=== PATIENT | male | born 1960 | race Caucasian/White ===

== ENCOUNTER 2019-11-12 06:42 | Outpatient (RCR) | payer OTHER, SELFPAY ==
[2019-11-12 07:19] LABS: Basophils Absolute Auto 0.1 K/mm3 (0.0-0.1); Basophils Percent Auto 0.7 % (0.2-1.2); Eosinophils Absolute Auto 0.3 K/mm3 (0-0.3); Eosinophils Percent Auto 2.7 % (0-4.4); Hematocrit 22.4 % (42.0-52.0); Immature Granulocyte Absolute 0.19 K/mm3 (0.00-0.031); Immature Granulocyte Percent A 1.9 % (0-0.5); Lymphocytes Absolute Auto 1.01 K/mm3 (0.9-3.2); Lymphocytes Percent Auto 9.9 % (18.3-44.2); Mean Corpuscular HGB Conc 31.3 g/dl (32-36); Mean Corpuscular Hemoglobin 28.1 pg (26-34); Mean Platelet Volume 10.1 fl (7.4-10.4); Monocytes Absolute Auto 1.2 K/mm3 (0.1-0.6); Monocytes Percent Auto 11.6 % (2.6-8.5); Neutrophils Absolute Auto 7.5 K/mm3 (1.3-6.7); Neutrophils Percent Auto 73.2 % (45.5-73.1); Nucleated Red Blood Cells Perc 0.3 % (0.0-0.2); Platelet Count Result 307 k/mm3 (150-375); Red Blood Count 2.49 M/mm3 (4.6-6.20); White Blood Count 10.2 K/mm3 (4.5-10.0)
[2019-11-12 09:00] VITALS: BP 143/71; PULSE 88; RESP 16; TEMP 37.2; O2SAT 100
[2019-11-12] MEDS: SODIUM CHLORIDE 0.9% IV 250 ML 30 ML IV CONT (09:00)
[2019-11-12 09:15] VITALS: BP 139/65; PULSE 84; RESP 16; TEMP 37; O2SAT 100
[2019-11-12 10:15] VITALS: BP 133/68; PULSE 86; RESP 16; TEMP 37.1; O2SAT 100
[2019-11-12 11:00] VITALS: BP 135/63; PULSE 87; RESP 16; TEMP 36.9; O2SAT 100
== END 2020-02-10 23:59 | disposition home or self-care (01) ==
LOC: ANHCPCTRAN 06:42
PROVIDERS: PCP Internal Medicine; Visit Provider Internal Medicine Nephrology
DX: E11.22 Type 2 diabetes mellitus with diabetic chronic kidney disease (principal); N18.5 Chronic kidney disease, stage 5; D63.1 Anemia in chronic kidney disease; D53.1 Other megaloblastic anemias, not elsewhere classified
CPT/HCPCS: 36415; 36430; 85025; 86850; 86900; 86901; 86923; J7050; P9016

== ENCOUNTER 2020-07-17 16:54 | Emergency (ER) | payer OTHER, SELFPAY ==
[2020-07-17] VITALS (7 sets, daily range): BP systolic 159–164; BP diastolic 70–73; PULSE 87–97; RESP 16–32; TEMP 36.7; O2SAT 98–100
--- NOTE | ~2020-07-17 | CT_ITS ---
EXAMINATION: CT brain wo con INDICATION: Weakness and fatigue, body aches COMPARISON: None TECHNIQUE: Standard unenhanced head CT. The dose-length product (DLP) was 605.33 mGy-cm. The mA was a djusted according to patient size. Iterative reconstruction technique was employed. FINDINGS: There is no intracranial hemorrhage, acute infarction, or abnormal mass lesion. The ventric les are normal. There is no abnormal mass effect or midline shift. The cadet-white matter differentiat ion is normal. The basal cisterns are patent. The orbits are normal. The paranasal sinuses, mastoids and calvarium are normal. IMPRESSION: 1. No acute intracranial abnormality. Reviewed, dictated and finalized at location A. LECTURER
--- NOTE | ~2020-07-17 | XR_ITS ---
EXAMINATION: XR chest 1V portable INDICATION: Weakness and cough TECHNIQUE: Portable AP chest at 1749 hours COMPARISON: None available FINDINGS: There are airspace opacities of the mid and lower lung zones. No pleural effusion or pneumo thorax is identified. The cardiomediastinal silhouette is normal. IMPRESSION: 1. Airspace opacities of the mid and lower lung zones, consistent with atelectasis versus pneumonia. Reviewed, dictated and finalized at location A. OGRAPHER IMPRESSION: 1. Airspace opacities of the mid and lower lung zones, consistent with atelecta sis versus pneumonia.
--- NOTE | 2020-07-17 17:24 | ED.GENADULT ---
HPI - General Adult General Chief complaint: Recheck/Abnormal Lab/Rx Stated complaint: missed dialysis Time Seen by Provider: 07/17/20 17:10 Source: patient History of Present Illness HPI narrative: Patient is a 60 y/o male complaining of moderate to severe generalized weakness for last 2 days. There is no alleviating or exacerbating factor. He is able to walk. He has some no fever, SOB or chest pain. He has some cough, which attributed to chronic sinus problem. He also feels some numbness on his head. He has no focal weakness or numbness. He does home dialysis 5 times weekly for ESRD. He states that he did not do dialysis today because he was not feeling well. Related Data Home Medications Medication Instructions Recorded Confirmed diltiazem HCl 120 mg 120 mg PO DAILY 07/01/19 capsule,extended release 24 hr ergocalciferol (vitamin D2) 50 mcg 50 mcg PO DAILY 07/01/19 (2,000 unit) capsule fluticasone propionate 50 2 spray NASAL DAILY 07/01/19 mcg/actuation nasal spray,suspension metoprolol succinate 200 mg 200 mg PO DAILY 08/11/19 tablet,extended release 24 hr furosemide 20 mg tablet 40 mg PO DAILY tablet 11/11/19 atorvastatin 07/17/20 Allergies Allergy/AdvReac Type Severity Reaction Status Date / Time No Known Allergies Allergy Verified 07/17/20 17:21 Review of Systems Constitutional: Constitutional: Denies chills, Denies fever(s), Denies headache(s) and Reports weakness Eyes: Eyes: Denies blurry vision ENT: Denies headache(s) and Denies neck pain Cardiovascular: Cardiovascular: Denies chest pain and Denies dyspnea Respiratory: Respiratory: Denies cough and Denies dyspnea Gastrointestinal: Gastrointestinal: Denies abdominal pain, Denies diarrhea, Denies nausea and Denies vomiting Genitourinary: Genitourinary: Denies hematuria and Denies dysuria Musculoskeletal: Musculoskeletal: Denies back pain and Denies neck pain Neurologic: Denies headache(s), Reports numbness and Reports weakness PMFSH Family History Family History Father Hypertension Social History Social History Gender identity (if verbalized by the patient): Male Exam Const: General: no acute distress and well developed Orientation/consciousness: oriented to person, oriented to place, oriented to time and patient oriented x3 HENMT: Head: normocephalic Ears: external ears normal General nose exam: Normal external nose present Eyes: General: appearance normal, both eyes and all related structures Conjunctivae: conjunctivae normal Neck: Neck: normal visual inspection and full ROM Chest: Chest palpation & inspection: normal inspection of the chest and no tenderness Resp: Effort & Inspection: normal respiratory effort Auscultation: clear to auscultation bilaterally Cardio: Rate: regular rate Rhythm: regular rhythm GI: GI Palp: No abdominal tenderness and Yes Soft to palpation Skin: General skin exam: normal color and turgor normal Neuro: General: oriented to person, oriented to place, oriented to time and patient oriented x3 Cranial nerves: Yes CN's II-XII intact bilaterally Cognition (Neuro): normal cognition Speech: normal speech Motor exam (neuro): 5/5 motor strength present throughout Sensory Exam: normal sensation Coordination: [id number] test normal and [id number] test normal Extrem: General: normal to inspection, full ROM and no pedal edema Psych: Appearance: grossly normal Mental Status: mental status grossly normal Affect: normal affect Course Reevaluation(s) Reevaluation #1: Discussed with Dr. Brothers (nephrology), who recommend discharge and have patient do dialysis at home as soon as possible. This recommendation was relayed to the patient. Date: 07/17/20 Time: 19:02 Vital Signs Vital signs: Vital Signs Temperature 36.7 C 07/17/20 17:03 Pulse Rate 88 07/17/20 17:03 Resp
--- NOTE | 2020-07-17 17:26 | ECG_ITS ---
Measurements Intervals [place] Rate: 89 P: 73 UT: 133 QRS: 39 QRSD: 92 T: 64 QT: 338 QTc: 412 Interpretive Statements SINUS RHYTHM CANNOT RULE OUT SEPTAL INFARCT, AGE INDETERMINATE PEAKED T WAVES- CONSIDER HYPERKALEMIA OR ISCHEMIA BASELINE ARTIFACT- I, II, AVR, AVL, V2 ABNORMAL ECG Electronically Signed On 07-18-2020 13:47:25 LOOP TENDER by John Art D.O.
[2020-07-17 17:49] LABS: Basophils Absolute Auto 0.1 K/mm3 (0.0-0.1); Basophils Percent Auto 0.5 % (0.2-1.2); Eosinophils Absolute Auto 0.2 K/mm3 (0-0.3); Hematocrit 31.5 % (42.0-52.0); Hemoglobin 10.5 g/dL (14.0-18.0); Immature Granulocyte Absolute 0.06 K/mm3 (0.00-0.031); Immature Granulocyte Percent A 0.6 % (0-0.5); Lymphocytes Absolute Auto 1.17 K/mm3 (0.9-3.2); Lymphocytes Percent Auto 10.9 % (18.3-44.2); Mean Corpuscular HGB Conc 33.3 g/dl (32-36); Mean Corpuscular Hemoglobin 34.5 pg (26-34); Mean Corpuscular Volume 103.6 fl (80-100); Mean Platelet Volume 10.5 fl (7.4-10.4); Monocytes Absolute Auto 0.9 K/mm3 (0.1-0.6); Monocytes Percent Auto 8.7 % (2.6-8.5); Neutrophils Absolute Auto 8.3 K/mm3 (1.3-6.7); Neutrophils Percent Auto 77.3 % (45.5-73.1); Platelet Count Result 173 k/mm3 (150-375); Red Blood Count 3.04 M/mm3 (4.6-6.20); Red Cell Distribution Width 13.8 % (11.5-14.5); White Blood Count 10.8 K/mm3 (4.5-10.0)
[2020-07-17 18:05] LABS: Anion Gap 17 mmol/L (8-16); Blood Urea Nitrogen 111 mg/dL (9-20); Calcium 8.9 mg/dL (8.4-10.2); Carbon Dioxide 20 mmol/L (22-30); Chloride 100 mmol/L (98-107); Estimated CRCL calculation 6 ml/min; Estimated Glomerular Filt Rate 4; Glucose 87 mg/dL (75-110); Potassium 6.2 mmol/L (3.4-5.0); Sodium 137 mmol/L (137-145)
[2020-07-17] MEDS: DEXTROSE 50% 25 GM/50 ML SYRINGE IV PUSH (19:45)
[2020-07-17] MEDS: SODIUM POLYSTYRENE SULFONONATE 15 GM/60 ML BTL 30 GM PO (19:47)
[2020-07-17] MEDS: SODIUM BICARBONATE 8.4% 50 MEQ/50 ML VIAL IV PUSH (19:47)
[2020-07-17] MEDS: CALCIUM GLUCONATE 1,000 MG/10 ML VIAL 1000 MG IV PUSH (19:47)
[2020-07-17] MEDS: INSULIN HUMAN REGULAR (*BKC) 100 UNITS/ML 10 UNITS IV PUSH (19:48)
== END 2020-07-17 22:00 | disposition home or self-care (01) ==
PROVIDERS: Emergency Provider Emergency Medicine; PCP Internal Medicine
DX: R53.1 Weakness (principal); E87.5 Hyperkalemia; N18.6 End stage renal disease; Z99.2 Dependence on renal dialysis
CPT/HCPCS: 36415; 70450; 71045; 80048; 84132; 85025; 93005; 96374; 96375; 99284; A9270; J0610; J1815

== ENCOUNTER 2021-04-02 17:20 | Outpatient (NON) | payer OTHER, SELFPAY ==
[2021-04-02 17:38] LABS: Hematocrit 24.2 % (42.0-52.0); Hemoglobin 7.7 g/dL (14.0-18.0); Mean Corpuscular HGB Conc 31.8 g/dl (32-36); Mean Corpuscular Hemoglobin 32.8 pg (26-34); Mean Platelet Volume 9.9 fl (7.4-10.4); Platelet Count Result 279 k/mm3 (150-375); Red Blood Count 2.35 M/mm3 (4.6-6.20); Red Cell Distribution Width 14.8 % (11.5-14.5); White Blood Count 10.5 K/mm3 (4.5-10.0)
== END 2021-04-02 17:21 | disposition home or self-care (01) ==
LOC: HOME HLTH 17:23
PROVIDERS: PCP Internal Medicine; Visit Provider Internal Medicine Nephrology
DX: Z99.2 Dependence on renal dialysis (principal); Z51.81 Encounter for therapeutic drug level monitoring; Z79.899 Other long term (current) drug therapy
CPT/HCPCS: 85027

== ENCOUNTER 2021-04-03 15:31 | Outpatient (CLI) | payer OTHER, SELFPAY ==
--- NOTE | ~2021-04-03 | XR_ITS ---
XR chest 2V DATE: 04/03/2021 15:56 INDICATION: Cough for 2 months TECHNIQUE: PA and lateral views COMPARISON: 07/17/2020 portable AP chest FINDINGS: Heart size is at upper limits normal. There is aortic arch calcification. There is some widening of the superior mediastinum without tracheal deviation, likely due to adipose tissue tortuous great vessels. This can be confirmed by CT thorax examination. Additionally, there is a convex 1.8 cm opacity overlying the posterior lower chest on the lateral view; possibly a prominen t T11 vertebral body spur; this would be more definitively evaluated by CT thorax is well. No pulmonary infiltrate or consolidation, pleural effusion or pulmonary vascular congestion or pneum othorax is detected. There is aortic arch calcification. IMPRESSION: Probable fatty change and tortuous great vessels of the superior mediastinum and probable right T11 b mariella spur; CT thorax would be helpful as clinically appropriate to confirm such impression and to excl ude any pulmonary mass lesion or hilar mass lesion or adenopathy, unless prior PA and lateral chest r adiographs are available for comparison dating back 2 or more years. Reviewed, dictated and finalized at location A. IMPRESSION: Probable fatty change and tortuous great vessels of the superior mediastinum an d probable right T11 bony spur; CT thorax would be helpful as clinically approp riate to confirm such impression and to exclude any pulmonary mass lesion or hi lar mass lesion or adenopathy, unless prior PA and lateral chest radiographs ar e available for comparison dating back 2 or more years.
== END 2021-04-03 15:32 | disposition home or self-care (01) ==
LOC: ANHIMG 15:37
PROVIDERS: PCP Internal Medicine; Visit Provider Internal Medicine
DX: R05 Cough (principal)
CPT/HCPCS: 71046

== ENCOUNTER 2021-04-13 08:00 | Outpatient (CLI) | payer OTHER, SELFPAY ==
--- NOTE | 2021-04-13 13:56 | WPDPFTINT ---
PFT Procedure Performed PFT Procedure Performed Plethysmography (Lung Vol) Diffusing Cap (DLCO) Flow Vol Loop Spirometry w/o Bronchodil PFT Interpretation This is a pulmonary function test with spirometry, plethysmography and diffusing capacity. The test was performed and results interpreted in accordance with the 2019 and 2005 ATS/ERS Task Force guidelines respectively using the Global Lung Function Initiative-2012 reference equations. Patient demonstrated good effort and cooperation. Reproducibility criteria were met. The quality of the spirometry maneuver was Grade A. Findings: Spirometry: the contour of the inspiratory and expiratory flow tracing are normal. The FVC is 3.303 L, 87% predicted. The FEV1 is 2.28 L, 84% predicted. The FEV1: FVC ratio 75%. Plethysmography: The total lung capacity is 4.78 L, 87% predicted. The functional residual capacity is 2.35 L, 75% predicted. The residual volume is 1.75 L, 81% predicted. Diffusing capacity: The absolute diffusion capacity is 14.5, 64% predicted. The diffusing capacity corrected for alveolar volume is 3.08, 72% predicted. Impression: The spirometry is normal without evidence of an obstructive abnormality. The lung volumes are normal. The diffusing capacity is normal. The absolute diffusing capacity is mildly decreased and normalizes when corrected for alveolar volume. There are no prior studies for comparison
== END 2021-04-13 08:01 | disposition home or self-care (01) ==
PROVIDERS: PCP Internal Medicine; Visit Provider Internal Medicine
DX: R05 Cough (principal)
CPT/HCPCS: 94375; 94726; 94729

== ENCOUNTER 2021-06-09 15:57 | Observation (INO) | payer OTHER, SELFPAY ==
[2021-06-09] VITALS (18 sets, daily range): BP systolic 92–133; BP diastolic 48–87; PULSE 51–74; RESP 13–18; TEMP 36.1–37.1; O2SAT 97–100; BMI 36.6
--- NOTE | ~2021-06-09 | XR_ITS ---
EXAMINATION: XR chest 2V EXAM DATE: 06/09/2021 17:11 INDICATION: Low blood pressure, weakness, dizziness. Hematochezia. Dialysis. TECHNIQUE: Frontal and lateral projections of the chest obtained and reviewed. Comparison is made to prior examination from 04/03/2021. FINDINGS: The lungs are clear. There are no pleural effusions. The cardiomediastinal silhouette is within normal limits. There is no pneumothorax suspected. The bones and soft tissues are unremarkab le. There is aortic arteriosclerosis. IMPRESSION: No acute cardiopulmonary findings. Reviewed, dictated and finalized at location A. N YARN DYER HELPER
--- NOTE | 2021-06-09 16:05 | ECG_ITS ---
Measurements Intervals [place] Rate: 54 P: 22 UT: 164 QRS: 22 QRSD: 101 T: 40 QT: 475 QTc: 451 Interpretive Statements SINUS BRADYCARDIA BORDERLINE ECG Electronically Signed On 06-09-2021 19:56:53 DISCOUNT CLERK by John Art D.O.
[2021-06-09 16:56] LABS: Basophils Absolute Auto 0.1 K/mm3 (0.0-0.1); Basophils Percent Auto 0.8 % (0.2-1.2); Eosinophils Absolute Auto 0.1 K/mm3 (0-0.3); Eosinophils Percent Auto 1.4 % (0-4.4); Immature Granulocyte Absolute 0.04 K/mm3 (0.00-0.031); Immature Granulocyte Percent A 0.5 % (0-0.5); Lymphocytes Absolute Auto 1.17 K/mm3 (0.9-3.2); Lymphocytes Percent Auto 15.2 % (18.3-44.2); Mean Corpuscular HGB Conc 33.2 g/dl (32-36); Mean Corpuscular Hemoglobin 33.3 pg (26-34); Mean Corpuscular Volume 100.5 fl (80-100); Mean Platelet Volume 10.2 fl (7.4-10.4); Monocytes Absolute Auto 0.8 K/mm3 (0.1-0.6); Monocytes Percent Auto 10.2 % (2.6-8.5); Neutrophils Absolute Auto 5.6 K/mm3 (1.3-6.7); Neutrophils Percent Auto 71.9 % (45.5-73.1); Platelet Count Result 227 k/mm3 (150-375); Red Blood Count 1.95 M/mm3 (4.6-6.20); Red Cell Distribution Width 15.5 % (11.5-14.5); White Blood Count 7.7 K/mm3 (4.5-10.0)
[2021-06-09 17:08] LABS: INR 1.7; Prothrombin Time 19.7 Seconds (11.1-14.7)
[2021-06-09 17:19] LABS: Alanine Aminotransferase 17 U/L (4-50); Albumin Level 3.4 g/dL (3.5-5.1); Alkaline Phosphatase 60 U/L (38-126); Anion Gap 22 mmol/L (8-16); Aspartate Amino Transferase 21 U/L (17-59); Bilirubin,Total 0.3 mg/dL (0.2-1.3); Calcium 8.5 mg/dL (8.4-10.2); Carbon Dioxide 17 mmol/L (22-30); Chloride 89 mmol/L (98-107); Glucose 115 mg/dL (65-110); Potassium 5.4 mmol/L (3.4-5.0); Sodium 128 mmol/L (137-145)
[2021-06-09 17:26] LABS: Hematocrit 19.6 % (42.0-52.0); Hemoglobin 6.5 g/dL (14.0-18.0)
[2021-06-09 17:32] LABS: Blood Urea Nitrogen 133 mg/dL (9-20); Estimated CRCL calculation 5 ml/min; Estimated Glomerular Filt Rate 3
[2021-06-09] MEDS: ALBUTEROL SULFATE NEB 2.5 MG/0.5 ML INH 5 MG INHALATION (17:39)
--- NOTE | 2021-06-09 17:40 | ED.WEAKNESS ---
HPI - Weakness General Chief complaint: Weakness Stated complaint: low bp, dialysis Time Seen by Provider: 06/09/21 16:52 Source: patient Mode of arrival: wheelchair Limitations: no limitations History of Present Illness HPI Narrative: 61 year old male ESRD, does hemodialysis at home unable to perform dialysis since Friday due to weakness and light-headedness, also has had to go to the bathroom during dialysis, so has been unable to finish dialysis. Patient has a history of internal and external hemorrhoids and has been having multiple episodes of bright red blood per rectum for the past week. Patient states she has had multiple colonoscopies and this comes and goes. No melena, no hematochezia, no hematemesis. Patient states he called his dialysis nurse who told him to come to the ER. No focal weakness, no fever, no vomiting, no abdominal pain. No syncope, no falls. Related Data Home Medications Medication Instructions Recorded Confirmed diltiazem HCl 120 mg 120 mg PO DAILY 07/01/19 02/26/21 capsule,extended release 24 hr ergocalciferol (vitamin D2) 50 mcg 50 mcg PO DAILY 07/01/19 02/26/21 (2,000 unit) capsule fluticasone propionate 50 2 spray NASAL DAILY 07/01/19 02/26/21 mcg/actuation nasal spray,suspension furosemide 20 mg tablet 40 mg PO DAILY tablet 11/11/19 02/26/21 atorvastatin 07/17/20 02/26/21 Allergies Allergy/AdvReac Type Severity Reaction Status Date / Time No Known Allergies Allergy Verified 02/26/21 14:05 Review of Systems Review of Systems: CONSTITUTIONAL: no fever, no weight loss, no confusion EYES: no vision changes, no eye pain ENT: no rhinorrhea, positive sore mouth, recent history of thrush, no difficulty swallowing CARDIOVASCULAR: no chest pain, no leg edema, positive palpitations RESPIRATORY: no cough, no shortness of breath, no hemoptysis GASTROINTESTINAL: no abdominal pain, no nausea, no vomiting, no diarrhea, multiple episodes of BRBPR GENITOURINARY: no flank pain, no dysuria, no hematuria SKIN: no rash, no jaundice MUSCULOSKELETAL: no back pain, no trauma. NEUROLOGIC: No headache, positive for lightheadedness and generalized weakness, no focal weakness PSYCHIATRIC: No hallucinations, no suicidal ideation [facility] Surgical History Surgical History History of cardiac cath Family History Family History Father Hypertension Social History Social History Gender identity (if verbalized by the patient): Male Exam Narrative: General: alert, afebrile, answering all questions appropriately Head: normocephalic, atraumatic Eyes: EOMI bilaterally, anicteric, pale conjunctiva ENT: dry mucous membranes, oropharynx patent, no rhinorrhea, no thrush Neck: supple, trachea midline, positive JVD Chest: equal chest rise bilaterally, no chest wall trauma noted Lungs: clear to auscultation bilaterally, respirations unlabored CV: bradycardia, regular, 2+ KUSHAL B, calf size equal bilaterally Abd: soft, non-distended, non-tender, no rebound, no gaurding; thrombosed ext hemrorhoid, no active bleeding EXT: no deformity noted, moving all extremities equally Skin: warm, dry, pale Neuro: alert, oriented x 3; CN 2-12 grossly intact, no dysarthria Psych: affect appropriate, though content normal Course Course Emergency Course: 61-year-old male with history of type 2 diabetes, hypertension, end-stage renal disease with home hemodialysis daily unable to perform dialysis over the past day due to dizziness and has not had full dialysis since 3 days ago. Arrives planing of lightheadedness weakness and multiple episodes of bright red blood per rectum with a known history of external and internal hemorrhoids. No fever, no abdominal pain, no vomiting, no hematemesis, no chest pain or shortness of breath. Patient called his renal nurse who to
[2021-06-09] MEDS: SODIUM CHLORIDE 0.9% IV 500 ML 999 ML IV CONT (19:31)
[2021-06-09] MEDS: SODIUM CHLORIDE 0.9% IV 250 ML 30 ML IV CONT (19:32)
[2021-06-09] MEDS: TUBING, BLOOD PLUM PUMP TUBING 1 EACH XX (19:33)
--- NOTE | 2021-06-09 20:54 | PC.NURSE ---
This patient, Orestes Blank, was admitted to IMU Room 211-01. Patient/family oriented to hospital policies and general routines including ID bracelet, bed and alarms, visiting hours, pain management, procedures, bathroom and other care routines, personal items, smoking policy, room service/diet, and visiting hours. Information on how to activate the Rapid Response Team has been discussed. Patient/Family are encouraged to report perceived risks to care and to ask questions if they do not understand what they are told or what they should do.
--- NOTE | 2021-06-09 23:32 | PCRCNOTE ---
Pt has a BiPAP at home. He states that he usually starts out the night wearing it but takes it off without realizing. He would prefer not to use one of our machines while he is here. He states that, if he stays here more than a night or two, he might change his mind. Additionally, pt was listed as a light tobacco smoker. However, he states that he quit smoking in the mid-90s.)
--- NOTE | 2021-06-09 23:49 | PM.IMHP ---
H&P: HPI History of Present Illness Date/Time: 06/09/21 23:49 this is a 61-year-old male patient who resides with his . He has end-stage renal disease and does hemo dialysis from home 5 days a week. The patient had his last dialysis on Friday but was not able to do any further dialysis due to his lightheadedness. The patient stated that every time he would try to cutting supervisor to the machine he would have 4-5 loose bloody stools. The patient does have a history of atrial fibrillation and has been on Eliquis. The patient stated that he is new to Eliquis this year due to AFib. The patient stated that he could not stay hooked up to dialysis and be running to the bathroom. He does have history of having internal in external hemorrhoids. Patient has had multiple EGDs and colonoscopies. He stated that his GI specialist his elsewhere. He stated that his GI specialist took some biopsies in the past and put him on 4 different antibiotics which he was not able to tolerate. Patient's H&H is found to be 6.5 and 19.6. Patient has blood infusing at this time. Dr. Brothers is his principal embedded software engineer. His sodium was 128. Potassium 5.4. Chloride 89. BUN 133 and creatinine 16.5 with a GFR of 3. Patient was given him 0.5 L fluids in the emergency room and albuterol treatment for the elevated potassium. Nephrology has been consulted. The patient is being admitted to inpatient services on the date of service of 06/09/2021. Chief Complaint: Weakness bloody stools Review of Systems Review of Systems: All systems reviewed & are unremarkable except as noted in HPI and below Constitutional: Constitutional: Reports as per HPI and Reports no additional constitutional complaints Eyes: Eyes: Reports as per HPI and Reports no additional eye complaints ENT: Reports system reviewed and no additional complaints, except as documented and Reports Normal hearing present Cardiovascular: Cardiovascular: Reports no additional cardiovascular complaints Respiratory: Respiratory: Reports no additional respiratory complaints and Reports no additional respiratory complaints Gastrointestinal: Gastrointestinal: Reports as per HPI and Reports no additional gastrointestinal complaints Musculoskeletal: Musculoskeletal: Reports no additional musculoskeletal complaints Integumentary/Breasts: Skin/Breast: Reports system reviewed and no additional complaints, except as docu and Reports as per HPI Neurologic: Reports system reviewed and no additional complaints, except as documented, Reports as per HPI and Reports Normal hearing present Psychiatric: Psychiatric: Reports no additional psychiatric complaints and Reports as per HPI Endocrine: Endocrine: Reports no additional endocrine complaints Hematologic/Lymphatic: Hematologic/Lymphatic: Reports no additional hematologic/lymphatic complaints Allergic/Immunologic: Allergic/Immunologic: Reports no additional allergic/immunologic complaints [facility] Past Medical History Medical History (Updated 06/10/21 @ 00:16 by Lucia Fajardo NP) Atrial fibrillation CKD stage 5 due to type 2 diabetes mellitus Hemorrhoids Hypertension Surgical History Surgical History (Updated 06/09/21 @ 23:58 by Lucia Fajardo NP) History of cardiac cath Minimal blockages and no stents. History of colonoscopy History of esophagogastroduodenoscopy (EGD) S/P tonsillectomy and adenoidectomy Family History Family History Father Hypertension Heart disease Diabetes mellitus Cancer Mother Cancer Social History Social History (Updated 06/10/21 @ 00:02 by Lucia Fajardo NP) Social History: In lives with his . He has 3 children. 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 He denies any alcohol marijuana illicit drugs. He said when he was younger he experimented with drugs. His is the durable power county attorney for healthcare. Code status full code Smoking packs per day: 5 Smoking ciga
[2021-06-10] VITALS (27 sets, daily range): BP systolic 108–140; BP diastolic 48–73; PULSE 70–87; RESP 16–20; TEMP 35.9–37.1; O2SAT 93–100
[2021-06-10] MEDS: TUBING, BLOOD PLUM PUMP TUBING 1 EACH XX (00:52)
[2021-06-10 01:29] LABS: Hematocrit 22.7 % (42.0-52.0); Hemoglobin 7.6 g/dL (14.0-18.0)
[2021-06-10 01:31] LABS: Anion Gap 22 mmol/L (8-16); Calcium 8.4 mg/dL (8.4-10.2); Carbon Dioxide 16 mmol/L (22-30); Chloride 92 mmol/L (98-107); Glucose 143 mg/dL (65-110); Potassium 5.2 mmol/L (3.4-5.0); Sodium 130 mmol/L (137-145)
[2021-06-10 01:34] LABS: Hemoglobin A1C 5.2 % (<5.7)
[2021-06-10 01:38] LABS: Estimated CRCL calculation 5 ml/min; Estimated Glomerular Filt Rate 3
[2021-06-10 02:04] LABS: Blood Urea Nitrogen 141 mg/dL (9-20)
[2021-06-10 05:09] LABS: Hematocrit 23.3 % (42.0-52.0); Hemoglobin 7.9 g/dL (14.0-18.0)
[2021-06-10 05:35] LABS: Alanine Aminotransferase 16 U/L (4-50); Albumin Level 3.2 g/dL (3.5-5.1); Alkaline Phosphatase 56 U/L (38-126); Anion Gap 24 mmol/L (8-16); Aspartate Amino Transferase 17 U/L (17-59); Bilirubin,Total 0.4 mg/dL (0.2-1.3); Calcium 8.4 mg/dL (8.4-10.2); Carbon Dioxide 16 mmol/L (22-30); Chloride 94 mmol/L (98-107); Glucose 120 mg/dL (65-110); Potassium 5.3 mmol/L (3.4-5.0); Sodium 134 mmol/L (137-145)
[2021-06-10 05:38] LABS: Estimated CRCL calculation 5 ml/min; Estimated Glomerular Filt Rate 3
[2021-06-10 05:51] LABS: Blood Urea Nitrogen 146 mg/dL (9-20)
[2021-06-10 06:11] LABS: Hepatitis B Surface Antigen Negative (Negative)
--- NOTE | 2021-06-10 07:03 | PC.NURSE ---
Spoke with Dea at [facility] to inform her of dialysis orders for today. She states, we will dialyze him tomorrow since he isn't acute. I informed her that orders are for dialysis today. She stated that Dr. Acosta will need to page her with orders if he wants it done today. I called Dr. Acosta and left him a message on his cell phone of the above.
--- NOTE | 2021-06-10 07:20 | PC.NURSE ---
Dr Acosta returned my call. He states he will contact [facility].
[2021-06-10 07:33] LABS: HAV RESULT Negative (Negative); Hepatitis B Core IgM Result Negative (Negative); Hepatitis B Surface Anti Res Positive; Hepatitis C Virus Antibody Negative (Negative)
[2021-06-10 08:56] LABS: Glucose Point of Care 103 mg/dl (65-105)
[2021-06-10] MEDS: SODIUM CHLORIDE 0.9% IV 1,000 ML 100 ML IV CONT (09:20)
--- NOTE | 2021-06-10 09:31 | WPDGICN ---
Assessment and Plan Assessment and plan (1) GI bleed: Code(s): K92.2 - Gastrointestinal hemorrhage, unspecified Status: Acute Assessment and Plan: Patient with bright red blood per rectum that appears ongoing since started on anticoagulation. Now with profound anemia worse than his baseline anemia suggestive of GI bleeding. Plan is for colonoscopy. If indeed this is from hemorrhoids then surgical referral for hemorrhoidectomy may be required to ensure safety of anticoagulation. Colonoscopy will be performed tomorrow. (2) Anemia in ESRD (end-stage renal disease): Code(s): N18.6 - End stage renal disease; D63.1 - Anemia in chronic kidney disease Status: Acute Assessment and Plan: Patient has baseline anemia related end-stage renal disease and dialysis. With workup for anemia has been performed by his established vessel ordinary seaman with no significant findings. However now with bleeding we will planned to repeat colonoscopy. (3) Atrial fibrillation: Qualifiers: Atrial fibrillation type: paroxysmal Qualified Code(s): I48.0 - Paroxysmal atrial fibrillation Code(s): I48.91 - Unspecified atrial fibrillation Status: Chronic Assessment and Plan: Patient with underlying atrial fibrillation and has started on Eliquis earlier this year which undoubtedly contributes to his rectal bleeding and worsening of his baseline anemia. Eliquis will need to be held until we are certain is safe to resume. GI Consult Note Consult date/time: 06/10/21 09:31 HPI: Orestes Blank is a 61 year old male I am asked to see for rectal bleeding and profound anemia. Patient has a history of renal failure requiring dialysis. He reports that over the last 1 year was placed on Eliquis because of atrial fibrillation. He has intermittent severe bright red blood per rectum with frequent large bloody stools. He attributes this to hemorrhoids. GI evaluation has been in process under the direction of Dr. Fitzgerald. Patient reports colonoscopy an EGD performed 1 year ago were unremarkable. Review of Systems Review of Systems: All systems reviewed & are unremarkable except as noted in HPI and below PMFSH Past Medical History Medical History (Updated 06/10/21 @ 00:16 by Lucia Fajardo NP) Atrial fibrillation CKD stage 5 due to type 2 diabetes mellitus Hemorrhoids Hypertension Surgical History Surgical History (Updated 06/09/21 @ 23:58 by Lucia Fajardo NP) History of cardiac cath Minimal blockages and no stents. History of colonoscopy History of esophagogastroduodenoscopy (EGD) S/P tonsillectomy and adenoidectomy Family History Family History Father Hypertension Heart disease Diabetes mellitus Cancer Mother Cancer Social History Social History (Updated 06/10/21 @ 00:02 by Lucia Fajardo NP) Social History: In lives with his . He has 3 children. 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 He denies any alcohol marijuana illicit drugs. He said when he was younger he experimented with drugs. His is the durable power defense attorney for healthcare. Code status full code Smoking packs per day: 5 Smoking cigarettes per day: 100.0 Years smoked: 30 Smoking pack-years: 150.00 Smoking status: Light tobacco smoker Tobacco type: cigarettes Alcohol intake: never Substance use: never Gender identity (if verbalized by the patient): Male Spiritual care concerns: No Meds Home Medications and Allergies Home Medications Medication Instructions Recorded Confirmed Type diltiazem HCl 120 mg 240 mg PO DAILY 07/01/19 06/09/21 History capsule,extended release 24 hr ezetimibe 10 mg tablet See Rx Instructions .ROUTE 07/10/20 06/09/21 Rx .COMPLEX #90 tablet atorvastatin 20 mg PO DAILY 07/17/20 06/09/21 History insulin glargine 100 unit/mL (3 See Rx Instructions .ROUTE 01/09/21 06/09/21 Rx mL) subcutaneous
[2021-06-10] MEDS: EPOETIN ALFA-EPBX 10,000 UNITS/ML VIAL 10000 UNITS IV PUSH (12:00)
--- NOTE | 2021-06-10 12:57 | PM.PNNEP ---
Progress Note: A&P Assessment and Plan (1) End stage renal disease: Code(s): N18.6 - End stage renal disease Status: Chronic Assessment and Plan: HD today and likely again tomorrow normally does shorter HD treatments 5x/week at home follow electrolytes, volume status, and clearance FULL CONSULT to follow. Subjective Date/time seen: 06/10/21 12:57 Tolerating dialysis treatment at the time of my visit (seen on HD at ~ 12:45PM); no apparent distress voiced at this time; still has generalized weakness but worse (but not better either); no events/issues overnight or earlier this AM. Exam Narrative: General: WD/WN male in NAD Heart: normal S1 and S2; no rub Lungs: clear to auscultation Abdomen: soft, nontender, nondistended, positive bowel sounds Extremities: no cyanosis or clubbing; no edema Skin: warm and dry Objective Data Vital Signs Vital Signs: Vital Signs Temp Pulse Resp BP Pulse Ox 06/10/21 12:45 83 140/65 06/10/21 12:30 76 138/73 06/10/21 12:15 78 127/69 06/10/21 12:00 79 131/70 06/10/21 11:45 81 140/67 06/10/21 11:30 75 129/72 06/10/21 11:15 76 133/62 06/10/21 11:00 73 116/60 06/10/21 10:45 77 127/59 L 06/10/21 10:30 76 114/60 06/10/21 10:15 78 121/68 06/10/21 10:00 75 125/67 06/10/21 09:52 77 134/68 06/10/21 09:42 36.5 C 80 18 120/63 06/10/21 08:00 36.9 C 83 16 125/58 L 93 06/10/21 06:00 80 06/10/21 04:00 77 99 06/10/21 03:40 36.4 C L 84 16 118/66 99 06/10/21 02:00 86 06/10/21 00:10 36.4 C 70 16 128/65 100 06/10/21 00:00 76 100 06/09/21 23:47 36.4 C 71 16 120/68 98 06/09/21 22:47 37.1 C 70 16 115/68 99 06/09/21 22:31 36.6 C 74 16 122/66 98 06/09/21 22:00 71 06/09/21 21:36 73 133/68 06/09/21 21:20 36.6 C 73 14 133/68 100 06/09/21 21:00 100 06/09/21 20:41 36.6 C 71 14 122/60 100 06/09/21 20:40 36.6 C 74 16 122/66 98 06/09/21 20:35 71 06/09/21 20:10 36.3 C L 69 13 125/63 98 06/09/21 19:40 36.3 C L 71 18 122/59 L 100 06/09/21 19:38 69 13 107/60 100 06/09/21 19:25 36.4 C L 70 16 111/58 L 100 06/09/21 18:19 65 18 126/87 97 06/09/21 17:47 63 18 06/09/21 17:39 64 18 06/09/21 16:02 36.1 C L 51 L 16 92/48 L 100 Intake/Output Intake/Output: Intake & Output 06/07/21 06/08/21 06/09/21 06/10/21 23:59 23:59 23:59 23:59 Intake Total 354 850 Balance 354 850 Meds/Results Medications: Active Medications Generic Name Dose Route Start Last Admin Trade Name Freq PRN Reason Stop Dose Admin Ascorbic Acid 1,000 mg 06/10/21 09:00 Ascorbic Acid 500 Mg Tablet PO QAM [facility] Atorvastatin Calcium 20 mg 06/10/21 09:00 Atorvastatin 20 Mg Tablet PO DAILY [facility] Dextrose 12.5 gm 06/10/21 00:08 Dextrose 50% 25 Gm/50 Ml Syringe IV PUSH PRN PRN Hypoglycemia Protocol Diltiazem HCl 240 mg 06/10/21 09:00 Diltiazem Hcl Cd 120 Mg Cap.Sa.24h PO DAILY [facility] Doxycycline Hyclate 50 mg 06/10/21 09:00 Doxycycline Hyclate 50 Mg Capsule BY MOUTH DAILY [facility] Fish Oil 1 gm 06/10/21 09:00 [place] 3 Polyunsat Fatty Acids 1 Gm Cap PO QAM [facility] Fluconazole 100 mg 06/10/21 09:00 Fluconazole 100 Mg Tablet PO DAILY [facility] Furosemide 80 mg 06/10/21 18:00 Furosemide 80 Mg Tablet PO QPM [facility] Furosemide 160 mg 06/10/21 09:00 Furosemide 80 Mg Tablet PO QAM [facility] Glipizide 2.5 mg 06/10/21 09:00 Glipizide Xl 2.5 Mg Tab.Er.24 BY MOUTH DAILY [facility] Glucagon 1 mg 06/10/21 00:08 Glucagon For Inj 1 Mg Vial IM PRN PRN Hypoglycemia Protocol Glucose 15 gm 06/10/21 00:08 Glucose Oral Gel 15 Gm Of Glucse In 37.5 Gm Tube PO PRN PRN Hypoglycemia Protocol Dextrose 1,000 mls @ 100 mls/hr 06/10/21 00:08 Dextrose 5% 1,000 Ml IVPB P
[2021-06-10 14:23] LABS: Hematocrit 21.8 % (42.0-52.0); Hemoglobin 7.5 g/dL (14.0-18.0)
[2021-06-10 14:47] LABS: Glucose Point of Care 125 mg/dl (65-105)
[2021-06-10] MEDS: glipiZIDE XL 2.5 MG TAB.ER.24 BY MOUTH (15:04)
[2021-06-10] MEDS: SEVELAMER CARBONATE 800 MG TABLET 3200 MG PO ×2 (15:04→17:12)
[2021-06-10] MEDS: ASCORBIC ACID 500 MG TABLET 1000 MG PO (15:04)
[2021-06-10] MEDS: FUROSEMIDE 80 MG TABLET 160 MG PO (15:05)
[2021-06-10] MEDS: OMEGA 3 POLYUNSAT FATTY ACIDS 1 GM CAP PO (15:05)
[2021-06-10] MEDS: FLUCONAZOLE 100 MG TABLET PO (15:05)
[2021-06-10] MEDS: METOPROLOL TARTRATE 25 MG TABLET PO ×2 (15:05→20:00)
[2021-06-10] MEDS: PANTOPRAZOLE 40 MG TABLET PO (15:05)
[2021-06-10] MEDS: ATORVASTATIN 20 MG TABLET PO (15:06)
[2021-06-10] MEDS: DOXYCYCLINE HYCLATE 50 MG CAPSULE BY MOUTH (15:06)
--- NOTE | 2021-06-10 15:49 | PM.IMPN ---
Progress Note: A&P Assessment and Plan (1) GI bleed: Code(s): K92.2 - Gastrointestinal hemorrhage, unspecified Status: Acute Assessment and Plan: The patient stated he has known internal and external hemorrhoids. However the patient was just started on Eliquis the last few months. I will hold his Eliquis for now. pt for colonscopy tomorrow. (2) CKD stage 5 due to type 2 diabetes mellitus: Code(s): E11.22 - Type 2 diabetes mellitus with diabetic chronic kidney disease; N18.5 - Chronic kidney disease, stage 5 Status: Chronic Assessment and Plan: The patient does hemodialysis at home. wants to get home tomorrow (3) Atrial fibrillation: Qualifiers: Atrial fibrillation type: paroxysmal Qualified Code(s): I48.0 - Paroxysmal atrial fibrillation Code(s): I48.91 - Unspecified atrial fibrillation Status: Chronic Assessment and Plan: His Eliquis is on hold. He takes diltiazem at home. (4) Anemia in ESRD (end-stage renal disease): Code(s): N18.6 - End stage renal disease; D63.1 - Anemia in chronic kidney disease Status: Acute Assessment and Plan: Patient is requiring a blood transfusion at this time. He has chronic anemia of chronic disease. (5) Hypertriglyceridemia: Code(s): E78.1 - Pure hyperglyceridemia Status: Chronic Assessment and Plan: Continue with atorvastatin (6) Hyperkalemia, diminished renal excretion: Code(s): E87.5 - Hyperkalemia Status: Acute Assessment and Plan: The patient was given nebulizer treatment. Recheck potassium again tonight. (7) Type 2 diabetes with nephropathy: Code(s): E11.21 - Type 2 diabetes mellitus with diabetic nephropathy Status: Acute Assessment and Plan: Accu-Chek AC and HS. Sliding scale insulin. Check A1c. Continue with glipizide and glargine (8) Hypertension: Code(s): I10 - Essential (primary) hypertension Status: Chronic Assessment and Plan: Continue with metoprolol Subjective Date/time seen: 06/10/21 15:49 Interval history: 61-year-old male patient who resides with his . He has end-stage renal disease and does hemo dialysis from home 5 days a week. pt admitted for gi bleed, ckd, dm, af, esrd, htn and hyperkalemia. Pt went for dialysis today. Pt going to have colonoscopy tomorrow Review of Systems Review of Systems: All systems reviewed & are unremarkable except as noted in HPI and below Exam Const: General: cooperative and healthy appearing; No in distress Nutritional Appearance: overweight Orientation/consciousness: oriented to person HENMT: Head: normal to inspection Resp: Effort & Inspection: no respiratory distress Auscultation: no rhonchi and no wheezes Cardio: Rate: regular rate Rhythm: regular rhythm GI: Inspection: normal to inspection GI Palp: No abdominal tenderness, No Guarding due to palpation present (GI) and No Hepatomegaly present Auscultation: normal bowel sounds Neuro: General: oriented to person Objective Data Vital Signs Vital Signs: Vital Signs - 24 hr 06/09/21 16:02 06/09/21 17:39 06/09/21 17:47 Temperature 36.1 C L Pulse Rate 51 L 64 63 Respiratory Rate 16 18 18 Blood Pressure 92/48 L Pulse Oximetry 100 06/09/21 18:19 06/09/21 19:25 06/09/21 19:38 Temperature 36.4 C L Pulse Rate 65 70 69 Respiratory Rate 18 16 13 Blood Pressure 126/87 111/58 L 107/60 Pulse Oximetry 97 100 100 06/09/21 19:40 06/09/21 20:10 06/09/21 20:35 Temperature 36.3 C L 36.3 C L Pulse Rate 71 69 71 Respiratory Rate 18 13 Blood Pressure 122/59 L 125/63 Pulse Oximetry 100 98 06/09/21 20:40 06/09/21 20:41 06/09/21 21:00 Temperature 36.6 C 36.6 C Pulse Rate 74 71 Respiratory Rate 16 14 Blood Pressure 122/66 122/60 Pulse Oximetry 98 100 100 06/09/21 21:20 06/09/21 21:36 06/09/21 22:00 Temperature 36.6 C Pulse Rate 73 73 71 Respiratory Rate 14
[2021-06-10] MEDS: PEG (High)/E-LYTE SOLN 4,000 ML BTL 3000 ML PO (17:11)
[2021-06-10] MEDS: FUROSEMIDE 80 MG TABLET PO (17:12)
[2021-06-10] MEDS: INSULIN ASPART (*BKC) 100 UNITS/ML SUB-Q (17:16)
[2021-06-10 17:35] LABS: Glucose Point of Care 207 mg/dl (65-105)
[2021-06-10 18:04] LABS: Hematocrit 22.7 % (42.0-52.0); Hemoglobin 7.6 g/dL (14.0-18.0)
[2021-06-10 20:18] LABS: Glucose Point of Care 120 mg/dl (65-105)
--- NOTE | 2021-06-10 22:00 | PC.NURSE ---
Pt arrived to room 303 via wheelchair, belongings in hand.
[2021-06-11] VITALS (19 sets, daily range): BP systolic 118–147; BP diastolic 63–79; PULSE 78–97; RESP 16–23; TEMP 35–36.8; O2SAT 93–99
[2021-06-11 06:07] LABS: Hemoglobin 7.8 g/dL (14.0-18.0); Mean Corpuscular HGB Conc 33.9 g/dl (32-36); Mean Corpuscular Hemoglobin 33.9 pg (26-34); Mean Platelet Volume 9.9 fl (7.4-10.4); Platelet Count Result 219 k/mm3 (150-375); Red Cell Distribution Width 16.5 % (11.5-14.5)
[2021-06-11 06:23] LABS: Anion Gap 13 mmol/L (8-16); Blood Urea Nitrogen 61 mg/dL (9-20); Calcium 8.5 mg/dL (8.4-10.2); Carbon Dioxide 25 mmol/L (22-30); Chloride 97 mmol/L (98-107); Estimated CRCL calculation 8 ml/min; Estimated Glomerular Filt Rate 5; Glucose 99 mg/dL (65-110); Magnesium 1.7 mg/dL (1.6-2.3); Potassium 4.3 mmol/L (3.4-5.0); Sodium 135 mmol/L (137-145)
[2021-06-11 10:14] LABS: Thyroid Stimulating Hormone Reflex 0.767 uIU/mL (0.465-4.68)
--- NOTE | 2021-06-11 10:58 | WPDANESEPPF ---
Anes - Initial Pre Proc Eval Procedure: Operation Date: 06/11/21 14:45 Proposed Procedures p Colonoscopy - Duncan Sánchez MD Date/Time: 06/11/21 10:58 Surgeon: Yumiko Castro MD Pre Op Diagnosis: esrd w anemia, hyperkalemia, hypokalemia Patient Data Age: 61 Gender: M Height: 1.7 m Weight: 109 kg Last Vital Signs Temp 36.3 C L 06/11/21 06:00 Pulse 84 06/11/21 06:00 Resp 18 06/11/21 06:00 BP 123/63 06/11/21 06:00 Pulse Ox 97 06/11/21 06:00 Allergies Allergy/AdvReac Type Severity Reaction Status Date / Time onion Allergy Vomiting Verified 06/11/21 13:27 Home Medications Medication Instructions Recorded Confirmed Type diltiazem HCl 120 mg 240 mg PO DAILY 07/01/19 06/09/21 History capsule,extended release 24 hr ezetimibe 10 mg tablet See Rx Instructions .ROUTE 07/10/20 06/09/21 Rx .COMPLEX #90 tablet atorvastatin 20 mg PO DAILY 07/17/20 06/09/21 History insulin glargine 100 unit/mL (3 See Rx Instructions .ROUTE 01/09/21 06/09/21 Rx mL) subcutaneous pen .COMPLEX #75 ml glipizide 2.5 mg tablet, extended See Rx Instructions .ROUTE 02/12/21 06/09/21 Rx release 24 hr .COMPLEX #180 tablet Adult Low Dose Aspirin 81 mg PO DAILY 06/09/21 06/09/21 History Eliquis 5 mg PO BID 06/09/21 06/09/21 History Melissa-3 Fish Oil 900 mg PO DAILY 06/09/21 06/09/21 History Marlene-Gladis Rx 1 tablet PO DAILY 06/09/21 06/09/21 History ascorbic acid (vitamin C) 1,000 mg PO DAILY 06/09/21 06/09/21 History doxycycline hyclate 40 mg PO DAILY 06/09/21 06/09/21 History ergocalciferol (vitamin D2) See Rx Instructions .ROUTE .COMPLEX 06/09/21 06/09/21 History fluconazole 100 mg PO DAILY 06/09/21 06/09/21 History furosemide 80 mg PO DIRECTED 06/09/21 06/09/21 History metoprolol tartrate 25 mg PO BID 06/09/21 06/09/21 History omeprazole 20 mg PO DAILY 06/09/21 06/09/21 History sevelamer carbonate 3,200 mg PO TIDWMEAL 06/09/21 06/09/21 History Laboratory Tests 06/10/21 06/10/21 06/10/21 13:54 14:44 17:16 WBC RBC Hgb 7.5 g/dL L g/dL (14.0-18.0) Hct 21.8 % L % (42.0-52.0) MCV MCH MCHC RDW Plt Count MPV Sodium Potassium Chloride Carbon Dioxide Anion Gap BUN Creatinine Estim Creat Clear Calc Estimated GFR Glucose POC Capillary Glucose 125 mg/dl H mg/dl 207 mg/dl H mg/dl (65-105) (65-105) Lactic Acid Calcium Magnesium Ferritin TSH (Reflex) 06/10/21 06/10/21 06/11/21 17:42 20:01 05:56 WBC RBC Hgb 7.6 g/dL L g/dL (14.0-18.0) Hct 22.7 % L % (42.0-52.0) MCV MCH MCHC RDW Plt Count MPV Sodium Potassium Chloride Carbon Dioxide Anion Gap BUN Creatinine Estim Creat Clear Calc Estimated GFR Glucose POC Capillary Glucose 120 mg/dl H mg/dl (65-105) Lactic Acid 2.0 mmol/L mmol/L (0.7-2.1) Calcium Magnesium Ferritin TSH (Reflex) 06/11/21 06/11/21 06/11/21 05:56 05:56 05:56 WBC 7.0 K/mm3 K/mm3 (4.5-10.0) RBC 2.30 M/mm3 L M/mm3 (4.6-6.20) Hgb 7.8 g/dL L g/dL (14.0-18.0) Hct 23.0 % L % (42.0-52.0) MCV 100.0 fl fl (80-100) MCH 33.9 pg pg (26-34) MCHC 33.9 g/dl g/dl (32-36) RDW 16.5 % H % (11.5-14.5) Plt Count 219 k/mm3 k/mm3 (150-375) MPV 9.9 fl fl (7.4-10.4) Sodium 135 mmol/L L mmol/L (137-145) Potassium 4.3 mmol/L mmol/L (3.4-5.0) Chloride
--- NOTE | 2021-06-11 11:17 | PM.IMPN ---
Progress Note: A&P Assessment and Plan (1) GI bleed: Code(s): K92.2 - Gastrointestinal hemorrhage, unspecified Status: Acute Assessment and Plan: The patient presents with bright red blood per rectum. He is on Eliquis for paroxysmal AFib. The patient has known internal and external hemorrhoids. He also has had colonoscopies in the past. Recent EGD as mentioned above. Continue current antibiotics. Eliquis on hold. Colonoscopy planned for today. Appreciate GI input. Continue to monitor H&H and transfuse as necessary. (2) End stage renal disease: Code(s): N18.6 - End stage renal disease Status: Chronic Assessment and Plan: Patient does hemodialysis for 2.5 hours daily for 5 days a week at home. He has been having difficulty performing dialysis because of the GI bleed. Patient tolerating hemodialysis currently. Appreciate Nephrology input. (3) Atrial fibrillation: Qualifiers: Atrial fibrillation type: paroxysmal Qualified Code(s): I48.0 - Paroxysmal atrial fibrillation Code(s): I48.91 - Unspecified atrial fibrillation Status: Chronic Assessment and Plan: Patient has paroxysmal atrial fibrillation. EKG year showing sinus bradycardia. His Cardizem and Metoprolol has been continued. Blood pressure tolerating this. His Eliquis is on hold. Continue to monitor. (4) Anemia in ESRD (end-stage renal disease): Code(s): N18.6 - End stage renal disease; D63.1 - Anemia in chronic kidney disease Status: Acute Assessment and Plan: Patient has acute blood loss anemia related to the GI bleed with chronic underlying anemia from his renal failure. He has received blood transfusion x2 units. Hemoglobin has climbed the 7 range and has been stable. Continue to monitor H&H for stability. Transfuse as needed. (5) Hypertriglyceridemia: Code(s): E78.1 - Pure hyperglyceridemia Status: Chronic Assessment and Plan: Stable. Continue with atorvastatin (6) Hyperkalemia, diminished renal excretion: Code(s): E87.5 - Hyperkalemia Status: Acute Assessment and Plan: Potassium was 6.2 on admission felt related to incomplete dialysis treatments at home. The patient was given nebulizer treatment. Potassium level has normalized today made possible by dialysis. Continue to monitor. (7) Type 2 diabetes with nephropathy: Code(s): E11.21 - Type 2 diabetes mellitus with diabetic nephropathy Status: Acute Assessment and Plan: A1c 5.2. The patient's blood glucose was reviewed on 06/11 Glucose remains mostly well controlled. Continue AccuCheks covering with sliding scale. Hypoglycemia protocol available as needed. Continue current medications. (8) Hypertension: Code(s): I10 - Essential (primary) hypertension Status: Chronic Assessment and Plan: Patient's blood pressure was reviewed on 06/11 Blood pressure remains well controlled. Will continue current medications. Continue to monitor. (9) DVT prophylaxis: Code(s): Z29.9 - Encounter for prophylactic measures, unspecified Status: Acute Assessment and Plan: SCDs Subjective Date/time seen: 06/11/21 11:17 Interval history: 61yo male with ESRD on home hemodialysis and pAFib on Eliquis here for GI bleed. Assuming care. Chart reviewed. Patient had endoscopy few weeks ago at a different facility and was diagnosed with infection. He has been on off antibiotics and antifungal treatment. He has had difficulty tolerating the antibiotics because of dry mouth and other symptoms. He presents to the emergency room this admission because of weakness and lightheadedness. He was found to have a hemoglobin of 6.5. He has been having bright red blood per rectum for the past week. Patient has received 2 units of packed red blood cells since admission. He currently feels tired but no lightheadedness, chest
[2021-06-11 12:09] LABS: Glucose Point of Care 89 mg/dl (65-105)
--- NOTE | 2021-06-11 12:12 | PM.CNNEP ---
Assessment and Plan Assessment and plan (1) End stage renal disease: Code(s): N18.6 - End stage renal disease Status: Chronic Assessment and Plan: HD yesterday and plan HD today HD 3x/week while hospitalized follow electrolytes, volume status, and clearance (2) Anemia: Code(s): D64.9 - Anemia, unspecified Status: Acute Assessment and Plan: presumably due to #3 Gastroenterology following - EGD/colonoscopy later today Epogen with HD (3) Grade II internal hemorrhoids: Code(s): K64.1 - Second degree hemorrhoids Status: Acute Assessment and Plan: documented already Surgery consultation(?) (4) Hypertension: Code(s): I10 - Essential (primary) hypertension Status: Chronic Assessment and Plan: reasonable control at this time follow trend of hemodynamics (5) Diabetes: Code(s): E11.9 - Type 2 diabetes mellitus without complications Status: Chronic Assessment and Plan: follow accuchecks glycemic control Will continue to follow. History of Present Illness Reason for Consult Consult date: 06/11/21 Reason for consult: end stage renal disease Chief Complaint Chief complaint: esrd w anemia, hyperkalemia, hypokalemia History of Present Illness Narrative: The patient is a 61-year-old male with a past medical history as outlined below who presented to [facility] Emergency room due to lightheadedness and fatigue making it difficult to do his home hemodialysis treatments. The patient's last dialysis treatment was Friday of last week. Following that dialysis treatment every time he tried to perform a treatment he would have 4-5 loose bloody stools making it difficult to do his home dialysis treatments (as he would continuously have to disconnect himself to use the restroom) but also resulting in the aforementioned weakness and fatigue. he does have a known history of internal and external hemorrhoids and has had a previous GI workup with regard to upper endoscopy as well as colonoscopy without any active source of bleeding. On his last procedure, his GI doctor to perform biopsy which apparently showed H pylori infection and was prescribed antibiotic therapy for this but he was unable to tolerate these medications. Due to his ongoing fatigue as well as loose bloody bowel movements, he presented to the emergency room for further evaluation. Workup and evaluation in the emergency room demonstrated the patient to be hemodynamically stable although his blood pressure was somewhat on the lower side of normal but that apparently is his baseline. Routine blood test demonstrated labs consistent with his known history of end-stage renal disease although his sodium was noted to be at 1:28 a.m. with a potassium of 5.4 and a BUN of 103 three with a creatinine of 16.5. His CBC was remarkable for hemoglobin of 6.5 and a hematocrit of 19.6. He received medical management for his potassium and he was subsequently admitted to hospital for further evaluation and therapy. Since his admission, he received dialysis yesterday since he has not had a complete dialysis treatment in almost three days and tolerated this procedure reasonably well. Gastroenterology has seen the patient as well given his anemia and subsequent packed red blood cell transfusion and he is tentatively scheduled for another EGD/colonoscopy tomorrow. Renal consultation was requested due his end-stage renal disease. The patient normally dialyzes at home 5 times a week through [facility] under the care of Dr. Toñito Brothers. For the most part, the patient is compliant with his home hemodialysis treatments and other than the issue with regard to his external/internal hemorrhoids and associated anemia, he has been doing reasonably well. Currently, at the time my visit, he appears to be in no acute distress. Review of Systems Review of Systems:
[2021-06-11] MEDS: METOPROLOL TARTRATE 25 MG TABLET PO (12:51)
[2021-06-11] MEDS: FUROSEMIDE 80 MG TABLET 160 MG PO (12:52)
[2021-06-11 13:34] LABS: Glucose Point of Care 94 mg/dl (65-105)
[2021-06-11] MEDS: SODIUM CHLORIDE 0.9% IV 500 ML 10 ML IV CONT (13:34)
--- NOTE | 2021-06-11 14:39 | PC.NURSE ---
Patient to GI lab per wheelchair around 1300.
--- NOTE | 2021-06-11 15:12 | SUR.OPER ---
Error in intraoperative fluids given (see MAR). Reached out to Yanick in IT to help adjust rates in MAR, but would continuously Autocorrect to wrong infusion rate. Patient received 200mL fluids intraoperatively. 300mL were left in the sodium chloride bag when moved to post op. B
--- NOTE | 2021-06-11 15:14 | PC.NURSE ---
Return from GI lab per max.
--- NOTE | 2021-06-11 15:16 | SUR.PHASEII ---
NO IVF GIVING DURING POST OP
--- NOTE | 2021-06-11 15:16 | SUR.OPER ---
Contacted Yanick in IT to help adjust fluid infusion rates in intraop period. He was too unable to edit assessment without it autocorrecting to an error. Informed intra op nurse and post op nurse to write note on accurate fluid rates in nursing note. Patient was ordered a 500ML bag of NS documented by JOY RN in pre op. 200ml given by anesthesia at 150mL/hr in intraop. 300 left in container volume when patient was moved to post op.
[2021-06-11 15:38] LABS: Hematocrit 22.8 % (42.0-52.0); Hemoglobin 7.6 g/dL (14.0-18.0)
--- NOTE | 2021-06-11 16:48 | PM.CNGS ---
Assessment and Plan Assessment and plan (1) Grade II internal hemorrhoids: Code(s): K64.1 - Second degree hemorrhoids Status: Acute Assessment and Plan: Patient has evidence of bleeding internal hemorrhoids. He is no longer actively bleeding and Eliquis has been held. I discussed that a procedure for the internal hemorrhoids will help prevent recurrent bleeding, but he may need to hold his Eliquis until this procedure is done. He does not want to have surgery here and wants to follow-up at a [facility] facility. Since he is currently hemodynamically stable, I am okay with him being discharged once medically clear. He can follow up with his PCP and see a surgeon as an outpatient at a facility where he would prefer. Instructed patient to return to the emergency department for any recurrent severe bleeding. (2) Current use of senior living anticoagulation: Code(s): Z79.01 - terminologist (current) use of anticoagulants Status: Acute Assessment and Plan: Would recommend holding Eliquis until hemorrhoids were treated. He states that he will follow up with his production control expert tomorrow to ensure that this is okay. (3) End stage renal disease: Code(s): N18.6 - End stage renal disease Status: Chronic (4) Atrial fibrillation: Qualifiers: Atrial fibrillation type: paroxysmal Qualified Code(s): I48.0 - Paroxysmal atrial fibrillation Code(s): I48.91 - Unspecified atrial fibrillation Status: Chronic (5) Acute blood loss anemia: Code(s): D62 - Acute posthemorrhagic anemia Status: Acute Assessment and Plan: Secondary to bleeding internal hemorrhoids. (6) Type 2 diabetes with nephropathy: Code(s): E11.21 - Type 2 diabetes mellitus with diabetic nephropathy Status: Acute (7) Obesity (BMI 30-39.9): Code(s): E66.9 - Obesity, unspecified Status: Acute History of Present Illness Consult details Consult date: 06/11/21 Reason for consult: other (Bleeding internal hemorrhoids) Requesting physician: Duncan Sánchez MD Narrative: This is a 61-year-old man who I am asked to see for bleeding internal hemorrhoids. He came in through the emergency department with rectal bleeding and severe anemia. He has been having significant rectal bleeding for the past week. He is on Eliquis for a history of AFib. He has been on Eliquis for about 6 months and this is the 1st time he has had any bleeding complications. He underwent colonoscopy today and no other source of bleeding was noted except for internal hemorrhoids. His bleeding has stopped and he has been hemodynamically stable. Patient is fairly adamant about not having another procedure done here. He would like to follow-up with his GI doctor and if he is going to have any procedures done he would like to have it done at a [facility] facility. Review of Systems Review of Systems: All systems reviewed & are unremarkable except as noted in HPI and below Constitutional: Constitutional: Denies chills and Denies fever(s) Cardiovascular: Cardiovascular: Denies chest pain and Denies dyspnea Respiratory: Respiratory: Denies dyspnea Gastrointestinal: Gastrointestinal: Reports as per HPI [facility] Past Medical History Medical History Atrial fibrillation CKD stage 5 due to type 2 diabetes mellitus End stage renal disease Hemorrhoids Hyperlipidemia Hypertension Obesity (BMI 30-39.9) Obstructive sleep apnea syndrome in adult Type 2 diabetes with nephropathy Surgical History Surgical History History of cardiac cath Minimal blockages and no stents. History of colonoscopy History of esophagogastroduodenoscopy (EGD) S/P tonsillectomy and adenoidectomy Family History Family History Father Hypertension Heart disease Diabetes mellitus Cancer
--- NOTE | 2021-06-11 16:50 | PM.DS ---
DS: Admitting Diagnosis Discharge Date 06/11/21 Admitting Diagnosis Rectal bleeding DS: Discharge Diagnosis Discharge Diagnosis (1) GI bleed: Code(s): K92.2 - Gastrointestinal hemorrhage, unspecified Status: Acute Assessment and Plan: The patient presented with bright red blood per rectum. He was on Eliquis for paroxysmal AFib. The patient has known internal and external hemorrhoids. He also has had colonoscopies in the past. Eliquis held and GI consulted. Patient underwent Colonoscopy 06/11/21 showing a few large sized uncomplicated internal hemorrhoids in the rectum. There was stigmata of bleeding from the hemorrhoids; diverticulosis noted without evidence of bleeding. Appreciate GI input. General Surgery was consulted but patient was insistent on being discharged home and to follow up with his doctors. Discussed with General Surgeon who felt patient okay for discharge with close followup and to continue to hold the Eliquis. (2) Anemia in ESRD (end-stage renal disease): Code(s): N18.6 - End stage renal disease; D63.1 - Anemia in chronic kidney disease Status: Acute Assessment and Plan: Patient has acute blood loss anemia related to the GI bleed with chronic underlying anemia from his renal failure. He received blood transfusion x2 units. Hemoglobin climbed to the 7 range and remained stable. (3) End stage renal disease: Code(s): N18.6 - End stage renal disease Status: Chronic Assessment and Plan: Patient does hemodialysis for 2.5 hours daily for 5 days a week at home. He has been having difficulty performing dialysis because of the GI bleed. Patient tolerated hemodialysis here and his electrolyte abnormalities improved. Appreciated Nephrology input. (4) Hyperkalemia, diminished renal excretion: Code(s): E87.5 - Hyperkalemia Status: Acute Assessment and Plan: Potassium was 6.2 on admission felt related to incomplete dialysis treatments at home. The patient was given appropriate treatment. Potassium level has normalized related to the dialysis. (5) Atrial fibrillation: Qualifiers: Atrial fibrillation type: paroxysmal Qualified Code(s): I48.0 - Paroxysmal atrial fibrillation Code(s): I48.91 - Unspecified atrial fibrillation Status: Chronic Assessment and Plan: Patient has paroxysmal atrial fibrillation. EKG here showing sinus bradycardia. His Cardizem and Metoprolol were continued. Blood pressure tolerated this. His Eliquis remained on hold. (6) Type 2 diabetes with nephropathy: Code(s): E11.21 - Type 2 diabetes mellitus with diabetic nephropathy Status: Acute Assessment and Plan: A1c 5.2. The patient's blood glucose was monitored closely with AccuCheks covering with sliding scale. Hypoglycemia protocol was available as needed. (7) Hypertension: Code(s): I10 - Essential (primary) hypertension Status: Chronic Assessment and Plan: Patient's blood pressure was monitored closely and remained well controlled. (8) Hypertriglyceridemia: Code(s): E78.1 - Pure hyperglyceridemia Status: Chronic Assessment and Plan: Stable. We continued atorvastatin DS: Summary Hospital Course Reason for hospitalization: 61yo male with ESRD on home hemodialysis and pAFib on Eliquis here for GI bleed. Please see H&P for details. Hospital Course: Please se above for details of hospital course Status at Discharge Cognitive/behavioral status at discharge: Stable Time Spent with Patient Time attestation: Total time spent providing and/or coordinating discharge services: 35 minutes Time spent: Greater than 30 minutes Exam Narrative: AF 98.3 142/74 89 20 97% ra Gen - NARD Chest - CTA bilaterally, nml RR CV - RRR S1/S2 Abd - Soft, NT/ND, Positive BS Ext - 1+ bilateral pedal edema; RUE fistula accessed Psych - Nml mood and af
[2021-06-13 22:20] LABS: Hepatitis B Core Ab Total Nonreactive (Nonreactive)
== END 2021-06-11 17:35 | disposition home or self-care (01) ==
LOC: ANHED 18:58 → ANHIMU 21:35 → ANH3MEDSUR 06-11 07:06 → ANHIMU 06-12 16:09
PROVIDERS: Family Medicine; Internal Medicine Gastroenterology; Internal Medicine Nephrology; Nurse Practitioner; Admitting Provider Internal Medicine; Emergency Provider Emergency Medicine; PCP Internal Medicine; Visit Provider Internal Medicine
PROC: 0DJD8ZZ Inspection of Lower Intestinal Tract, Via Natural or Artificial Opening Endoscopic (ICD-10-PCS; CPT 45378; principal; 2021-06-11 14:45)
DX: K92.2 Gastrointestinal hemorrhage, unspecified (principal); D62 Acute posthemorrhagic anemia; I12.0 Hypertensive chronic kidney disease with stage 5 chronic kidney disease or end stage renal disease; D63.1 Anemia in chronic kidney disease; K64.8 Other hemorrhoids; K57.30 Diverticulosis of large intestine without perforation or abscess without bleeding; E87.5 Hyperkalemia; E87.1 Hypo-osmolality and hyponatremia; E11.22 Type 2 diabetes mellitus with diabetic chronic kidney disease; R53.1 Weakness; I48.91 Unspecified atrial fibrillation; E78.1 Pure hyperglyceridemia; E11.21 Type 2 diabetes mellitus with diabetic nephropathy; N18.6 End stage renal disease; Z99.2 Dependence on renal dialysis; Z79.4 Long term (current) use of insulin; Z79.84 Long term (current) use of oral hypoglycemic drugs; Z79.01 Long term (current) use of anticoagulants; F17.210 Nicotine dependence, cigarettes, uncomplicated; E66.9 Obesity, unspecified; Z68.37 Body mass index [BMI] 37.0-37.9, adult
CPT/HCPCS: 45378; 36415; 36430; 71046; 80048; 80053; 80074; 82728; 82948; 83036; 83605; 83735; 84443; 85014; 85018; 85025; 85027; 85610; 86704; 86706; 86850; 86900; 86901; 86920; 93005; 94640; 96360; 96361; 96374; 99285; A9270; G0257; G0378; J1815; J2704; J7030; J7040; J7050; J7120; P9016; Q5105

== ENCOUNTER → 2021-09-06 11:51 | Outpatient (CLI) | payer OTHER, MEDICARE, SELFPAY ==
--- NOTE | ~2021-09-06 | XR_ITS ---
EXAMINATION: XR elbow LT min 3V DATE: 09/06/2021 12:23 INDICATION: Left elbow and forearm pain. TECHNIQUE: 1. Anteroposterior, two oblique and lateral views of the left elbow were obtained. 2. AP and lateral views of the left forearm were obtained. COMPARISON: None. FINDINGS: Alignment is normal. No fracture or joint effusion. Joint spaces are normal. No cortical erosions or periosteal reaction. Small heterotopic ossicle along the lateral epicondyle which could be either ent hesopathic or sequela of old trauma. Vascular calcifications along the radial and ulnar arteries. Sof t tissues are otherwise unremarkable. IMPRESSION: 1. Small heterotopic ossicle along side the lateral epicondyle near the origin of the common extensor tendon wad which could be either enthesopathic or sequela of old trauma. Reviewed, dictated and finalized at location A. SELOR AID IMPRESSION: 1. Small heterotopic ossicle along side the lateral epicondyle near the origin of the common extensor tendon wad which could be either enthesopathic or sequel a of old trauma.
--- NOTE | ~2021-09-06 | XR_ITS ---
EXAMINATION: XR wrist LT min 3V DATE: 09/06/2021 12:23 INDICATION: Left wrist pain TECHNIQUE: Posteroanterior, ulnar deviation, oblique, and lateral views of the left wrist were obtain ed. COMPARISON: none FINDINGS: Alignment is normal. No fracture. Tiny ossicle without evident donor site at the dorsal aspect of the carpus which could be either degenerative or sequela of old trauma. Joint spaces are normal. Vascula r calcifications along the left radial and ulnar arteries. Soft tissues are otherwise unremarkable. IMPRESSION: 1. No acute osseous abnormality. Reviewed, dictated and finalized at location A. [employer] AND PRIVACY CONSULTANT
--- NOTE | ~2021-09-06 | XR_ITS ---
EXAMINATION: XR forearm LT 2V DATE: 09/06/2021 12:23 INDICATION: Left elbow and forearm pain. TECHNIQUE: 1. Anteroposterior, two oblique and lateral views of the left elbow were obtained. 2. AP and lateral views of the left forearm were obtained. COMPARISON: None. FINDINGS: Alignment is normal. No fracture or joint effusion. Joint spaces are normal. No cortical erosions or periosteal reaction. Small heterotopic ossicle along the lateral epicondyle which could be either ent hesopathic or sequela of old trauma. Vascular calcifications along the radial and ulnar arteries. Sof t tissues are otherwise unremarkable. IMPRESSION: 1. Small heterotopic ossicle along side the lateral epicondyle near the origin of the common extensor tendon wad which could be either enthesopathic or sequela of old trauma. Reviewed, dictated and finalized at location A. ER MAKER IMPRESSION: 1. Small heterotopic ossicle along side the lateral epicondyle near the origin of the common extensor tendon wad which could be either enthesopathic or sequel a of old trauma.
== END ==
PROVIDERS: PCP Internal Medicine; Visit Provider Family Medicine
DX: M25.522 Pain in left elbow (principal); M79.632 Pain in left forearm; M25.532 Pain in left wrist; M89.9 Disorder of bone, unspecified
CPT/HCPCS: 73080; 73090; 73110

== ENCOUNTER 2022-11-03 13:53 | Emergency (ER) | payer MEDICARE, OTHER, SELFPAY ==
--- NOTE | 2022-11-03 14:04 | ED.SKABFB ---
HPI - Skin/Abscess/Foreign Bdy General Chief complaint: Skin/Abscess/Foreign Body Stated complaint: Rash On Body Time Seen by Provider: 11/03/22 15:10 Source: patient and RN notes reviewed Mode of arrival: ambulatory Limitations: no limitations History of Present Illness HPI narrative: 62-year-old male presents concern for painful rash that starts under his right breast and wraps around to his back. Reports that started about 3 or 4 days ago. He reports he is recovering from open her surgery that he had the middle of September. He has been using tramadol that he had left over from that surgery for pain. He reports he has only 3 tramadol tablets left. MD complaint: rash Related Data Home Medications Medication Instructions Recorded Confirmed diltiazem HCl 120 mg 240 mg PO DAILY 07/01/19 10/30/21 capsule,extended release 24 hr Adult Low Dose Aspirin 81 mg PO DAILY 06/09/21 10/30/21 apixaban 5 mg tablet (Eliquis) 5 mg PO BID 06/09/21 10/30/21 ascorbic acid (vitamin C) 1,000 mg PO DAILY 06/09/21 10/30/21 furosemide 80 mg tablet 80 mg PO DIRECTED 06/09/21 10/30/21 omeprazole 20 mg capsule,delayed 20 mg PO DAILY 06/09/21 10/30/21 release sevelamer carbonate 800 mg tablet 3,200 mg PO TIDWMEAL 06/09/21 10/30/21 vitamin B comp no.3-folic acid 1 1 tablet PO DAILY 06/09/21 10/30/21 mg-vit C 60 mg-biotin 300 mcg tablet ([facility]) alprazolam 0.5 mg tablet mg 11/03/22 11/03/22 amiodarone 200 mg tablet mg 11/03/22 11/03/22 citalopram 20 mg tablet mg 11/03/22 11/03/22 famotidine 20 mg tablet mg 11/03/22 11/03/22 tramadol 50 mg tablet mg 11/03/22 11/03/22 Allergies Allergy/AdvReac Type Severity Reaction Status Date / Time onion Allergy Vomiting Verified 11/03/22 14:48 Review of Systems Review of Systems: CONSTITUTIONAL: Denies malaise, chills, sweats, or fever. EYES: Denies redness, or discharge. ENT: Denies rhinorrhea, congestion, swollen lips, swollen tongue CARDIOVASCULAR: Denies chest pain, palpitations, or edema. RESPIRATORY: Denies cough or dyspnea. GASTROINTESTINAL: Denies abdominal pain, nausea, vomiting SKIN: Reports painful rash under the right breast wrapping around to the back MUSCULOSKELETAL: Denies joint pain or myalgia. NEUROLOGIC: Denies headache. All systems reviewed & are unremarkable except as noted in HPI and below PMFSH Past Medical History Medical History Atrial fibrillation CKD stage 5 due to type 2 diabetes mellitus End stage renal disease Hemorrhoids Hyperlipidemia Hypertension Obesity (BMI 30-39.9) Obstructive sleep apnea syndrome in adult Type 2 diabetes with nephropathy Surgical History Surgical History History of cardiac cath Minimal blockages and no stents. History of colonoscopy History of esophagogastroduodenoscopy (EGD) S/P tonsillectomy and adenoidectomy Family History Family History Father Hypertension Heart disease Diabetes mellitus Cancer Mother Cancer Social History Social History (System 03/12/22 @ 15:35 by Roro Szymanski) Social History: In lives with his . He has 3 children. 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 He denies any alcohol marijuana illicit drugs. He said when he was younger he experimented with drugs. His is the durable power contract attorney for healthcare. Code status full code Smoking packs per day: 5 Smoking cigarettes per day: 100.0 Years smoked: 30 Smoking pack-years: 150.00 Smoking status: Light tobacco smoker Tobacco type: cigarettes Alcohol intake: never Substance use: never Gender identity (if verbalized by the patient): Male Spiritual care concerns: No Comments At time of signature, agree with nursing past medical, surgical, social and family history. There is no relevant family history pertinent to the presenting complaint Exam Narrative:
[2022-11-03 14:52] VITALS: BP 105/61; PULSE 83; RESP 18; TEMP 37.2; O2SAT 98
== END 2022-11-03 15:23 | disposition home or self-care (01) ==
PROVIDERS: Emergency Provider Nurse Practitioner; PCP Nurse Practitioner Family
DX: B02.9 Zoster without complications (principal); F17.210 Nicotine dependence, cigarettes, uncomplicated; I48.91 Unspecified atrial fibrillation; E78.5 Hyperlipidemia, unspecified; I13.11 Hypertensive heart and chronic kidney disease without heart failure, with stage 5 chronic kidney disease, or end stage renal disease; E11.22 Type 2 diabetes mellitus with diabetic chronic kidney disease; N18.5 Chronic kidney disease, stage 5; Z99.2 Dependence on renal dialysis; Z79.01 Long term (current) use of anticoagulants
CPT/HCPCS: 99213; G0463

== ENCOUNTER 2022-11-06 10:06 | Inpatient (IN) | payer MEDICARE, OTHER, SELFPAY ==
[2022-11-06] VITALS (21 sets, daily range): BP systolic 92–126; BP diastolic 47–84; PULSE 95–121; RESP 17–20; TEMP 35.7–36.8; O2SAT 90–100
--- NOTE | ~2022-11-06 | XR_ITS ---
EXAMINATION: XR abdomen NG/feed tube insert INDICATION: Nasogastric tube insertion TECHNIQUE: Portable AP KUB-NG at 1626 hours COMPARISON: 11/09/2022 FINDINGS: The nasogastric tube is in the stomach. There are minimal airspace opacities of the visuali zed lung bases. The bowel gas pattern is nonspecific. Changes of prior cardiac surgery are noted. IMPRESSION: 1. Nasogastric tube in the stomach. Reviewed, dictated and finalized at location A.
--- NOTE | ~2022-11-06 | XR_ITS ---
EXAMINATION: XR abdomen obstructive series DATE: 11/21/2022 09:07 INDICATION: Vomiting and flatulence. TECHNIQUE: Frontal supine and upright views of the abdomen were obtained. COMPARISON: 11/20/2022 FINDINGS: Again seen is a nasogastric tube with tip and proximal side port within the stomach which remains pro minently distended with gas. Additional moderate amount of gas scattered throughout the colon. Small amount of stool at the rectum. No dilated gas-filled loops of large or small bowel to suggest obstruc tion. No free intraperitoneal gas. Multiple phleboliths in the pelvis. Visualized mid to lower lungs are clear. Heart size is normal. Median sternotomy wires and mediastinal surgical clips are seen, lik tyson from prior coronary artery bypass grafting. Aortic valve and mitral valve replacements. Left atri al appendage clip. Retained epicardial pacemaker leads. IMPRESSION: 1. Nasogastric tube in expected position within the stomach. 2. Persistent prominent gaseous distention of the stomach with differential including gastroparesis o r gastric outlet obstruction. No dilated bowel to suggest a more distal bowel obstruction. Reviewed, dictated and finalized at location L. IMPRESSION: 1. Nasogastric tube in expected position within the stomach. 2. Persistent prominent gaseous distention of the stomach with differential inc luding gastroparesis or gastric outlet obstruction. No dilated bowel to suggest a more distal bowel obstruction.
--- NOTE | ~2022-11-06 | CT_ITS ---
EXAMINATION: CTA BRAIN/CAROTID DATE: 11/07/2022 17:27 INDICATION: Encephalopathy TECHNIQUE: Computed tomographic angiography (CTA) of the head and neck was performed with 100 mL Omni paque-350 intravenous contrast. Multiplanar reconstructions and maximum intensity projection 3D-recon structions of the carotid arteries and of the intracranial arteries were created by the technologist on a separate workstation. Automated exposure control and iterative reconstruction technique were emp loyed.The dose-length product was 1294.99 mGy-cm. COMPARISON: None. FINDINGS: Carotid arteries: Visualized thoracic aorta is normal in caliber with no dissection and with small amount of nonhemodyn amically significant atherosclerotic plaque. Right vertebral artery is dominant. There is atheroscler otic plaque with 0% stenosis of the right and left carotid bulbs relative to normal distal artery lum en diameter (NASCET criteria). Cervical soft tissues are unremarkable. The posterior layering small b ilateral pleural effusions. Mosaic attenuation in the lungs with perihilar predominant groundglass op acities and some peripheral smooth septal line thickening consistent with likely moderate pulmonary e [place]. Nonspecific mediastinal and bilateral hilar lymphadenopathy. Postoperative change of prior medi an sternotomy and coronary artery bypass grafting. On the sample maker topogram there also appear to be card iac valve replacements, likely mitral and aortic as well as a left atrial appendage clip. Intracranial arteries Atherosclerotic calcifications are seen at the bilateral carotid siphons and along the right vertebra l artery with <50% stenosis. There is no hemodynamically significant stenosis in the vertebral, basil ar and internal carotid arteries. There are no aneurysms identified. Both A1 and P1 segments are pat ent. The left P1 segment is diminutive. There are also patent anterior communicating and bilateral po sterior communicating arteries. Cerebral arterial arborization appears symmetric. No abnormally enhan cing brain lesions identified. IMPRESSION: 1. Atherosclerotic plaque with 0% stenosis of the right and left carotid bulbs relative to normal dis tiera artery lumen diameter (NASCET criteria). 2. Mild atherosclerotic plaque with mild, <50% stenosis at the bilateral carotid siphons and at the d ominant left vertebral artery. No hemodynamically significant stenosis or aneurysm of the intracrania l arteries. 3. Moderate pulmonary edema with small bilateral posterior layering pleural effusions. 4. Nonspecific mediastinal and bilateral hilar lymphadenopathy most likely reactive although differen tial would include lymphoma or metastatic disease. Reviewed, dictated and finalized at location A. IMPRESSION: 1. Atherosclerotic plaque with 0% stenosis of the right and left carotid bulbs relative to normal distal artery lumen diameter (NASCET criteria). 2. Mild atherosclerotic plaque with mild, <50% stenosis at the bilateral caroti d siphons and at the dominant left vertebral artery. No hemodynamically signifi cant stenosis or aneurysm of the intracranial arteries. 3. Moderate pulmonary edema with small bilateral posterior layering pleural eff usions. 4. Nonspecific mediastinal and bilateral hilar lymphadenopathy most likely reac tive although differential would include lymphoma or metastatic disease.
--- NOTE | ~2022-11-06 | CT_ITS ---
CT head without contrast Indication: Altered mental status COMPARISON: 07/17/2020 Technique: Serial scans were obtained through the brain without the administration of contrast. Dose reduction technique was used on this scan by utilizing automated exposure control and iterative recon struction technique. The dose-length product (DLP) was 605.33 mGy-cm. Findings: There is no evidence of intracranial hemorrhage, mass lesion, or acute infarct. The ventri cles and subarachnoid spaces are dilated, consistent with mild atrophy. Low attenuation regions are seen within the periventricular white matter bilaterally, likely representing changes from chronic mi crovascular ischemic disease. There is no evidence of edema, mass effect or midline shift. The visu alized paranasal sinuses and mastoid air cells are clear. Impression: No intracranial hemorrhage, mass, or acute infarct. Atrophy and chronic white matter changes, as above. Reviewed, dictated and finalized at [facility]. Impression: No intracranial hemorrhage, mass, or acute infarct. Atrophy and chronic white matter changes, as above.
--- NOTE | ~2022-11-06 | XR_ITS ---
EXAMINATION: XR abdomen/kub 1V INDICATION: Gastric distention TECHNIQUE: Supine views of the abdomen were obtained on 2 radiographs. COMPARISON: 12/06/2022 FINDINGS: No persistent gastric distention is identified. Previously described free intraperitoneal g as is not definitely seen. The bowel gas pattern is normal. A moderate volume of colonic stool is pre sent. Phleboliths are noted in the pelvis. IMPRESSION: 1. Resolved gastric distention. No definite free intraperitoneal gas. Reviewed, dictated and finalized at location A.
--- NOTE | ~2022-11-06 | XR_ITS ---
EXAMINATION: XR abdomen/kub 1V INDICATION: Abdominal bloating and discomfort TECHNIQUE: Supine views of the abdomen were obtained on 2 radiographs. COMPARISON: 0602 hours FINDINGS: A moderate volume of colonic stool is present. No dilated loops of bowel are identified. No definite free intraperitoneal gas is seen. There are phleboliths of the pelvis. IMPRESSION: 1. Constipation. Reviewed, dictated and finalized at location A. IMPRESSION: 1. Constipation.
--- NOTE | ~2022-11-06 | XR_ITS ---
EXAMINATION: XR abdomen/kub 1V DATE: 12/06/2022 21:52 INDICATION: Constipation. Hiccups. TECHNIQUE: A supine view of the abdomen on 2 radiographs was obtained. COMPARISON: None. FINDINGS: Percutaneous gastrostomy tube in expected position with marked gaseous distention of the stomach. The re is lucency along the cephalad margin of the stomach which appears to outline the falciform ligamen t suspicious for some free intraperitoneal gas. Moderate amount of stool in the proximal colon the ri ght abdomen. There are multiple gas-filled but not likely dilated loops of bowel within the mid to le ft abdomen. Some phleboliths in the pelvis. Visualized lung bases are clear. Borderline heart size ca nnot for AP technique. Cardiac valve repairs likely aortic, mitral and tricuspid. There is also a lef t atrial appendage occlusion device. Retained epicardial pacemaker leads. IMPRESSION: 1. Suggestion of a small amount of free intraperitoneal gas in the right upper quadrant which could p otentially represent leakage of gas from the gas distended stomach along the tract of a relatively re cently placed percutaneous gastrostomy tube versus other source of perforated viscus. Findings were d iscussed with Mechelle Mcmanus, the nurse caring for the patient, at 10:05 PM. Reviewed, dictated and finalized at location A. IMPRESSION: 1. Suggestion of a small amount of free intraperitoneal gas in the right upper quadrant which could potentially represent leakage of gas from the gas distende d stomach along the tract of a relatively recently placed percutaneous gastrost cory tube versus other source of perforated viscus. Findings were discussed with Mechelle Mcmanus, the nurse caring for the patient, at 10:05 PM.
--- NOTE | ~2022-11-06 | XR_ITS ---
XR abdomen/kub 1V 12/03/2022 14:29 Indication: Abdominal pain. Constipation. Procedure: KUB Comparison: Comparison to multiple prior studies sequentially, with oldest reviewed study dated 09/2022. Findings: Bowel gas pattern is nonobstructive. Large amount retained fecal material in the colon. The re are pelvic phleboliths. There is atherosclerosis. There is a G-tube present. There are right renal arterial calcifications. Impression: 1: No acute abdominal abnormality. Reviewed, dictated and finalized at location L. Impression: 1: No acute abdominal abnormality.
--- NOTE | ~2022-11-06 | XR_ITS ---
EXAMINATION: XR chest port-a-cath/central INDICATION: Central line insertion TECHNIQUE: Portable AP chest at 0606 hours COMPARISON: 11/15/2022 FINDINGS: The endotracheal tube ends approximately 5.6 cm above the robert. The nasogastric tube is f ollowed as far as the stomach. Its tip is beyond the inferior margin of the radiograph. A right inter nal jugular central venous catheter ends with its tip in the proximal superior vena cava. Changes of endoluminal aortic valve replacement are noted. Diffuse opacities persist throughout all lung zones w ithout significant change. No pleural effusion or pneumothorax. Cardiomegaly is noted. IMPRESSION: 1. Stable diffuse lung disease, consistent with pneumonia and/or pulmonary edema. 2. Support tubes and lines as above. Reviewed, dictated and finalized at location A. IMPRESSION: 1. Stable diffuse lung disease, consistent with pneumonia and/or pulmonary andrea a. 2. Support tubes and lines as above.
--- NOTE | ~2022-11-06 | XR_ITS ---
EXAM: XR abdomen/kub 1V DATE: 12/10/2022 18:18 HISTORY: abdominal discomfort . COMPARISON: 12/07/2022. FINDINGS: Bibasilar scar/atelectasis. Partially visualized sternotomy wire and atrial occlusion satinder ce. G-tube projects over the stomach. Normal bowel gas pattern. Atherosclerotic vascular calcificatio n. Pelvic phleboliths. Mild degenerative change in the lumbar spine and bilateral hips. IMPRESSION: No radiographic evidence of obstruction or ileus. Reviewed, dictated and finalized at location K.
--- NOTE | ~2022-11-06 | CT_ITS ---
EXAMINATION: CT brain wo con DATE: 11/10/2022 20:41 INDICATION: fall . TECHNIQUE: Computed tomography (CT) of the head was performed without intravenous contrast. The mA wa s adjusted according to patient size. Iterative reconstruction technique was employed. The dose-lengt h product was 681.00 mGy-cm. COMPARISON: 11/06/2022. FINDINGS: No acute intracranial hemorrhage or extra-axial fluid collection. No hydrocephalus, mass, or herniation. No acute ischemic infarct. Unremarkable dural venous sinus attenuation. No acute osseous abnormality. The aerated spaces are clear. Mild atrophy and chronic white matter change. Atherosclerotic intracranial calcification. IMPRESSION: No acute intracranial process. Reviewed, dictated and finalized at location K.
--- NOTE | ~2022-11-06 | XR_ITS ---
EXAMINATION: XR abdomen NG/feed tube insert DATE: 11/21/2022 13:02 INDICATION: Nasogastric tube placement. TECHNIQUE: A semiupright view of the abdomen was obtained. COMPARISON: Chest single view 11/21/2022 FINDINGS: The lower abdomen is excluded. There are no dilated loops of bowel. The nasogastric tube ti p is in the stomach. A second nasogastric tube tip is in the stomach. There are changes of heart valv e replacements. There is a closure device of left atrial appendage. There is a central line tip in qureshi perior vena cava. IMPRESSION: 1. Two nasogastric tubes with tips in the stomach. Reviewed, dictated and finalized at location A.
--- NOTE | ~2022-11-06 | XR_ITS ---
EXAMINATION: XR chest 1V portable DATE: 11/20/2022 15:12 INDICATION: Respiratory failure. TECHNIQUE: A single frontal view of the chest was obtained. COMPARISON: Chest single view 11/19/2022, chest CT 11/16/2022 FINDINGS: There is a diffuse interstitial pattern in the lungs. There are airspace opacities at left lung base. No pleural effusion or pneumothorax. Cardiomegaly is noted. There are changes of aortic va lve replacement. There is a closure device at left atrial appendage. The nasogastric tube tip is beyo nd the inferior margin of the radiograph, but at least to the stomach. Endotracheal tube tip is 5.2 c m above the robert. A right internal jugular central venous catheter is seen with tip in the superior vena cava. IMPRESSION: 1. Stable diffuse lung disease, consistent with mild pulmonary edema and left basilar atelectasis meche melissa pneumonia. 2. Cardiomegaly. Reviewed, dictated and finalized at location A. IMPRESSION: 1. Stable diffuse lung disease, consistent with mild pulmonary edema and left b asilar atelectasis versus pneumonia. 2. Cardiomegaly.
--- NOTE | ~2022-11-06 | XR_ITS ---
Portable chest x-ray Comparison: 11/18/2022 Clinical History: Respiratory failure Findings: Endotracheal tube, NG tube, and right IJ line are in satisfactory positions. Possible mini mal bibasilar pulmonary edema. Cardiomediastinal silhouette is stable, status post aortic valve repl acement. Bones and soft tissues are unremarkable. Impression: Possible minimal bibasilar pulmonary edema. Support tubes, as above. Status post aortic valve replacement. Reviewed, dictated and finalized at location . Impression: Possible minimal bibasilar pulmonary edema. Support tubes, as above. Status post aortic valve replacement.
--- NOTE | ~2022-11-06 | XR_ITS ---
EXAMINATION: XR abdomen NG/feed tube insert INDICATION: Nasogastric tube placement TECHNIQUE: Portable AP KUB-NG at 0608 hours COMPARISON: 11/13/2022 FINDINGS: The nasogastric tube is in the stomach. The bowel gas pattern is nonspecific. There are min imal airspace opacities of the lung bases. Changes of prior cardiac surgery are noted. IMPRESSION: 1. Nasogastric tube in the stomach. Reviewed, dictated and finalized at location A.
--- NOTE | ~2022-11-06 | CT_ITS ---
EXAMINATION: CT chest abdomen pelvis wo con DATE: 11/23/2022 09:11 INDICATION: Abscess. TECHNIQUE: Computed tomography (CT) of the chest, abdomen, and pelvis was performed without intraveno us contrast. Automated exposure control and iterative reconstruction technique were employed. The dos e-length product was 1293.17 mGy-cm. COMPARISON: CT chest, abdomen, and pelvis 11/16/2022 FINDINGS: CHEST CT: There are groundglass opacities and septal thickening in the lungs, consistent with pulmonary edema. There is a small left pleural effusion. There are changes of aortic valve replacement. Cardiomegaly i s noted. There is a small pericardial effusion. There are retained epicardial pacer wires. There are coronary artery calcifications. There is bilateral gynecomastia. A right internal jugular central kelin ous catheter is seen with tip in the superior vena cava. There is mild thoracic spondylosis. ABDOMEN/PELVIS CT: The liver is normal. Calcifications in the spleen are consistent with old granulomatous disease. Ther e is contrast in the gallbladder, which is normal in size. The pancreas and adrenal glands are normal . There is moderate atrophy of the kidneys. There is calcified atherosclerosis of the aorta and many of the other arteries. There is an umbilical hernia containing fat. There is diverticulosis of the co mely without evidence of diverticulitis. There are no dilated loops of bowel. The appendix is normal. The nasogastric tube tip is in the stomach. There is wall thickening of the stomach. There are no pat hologically enlarged lymph nodes. There is no free intraperitoneal fluid. There is mild lumbar spondy losis. IMPRESSION: 1. Moderate pulmonary edema. 2. Small left pleural effusion. 3. Stable small pericardial effusion. 4. Wall thickening of the stomach, consistent with gastritis. Reviewed, dictated and finalized at location A.
--- NOTE | ~2022-11-06 | XR_ITS ---
EXAMINATION: XR lumbar puncture diagnostic DATE: 11/11/2022 09:28 INDICATION: Altered mental status. TECHNIQUE: The skin overlying the L2-L3 level was prepped and draped in usual sterile fashion. Subcu taneous 1% lidocaine was used for local anesthesia. A 20 gauge spinal needle was advanced under fluo roscopic guidance. The needle was removed and the entry site was cleaned and dressed. There were no immediate complications. Fluoroscopy exposure time was 0.1 minutes. The total number of images was 1. FINDINGS: Real-time fluoroscopy demonstrates the needle at the L2-L3 level. The opening pressure was 20 cm water (Normal range is variably defined as 6-20 cm water and up to 25 cm water in obese patient s. Pressure >25 cm water is one of the modified Dandy criteria for idiopathic intracranial hypertensi on). 10 mL of clear, colorless fluid was collected in 4 tubes. IMPRESSION: 1. Successful fluoro-guided lumbar puncture. Reviewed, dictated and finalized at location A.
--- NOTE | ~2022-11-06 | XR_ITS ---
EXAMINATION: XR fl Dobhoff insert/rad w img DATE: 11/10/2022 12:38 INDICATION: Dobbhoff placement TECHNIQUE: A Dobbhoff type feeding tube was advanced into the duodenum utilizing intermittent fluoroscopy. Final image demonstrates the feeding tube in position with the weighted tip at the expected location of th e third portion of the duodenum. A single fluoroscopic image was recorded. Fluoroscopy exposure time was 3.5 minutes. The DAP for this procedure was 25.136 Gycm2. There were no immediate complications. FINDINGS/IMPRESSION: Successful fluoroscopy-guided Dobbhoff feeding tube placement with distal tip in the third portion of the duodenum. Reviewed, dictated and finalized at location A.
--- NOTE | ~2022-11-06 | XR_ITS ---
EXAMINATION: XR chest 1V portable DATE: 11/15/2022 20:00 INDICATION: Hypotension. TECHNIQUE: A single frontal view of the chest was obtained. COMPARISON: Chest single view 11/06/2022 FINDINGS: There are airspace opacities in all lung zones with a perihilar predominance. No pleural ef fusion or pneumothorax. Cardiomegaly is noted. There are changes of aortic valve replacement. There i s a closure device at left atrial appendage. Median sternotomy wires are noted. There are changes of mitral valve replacement. IMPRESSION: 1. Diffuse lung disease with mild worsening on the right, consistent with pulmonary edema versus pneu monia. 2. Cardiomegaly. Reviewed, dictated and finalized at location E. IMPRESSION: 1. Diffuse lung disease with mild worsening on the right, consistent with pulmo nary edema versus pneumonia. 2. Cardiomegaly.
--- NOTE | ~2022-11-06 | XR_ITS ---
Portable chest x-ray Comparison: 11/17/2022 Clinical History: Respiratory failure Findings: Endotracheal tube, NG tube, and right-sided central venous line are in satisfactory positi ons. Lungs are essentially clear. No pleural effusion. Cardiomediastinal silhouette is stable, statu s post aortic valve replacement. Bones and soft tissues are unremarkable. Impression: Support tubes, as above. Clear lungs. Evidence of prior cardiac surgery. Reviewed, dictated and finalized at location M. Impression: Support tubes, as above. Clear lungs. Evidence of prior cardiac surgery.
--- NOTE | ~2022-11-06 | XR_ITS ---
EXAM: XR abdomen NG/feed tube insert DATE: 11/09/2022 14:49 HISTORY: ng placement . COMPARISON: X-ray chest 11/06/2022. FINDINGS: Intact sternotomy wires. Atrial occlusion device. A nasogastric tube coils in the hypophar ynx. Cardiac valve replacements. Pulmonary opacities may represent pulmonary edema. Normal bowel gas pattern. IMPRESSION: NG tube coils in the hypopharynx. Results reported telephonically to Luisa Mejia RN by Dr. Shrestha at 3:03 PM on 11/09/2022. Reviewed, dictated and finalized at location K.
--- NOTE | ~2022-11-06 | XR_ITS ---
Portable chest x-ray Comparison: 06/09/2021 Clinical History: Altered mental status Findings: There is mild haziness bilaterally, most compatible mild pulmonary edema. There is cardiom egaly, status post aortic valve replacement. Bones and soft tissues are unremarkable. Impression: Mild pulmonary edema pattern. Cardiomegaly, status post aortic valve replacement. Reviewed, dictated and finalized at [facility]. Impression: Mild pulmonary edema pattern. Cardiomegaly, status post aortic valve replacement.
--- NOTE | ~2022-11-06 | XR_ITS ---
EXAMINATION: XR fluoroscopy no charge DATE: 11/11/2022 09:26 INDICATION: Occluded nasoenteric tube. TECHNIQUE: I adjusted the nasoenteric tube under fluoroscopic guidance. After adjustment, the tube fl ushed normally. One image was obtained. Fluoroscopy exposure time was 0.1 minutes. COMPARISON: None. FINDINGS: The nasoenteric tube tip is in the fourth portion of the duodenum. IMPRESSION: 1. Nasoenteric tube tip in the fourth portion of the duodenum. Reviewed, dictated and finalized at location A.
--- NOTE | ~2022-11-06 | XR_ITS ---
EXAMINATION: XR abdomen obstructive series DATE: 11/22/2022 08:02 INDICATION: Gastric distention. TECHNIQUE: Upright and supine views of the abdomen were obtained. COMPARISON: CT abdomen and pelvis 11/16/2022 FINDINGS: There are no dilated loops of bowel. No free intraperitoneal gas. The nasogastric tube tip is in the stomach. There are changes of aortic valve and mitral valve replacement. There is a closure device at left atrial appendage. IMPRESSION: 1. Normal bowel gas pattern. 2. Nasogastric tube tip in the stomach. Reviewed, dictated and finalized at location A.
--- NOTE | ~2022-11-06 | US_ITS ---
EXAMINATION:US venous doppler LE BI INDICATION:Bacteremia TECHNIQUE: Multiple grayscale, color flow and Doppler images of the right and left lower extremity de ep venous systems were obtained and reviewed. COMPARISON: No prior studies for comparison. FINDINGS: The common femoral, superficial femoral and popliteal veins demonstrate normal respiratory variation, augmentation and compressibility. Color flow is also seen within the posterior tibial, pe roneal, greater saphenous and profunda veins. IMPRESSION: 1: No lower extremity deep venous thrombosis. Reviewed, dictated and finalized at location L.
--- NOTE | ~2022-11-06 | CT_ITS ---
EXAMINATION: CT brain wo con DATE: 11/23/2022 09:11 INDICATION: Encephalopathy. TECHNIQUE: Computed tomography (CT) of the head was performed without intravenous contrast. The mA wa s adjusted according to patient size. Iterative reconstruction technique was employed. The dose-lengt h product was 605.33 mGy-cm. COMPARISON: Head CT 11/16/2022 FINDINGS: There are scattered areas of low attenuation in the cerebral white matter. There is no intr acranial hemorrhage, acute infarction, or abnormal intracranial mass lesion. The ventricles are gopal l in size. The orbits are normal. The paranasal sinuses are clear. There is a left otomastoid effusio n. IMPRESSION: 1. Stable mild nonspecific cerebral white matter disease, which likely represents chronic small vesse l ischemic disease. Reviewed, dictated and finalized at location A. IMPRESSION: 1. Stable mild nonspecific cerebral white matter disease, which likely represen ts chronic small vessel ischemic disease.
--- NOTE | ~2022-11-06 | CT_ITS ---
EXAMINATION: CT brain wo con DATE: 11/16/2022 10:35 INDICATION: Sepsis. Altered mental status. TECHNIQUE: Computed tomography (CT) of the head was performed without intravenous contrast. Sagittal and coronal reconstructions were performed. The mA was adjusted according to patient size. Iterative reconstruction technique was employed. The dose-length product was 681.00 mGy-cm. COMPARISON: head CT dated 11/10/2022 FINDINGS: No acute intracranial hemorrhage, acute infarction or abnormal extra axial fluid collection. There is mild scattered white matter hypoattenuation consistent with chronic small vessel ischemic disease. S ymmetric prominence of the sulci consistent with mild age-appropriate diffuse cerebral volume loss. V entricles are normal and symmetric. No mass/mass effect. Visualized portions of an orogastric tube an d endotracheal tube in expected position. The orbits, paranasal sinuses and mastoid air cells are nor mal. IMPRESSION: 1. No acute intracranial process. 2. Age-related changes including mild diffuse volume loss and mild scattered white matter hypoattenua tion consistent with chronic small vessel ischemic disease. Reviewed, dictated and finalized at location A. IMPRESSION: 1. No acute intracranial process. 2. Age-related changes including mild diffuse volume loss and mild scattered wh ite matter hypoattenuation consistent with chronic small vessel ischemic diseas e.
--- NOTE | ~2022-11-06 | XR_ITS ---
EXAMINATION: XR fl Dobhoff insert/rad w img DATE: 11/27/2022 14:45 INDICATION: Unable to place nasogastric tube at bedside. TECHNIQUE: A Dobbhoff type feeding tube was advanced into the duodenum utilizing intermittent fluoroscopy. Final image demonstrates the feeding extending into the stomach with distal tip curved as if extending int o the proximal duodenum. The tube was flushed with 10 mL sterile saline and fixed to the nares with a dhesive tape. 2 fluoroscopic images were recorded. The amount of fluoroscopy time used during this pr ocedure was 1.0 minutes. There were no immediate complications. FINDINGS/IMPRESSION: Successful fluoroscopy-guided Dobbhoff feeding tube placement with distal tip likely in the first por tion of the duodenum with sufficient redundancy in the stomach to allow for further advancement. Reviewed, dictated and finalized at location A.
--- NOTE | ~2022-11-06 | US_ITS ---
EXAMINATION: US right upper quadrant DATE: 11/09/2022 09:01 INDICATION: Elevated liver function tests TECHNIQUE: Multiple grayscale and Doppler ultrasound images of the abdomen were obtained. COMPARISON: None available FINDINGS: Bowel gas obscures visualization of the pancreas. The visualized portions of the pancreas a re unremarkable. The liver is normal with normal echogenicity and echotexture. No surface nodularity. Portal vein flow is difficult to assess due to patient breathing. The gallbladder is normal with no abnormal wall thickening, pericholecystic fluid or stones. The normal common bile duct measures 5 mm. There was no sonographic Khanna sign. IMPRESSION: 1. No sonographic correlate for the patient's symptoms. Reviewed, dictated and finalized at location A.
--- NOTE | ~2022-11-06 | US_ITS ---
EXAMINATION: US venous doppler UE DATE: 11/16/2022 15:36 INDICATION: Upper limb swelling TECHNIQUE: Grayscale images without and with compression and Doppler images of the bilateral upper ex tremity veins were obtained. COMPARISON: None. FINDINGS: Internal jugular central venous catheter is seen within the right internal jugular vein. The right in ternal jugular vein, subclavian vein, axillary vein, brachial vein, basilic vein, radial vein, and ul viv vein are patent. Small amount of nonocclusive hypoechoic thrombus within a dilated serpiginous ve in anterior to the right elbow likely representing the cephalic vein. There are some echogenic calcif ic lesion associated with the thrombus suggesting this may be chronic. The left internal jugular vein, subclavian vein, axillary vein, brachial vein, basilic vein, cephalic vein, radial vein, and ulnar vein are patent. IMPRESSION: 1. Small amount of nonocclusive thrombus with echogenic calcification suggesting this may be chronic within a dilated serpiginous vein at the anterior right elbow likely the right cephalic vein. 2. Patent left upper extremity veins. No evidence of venous thrombosis. Reviewed, dictated and finalized at location A. IMPRESSION: 1. Small amount of nonocclusive thrombus with echogenic calcification suggestin g this may be chronic within a dilated serpiginous vein at the anterior right e lbow likely the right cephalic vein. 2. Patent left upper extremity veins. No evidence of venous thrombosis.
--- NOTE | ~2022-11-06 | XR_ITS ---
EXAMINATION: XR chest 1V portable DATE: 11/17/2022 06:13 INDICATION: Respiratory failure TECHNIQUE: frontal view of the chest was obtained. COMPARISON: Chest radiograph and CT dated 11/16/22 FINDINGS: Endotracheal tube tip 4.0 cm above the robert. Nasogastric tube extends below the left hemidiaphragm with distal tip collimated off the study. Right internal jugular central venous catheter with distal tip at the midsuperior vena cava. Again seen are bilateral patchy perihilar opacities with more dense opacities in the left lower lung zone. Small left pleural effusion. Heart size within normal limits for AP technique. Median sternotom y wires and mediastinal surgical clips are seen, likely from prior coronary artery bypass grafting. A ortic valve and mitral valve repairs. Left atrial appendage clip. Couple retained cardiac pacemaker l shabbir. IMPRESSION: 1. Persistent opacities most prominent in the left lower lung zone and bilateral perihilar regions wh ich could represent atelectasis, pneumonia, pulmonary edema or some combination thereof. 2. Small left pleural effusion. Reviewed, dictated and finalized at location A. IMPRESSION: 1. Persistent opacities most prominent in the left lower lung zone and bilatera l perihilar regions which could represent atelectasis, pneumonia, pulmonary chris ma or some combination thereof. 2. Small left pleural effusion.
--- NOTE | ~2022-11-06 | XR_ITS ---
XR chest 1V portable 11/26/2022 08:21 Indication: Hypoxia Procedure: AP portable chest Comparison: Comparison to multiple prior studies sequentially, with oldest reviewed study dated 07/2022. Findings: Status post median sternotomy for CABG. There are changes of aortic valve replacement. Righ t IJ central line tip in the SVC. Cardiomegaly with pulmonary edema. No significant effusion or pneum othorax. There is gastric distention. No acute osseous abnormality. Impression: 1: Cardiomegaly with pulmonary edema. Reviewed, dictated and finalized at location L. Impression: 1: Cardiomegaly with pulmonary edema.
--- NOTE | ~2022-11-06 | XR_ITS ---
Portable chest x-ray Comparison: 11/20/2022 Clinical History: Respiratory failure Findings: Endotracheal tube, NG tube, and right-sided central venous line are in satisfactory positi ons. Possible minimal left lower lobe haziness. Right lung clear. Cardiomediastinal silhouette is st able, status post aortic valve replacement. Bones and soft tissues are unremarkable. Impression: Support tubes, as above. Minimal left basilar haziness. Correlate for pulmonary edema/atelectasis or pneumonia. Reviewed, dictated and finalized at location . Impression: Support tubes, as above. Minimal left basilar haziness. Correlate for pulmonary edema/atelectasis or pne umonia.
--- NOTE | ~2022-11-06 | XR_ITS ---
EXAM: XR abdomen NG/feed tube rechec DATE: 11/20/2022 20:17 HISTORY: Recheck placement. . COMPARISON: 11/16/2022. FINDINGS: Bibasilar scar/atelectasis. Cardiac valve replacements. Atrial occlusion device. Intact in ferior sternotomy wires. Nasogastric tube, tip and side port project over the markedly distended stom ach. Otherwise normal bowel gas pattern. IMPRESSION: NG tube, in good position. Marked gastric distention. Reviewed, dictated and finalized at location K.
--- NOTE | ~2022-11-06 | CT_ITS ---
EXAMINATION: CT chest abdomen pelvis wo con DATE: 11/16/2022 10:35 INDICATION: Sepsis TECHNIQUE: Computed tomography (CT) of the chest, abdomen, and pelvis was performed without intraveno us contrast. Automated exposure control and iterative reconstruction technique were employed. The dos e-length product was 1523.99 mGy-cm. COMPARISON: None FINDINGS: CHEST CT: Right internal jugular central venous catheter with distal tip at the caudal superior vena cava. Endo tracheal tube tip 5 cm above the robert. Nasogastric tube tip in the distal body of the stomach. Mild cardiomegaly. Atherosclerotic coronary artery disease with change of prior median sternotomy and cor onary artery bypass grafting. Mitral valve and aortic valve repairs. Left atrial appendage clip. Rosa Isela ined epicardial pacemaker leads. Small pericardial effusion. Small bilateral posterior layering pleural effusions, left greater than right. Dependent consolidatio n in the bilateral upper and lower lobes most likely atelectasis although superimposed pneumonia not excludable. Mosaic attenuation with scattered groundglass opacities along some mild smooth septal erik e thickening at the right lung base most likely mild pulmonary edema although differential would incl ude pneumonia. Thoracic aorta is normal in caliber. Mediastinal lymphadenopathy with largest right pa ratracheal lymph node measuring up to 1.3 cm in maximal short axis diameter. ABDOMEN/PELVIS CT: Tiny calcified gallstones layering in the dependent aspect of the otherwise normal-appearing gallblad gisela. Liver, spleen, pancreas and bilateral adrenal glands are normal. Moderate bilateral renal atroph y. Small fat-containing umbilical hernia. Scattered colonic diverticula without adjacent inflammatory stranding to suggest diverticulitis. Normal appendix. No bowel obstruction. [place] catheter within th e decompressed bladder. Small amount of ascites in the abdomen and pelvis. Small amount of presacral edema. No abscess or free intraperitoneal gas. No pathologically enlarged abdominal or pelvic lymphad enopathy. Extensive scattered vascular calcifications which could be seen in the setting of diabetes. Mild polyarticular osteoarthritis in the pelvis and throughout the facet joints the thoracic and lum bar spine.. IMPRESSION: 1. Likely congestive heart failure with cardiomegaly, mild pulmonary edema and small bilateral pleura l effusions. 2. Dependent consolidation in the bilateral upper and lower lobes most likely atelectasis although qureshi perimposed pneumonia difficult to exclude. 3. Small pericardial effusion. 4. Nonspecific mediastinal lymphadenopathy which is most likely reactive. 5. Cholelithiasis. 6. Small amount of nonspecific ascites in the abdomen and pelvis. Reviewed, dictated and finalized at location A. IMPRESSION: 1. Likely congestive heart failure with cardiomegaly, mild pulmonary edema and small bilateral pleural effusions. 2. Dependent consolidation in the bilateral upper and lower lobes most likely a telectasis although superimposed pneumonia difficult to exclude. 3. Small pericardial effusion. 4. Nonspecific mediastinal lymphadenopathy which is most likely reactive. 5. Cholelithiasis. 6. Small amount of nonspecific ascites in the abdomen and pelvis.
--- NOTE | ~2022-11-06 | US_ITS ---
EXAMINATION: US venous doppler UE DATE: 11/26/2022 11:17 INDICATION: Bacteremia. TECHNIQUE: Craig scale images with and without compression and Doppler images of the right and left up per extremity veins were obtained. COMPARISON: 11/16/2022. FINDINGS: The internal jugular vein, subclavian vein, axillary vein, brachial veins, basilic vein, cephalic vei n, radial vein, and ulnar vein are patent. There is a dialysis graft present. IMPRESSION: 1. Patent bilateral upper extremity veins. No evidence of deep venous thrombosis. Reviewed, dictated and finalized at location L. IMPRESSION: 1. Patent bilateral upper extremity veins. No evidence of deep venous thrombosi s.
--- NOTE | 2022-11-06 10:11 | ECG_ITS ---
Measurements Intervals [place] Rate: 94 P: ND: 0 QRS: 79 QRSD: 124 T: 108 QT: 403 QTc: 505 Interpretive Statements ATRIAL FIBRILLATION MODERATE INTRAVENTRICULAR CONDUCTION DELAY [110+ ms QRS DURATION] NONSPECIFIC T-WAVE ABNORMALITY ABNORMAL RHYTHM ECG COMPARED TO ECG 06/09/2021 16:32:55 ATRIAL FIBRILLATION NOW PRESENT INTRAVENTRICULAR CONDUCTION DELAY NOW PRESENT T-WAVE ABNORMALITY NOW PRESENT Electronically Signed On 11-06-2022 15:54:12 CDT by Rishi Meneses M.D.
[2022-11-06 10:24] LABS: Glucose Point of Care 143 mg/dl (65-105)
[2022-11-06 10:33] LABS: Basophils Percent Auto 0.4 % (0.2-1.2); Eosinophils Absolute Auto 0.1 K/mm3 (0-0.3); Eosinophils Percent Auto 1.1 % (0-4.4); Hematocrit 27.6 % (42.0-52.0); Hemoglobin 8.6 g/dL (14.0-18.0); Immature Granulocyte Absolute 0.06 K/mm3 (0.00-0.031); Immature Granulocyte Percent A 1.3 % (0-0.5); Lymphocytes Absolute Auto 0.62 K/mm3 (0.9-3.2); Lymphocytes Percent Auto 13.7 % (18.3-44.2); Mean Corpuscular HGB Conc 31.2 g/dl (32-36); Mean Corpuscular Hemoglobin 30.9 pg (26-34); Mean Corpuscular Volume 99.3 fl (80-100); Mean Platelet Volume 11.2 fl (7.4-10.4); Monocytes Absolute Auto 0.5 K/mm3 (0.1-0.6); Monocytes Percent Auto 10.8 % (2.6-8.5); Neutrophils Absolute Auto 3.3 K/mm3 (1.3-6.7); Neutrophils Percent Auto 72.7 % (45.5-73.1); Platelet Count Result 116 k/mm3 (150-375); Red Blood Count 2.78 M/mm3 (4.6-6.20); Red Cell Distribution Width 17.7 % (11.5-14.5); White Blood Count 4.5 K/mm3 (4.5-10.0)
[2022-11-06 10:43] LABS: INR 1.6; Prothrombin Time 18.2 Seconds (11.1-14.7)
[2022-11-06 10:44] LABS: Partial Thromboplastin Time 37.8 SECONDS (22.3-36.8)
[2022-11-06 10:47] LABS: Alveolar/Arterial O2 Gradient 37.1 mmHg; Base Excess ABG 1.4 mEq/l (+/-2.0); Carboxyhemoglobin 1.6 % THb (0-2.0); Device ROOM AIR; Fractional Inspired Oxygen 21 %; HCO3 ABG 25.4 mEq/l (22.0-26.0); Methemoglobin ABG 0.1 %THb (0-1.5); Oxygen Content ABG 12.3 %vol (16.0-22.0); Oxygen Saturation ABG 94.3 % (95.0-100.0); Oxyhemoglobin 90.7 % THb (90.0-100.0); PCO2 ABG 37.6 mmHg (35.0-45.0); PO2 ABG 67.6 mmHg (80.0-100.0); PO2 FiO2 Ratio Arterial Blood 3.22 %; Reduced Hemoglobin 7.6 %THb (0-5.0); Site Drawn LEFT BRACHIAL; Total Hemoglobin 9.6 g/dL (12.0-18.0); pH ABG 7.448 (7.350-7.450)
[2022-11-06 11:00] LABS: Alanine Aminotransferase 29 U/L (6-50); Albumin Level 3.6 g/dL (3.5-5.1); Alkaline Phosphatase 108 U/L (38-126); Anion Gap 15 mmol/L (8-16); Aspartate Amino Transferase 25 U/L (17-59); Blood Urea Nitrogen 54 mg/dL (9-20); Calcium 9.2 mg/dL (8.4-10.2); Carbon Dioxide 27 mmol/L (22-30); Chloride 89 mmol/L (98-107); Estimated CRCL calculation 9 ml/min; Estimated Glomerular Filt Rate 6; Glucose 146 mg/dL (65-110); Potassium 3.4 mmol/L (3.4-5.0); Sodium 131 mmol/L (137-145)
--- NOTE | 2022-11-06 11:10 | PC.NURSE ---
Report received from Chrissy KAUFMAN including history and physical and plan of care
--- NOTE | 2022-11-06 12:00 | ED.AMS ---
HPI - Altered Mental Status General Chief Complaint: Altered Mental Status Stated Complaint: ams Time Seen by Provider: 11/06/22 10:10 History of Present Illness HPI narrative: Patient is a 62-year-old male who presents ER with altered mental status. Worsening over the last 3 days. 3 days ago patient was prescribed valacyclovir for shingles outbreak to his right chest wall. He has had increasing confusion since then. Patient receives home dialysis daily but has recently been going to a facility since he has had a mitral valve replacement. History provided by patient's spouse as he cannot provide a history. Patient has been taking valacyclovir 1 g 3 times a day. He has not had dialysis in 2 days Related Data Home Medications Medication Instructions Recorded Confirmed Adult Low Dose Aspirin 81 mg PO DAILY 06/09/21 11/06/22 apixaban 5 mg tablet (Eliquis) 2.5 mg PO BID 06/09/21 11/06/22 ascorbic acid (vitamin C) 1,000 mg PO HS 06/09/21 11/06/22 sevelamer carbonate 800 mg tablet 4,000 mg PO TIDWMEAL 06/09/21 11/06/22 vitamin B comp no.3-folic acid 1 1 tablet PO HS 06/09/21 11/06/22 mg-vit C 60 mg-biotin 300 mcg tablet ([facility]) alprazolam 0.5 mg tablet 0.5 mg PO HS 11/03/22 11/06/22 amiodarone 200 mg tablet 200 mg PO BID 11/03/22 11/06/22 citalopram 20 mg tablet 20 mg PO HS 11/03/22 11/06/22 famotidine 20 mg tablet 20 mg PO BID 11/03/22 11/06/22 atorvastatin 20 mg tablet 20 mg PO HS 11/06/22 11/06/22 ezetimibe 10 mg tablet 10 mg PO DAILY 11/06/22 11/06/22 insulin glargine 100 unit/mL (3 10 unit subcut HS 11/06/22 11/06/22 mL) subcutaneous pen (Lantus Solostar U-100 Insulin) midodrine 10 mg tablet 10 mg PO Q8H 11/06/22 11/06/22 tramadol 50 mg tablet 50 mg PO TID PRN pain 11/06/22 11/06/22 Allergies Allergy/AdvReac Type Severity Reaction Status Date / Time onion Allergy Vomiting Verified 11/03/22 14:48 Review of Systems Review of Systems: ROS unobtainable: Yes unobtainable due to mental status PMFSH Past Medical History Medical History (Updated 11/06/22 @ 19:01 by Han Madrigal MD) Atrial fibrillation Chronic anticoagulation End-stage renal disease on hemodialysis Home dialysis 5 days a week. Hemorrhoids Hyperlipidemia Hypertension Insulin dependent diabetes mellitus Obesity (BMI 30-39.9) Obstructive sleep apnea syndrome in adult Surgical History Surgical History (Updated 11/06/22 @ 17:31 by Reanna Yanes PA-C) History of cardiac cath Minimal blockages and no stents. History of colonoscopy History of esophagogastroduodenoscopy (EGD) History of mitral valve replacement with bioprosthetic valve (10/03/22) History of tonsillectomy and adenoidectomy History of transcatheter aortic valve replacement (TAVR) Status post creation of arteriovenous fistula Family History Family History Father Hypertension Heart disease Diabetes mellitus Cancer Mother Cancer Social History Social History (Updated 11/06/22 @ 17:34 by Reanna Yanes PA-C) Social History: Surrogate medical decision maker: Nicole Blank, spouse. Code status: Full code. Smoking packs per day: 5 Smoking cigarettes per day: 100.0 Years smoked: 30 Smoking pack-years: 150.00 Smoking status: Current every day smoker Tobacco type: cigarettes Alcohol intake: unknown Substance use: unknown Additional living arrangements comments: Lives with spouse in [place]. They have 3 children. 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 Gender identity (if verbalized by the patient): Male Spiritual care concerns: No Exam Narrative: GENERAL: Chronically ill-appearing, well-nourished, and in no acute distress. HEAD: Normocephalic, atraumatic. EYES: PERRL and EOMI. ENT: Mucous membranes moist. CHEST: Clear to auscultation. No respiratory distress. HEART: Irregular regular rate and rhythm. Normal peripheral pulses
[2022-11-06 13:51] LABS: Hepatitis B Surface Antigen Negative (Negative)
[2022-11-06 13:56] LABS: Hepatitis B Core IgM Result Negative (Negative)
--- NOTE | 2022-11-06 14:00 | PM.IMHP ---
H&P: HPI History of Present Illness Date/Time: 11/06/22 14:00 Chief Complaint: Altered mental status. Narrative: This is a 62-year-old male with end-stage renal disease on home hemodialysis, insulin-dependent diabetes, atrial fibrillation on chronic anticoagulation, valvular heart disease status post transcatheter aortic valve replacement and more recently bioprosthetic mitral valve replacement on 10/03/2022, obstructive sleep apnea, and hypertension who presented to the emergency department via EMS from home for evaluation of altered mental status. While the patient is alert he is not following commands or answering questions and he is unable to provide any history. As such all of the following is obtained from his Nicole who is at bedside. He was seen at a local urgent care on Friday11/03/2022 for evaluation of a painful, vesicular rash under the right breast which had been present for approximately 3 to 4 days. He was diagnosed with shingles and was prescribed valacyclovir 1000 mg t.i.d. for 7 days. Several hours after his 2nd dose of valacyclovir on Friday he told his that he ?felt high? and as the days have gone on he has become increasingly confused and altered. has been feeding him and giving him his medications though it does not sound as though he has really done anything for himself the last several days due to his altered mental status. In fact he has not been able to hold a conversation for a couple of days and he instead has just been making random noises. He is alert however and will occasionally track with his eyes however he does not answer questions or follow commands. Aside from the altered mental status, Nicole has not noticed any concerning findings. He has not urinated for several years. He has not had a bowel movement for a couple of days which is not unusual for him. He has been eating as above without complaints of nausea or vomiting. Nicole does not believe he has had fever, chills, or sweats. He does not seem to be in any pain. Review of Systems Review of Systems: Unable to obtain given current clinical condition as detailed above. [facility] Past Medical History Medical History Atrial fibrillation Chronic anticoagulation End-stage renal disease on hemodialysis Home dialysis 5 days a week. Hemorrhoids Hyperlipidemia Hypertension Insulin dependent diabetes mellitus Obesity (BMI 30-39.9) Obstructive sleep apnea syndrome in adult Surgical History Surgical History History of cardiac cath Minimal blockages and no stents. History of colonoscopy History of esophagogastroduodenoscopy (EGD) History of mitral valve replacement with bioprosthetic valve (10/03/22) History of tonsillectomy and adenoidectomy History of transcatheter aortic valve replacement (TAVR) Status post creation of arteriovenous fistula Family History Family History Father Hypertension Heart disease Diabetes mellitus Cancer Mother Cancer Social History Social History (Updated 11/06/22 @ 23:44 by Reanna Yanes PA-C) Social History: Surrogate medical decision maker: Nicole Blank, spouse. Code status: Full code. Smoking packs per day: 5 Smoking cigarettes per day: 100.0 Years smoked: 30 Smoking pack-years: 150.00 Smoking status: Current every day smoker Tobacco type: cigarettes Alcohol intake: unknown Substance use: unknown Additional living arrangements comments: Lives with spouse in [place]. They have 3 children. 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 Spiritual care concerns: No Meds Home Medications and Allergies Home Medications Medication Instructions Recorded Confirmed Type Adult Low Dose Aspirin 81 mg PO DAILY 06/09/21 11/06/22 History apixaban 5 mg tablet (Eliquis) 2.5 mg PO BID
--- NOTE | 2022-11-06 14:02 | WPDNEURCNPN ---
Assessment and Plan Assessment and plan (1) Delirium, drug-induced: Code(s): R41.0 - Disorientation, unspecified; T50.905A - Adverse effect of unspecified drugs, medicaments and biological substances, initial encounter Status: Acute (2) End stage renal disease: Code(s): N18.6 - End stage renal disease Status: Acute (3) Shingles: Code(s): B02.9 - Zoster without complications Status: Acute (4) Insulin dependent diabetes mellitus: Status: Acute Plan 1 metabolic encephalopathy with possible multiple etiologies possibility of the infectious versus the overdose the CT scan as mentioned before is without any acute finding neurological status will be monitored and subsequently he will also go for the dialysis to clear the medications 2 herpes zoster of thoracic region antiviral medications are being withheld considering the overdoses he had been taking 1000 mg well psych lobe air t.i.d. at present he is being monitored for any change in the behavior. Consult date: 11/07/22 HPI: Orestes Blank is a 62 year old male admitted to the hospital through the emergency room for the complaints of change in the mental status in addition to the ongoing history of atrial fibrillation, chronic kidney disease stage 5, diabetes mellitus type 2, end-stage renal disease, hyperlipidemia, hypertension, and obstructive sleep apnea syndrome. Patient has been on multiple medications particularly diltiazem 240 mg daily ,apixaban 5 mg b.i.d., furosemide 80 mg on need basis, BMP with BUN 54 and creatinine with 8.80, CBC with platelet count of 116 and hemoglobin 8.6. Patient was seen in the ER on 11/03 at 3:10 a.m. in ambulatory condition with complaint of skin abscess and foreign body with all the other medical conditions as such. He does have a history of smoking packs per day 5 with 100 cigarettes per day and ears smoked 30 with smoking pack years of 150 but no alcohol intake, this time patient has been admitted to the hospital for change in the mental status along with the shingles and increasing pain Review of Systems Review of Systems: All systems reviewed & are unremarkable except as noted in HPI and below PMFSH Past Medical History Medical History Atrial fibrillation Chronic anticoagulation End-stage renal disease on hemodialysis Home dialysis 5 days a week. Hemorrhoids Hyperlipidemia Hypertension Insulin dependent diabetes mellitus Obesity (BMI 30-39.9) Obstructive sleep apnea syndrome in adult Surgical History Surgical History History of cardiac cath Minimal blockages and no stents. History of colonoscopy History of esophagogastroduodenoscopy (EGD) History of mitral valve replacement with bioprosthetic valve (10/03/22) History of tonsillectomy and adenoidectomy History of transcatheter aortic valve replacement (TAVR) Status post creation of arteriovenous fistula Family History Family History Father Hypertension Heart disease Diabetes mellitus Cancer Mother Cancer Social History Social History (Updated 11/06/22 @ 23:44 by Reanna Yanes PA-C) Social History: Surrogate medical decision maker: Nicole Blank, spouse. Code status: Full code. Smoking packs per day: 5 Smoking cigarettes per day: 100.0 Years smoked: 30 Smoking pack-years: 150.00 Smoking status: Current every day smoker Tobacco type: cigarettes Alcohol intake: unknown Substance use: unknown Additional living arrangements comments: Lives with spouse in [place]. They have 3 children. 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 Spiritual care concerns: No Meds Home Medications and Allergies Home Medications Medication Instructions Recorded Confirmed Type Adult Low Dose Aspirin 81 mg PO DAILY 1
--- NOTE | 2022-11-06 15:14 | PM.CNNEP ---
Assessment and Plan Assessment and plan (1) End stage renal disease: Code(s): N18.6 - End stage renal disease Status: Chronic Assessment and Plan: HD today in an effort to maximize clearance of Valtrex, plan HD for a few sessions in a row follow electrolytes, volume status, and clearance (2) Encephalopathy: Code(s): G93.40 - Encephalopathy, unspecified Status: Acute Assessment and Plan: concern is that of possible valtrex overdose however, cannot deny other possible etiologies head CT negative plan HD for a few days in a row to maximize clearance follow-up on pending tests haldol PRN for agitation further testing (i.e. lumbar puncture) as deemed necessary) monitor mental status (3) Herpes zoster infection of thoracic region: Code(s): B02.9 - Zoster without complications Status: Acute Assessment and Plan: holding antiviral therapy at this time pain control as needed continue supportive therapy (4) Atrial fibrillation: Qualifiers: Atrial fibrillation type: paroxysmal Qualified Code(s): I48.0 - Paroxysmal atrial fibrillation Code(s): I48.91 - Unspecified atrial fibrillation Status: Chronic Assessment and Plan: continue rate-control strategy anticoagulation on hold (in case further procedures need to be done) (5) Insulin dependent diabetes mellitus: Status: Acute Assessment and Plan: follow accuchecks glycemic control per hospitalists I will continue to follow the patient with you while he remains hospitalized and make further recommendations during his hospital course Thank you for allowing me to participate in the care of this patient. History of Present Illness Reason for Consult Consult date: 11/06/22 Reason for consult: end stage renal disease Chief Complaint Chief complaint: Drug Induced Delirium, Shingles, ESRD History of Present Illness Narrative: The patient is a 61-year-old male with a past medical history as outlined below who presented to [facility] Emergency room due to altered mental status. The patient is a 62-year-old male with a past medical history as outlined below presented to [facility] Emergency Room via EMS for altered mental status. The patient was seen at a local urgent care center last Friday for evaluation of painful vesicular rash under his right breast that was present for about 3 or 4 days. He was diagnosed with shingles and prescribed Valtrex 1 g t.i.d. for 7 days. After initiating the Valtrex therapy on that same day, he reported to his that he ?felt high. Since that time, his mental status has declined significantly. He apparently went to his outpatient dialysis center on Friday and received his treatment but apparently even the nursing staff noted that his mentation was not baseline. As the days went on, his mental status continued to decline to the point where he was not been verbal and his had to assist him with simple activities of daily living. Given the progressive decline in his mentation, he was sent to the emergency room for further assessment. Workup and evaluation emergency room demonstrated the patient be hemodynamically stable but he was quite confused. He was unable to hold a conversation or able to answer any questions much less follow commands. Routine blood test demonstrated labs consistent with his known history of end-stage renal disease and a CT scan of the head did not show any acute intracranial process. His chest x-ray showed some mild pulmonary vascular congestion but no other significant findings. Given that the dosing of Valtrex with patients on dialysis should be 500 mg once a day post dialysis, the concern is that the high-dose Valtrex that was initiated several days ago is partly responsible for his altered mentation. He was subsequently admitted to the hospital for further evaluation therapy.
[2022-11-06] MEDS: HALOPERIDOL LACTATE 5 MG/ML VIAL IM (17:00)
[2022-11-06] MEDS: EPOETIN ALFA-EPBX 10,000 UNITS/ML VIAL 10000 UNITS IV PUSH (17:46)
[2022-11-07] VITALS (14 sets, daily range): BP systolic 114–138; BP diastolic 54–77; PULSE 100–118; RESP 20–24; TEMP 36.4–36.8; O2SAT 91–100; BMI 28.7
[2022-11-07 08:02] LABS: Hematocrit 27.6 % (42.0-52.0); Hemoglobin 8.5 g/dL (14.0-18.0); Mean Corpuscular HGB Conc 30.8 g/dl (32-36); Mean Corpuscular Hemoglobin 31.3 pg (26-34); Mean Corpuscular Volume 101.5 fl (80-100); Mean Platelet Volume 11.2 fl (7.4-10.4); Platelet Count Result 138 k/mm3 (150-375); Red Blood Count 2.72 M/mm3 (4.6-6.20); Red Cell Distribution Width 18.2 % (11.5-14.5); White Blood Count 5.6 K/mm3 (4.5-10.0)
[2022-11-07 08:10] LABS: Ammonia 30 umol/L (9-30)
[2022-11-07 08:12] LABS: Hemoglobin A1C 5.1 % (<5.7); Magnesium 2.1 mg/dL (1.6-2.3); Phosphorus 4.3 mg/dL (2.5-4.5)
[2022-11-07 08:14] LABS: Alanine Aminotransferase 29 U/L (6-50); Albumin Level 3.4 g/dL (3.5-5.1); Alkaline Phosphatase 100 U/L (38-126); Anion Gap 15 mmol/L (8-16); Aspartate Amino Transferase 31 U/L (17-59); Bilirubin,Total 1.5 mg/dL (0.2-1.3); Blood Urea Nitrogen 29 mg/dL (9-20); Calcium 9.3 mg/dL (8.4-10.2); Carbon Dioxide 22 mmol/L (22-30); Chloride 100 mmol/L (98-107); Estimated CRCL calculation 11 ml/min; Estimated Glomerular Filt Rate 10; Glucose 139 mg/dL (65-110); Sodium 137 mmol/L (137-145)
[2022-11-07 08:30] LABS: Glucose Point of Care 143 mg/dl (65-105)
--- NOTE | 2022-11-07 08:40 | PM.IMPN ---
Progress Note: A&P Assessment and Plan (1) Encephalopathy: Code(s): G93.40 - Encephalopathy, unspecified Status: Acute Assessment and Plan: Etiology is not entirely clear but concerns are for iatrogenic overdose on valacyclovir (he has been taking valacyclovir 1000 mg t.i.d. since Friday instead of 500 mg on dialysis days after dialysis). Differential diagnosis does include herpes encephalitis, hepatic encephalopathy with elevated INR for years and ammonia of 30, bili 1.5. Lactulose ordered, repeat ammonia pending. Neuro consult appreciated, they are recommending conservative management with observation CTA head and neck pending, cannot obtain MRI due to recent mitral valve replacement 10/03/22 Dialysis per nephrology If no improvement or should he spike a temperature, a lumbar puncture would be prudent. (2) Herpes zoster infection of thoracic region: Code(s): B02.9 - Zoster without complications Status: Acute Assessment and Plan: Hold antivirals as detailed above. Acetaminophen available as needed. (3) Antiviral drug overdose: Code(s): T37.5X1A - Poisoning by antiviral drugs, accidental (unintentional), initial encounter Status: Acute Assessment and Plan: The patient has been taking 1000 mg of valacyclovir t.i.d. since Friday as detailed above. His altered mental status and delirium are likely result of iatrogenic overdose. He is being monitored closely in IMU, thus far has not exhibited signs of aggressive behavior or seizures. CMP and CBC will be monitored daily. He has no identifiable rash on exam today. Acyclovir level pending. (4) End-stage renal disease on hemodialysis: Code(s): N18.6 - End stage renal disease; Z99.2 - Dependence on renal dialysis Status: Acute Assessment and Plan: Nephrology consulted for dialysis as detailed above. He will likely be dialyzed for the next several days. (5) Insulin dependent diabetes mellitus: Status: Acute Assessment and Plan: Continue basal insulin. Initiate sliding scale insulin, Accu-Cheks, and hypoglycemic protocol. Check A1c. (6) Atrial fibrillation: Qualifiers: Atrial fibrillation type: paroxysmal Qualified Code(s): I48.0 - Paroxysmal atrial fibrillation Code(s): I48.91 - Unspecified atrial fibrillation Status: Chronic Assessment and Plan: He has been in atrial fibrillation with rapid ventricular response with rates in the low 100s. Continue amiodarone and monitor. (7) Chronic anticoagulation: Code(s): Z79.01 - [facility] (current) use of anticoagulants Status: Acute Assessment and Plan: Becca currently on hold in case he requires lumbar puncture. Plan DVT prophylaxis with SCDs GI prophylaxis not indicated Code status full code Subjective Date/time seen: 11/07/22 08:40 Interval history: No overnight events noted. No chest pain or shortness of breath. No nausea, vomiting or diarrhea. No fevers or chills. Review of Systems Review of Systems: ROS unobtainable: Yes unobtainable due to mental status Exam Narrative: General: Lethargic, non verbal, very different from baseline HEENT: Atraumatic, normocephalic, mucous membranes moist CV: Irregularly irregular, S1, S2 Lungs: Coarse breath sounds throughout, adequate air entry, no wheeze Abdomen: Soft, nontender, nondistended, shingles rash noted Extremities: Normal to inspection Skin: No rashes noted, no lesions or wounds seen Psych: Unable to assess Neuro: Difficult to assess, abnormal bilateral Babinski's noted, nonfocal exam, IBETH, hyperreflexia noted in UE + LE Objective Data Vital Signs Vital Signs: Vital Signs - 24 hr 11/06/22 10:12 11/06/22 12:44 11/06/22 13:27 Temperature 97.3 F L 96.2 F L Pulse Rate 96 95 98 Respiratory Rate 18 18 17 Blood Pressure 103/68 116/65 126/81 Pulse Oximetry 96 90 97 Oxygen Delivery
[2022-11-07 09:03] LABS: Vitamin B12 > 1000.0 pg/mL (239-931)
[2022-11-07 11:19] LABS: Total Triiodothyronine (T3) 0.54 NG/ML (0.97-1.69)
[2022-11-07 12:10] LABS: Glucose Point of Care 134 mg/dl (65-105)
--- NOTE | 2022-11-07 12:56 | PM.PNNEP ---
Progress Note: A&P Assessment and Plan (1) End stage renal disease: Code(s): N18.6 - End stage renal disease Status: Chronic Assessment and Plan: plan HD today in an effort to maximize clearance of Valtrex, plan HD for a few sessions in a row follow electrolytes, volume status, and clearance (2) Encephalopathy: Code(s): G93.40 - Encephalopathy, unspecified Status: Acute Assessment and Plan: concern is that of possible valtrex overdose however, cannot deny other possible etiologies head CT negative plan HD for a few days in a row to maximize clearance follow-up on pending tests haldol PRN for agitation further testing (i.e. lumbar puncture) as deemed necessary monitor mental status (3) Herpes zoster infection of thoracic region: Code(s): B02.9 - Zoster without complications Status: Acute Assessment and Plan: holding antiviral therapy at this time pain control as needed continue supportive therapy (4) Atrial fibrillation: Qualifiers: Atrial fibrillation type: paroxysmal Qualified Code(s): I48.0 - Paroxysmal atrial fibrillation Code(s): I48.91 - Unspecified atrial fibrillation Status: Chronic Assessment and Plan: continue rate-control strategy anticoagulation on hold (in case further procedures need to be done) (5) Insulin dependent diabetes mellitus: Status: Acute Assessment and Plan: follow accuchecks glycemic control per hospitalists Will continue to follow. Subjective Date/time seen: 11/07/22 12:56 Tolerated dialysis treatment yesterday without any issues or problems; remains lethargic and non-verbal at the time of my visit; no apparent distress noted; no issues/events overnight. Exam Narrative: General: lethargic Cacuasian male in NAD Heart: normal S1 and S2; no rub Lungs: coarse breath sounds Abdomen: soft, nontender, nondistended, positive bowel sounds Extremities: no cyanosis or clubbing; trace - 1+ edema Skin: warm and dry Objective Data Vital Signs Vital Signs: Vital Signs Temp Pulse Resp BP Pulse Ox O2 Del Method 11/07/22 12:00 110 H 11/07/22 12:00 98.1 F 105 H 24 H 123/71 92 11/07/22 12:00 115 H 24 H Room Air 11/07/22 11:37 102 H 11/07/22 10:00 102 H 11/07/22 08:00 100 11/07/22 08:00 98.2 F 102 H 20 114/68 91 11/07/22 08:00 110 H 20 99 Room Air 11/07/22 06:00 110 H 11/07/22 04:00 97.6 F 109 H 20 130/74 99 11/07/22 04:00 108 H 20 100 Room Air 11/07/22 04:00 108 H 11/07/22 02:00 112 H 11/07/22 00:00 97.5 F L 118 H 20 117/54 L 100 11/06/22 23:56 112 H 20 100 Room Air 11/06/22 23:56 112 H 11/06/22 22:00 114 H 11/06/22 20:00 119 H 20 100 Room Air 11/06/22 20:00 119 H 11/06/22 20:00 97.6 F 110 H 20 122/63 100 11/06/22 18:00 121 H 11/06/22 16:00 Room Air 11/06/22 16:00 115 H 11/06/22 18:15 97.9 F 98 20 100/64 11/06/22 18:07 114 H 92/53 L 11/06/22 18:00 116 H 119/63 11/06/22 17:40 116 H 117/80 11/06/22 17:20 108 H 106/77 11/06/22 17:00 110 H 114/84 11/06/22 16:40 107 H 108/66 11/06/22 16:20 113 H 93/68 L 11/06/22 16:00 104 H 106/71 11/06/22 15:40 100 99/65 L 11/06/22 15:20 106 H 102/47 L 11/06/22 15:00 103 H 98/66 L 11/06/22 14:58 98.2 F 96 18 98/56 L 11/06/22 15:38 97.0 F L 113 H 20 124/73 100 Intake/Output Intake/Output: Intake & Output 11/04/22 11/05/22 11/06/22 11/07/22 23:59 23:59 23:59 23:59 Output Total 1999 0 Balance -1999 0 Meds/Results Medications: Active Medications Generic Name Dose Route Start Last Admin Trade Name Freq PRN Reason Stop Dose Admin Acetaminophen 650 mg 11/06/22 12:51 Acetaminophen 325 Mg Tablet PO Q4H PRN Mild Pain (1-3) or Fever
[2022-11-07 16:38] LABS: CRP 4.8 mg/dL (<1.0)
[2022-11-07 17:07] LABS: Glucose Point of Care 145 mg/dl (65-105)
[2022-11-07] MEDS: LACTULOSE ENEMA 200 GM/1,000 ML ENEMA RECTAL (18:04)
[2022-11-07 20:27] LABS: Glucose Point of Care 144 mg/dl (65-105)
[2022-11-08] VITALS (23 sets, daily range): BP systolic 96–199; BP diastolic 38–117; PULSE 75–119; RESP 20–32; TEMP 35.7–36.5; O2SAT 95–98
[2022-11-08] MEDS: LEVOTHYROXINE SODIUM INJ 100 MCG/5 ML VIAL 50 MCG IV PUSH (05:40)
[2022-11-08 06:07] LABS: Basophils Percent Auto 0.2 % (0.2-1.2); Eosinophils Percent Auto 0.1 % (0-4.4); Hematocrit 28.1 % (42.0-52.0); Hemoglobin 8.6 g/dL (14.0-18.0); Immature Granulocyte Absolute 0.14 K/mm3 (0.00-0.031); Immature Granulocyte Percent A 1.7 % (0-0.5); Lymphocytes Absolute Auto 1.01 K/mm3 (0.9-3.2); Lymphocytes Percent Auto 12.1 % (18.3-44.2); Mean Corpuscular HGB Conc 30.6 g/dl (32-36); Mean Corpuscular Hemoglobin 31.7 pg (26-34); Mean Corpuscular Volume 103.7 fl (80-100); Mean Platelet Volume 11.1 fl (7.4-10.4); Monocytes Absolute Auto 0.4 K/mm3 (0.1-0.6); Monocytes Percent Auto 5.1 % (2.6-8.5); Neutrophils Absolute Auto 6.8 K/mm3 (1.3-6.7); Neutrophils Percent Auto 80.8 % (45.5-73.1); Nucleated Red Blood Cells Absolute Auto 0.4 K/mm3 (0.0-0.012); Nucleated Red Blood Cells Perc 4.2 % (0.0-0.2); Platelet Count Result 151 k/mm3 (150-375); Red Blood Count 2.71 M/mm3 (4.6-6.20); Red Cell Distribution Width 18.7 % (11.5-14.5); White Blood Count 8.4 K/mm3 (4.5-10.0)
[2022-11-08 06:35] LABS: Ammonia 39 umol/L (9-30)
--- NOTE | 2022-11-08 06:35 | PC.NURSE ---
pt. taken to dialysis room for treatment today.
[2022-11-08 06:39] LABS: Albumin Level 3.6 g/dL (3.5-5.1); Alkaline Phosphatase 86 U/L (38-126); Anion Gap 21 mmol/L (8-16); Aspartate Amino Transferase 330 U/L (17-59); Blood Urea Nitrogen 44 mg/dL (9-20); Calcium 9.6 mg/dL (8.4-10.2); Carbon Dioxide 17 mmol/L (22-30); Chloride 100 mmol/L (98-107); Estimated CRCL calculation 9 ml/min; Estimated Glomerular Filt Rate 7; Glucose 116 mg/dL (65-110); Potassium 5.1 mmol/L (3.4-5.0); Sodium 138 mmol/L (137-145)
[2022-11-08 06:50] LABS: Alanine Aminotransferase 318 U/L (6-50)
[2022-11-08] MEDS: EPOETIN ALFA-EPBX 10,000 UNITS/ML VIAL 10000 UNITS IV PUSH (08:17)
[2022-11-08] MEDS: SODIUM CHLORIDE 0.9% IV 1,000 ML 999 ML IV CONT ×2 (08:18→08:19)
[2022-11-08 08:53] LABS: Glucose Point of Care 91 mg/dl (65-105)
--- NOTE | 2022-11-08 10:15 | P.PNNP_ITS ---
Progress Note: A&P Assessment and Plan (1) End stage renal disease: Code(s): N18.6 - End stage renal disease Status: Chronic Assessment and Plan: * HD today * in an effort to maximize clearance of Valtrex, plan HD for a few sessions in a row * follow electrolytes, volume status, and clearance (2) Encephalopathy: Code(s): G93.40 - Encephalopathy, unspecified Status: Acute Assessment and Plan: * concern is that of possible valtrex overdose * however, cannot deny other possible etiologies * head CT negative * plan HD for a few days in a row to maximize clearance * follow-up on pending tests * haldol PRN for agitation * further testing (i.e. lumbar puncture) as deemed necessary * monitor mental status (3) Herpes zoster infection of thoracic region: Code(s): B02.9 - Zoster without complications Status: Acute Assessment and Plan: * holding antiviral therapy at this time * pain control as needed * continue supportive therapy (4) Atrial fibrillation: Qualifiers: Atrial fibrillation type: paroxysmal Qualified Code(s): I48.0 - Paroxysmal atrial fibrillation Code(s): I48.91 - Unspecified atrial fibrillation Status: Chronic Assessment and Plan: * continue rate-control strategy * anticoagulation on hold (in case further procedures need to be done) (5) Insulin dependent diabetes mellitus: Status: Acute Assessment and Plan: * follow accuchecks * glycemic control per hospitalists Will continue to follow. Subjective Date/time seen: 11/08/22 10:15 Tolerating dialysis treatment at the time of my visit (seen on treatment at ~ 10:00AM); unable to get HD yesterday due to other patients needing dialysis treatment and patient needing HD treatment in isolation due to shingles; still lethargic but does mumble a bit but not answering questions or following comm ands; no apparent issues/events overnight or earlier this morning. Exam Narrative: General: lethargic Cacuasian male in NAD Heart: normal S1 and S2; no rub Lungs: coarse breath sounds Abdomen: soft, nontender, nondistended, positive bowel sounds Extremities: no cyanosis or clubbing; trace - 1+ edema Skin: warm and intact Objective Data Vital Signs Vital Signs: Vital Signs Temp Pulse Resp BP Pulse Ox O2 Del Method 11/08/22 10:00 99 04/21/23 10:14 109 H 135/76 04/21/23 10:00 100 192/106 H 11/08/22 08:00 97.3 F L 119 H 22 H 147/110 H 11/08/22 08:00 Room Air 11/08/22 08:00 101 H 11/08/22 09:40 101 H 160/38 H 11/08/22 09:20 96 171/108 H 11/08/22 09:00 107 H 116/65 11/08/22 08:40 119 H 147/100 H 11/08/22 08:20 102 H 120/54 L 11/08/22 08:00 103 H 162/102 H 11/08/22 07:40 95 155/95 H 11/08/22 07:20 75 159/117 H 11/08/22 07:00 89 144/93 H 11/08/22 06:30 97.3 F L 101 H 22 H 120/50 L 11/08/22 06:43 101 H 199/85 H 11/08/22 06:00 104 H 11/08/22 04:00 97.5 F L 101 H 20 140/65 97 11/08/22 04:00 99 20 96 Room Air 11/08/22 04:00 99 11/08/22 00:00 105 H 20 96 Room Air 11/08/22 00:00 105 H 11/08/22 00:00 97.6 F 100 20 142/61 H 96
--- NOTE | 2022-11-08 10:15 | PM.PNNEP ---
Progress Note: A&P Assessment and Plan (1) End stage renal disease: Code(s): N18.6 - End stage renal disease Status: Chronic Assessment and Plan: HD today in an effort to maximize clearance of Valtrex, plan HD for a few sessions in a row follow electrolytes, volume status, and clearance (2) Encephalopathy: Code(s): G93.40 - Encephalopathy, unspecified Status: Acute Assessment and Plan: concern is that of possible valtrex overdose however, cannot deny other possible etiologies head CT negative plan HD for a few days in a row to maximize clearance follow-up on pending tests haldol PRN for agitation further testing (i.e. lumbar puncture) as deemed necessary monitor mental status (3) Herpes zoster infection of thoracic region: Code(s): B02.9 - Zoster without complications Status: Acute Assessment and Plan: holding antiviral therapy at this time pain control as needed continue supportive therapy (4) Atrial fibrillation: Qualifiers: Atrial fibrillation type: paroxysmal Qualified Code(s): I48.0 - Paroxysmal atrial fibrillation Code(s): I48.91 - Unspecified atrial fibrillation Status: Chronic Assessment and Plan: continue rate-control strategy anticoagulation on hold (in case further procedures need to be done) (5) Insulin dependent diabetes mellitus: Status: Acute Assessment and Plan: follow accuchecks glycemic control per hospitalists Will continue to follow. Subjective Date/time seen: 11/08/22 10:15 Tolerating dialysis treatment at the time of my visit (seen on treatment at ~ 10:00AM); unable to get HD yesterday due to other patients needing dialysis treatment and patient needing HD treatment in isolation due to shingles; still lethargic but does mumble a bit but not answering questions or following commands; no apparent issues/events overnight or earlier this morning. Exam Narrative: General: lethargic Cacuasian male in NAD Heart: normal S1 and S2; no rub Lungs: coarse breath sounds Abdomen: soft, nontender, nondistended, positive bowel sounds Extremities: no cyanosis or clubbing; trace - 1+ edema Skin: warm and intact Objective Data Vital Signs Vital Signs: Vital Signs Temp Pulse Resp BP Pulse Ox O2 Del Method 11/08/22 10:00 99 11/08/22 10:14 109 H 135/76 11/08/22 10:00 100 192/106 H 11/08/22 08:00 97.3 F L 119 H 22 H 147/110 H 11/08/22 08:00 Room Air 11/08/22 08:00 101 H 11/08/22 09:40 101 H 160/38 H 11/08/22 09:20 96 171/108 H 11/08/22 09:00 107 H 116/65 11/08/22 08:40 119 H 147/100 H 11/08/22 08:20 102 H 120/54 L 11/08/22 08:00 103 H 162/102 H 11/08/22 07:40 95 155/95 H 11/08/22 07:20 75 159/117 H 11/08/22 07:00 89 144/93 H 11/08/22 06:30 97.3 F L 101 H 22 H 120/50 L 11/08/22 06:43 101 H 199/85 H 11/08/22 06:00 104 H 11/08/22 04:00 97.5 F L 101 H 20 140/65 97 11/08/22 04:00 99 20 96 Room Air 11/08/22 04:00 99 11/08/22 00:00 105 H 20 96 Room Air 11/08/22 00:00 105 H 11/08/22 00:00 97.6 F 100 20 142/61 H 96 11/07/22 22:00 106 H 11/07/22 20:00 104 H 20 98 Room Air 11/07/22 20:00 104 H 11/07/22 20:00 97.5 F L 110 H 20 138/70 98 11/07/22 18:00 109 H 11/07/22 16:00 106 H 11/07/22 16:00 97.8 F 107 H 20 129/77 96 11/07/22 17:01 105 H 11/07/22 14:00 106 H 11/07/22 12:00 110 H 11/07/22 12:00 98.1 F 105 H 24 H 123/71 92 11/07/22 12:00 115 H 24 H Room Air 11/07/22 11:37 102 H Intake/Output Intake/Output: Intake & Output 11/05/22 11/06/22 11/07/22 11/08/22 23:59 23:59 23:59 23:59 Intake Total 0 Output Total 2000 1 1000 Balance -1999 -999 Meds/Results Medications: Active Medications Gene
[2022-11-08 12:11] LABS: Glucose Point of Care 87 mg/dl (65-105)
--- NOTE | 2022-11-08 15:31 | PM.IMPN ---
Progress Note: A&P Assessment and Plan (1) Encephalopathy: Code(s): G93.40 - Encephalopathy, unspecified Status: Acute Assessment and Plan: Etiology is not entirely clear but concerns are for iatrogenic overdose on valacyclovir (he has been taking valacyclovir 1000 mg t.i.d. since Friday instead of 500 mg on dialysis days after dialysis). Differential diagnosis does include herpes encephalitis, hepatic encephalopathy or others. Side effects of valacyclovir included encephalopathy. Neuro consulted and appreciate their input. They are recommending conservative management with observation. CTA head and neck showing no significant stenosis, moderate pulmonary edema and lymphadenopthy. Getting HD almost daily in hopes of dialysizing Valtrex out. Cannot obtain MRI due to recent mitral valve replacement 10/03/22. Spoke with nephrology who felt that the dialysis may not remove the toxin very fast. Will discuss LP with neurology. Discussed with neurology who recommended proceeding with LP at this time and discussed appropriate labs. (2) Herpes zoster infection of thoracic region: Code(s): B02.9 - Zoster without complications Status: Acute Assessment and Plan: Hold antivirals as detailed above. Acetaminophen available as needed. Supportive care (3) Antiviral drug overdose: Code(s): T37.5X1A - Poisoning by antiviral drugs, accidental (unintentional), initial encounter Status: Acute Assessment and Plan: The patient has been taking 1000 mg of valacyclovir t.i.d. since Friday as detailed above. His altered mental status and delirium are likely result of iatrogenic overdose. He is being monitored closely in IMU. Continue HD (4) End-stage renal disease on hemodialysis: Code(s): N18.6 - End stage renal disease; Z99.2 - Dependence on renal dialysis Status: Acute Assessment and Plan: Nephrology consulted for dialysis as detailed above. He will likely be dialyzed for the next several days.Appreciate nephrology input. (5) Insulin dependent diabetes mellitus: Status: Acute Assessment and Plan: A1c 5.1. The patient's blood glucose was reviewed on 11/08 Glucose remains well controlled. Continue AccuCheks covering with sliding scale. Hypoglycemia protocol available as needed. Continue current medications. (6) Atrial fibrillation: Qualifiers: Atrial fibrillation type: paroxysmal Qualified Code(s): I48.0 - Paroxysmal atrial fibrillation Code(s): I48.91 - Unspecified atrial fibrillation Status: Chronic Assessment and Plan: He has been in atrial fibrillation with rapid ventricular response with rates in the low 100s. Continue amiodarone and monitor. (7) Chronic anticoagulation: Code(s): Z79.01 - salvage determiner (current) use of anticoagulants Status: Acute Assessment and Plan: Becca currently on hold in case he requires lumbar puncture. (8) Elevated LFTs: Code(s): R79.89 - Other specified abnormal findings of blood chemistry Status: Acute Assessment and Plan: AST 380 with ALT 318 now. Levels normal yesterday. TBili at 2.0. Suspect related to shingles but consider related to anti-viral medications. Hold Lipitor (has not been given here). Amiodarone can also cause this issue but has not been on this due to his NPO status. Check hepatitis panel. Check RUQ US. (9) Hypothyroidism: Code(s): E03.9 - Hypothyroidism, unspecified Status: Acute Assessment and Plan: TSH elevated at 22. FT4 normal. Related to Amio? Synthroid started. Will need outpatient follow up labs. Plan DVT prophylaxis with SCDs GI prophylaxis not indicated Code status full code Subjective Date/time seen: 11/08/22 15:31 Interval history: 62yo male with ESRD, DM, AFib, BELL, HTN and valvular heart disease s/p TAVR and more recently bioprosthetic mitral valve replacement on 10/03/22 who
[2022-11-08 16:16] LABS: Glucose Point of Care 90 mg/dl (65-105)
[2022-11-08 16:39] LABS: INR 1.9; Prothrombin Time 21.2 Seconds (11.1-14.7)
[2022-11-08 20:16] LABS: Glucose Point of Care 73 mg/dl (65-105)
[2022-11-08] MEDS: DEXTROSE 50% 25 GM/50 ML SYRINGE IV PUSH (21:26)
[2022-11-09] VITALS (26 sets, daily range): BP systolic 90–146; BP diastolic 44–83; PULSE 99–127; RESP 20–32; TEMP 36–37.5; O2SAT 32–100
[2022-11-09 01:36] LABS: Glucose Point of Care 139 mg/dl (65-105)
[2022-11-09 05:24] LABS: Basophils Percent Auto 0.2 % (0.2-1.2); Eosinophils Percent Auto 0.5 % (0-4.4); Hematocrit 28.6 % (42.0-52.0); Hemoglobin 8.7 g/dL (14.0-18.0); Immature Granulocyte Absolute 0.22 K/mm3 (0.00-0.031); Immature Granulocyte Percent A 2.7 % (0-0.5); Lymphocytes Absolute Auto 1.17 K/mm3 (0.9-3.2); Lymphocytes Percent Auto 14.6 % (18.3-44.2); Mean Corpuscular HGB Conc 30.4 g/dl (32-36); Mean Corpuscular Volume 101.8 fl (80-100); Mean Platelet Volume 10.7 fl (7.4-10.4); Monocytes Absolute Auto 0.5 K/mm3 (0.1-0.6); Monocytes Percent Auto 6.6 % (2.6-8.5); Neutrophils Absolute Auto 6.1 K/mm3 (1.3-6.7); Neutrophils Percent Auto 75.4 % (45.5-73.1); Nucleated Red Blood Cells Absolute Auto 0.8 K/mm3 (0.0-0.012); Nucleated Red Blood Cells Perc 9.8 % (0.0-0.2); Platelet Count Result 164 k/mm3 (150-375); Red Blood Count 2.81 M/mm3 (4.6-6.20); Red Cell Distribution Width 19.1 % (11.5-14.5)
[2022-11-09 05:42] LABS: Albumin Level 3.6 g/dL (3.5-5.1); Alkaline Phosphatase 98 U/L (38-126); Anion Gap 15 mmol/L (8-16); Aspartate Amino Transferase 720 U/L (17-59); Bilirubin,Total 2.4 mg/dL (0.2-1.3); Blood Urea Nitrogen 36 mg/dL (9-20); Calcium 9.3 mg/dL (8.4-10.2); Carbon Dioxide 27 mmol/L (22-30); Chloride 98 mmol/L (98-107); Estimated CRCL calculation 14 ml/min; Estimated Glomerular Filt Rate 13; Glucose 117 mg/dL (65-110); Magnesium 2.2 mg/dL (1.6-2.3); Phosphorus 5.1 mg/dL (2.5-4.5); Potassium 4.2 mmol/L (3.4-5.0); Sodium 140 mmol/L (137-145)
[2022-11-09 06:06] LABS: Alanine Aminotransferase 1017 U/L (6-50)
[2022-11-09] MEDS: LEVOTHYROXINE SODIUM INJ 100 MCG/5 ML VIAL 50 MCG IV PUSH (06:25)
[2022-11-09 07:50] LABS: Hepatitis C Virus Antibody Reactive (Negative)
[2022-11-09 08:38] LABS: Glucose Point of Care 118 mg/dl (65-105)
--- NOTE | 2022-11-09 10:53 | PM.PNNEP ---
Progress Note: A&P Assessment and Plan (1) End stage renal disease: Code(s): N18.6 - End stage renal disease Status: Chronic Assessment and Plan: HD today in an effort to maximize clearance of Valtrex, plan HD for a few sessions in a row volume status: He looks a little dry electrolytes are okay. (2) Encephalopathy: Code(s): G93.40 - Encephalopathy, unspecified Status: Acute Assessment and Plan: concern is that of possible valtrex overdose however, cannot deny other possible etiologies head CT negative b12 okay. TSH is high.getting iv synthroid. check folate plan HD for a few days in a row to maximize clearance follow-up on pending tests haldol PRN for agitation With the thought of a lumbar puncture in case this might be viral encephalopathy? His neck is not stiff monitor mental status does he need a Dobbhoff tube and tube feedings until he wakes up? (3) Herpes zoster infection of thoracic region: Code(s): B02.9 - Zoster without complications Status: Acute Assessment and Plan: holding antiviral therapy at this time pain control as needed continue supportive therapy (4) Atrial fibrillation: Qualifiers: Atrial fibrillation type: paroxysmal Qualified Code(s): I48.0 - Paroxysmal atrial fibrillation Code(s): I48.91 - Unspecified atrial fibrillation Status: Chronic Assessment and Plan: continue rate-control strategy anticoagulation on hold (in case further procedures need to be done) (5) Insulin dependent diabetes mellitus: Status: Acute Assessment and Plan: follow accuchecks glycemic control per hospitalists Subjective Date/time seen: 11/09/22 10:53 Interval history: Orestes is still unresponsive. Some Kussmaul type breathing but not Francisco Javier-Crowder. Airway seems okay right now. He is on dialysis. Blood pressure dropped a little bit and then was sort of up and down. The cuff was on the forearm so I helped the nurse to put the cuff on the upper arm and the blood pressure seems better. He has not been eating or drinking much at all for the last few days. I imagine he might be dehydrated so I told the nurse not to take any fluid off. She is in fact going to give him 500cc now and will give him another 500cc if his blood pressure drops again. Exam Narrative: General: lethargic Cacuasian male in NAD Neck: supple. passive chin to chest is normal. Heart: normal S1 and S2; no rub or gallop Lungs: fairly clear Abdomen: soft, nontender, nondistended, positive bowel sounds Extremities:trace edema Skin: No rash Objective Data Vital Signs Vital Signs: Vital Signs - 24 hr 11/08/22 12:00 11/08/22 12:00 11/08/22 12:00 Temperature 97.6 F Pulse Rate 100 89 Respiratory Rate 32 H Blood Pressure 144/53 H Pulse Oximetry 95 Oxygen Delivery Room Air 11/08/22 14:00 11/08/22 16:00 11/08/22 16:00 Temperature Pulse Rate 100 101 H Respiratory Rate Blood Pressure Pulse Oximetry 95 Oxygen Delivery Room Air 11/08/22 18:00 11/08/22 20:00 11/08/22 20:00 Temperature 97.6 F Pulse Rate 95 104 H 104 H Respiratory Rate 22 H 22 H Blood Pressure 100/60 Pulse Oximetry 98 98 Oxygen Delivery Room Air 11/08/22 20:00 11/08/22 22:00 11/09/22 00:00 Temperature 97.8 F Pulse Rate 90 102 H 121 H Respiratory Rate 22 H Blood Pressure 109/67 Pulse Oximetry 98 Oxygen Delivery 11/09/22 00:00 11/09/22 00:00 11/09/22 01:57 Temperature Pulse Rate 121 H 107 H 99 Respiratory Rate 22 H Blood Pressure Pulse Oximetry 98 Oxygen Delivery Room Air 11/09/22 04:00 11/09/22 04:00 11/09/22 04:00 Temperature 97.7 F Pulse Rate 106 H 106 H 109 H Respiratory Rate 20 20 Blood Pressure 104/70 Pulse Oximetry 100 100 Oxygen Delivery Room Air 11/09/22 05:41 11/09/22 08:00 11/09/22 09:16 Temperature 99.1
[2022-11-09] MEDS: EPOETIN ALFA-EPBX 10,000 UNITS/ML VIAL 10000 UNITS IV PUSH (11:02)
--- NOTE | 2022-11-09 11:02 | PM.IMPN ---
Progress Note: A&P Assessment and Plan (1) Encephalopathy: Code(s): G93.40 - Encephalopathy, unspecified Status: Acute Assessment and Plan: Etiology is not entirely clear but concerns are for iatrogenic overdose on valacyclovir (he has been taking valacyclovir 1000 mg t.i.d. since Friday instead of 500 mg on dialysis days after dialysis). Differential diagnosis does include herpes encephalitis, hepatic encephalopathy or others. Side effects of valacyclovir included encephalopathy. Neuro consulted and appreciate their input. They initially recommended conservative management with observation. CTA head and neck showing no significant stenosis, moderate pulmonary edema and lymphadenopthy. Getting HD almost daily in hopes of dialysizing Valtrex out. Cannot obtain MRI due to recent mitral valve replacement 10/03/22. Spoke with nephrology who felt that the dialysis may not remove the toxin very fast. Discussed with neurology who recommended proceeding with LP at this time and this was ordered. COntinue supportive care. Patient is not on antiviral or antibacterial treatment. HepC Ab positive but was negative 2 yrs ago so could be false positive. (2) Herpes zoster infection of thoracic region: Code(s): B02.9 - Zoster without complications Status: Acute Assessment and Plan: Hold antivirals as detailed above. Acetaminophen available as needed. Supportive care (3) Antiviral drug overdose: Code(s): T37.5X1A - Poisoning by antiviral drugs, accidental (unintentional), initial encounter Status: Acute Assessment and Plan: The patient has been taking 1000 mg of valacyclovir t.i.d. since Friday as detailed above. His altered mental status and delirium are likely result of iatrogenic overdose. He is being monitored closely in IMU. Continue HD (4) End-stage renal disease on hemodialysis: Code(s): N18.6 - End stage renal disease; Z99.2 - Dependence on renal dialysis Status: Acute Assessment and Plan: Nephrology consulted for dialysis as detailed above. He will likely be dialyzed for the next several days. Appreciate nephrology input. (5) Insulin dependent diabetes mellitus: Status: Acute Assessment and Plan: A1c 5.1. The patient's blood glucose was reviewed on 11/09 Glucose remains well controlled. Continue AccuCheks covering with sliding scale. Hypoglycemia protocol available as needed. Continue to monitor (6) Atrial fibrillation: Qualifiers: Atrial fibrillation type: paroxysmal Qualified Code(s): I48.0 - Paroxysmal atrial fibrillation Code(s): I48.91 - Unspecified atrial fibrillation Status: Chronic Assessment and Plan: He has been in atrial fibrillation with rapid ventricular response with rates in the 100-120. EKG showing QTc 505. Continue to monitor. Resume Amiodarone via NGT once placed. Hold Celexa. Repeat EKG (7) Chronic anticoagulation: Code(s): Z79.01 - intermodal customer service (current) use of anticoagulants Status: Acute Assessment and Plan: Joannqubhakti currently on hold. (8) Elevated LFTs: Code(s): R79.89 - Other specified abnormal findings of blood chemistry Status: Acute Assessment and Plan: AST 720 with ALT 1017 now. Levels normal 2 days ago. TBili at 2.4. Suspect related to shingles but consider related to anti-viral medications. Hold Lipitor (has not been given here). Amiodarone can also cause this issue but has not been on this due to his NPO status. Hepatitis panel positive for HepC Ab. RUQ US pending. GI consult (9) Hypothyroidism: Code(s): E03.9 - Hypothyroidism, unspecified Status: Acute Assessment and Plan: TSH elevated at 22. FT4 normal. Related to Amio? Levothyroxine IV started. Will need outpatient follow up labs. Plan DVT prophylaxis with SCDs GI prophylaxis Pepcid Code status full code Nutrition - No improvement so will place NGT and st
--- NOTE | 2022-11-09 11:15 | ECG_ITS ---
Measurements Intervals [place] Rate: 126 P: 88 [place]: 215 QRS: 107 QRSD: 120 T: -60 QT: 201 QTc: 292 Interpretive Statements NARROW QRS TACHYCARDIA MOST CONSISTENT WITH ATYPICAL ATRIAL FLUTTER RIGHTWARD AXIS NONSPECIFIC ST & T-WAVE ABNORMALITY ABNORMAL ECG COMPARED TO ECG 11/06/2022 10:11:20 MORE RAPID VENTRICULAR RESPONSE TO ATRIAL FLUTTER Electronically Signed On 11-10-2022 7:42:55 CDT by Germain Mayorga M.D.
[2022-11-09 11:23] LABS: HAV RESULT Negative (Negative)
[2022-11-09 12:21] LABS: Folic Acid > 20.0 ng/mL (2.76->20)
[2022-11-09] MEDS: SODIUM CHLORIDE 0.9% IV 1,000 ML 50 ML IV CONT (15:30)
--- NOTE | 2022-11-09 16:52 | PC.NURSE ---
11/09/22: Two attempts made to place NG without success. Dr Wood notified. Order placed for NG with fluoroscopy. Spoke with central office technician regarding NG placement. Radiologist will plan to place NG under fluoroscopy tomorrow.
[2022-11-09 17:06] LABS: Glucose Point of Care 105 mg/dl (65-105)
[2022-11-09 17:06] LABS: Glucose Point of Care 111 mg/dl (65-105)
[2022-11-09 20:43] LABS: Glucose Point of Care 115 mg/dl (65-105)
[2022-11-10] VITALS (15 sets, daily range): BP systolic 96–155; BP diastolic 38–71; PULSE 99–127; RESP 20–28; TEMP 36.1–36.6; O2SAT 95–99
[2022-11-10 05:31] LABS: Hematocrit 31.9 % (42.0-52.0); Hemoglobin 9.5 g/dL (14.0-18.0); Mean Corpuscular HGB Conc 29.8 g/dl (32-36); Mean Corpuscular Hemoglobin 31.8 pg (26-34); Mean Corpuscular Volume 106.7 fl (80-100); Mean Platelet Volume 10.8 fl (7.4-10.4); Platelet Count Result 127 k/mm3 (150-375); Red Blood Count 2.99 M/mm3 (4.6-6.20); Red Cell Distribution Width 20.7 % (11.5-14.5); White Blood Count 7.1 K/mm3 (4.5-10.0)
[2022-11-10 05:40] LABS: INR 1.9; Prothrombin Time 20.9 Seconds (11.1-14.7)
[2022-11-10 05:41] LABS: Partial Thromboplastin Time 38.3 SECONDS (22.3-36.8)
[2022-11-10 05:44] LABS: Albumin Level 3.4 g/dL (3.5-5.1); Alkaline Phosphatase 103 U/L (38-126); Anion Gap 15 mmol/L (8-16); Aspartate Amino Transferase 547 U/L (17-59); Bilirubin,Total 2.9 mg/dL (0.2-1.3); Blood Urea Nitrogen 30 mg/dL (9-20); Carbon Dioxide 23 mmol/L (22-30); Chloride 101 mmol/L (98-107); Estimated CRCL calculation 20 ml/min; Estimated Glomerular Filt Rate 19; Glucose 114 mg/dL (65-110); Phosphorus 3.4 mg/dL (2.5-4.5); Sodium 139 mmol/L (137-145)
[2022-11-10 05:58] LABS: Alanine Aminotransferase 1059 U/L (6-50)
[2022-11-10] MEDS: LEVOTHYROXINE SODIUM INJ 100 MCG/5 ML VIAL 50 MCG IV PUSH (06:32)
[2022-11-10 07:26] LABS: Anisocytosis 1+ (NORMAL); Band Neutrophils Percent 9 % (0-6); Burr Cells 1+ (NORMAL); Lymphocytes Absolute Manual 1.06 K/mm3 (1.1-4.5); Macrocytosis 1+ (NORMAL); Metamyelocytes Percent 1 %; Monocytes Absolute Manual 0.35 K/mm3 (0.1-0.90); Monocytes Percent Manual 5 % (3-9); Myelocytes Percent 2 %; Neutrophils Absolute Manual 5.39 K/mm3 (1.3-6.7); Neutrophils Percent Manual 67 % (46-73); Nucleated Red Blood Cells 5 %; Plasma Cells 1; Total Cells Counted 100
[2022-11-10 07:27] LABS: Polychromasia 1+ (NORMAL); Schistocytes Rare (NORMAL)
--- NOTE | 2022-11-10 08:08 | P.PNNP_ITS ---
Progress Note: A&P Assessment and Plan (1) End stage renal disease: Code(s): N18.6 - End stage renal disease Status: Chronic Assessment and Plan: * HD done yesterday. * volume status: He looks a little dry * electrolytes are okay. (2) Encephalopathy: Code(s): G93.40 - Encephalopathy, unspecified Status: Acute Assessment and Plan: * Most likely Valtrex overdose. * He does have elevated liver enzymes, elevated bilirubin, and elevated ammonia. The ammonia could be playing a role I suppose. I suspect that the liver issues are due to the Valtrex as well. Hepatitis studies are pending * head CT negative * b12 and Folate okay. TSH is high.getting iv synthroid. * Will do another dialysis tomorrow. * LP ordered and pending * haldol PRN for agitation * Mental status mildly improved * NG tube ordered. (3) Herpes zoster infection of thoracic region: Code(s): B02.9 - Zoster without complications Status: Acute Assessment and Plan: * holding antiviral therapy at this time * pain control as needed * continue supportive therapy (4) Atrial fibrillation: Qualifiers: Atrial fibrillation type: paroxysmal Qualified Code(s): I48.0 - Paroxysmal atrial fibrillation Code(s): I48.91 - Unspecified atrial fibrillation Status: Chronic Assessment and Plan: * Pulses a little high. Possibly from his dehydration. * anticoagulation on hold (in case further procedures need to be done) (5) Insulin dependent diabetes mellitus: Status: Acute Assessment and Plan: * On accuchecks * glycemic control per hospitalists Subjective Date/time seen: 11/10/22 08:08 Interval history: Orestes is marginally more responsive. When I shake his shoulders he opens his eyes but does not regard examiner and mutters. yesterday he had no response. Still breathing comfortably but a little bit fast. Exam Narrative: General: lethargic Cacuasian male in NAD Neck: supple. passive chin to chest is normal. Heart: normal S1 and S2; no rub or gallop Lungs: fairly clear Abdomen: soft, nontender, nondistended, positive bowel sounds Extremities:trace edema Skin: No rash Neuro: Nonfocal, marginal response to shaking his shoulder Objective Data Vital Signs Vital Signs: Vital Signs - 24 hr 11/09/22 09:16 11/09/22 09:30 11/09/22 09:40 Temperature 98.4 F Pulse Rate 106 H 108 H 105 H Respiratory Rate 24 H Blood Pressure 124/63 141/64 H 108/61 Pulse Oximetry Oxygen Delivery 11/09/22 10:00 11/09/22 10:20 11/09/22 10:40 Temperature Pulse Rate 106 H 110 H 126 H Respiratory Rate Blood Pressure 101/70 108/83 95/68 L Pulse Oximetry Oxygen Delivery 11/09/22 11:00 11/09/22 11:20 11/09/22 11:40 Temperature Pulse Rate 115 H 120 H 124 H Respiratory Rate Blood Pressure 102/71 100/69 90/74 L Pulse Oximetry Oxygen Delivery 11/09/22 12:00 11/09/22 12:20 11/09/22 12:40 Temperature Pulse Rate 126 H 126 H 113 H Respiratory Rate Blood Pressure 94/65 L 97/61 L 96/45 L Pulse Oximetry Oxygen Delivery 04
--- NOTE | 2022-11-10 08:08 | PM.PNNEP ---
Progress Note: A&P Assessment and Plan (1) End stage renal disease: Code(s): N18.6 - End stage renal disease Status: Chronic Assessment and Plan: HD done yesterday. volume status: He looks a little dry electrolytes are okay. (2) Encephalopathy: Code(s): G93.40 - Encephalopathy, unspecified Status: Acute Assessment and Plan: Most likely Valtrex overdose. He does have elevated liver enzymes, elevated bilirubin, and elevated ammonia. The ammonia could be playing a role I suppose. I suspect that the liver issues are due to the Valtrex as well. Hepatitis studies are pending head CT negative b12 and Folate okay. TSH is high.getting iv synthroid. Will do another dialysis tomorrow. LP ordered and pending haldol PRN for agitation Mental status mildly improved NG tube ordered. (3) Herpes zoster infection of thoracic region: Code(s): B02.9 - Zoster without complications Status: Acute Assessment and Plan: holding antiviral therapy at this time pain control as needed continue supportive therapy (4) Atrial fibrillation: Qualifiers: Atrial fibrillation type: paroxysmal Qualified Code(s): I48.0 - Paroxysmal atrial fibrillation Code(s): I48.91 - Unspecified atrial fibrillation Status: Chronic Assessment and Plan: Pulses a little high. Possibly from his dehydration. anticoagulation on hold (in case further procedures need to be done) (5) Insulin dependent diabetes mellitus: Status: Acute Assessment and Plan: On accuchecks glycemic control per hospitalists Subjective Date/time seen: 11/10/22 08:08 Interval history: Orestes is marginally more responsive. When I shake his shoulders he opens his eyes but does not regard examiner and mutters. yesterday he had no response. Still breathing comfortably but a little bit fast. Exam Narrative: General: lethargic Cacuasian male in NAD Neck: supple. passive chin to chest is normal. Heart: normal S1 and S2; no rub or gallop Lungs: fairly clear Abdomen: soft, nontender, nondistended, positive bowel sounds Extremities:trace edema Skin: No rash Neuro: Nonfocal, marginal response to shaking his shoulder Objective Data Vital Signs Vital Signs: Vital Signs - 24 hr 11/09/22 09:16 11/09/22 09:30 11/09/22 09:40 Temperature 98.4 F Pulse Rate 106 H 108 H 105 H Respiratory Rate 24 H Blood Pressure 124/63 141/64 H 108/61 Pulse Oximetry Oxygen Delivery 11/09/22 10:00 11/09/22 10:20 11/09/22 10:40 Temperature Pulse Rate 106 H 110 H 126 H Respiratory Rate Blood Pressure 101/70 108/83 95/68 L Pulse Oximetry Oxygen Delivery 11/09/22 11:00 11/09/22 11:20 11/09/22 11:40 Temperature Pulse Rate 115 H 120 H 124 H Respiratory Rate Blood Pressure 102/71 100/69 90/74 L Pulse Oximetry Oxygen Delivery 11/09/22 12:00 11/09/22 12:20 11/09/22 12:40 Temperature Pulse Rate 126 H 126 H 113 H Respiratory Rate Blood Pressure 94/65 L 97/61 L 96/45 L Pulse Oximetry Oxygen Delivery 11/09/22 13:00 11/09/22 13:10 11/09/22 12:00 Temperature 98.9 F 99.0 F Pulse Rate 118 H 120 H 127 H Respiratory Rate 22 H 32 H Blood Pressure 93/44 L 122/55 L 146/55 H Pulse Oximetry 32 L Oxygen Delivery 11/09/22 10:00 11/09/22 12:00 11/09/22 14:00 Temperature Pulse Rate 126 H 119 H 125 H Respiratory Rate Blood Pressure Pulse Oximetry Oxygen Delivery 11/09/22 16:00 11/09/22 18:00 11/09/22 12:00 Temperature Pulse Rate 117 H 127 H Respiratory Rate Blood Pressure Pulse Oximetry Oxygen Delivery Room Air 11/09/22 16:00 11/09/22 16:00 11/09/22 20:00 Temperature 99.5 F 97.1 F L Pulse Rate 126 H 99 Respiratory Rate 28 H 22 H Blood Pressure 145/78 H 98/71 L Pulse Oximetry 100 98 Oxygen Delivery Room Air 11/09/22 23:59 11/09/22 20:00 11/09/22
[2022-11-10 08:40] LABS: Glucose Point of Care 127 mg/dl (65-105)
--- NOTE | 2022-11-10 09:34 | PM.IMPN ---
Progress Note: A&P Assessment and Plan (1) Encephalopathy: Code(s): G93.40 - Encephalopathy, unspecified Status: Acute Assessment and Plan: Etiology is not entirely clear but concerns are for iatrogenic overdose on valacyclovir (he has been taking valacyclovir 1000 mg t.i.d. since Friday instead of 500 mg on dialysis days after dialysis). Differential diagnosis does include herpes encephalitis, hepatic encephalopathy or others. Side effects of valacyclovir included encephalopathy. Neuro consulted and appreciate their input. They initially recommended conservative management with observation. CTA head and neck showing no significant stenosis, moderate pulmonary edema and lymphadenopthy. Received HD almost daily in hopes of dialysizing Valtrex out but this may not remove the toxin very fast. Cannot obtain MRI due to recent mitral valve replacement 10/03/22. Discussed with neurology who recommended proceeding with LP at this time and this was ordered but held due to elevated INR. Patient is not on antiviral or antibacterial treatment. HepC Ab positive but was negative 2 yrs ago so could be false positive. Continue supportive care. Vitamin K once. Unable to have NGT placed yesterday so will have it done under fluoro. Start TF once NGT in place. IV fluids low dose started in the meantime. (2) Herpes zoster infection of thoracic region: Code(s): B02.9 - Zoster without complications Status: Acute Assessment and Plan: Hold antivirals as detailed above. Acetaminophen available as needed. Supportive care (3) Antiviral drug overdose: Code(s): T37.5X1A - Poisoning by antiviral drugs, accidental (unintentional), initial encounter Status: Acute Assessment and Plan: The patient has been taking 1000 mg of valacyclovir t.i.d. since Friday as detailed above. His altered mental status and delirium are likely result of iatrogenic overdose. He is being monitored closely in IMU. Continue HD per nephrology (4) End-stage renal disease on hemodialysis: Code(s): N18.6 - End stage renal disease; Z99.2 - Dependence on renal dialysis Status: Acute Assessment and Plan: Nephrology consulted for dialysis as detailed above. He has been dialyzed or the past several days. Appreciate nephrology input. (5) Insulin dependent diabetes mellitus: Status: Acute Assessment and Plan: A1c 5.1. The patient's blood glucose was reviewed on 11/10 Glucose remains well controlled. lantus on hold Continue AccuCheks covering with sliding scale. Hypoglycemia protocol available as needed. Continue to monitor (6) Atrial fibrillation: Qualifiers: Atrial fibrillation type: paroxysmal Qualified Code(s): I48.0 - Paroxysmal atrial fibrillation Code(s): I48.91 - Unspecified atrial fibrillation Status: Chronic Assessment and Plan: He has been in atrial fibrillation with rapid ventricular response with rates in the 100-120. EKG showing QTc 505. Repeat EKG showing improved QTc with probable AFlutter now. Continue to monitor on tele. Resume Amiodarone via NGT once placed. Continue to hold Celexa. (7) Chronic anticoagulation: Code(s): Z79.01 - nursing home (current) use of anticoagulants Status: Acute Assessment and Plan: Eliquis currently on hold. Vit K once. (8) Elevated LFTs: Code(s): R79.89 - Other specified abnormal findings of blood chemistry Status: Acute Assessment and Plan: AST 720 but trending down now. ALT still trending up to 1059 but suspect peaking. Levels normal 3 days ago. TBili at 2.9 (about 1/2 indirect). Suspect related to shingles and/or anti-viral medications. Lipitor on hold. Amiodarone can also cause this issue but has not been on this due to his NPO status. Hepatitis panel positive for HepC Ab with confirmatory testing pending. RUQ US normal. GI consulted (9) Hypothyroidism: Code(s): E03.9 - Hypo
--- NOTE | 2022-11-10 10:19 | WPDGICN ---
Assessment and Plan Assessment and plan (1) Elevated LFTs: Code(s): R79.89 - Other specified abnormal findings of blood chemistry Status: Acute Assessment and Plan: LFTs which were normal 2 days ago are Abdo normal today with ALT 1059, AST 547 but alkaline phosphatase is normal. Bilirubin is 2.9 Most likely etiology would be ischemic hepatopathy if perhaps he was dehydrated. Viral disease also needs to be considered. INR has not increased significantly since admission which is a good prognostic sign. Likewise but ammonia level is only slightly increased. Will closely monitor his liver functions. However at this point I do not think he is in imminent danger of hepatic failure. (2) Antiviral drug overdose: Code(s): T37.5X1A - Poisoning by antiviral drugs, accidental (unintentional), initial encounter Status: Acute Assessment and Plan: although he a had a antiviral does for patient without renal disease, he apparently only had taken 2 doses at the time this off lap of the began. 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 (5) Encephalopathy: Code(s): G93.40 - Encephalopathy, unspecified Status: Acute Assessment and Plan: This was acute in onset, 7 days ago and shortly after he began taking an antiviral drug for shingles. This of course raises the possibility of viral encephalopathy. Neurology has been consulted. (6) Tachycardia: Code(s): R00.0 - Tachycardia, unspecified Status: Acute Assessment and Plan: Heart rate is 124 today. BUN and creatinine are decreasing and I do not think his tachycardia is secondary to dehydration. GI Consult Note Consult date/time: 11/10/22 10:19 HPI: Orestes Restrepo Abhay Drew. is a 62 year old male with multiple medical problems including end-stage renal disease for which she is on dialysis, chronic atrial fibrillation for which she is anticoagulated, insulin-dependent diabetes, history of transcatheter aortic valve replacement and recent mitral valve replacement just last month. He was seen in urgent care facility a week or so ago because of a painful rash on his chest and was prescribed valacyclovir for suspected shingles. The dose was not modify due to his renal disease but only after 2 doses he became confused with altered mental status. He has not been able to eat or take care of himself for the past several days and cannot even speak which is a significant change for him. The possibility of viral encephalopathy has also been considered and the relatively has been consulted. He is also noted to have an elevation of his liver enzymes. On admission he had a normal ALT which has risen to 1059 today. Ammonia level is increased slightly at 39. Review of Systems Review of Systems: ROS unobtainable: Yes unobtainable due to mental status PMFSH Past Medical History Medical History Atrial fibrillation Chronic anticoagulation End-stage renal disease on hemodialysis Home dialysis 5 days a week. Hemorrhoids Hyperlipidemia Hypertension Insulin dependent diabetes mellitus Obesity (BMI 30-39.9) Obstructive sleep apnea syndrome in adult Surgical History Surgical History History of cardiac cath Minimal blockages and no stents. History of colonoscopy History of esophagogastroduodenoscopy (EGD) History of mitral valve replacement with bioprosthetic valve (10/03/22) History of tonsillec
[2022-11-10] MEDS: PHYTONADIONE INJ 10 MG/ML AMP 5 MG SUB-Q ×2 (11:44→16:53)
[2022-11-10] MEDS: SODIUM CHLORIDE 0.9% IV 1,000 ML 999 ML IV CONT (11:51)
[2022-11-10] MEDS: SODIUM CHLORIDE 0.9% IV 1,000 ML 50 ML IV CONT (11:52)
[2022-11-10] MEDS: EZETIMIBE 10 MG TABLET FEED TUBE (13:05)
[2022-11-10] MEDS: AMIODARONE HCL 200 MG TABLET FEED TUBE ×2 (13:05→16:53)
[2022-11-10] MEDS: ASPIRIN 81 MG CHEWABLE TABLET FEED TUBE (13:05)
[2022-11-10] MEDS: FAMOTIDINE 20 MG TABLET FEED TUBE ×2 (13:05→16:54)
[2022-11-10] MEDS: SEVELAMER CARBONATE 800 MG TABLET 4000 MG FEED TUBE ×2 (13:05→16:53)
[2022-11-10 13:18] LABS: INR 1.8; Prothrombin Time 20.5 Seconds (11.1-14.7)
[2022-11-10 14:14] LABS: Glucose Point of Care 150 mg/dl (65-105)
[2022-11-10 16:51] LABS: Glucose Point of Care 126 mg/dl (65-105)
[2022-11-10] MEDS: MIDODRINE HCL 10 MG TABLET FEED TUBE (16:53)
[2022-11-10] MEDS: LIPASE/AMYLASE/PROTEASE 12,000 UNITS CAP 1 CAP PO (19:40)
[2022-11-10] MEDS: SODIUM BICARBONATE TAB 650 MG TABLET PO (19:40)
[2022-11-10 19:55] LABS: Glucose Point of Care 141 mg/dl (65-105)
[2022-11-11] VITALS (28 sets, daily range): BP systolic 79–183; BP diastolic 43–86; PULSE 74–105; RESP 18–24; TEMP 35.7–36.6; O2SAT 94–99
[2022-11-11] MEDS: KETOROLAC 30 MG/ML VIAL (*BKC) IV PUSH (02:33)
[2022-11-11 05:10] LABS: Hematocrit 31.2 % (42.0-52.0); Hemoglobin 9.4 g/dL (14.0-18.0); Immature Platelet Fraction Pct 4.6 % (0.9-11.2); Mean Corpuscular HGB Conc 30.1 g/dl (32-36); Mean Corpuscular Hemoglobin 32.5 pg (26-34); Mean Platelet Volume 10.4 fl (7.4-10.4); Platelet Count Result 94 k/mm3 (150-375); Red Blood Count 2.89 M/mm3 (4.6-6.20); Red Cell Distribution Width 21.2 % (11.5-14.5); White Blood Count 7.2 K/mm3 (4.5-10.0)
[2022-11-11 05:20] LABS: Ammonia < 9 umol/L (9-30); INR 1.5; Partial Thromboplastin Time 36.3 SECONDS (22.3-36.8); Prothrombin Time 17.8 Seconds (11.1-14.7)
[2022-11-11 05:22] LABS: Albumin Level 3.1 g/dL (3.5-5.1); Alkaline Phosphatase 91 U/L (38-126); Anion Gap 11 mmol/L (8-16); Aspartate Amino Transferase 270 U/L (17-59); Bilirubin,Total 2.5 mg/dL (0.2-1.3); Blood Urea Nitrogen 51 mg/dL (9-20); Calcium 9.1 mg/dL (8.4-10.2); Carbon Dioxide 27 mmol/L (22-30); Chloride 104 mmol/L (98-107); Estimated CRCL calculation 13 ml/min; Estimated Glomerular Filt Rate 12; Glucose 130 mg/dL (65-110); Magnesium 2.4 mg/dL (1.6-2.3); Phosphorus 4.9 mg/dL (2.5-4.5); Potassium 3.6 mmol/L (3.4-5.0); Sodium 142 mmol/L (137-145)
[2022-11-11 05:40] LABS: Anisocytosis 3+ (NORMAL); Band Neutrophils Percent 8 % (0-6); Basophils Absolute Manual 0.07 K/mm3 (0.0-0.1); Basophils Percent Manual 1 % (0-1); Eosinophils Absolute Manual 0.07 K/mm3 (0.02-0.5); Eosinophils Percent Manual 1 % (0-4); Lymphocytes Absolute Manual 1.65 K/mm3 (1.1-4.5); Monocytes Absolute Manual 0.14 K/mm3 (0.1-0.90); Monocytes Percent Manual 2 % (3-9); Neutrophils Absolute Manual 5.25 K/mm3 (1.3-6.7); Neutrophils Percent Manual 65 % (46-73); Poikilocytosis 3+ (NORMAL); Schistocytes 1+ (NORMAL); Total Cells Counted 100
[2022-11-11 05:41] LABS: Hypochromasia 2+ (NORMAL)
[2022-11-11 05:42] LABS: Crenated RBC 1+ (NORMAL); Target Cells 1+ (NORMAL)
[2022-11-11 06:02] LABS: Alanine Aminotransferase 894 U/L (6-50)
[2022-11-11 09:35] LABS: Glucose CSF 96 mg/dL (40-70); Total Protein CSF 71 mg/dL (12-60)
[2022-11-11 09:45] LABS: Glucose Point of Care 124 mg/dl (65-105)
[2022-11-11] MEDS: PANTOPRAZOLE SODIUM IV 40 MG VIAL IV PUSH (09:48)
[2022-11-11] MEDS: SEVELAMER CARBONATE 800 MG TABLET 4000 MG FEED TUBE ×3 (09:48→19:00)
[2022-11-11] MEDS: AMIODARONE HCL 200 MG TABLET FEED TUBE ×2 (09:48→19:00)
[2022-11-11] MEDS: LEVOTHYROXINE SODIUM INJ 100 MCG/5 ML VIAL 50 MCG IV PUSH (09:48)
[2022-11-11] MEDS: EZETIMIBE 10 MG TABLET FEED TUBE (09:48)
[2022-11-11] MEDS: ASPIRIN 81 MG CHEWABLE TABLET FEED TUBE (09:52)
[2022-11-11 10:04] LABS: Appearance CSF Clear (Clear); CSF source CSF; Color CSF Colorless (Colorless); Lymphocytes CSF 75 % (40-80); Macrophages CSF 14; Monocytes CSF 8 % (15-45); Neutrophils CSF 3 % (0-6); Nucleated Cell CSF 15 /uL (0-5); Red Blood Cell CSF < 2000 (0-2)
--- NOTE | 2022-11-11 10:18 | PM.IMPN ---
Progress Note: A&P Assessment and Plan (1) Encephalopathy: Code(s): G93.40 - Encephalopathy, unspecified Status: Acute Assessment and Plan: Etiology is not entirely clear but concerns are for iatrogenic overdose on valacyclovir (he was taking valacyclovir 1000 mg t.i.d. instead of 500 mg on dialysis days after dialysis). Differential diagnosis does include herpes encephalitis, hepatic encephalopathy or others. Side effects of valacyclovir included encephalopathy. Neuro consulted and appreciate their input. They initially recommended conservative management with observation. CTA head and neck showing no significant stenosis, moderate pulmonary edema and lymphadenopathy. Received HD almost daily in hopes of dialysizing Valtrex out but this may not remove the toxin very fast. Cannot obtain MRI due to recent mitral valve replacement 10/03/22. Discussed with neurology who recommended proceeding with LP at this time and this was ordered but held due to elevated INR. Patient is not on antiviral or antibacterial treatment. HepC Ab positive but was negative 2 yrs ago so could be false positive. LP performed today showing RBC<2000 and WBC 15 mostly lymphocytes. Glucose 96 and Protein 71, both mildly elevated. Gram stain showing no microorganisms. Follow up on serologies Continue supportive care. NGT placed and started on TF. IV fluids low dose until TF at goal. (2) Herpes zoster infection of thoracic region: Code(s): B02.9 - Zoster without complications Status: Acute Assessment and Plan: Hold antivirals as detailed above. Acetaminophen available as needed. Supportive care (3) Antiviral drug overdose: Code(s): T37.5X1A - Poisoning by antiviral drugs, accidental (unintentional), initial encounter Status: Acute Assessment and Plan: The patient has been taking 1000 mg of valacyclovir t.i.d. as detailed above. His altered mental status and delirium are likely result of iatrogenic overdose. He is being monitored closely in IMU. Continue HD per nephrology (4) End-stage renal disease on hemodialysis: Code(s): N18.6 - End stage renal disease; Z99.2 - Dependence on renal dialysis Status: Acute Assessment and Plan: Nephrology consulted for dialysis as detailed above. He has been dialyzed for the past several days. Appreciate nephrology input. (5) Insulin dependent diabetes mellitus: Status: Acute Assessment and Plan: A1c 5.1. The patient's blood glucose was reviewed on 11/11 Glucose remains well controlled. lantus on hold Continue AccuCheks covering with sliding scale. Hypoglycemia protocol available as needed. Continue to monitor (6) Atrial fibrillation: Qualifiers: Atrial fibrillation type: paroxysmal Qualified Code(s): I48.0 - Paroxysmal atrial fibrillation Code(s): I48.91 - Unspecified atrial fibrillation Status: Chronic Assessment and Plan: He has been in atrial fibrillation with rapid ventricular response with rates in the 100-120. EKG showing QTc 505. Repeat EKG showing improved QTc with probable AFlutter now. Continue to monitor on tele. Amiodarone resumed. Continue to hold Celexa. 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 Resume tomorrow (8) Elevated LFTs: Code(s): R79.89 - Other specified abnormal findings of blood chemistry Status: Acute Assessment and Plan: AST 720 and ALT 1059 but trending down now. Levels normal on admission. TBili at 2.5 today. Suspect related to viral hepatitis and/or anti-viral medications. Lipitor on hold. Amiodarone can also cause this issue but had not been on this due to his NPO status. Hepatitis panel positive for HepC Ab with confirmatory testing pending. RUQ US normal. GI consulted and appreciate their input. (9) Hypothyroidism:
[2022-11-11] MEDS: ACETAMINOPHEN 325 MG TABLET 650 MG FEED TUBE (11:51)
[2022-11-11 12:02] LABS: Glucose Point of Care 148 mg/dl (65-105)
--- NOTE | 2022-11-11 12:08 | PCNFU ---
Nutrition Follow-Up Complete: Inadequate energy intake related to lack of alertness as evidenced by nursing report Goal:Alert and oriented Greater than 50% intake of meals. Pt not meeting goals. Pt current nutrition is NPO, tube feedings ordered, just started this AM. Nutrition recommendation: Last recorded weight is 80 kg. Bowel Motility: +BM 11/08 Labs Reviewed: Hgb:8.5, HCT:27.1, Alb:3.4 Meds Noted:Novolog, lantus, zofran, nephrocaps Skin: WNL Additional Notes: Pt remains NPO, tube feedings started but were held due to a clogged tube. Tube is now clear and feedings has been initiated. Running Nepro at 30ml/hr with a goal rate of 60ml/hr. This will provide 2336kcals, 106g protein, 959ml fluid over 22hrs. Estimated needs: 2193kcals, 83-100g protein, 2200ml. Current goal rate is sufficient to meet 94% of energy needs, 100% of protein needs. Agree with diet orders. Will monitor Monitor status, tube feedings, tolerance, wt, labs. Follow up every Friday and Friday.
--- NOTE | 2022-11-11 14:32 | PM.PNNEP ---
Progress Note: A&P Assessment and Plan (1) End stage renal disease: Code(s): N18.6 - End stage renal disease Status: Chronic Assessment and Plan: HD today follow electrolytes, volume status, and clearance volume status (2) Encephalopathy: Code(s): G93.40 - Encephalopathy, unspecified Status: Acute Assessment and Plan: most likely due to Valtrex overdose. He does have elevated liver enzymes, elevated bilirubin, and elevated ammonia suspect that the liver issues are due to the Valtrex as well head CT negative b12 and Folate okay TSH is high -- getting IV Synthroid s/p LP earlier today - follow pending studies haldol PRN for agitation mental status mildly improved NG tube in place for nutrition (3) Herpes zoster infection of thoracic region: Code(s): B02.9 - Zoster without complications Status: Acute Assessment and Plan: holding antiviral therapy at this time pain control as needed continue supportive therapy (4) Atrial fibrillation: Qualifiers: Atrial fibrillation type: paroxysmal Qualified Code(s): I48.0 - Paroxysmal atrial fibrillation Code(s): I48.91 - Unspecified atrial fibrillation Status: Chronic Assessment and Plan: rate control strategy anticoagulation on hold (in case further procedures need to be done) (5) Insulin dependent diabetes mellitus: Status: Acute Assessment and Plan: On accuchecks glycemic control per hospitalists Will continue to follow. Subjective Date/time seen: 11/11/22 14:32 Chart reviewed since last seen -- doboff now in place for enteral feeding; mentation a bit better (he opens his eyes and looks at me when I called his name); s/p lumbar puncture earlier this morning and tolerated this procedure reasonably well; tolerating hemodialysis treatment at the time of my visit (seen on HD at 2:15PM); no apparent distress noted. Exam Narrative: General: lethargic male in NAD Heart: normal S1 and S2; no rub or gallop Lungs: clear anteriorly Abdomen: soft, nontender, nondistended, positive bowel sounds Extremities: trace edema Skin: no nodules Objective Data Vital Signs Vital Signs: Vital Signs Temp Pulse Resp BP Pulse Ox O2 Del Method 11/11/22 14:00 92 11/11/22 12:00 97.9 F 92 18 79/53 L 98 11/11/22 12:00 92 11/11/22 12:00 81 20 98 Room Air 11/11/22 08:00 81 20 98 Room Air 11/11/22 10:00 81 11/11/22 08:00 98 11/11/22 08:00 97.5 F L 97 20 88/57 L 98 11/11/22 09:03 102 H 20 92/59 L 98 11/11/22 08:11 97 24 H 93/57 L 96 11/11/22 05:52 93 11/11/22 04:00 91 11/11/22 04:00 94 20 95 Room Air 11/11/22 04:00 97.8 F 94 20 103/61 95 11/11/22 02:00 103 H 11/11/22 00:00 99 11/11/22 00:00 105 H 20 95 Room Air 11/10/22 22:00 99 11/10/22 20:00 104 H 11/10/22 20:00 118 H 20 96 Room Air 11/10/22 23:07 97.8 F 105 H 20 108/71 95 11/10/22 19:56 97.8 F 118 H 20 102/70 96 11/10/22 18:00 124 H 11/10/22 18:44 121 H 22 H 11/10/22 16:00 97.8 F 111 H 24 H 155/60 H 97 11/10/22 16:00 122 H 11/10/22 16:00 Room Air Intake/Output Intake/Output: Intake & Output 11/08/22 11/09/22 11/10/22 11/11/22 23:59 23:59 23:59 23:59 Intake Total 0 300 1000 0 Output Total 1000 300 0 Balance -1000 0 1000 0 Meds/Results Medications: Active Medications Generic Name Dose Route Start Last Admin Trade Name Freq PRN Reason Stop Dose Admin Acetaminophen 650 mg 11/09/22 11:15 11/11/22 11:51 Acetaminophen 325 Mg Tablet FEED TUBE 650 mg Q4H PRN Administration Mild Pain (1-3) or Fever Amiodarone HCl 200 mg 11/09/22 17:00 11/11/22 09:48 Amiodarone Hcl 200 Mg Tablet FEED TUBE 200 mg BIDWM BARBARA Administration Aspirin 81 mg 11/10/22 08:00 11/11/22 09:52
--- NOTE | 2022-11-11 15:21 | WPDGIPROGNO ---
Progress Note: A&P Assessment and Plan (1) Elevated LFTs: Code(s): R79.89 - Other specified abnormal findings of blood chemistry Status: Acute Assessment and Plan: LFTs which were normal 2 days ago are Abdo normal today with ALT 1059, AST 547 but alkaline phosphatase is normal. Bilirubin is 2.9 Most likely etiology would be ischemic hepatopathy if perhaps he was dehydrated. Viral disease also needs to be considered. INR has not increased significantly since admission which is a good prognostic sign. Likewise but ammonia level is only slightly increased. Will closely monitor his liver functions. However at this point I do not think he is in imminent danger of hepatic failure. 11/11/2022 INR is down to 1.5 which is a good prognostic sign. ALT down to 894 (2) Antiviral drug overdose: Code(s): T37.5X1A - Poisoning by antiviral drugs, accidental (unintentional), initial encounter Status: Acute Assessment and Plan: although he a had a antiviral does for patient without renal disease, he apparently only had taken 2 doses at the time this off lap of the began. is hoped that with dialysis his access drug can be removed (3) End stage renal disease: Code(s): N18.6 - End stage renal disease Status: Acute Assessment and Plan: on chronic hemodialysis (4) Chronic anticoagulation: Code(s): Z79.01 - [facility] (current) use of anticoagulants Status: Acute Assessment and Plan: for chronic atrial fibrillation and what looks like flutter fib on current EKG, he is anticoagulated on Eliquis, 2.5 mg b.i.d.. (5) Encephalopathy: Code(s): G93.40 - Encephalopathy, unspecified Status: Acute Assessment and Plan: This was acute in onset, 7 days ago and shortly after he began taking an antiviral drug for shingles. This of course raises the possibility of viral encephalopathy. Neurology has been consulted. (6) Tachycardia: Code(s): R00.0 - Tachycardia, unspecified Status: Acute Assessment and Plan: Heart rate is 124 today. BUN and creatinine are decreasing and I do not think his tachycardia is secondary to dehydration. Plan NG tube has been placed for nutritional support. Lumbar puncture performed and viral studies pending. Hepatic function appears stable and slowly improving. Hepatitis C viral count pending Subjective Date/time seen: 11/11/22 15:21 patient remains confused. Encephalopathy is being investigated. Possibility of a viral infection is considered. LP revealed normal cytology. Viral studies pending. He did have a positive hepatitis-C antibody. Quantitative RNA is pending. Exam Const: General: patient obtunded Nutritional Appearance: well nourished Orientation/consciousness: lethargic Neck: Neck: supple Resp: Effort & Inspection: no audible wheezes and decreased respiratory effort ( Initially he appeared have Francisco Javier-Crowder respirations ) Cardio: Palpation: normal PMI Rate: tachycardic ( 124) Rhythm: regular rhythm GI: Inspection: normal to inspection GI Palp: No Tenderness to palpation present (GI), No Guarding due to palpation present (GI), Yes No hepatosplenomegaly present, No Hernia present and No Ascites present Neuro: Speech: Other speech findings present (Neuro) ( does not respond to my questions) Objective Data Vital Signs Vital Signs: Vital Signs - 24 hr 11/10/22 16:00 11/10/22 16:00 11/10/22 16:00 Temperature 36.6 C Pulse Rate 122 H 111 H Respiratory Rate 24 H Blood Pressure 155/60 H Pulse Oximetry 97 Oxygen Delivery Room Air 11/10/22 18:44 11/10/22 18:00 11/10/22 19:56 Temperature 36.6 C Pulse Rate 121 H 124 H 118 H Respiratory Rate 22 H 20 Blood Pressure 102/70 Pulse Oximetry 96 Oxygen Delivery 11/10/22 23:07 11/10/22 20:00 11/10/22 20:00 Temperature 36.6 C Pulse Rate 105 H 118 H 104 H Respiratory Rate 20 20 Blood Pressure 108/71
[2022-11-11 17:12] LABS: Glucose Point of Care 118 mg/dl (65-105)
[2022-11-11 20:32] LABS: Glucose Point of Care 140 mg/dl (65-105)
[2022-11-12] VITALS (26 sets, daily range): BP systolic 85–143; BP diastolic 43–79; PULSE 73–96; RESP 18–22; TEMP 36–36.6; O2SAT 94–100
[2022-11-12] MEDS: SODIUM CHLORIDE 0.9% IV 1,000 ML 50 ML IV CONT (00:48)
[2022-11-12 05:18] LABS: Basophils Absolute Auto 0.1 K/mm3 (0.0-0.1); Basophils Percent Auto 0.7 % (0.2-1.2); Eosinophils Absolute Auto 0.3 K/mm3 (0-0.3); Eosinophils Percent Auto 3.7 % (0-4.4); Hemoglobin 9.8 g/dL (14.0-18.0); Immature Granulocyte Absolute 0.38 K/mm3 (0.00-0.031); Immature Granulocyte Percent A 5.4 % (0-0.5); Immature Platelet Fraction Pct 7.7 % (0.9-11.2); Mean Corpuscular HGB Conc 30.6 g/dl (32-36); Mean Corpuscular Hemoglobin 33.1 pg (26-34); Mean Corpuscular Volume 108.1 fl (80-100); Monocytes Absolute Auto 0.3 K/mm3 (0.1-0.6); Monocytes Percent Auto 4.9 % (2.6-8.5); Neutrophils Absolute Auto 5.3 K/mm3 (1.3-6.7); Neutrophils Percent Auto 75.3 % (45.5-73.1); Nucleated Red Blood Cells Absolute Auto 0.8 K/mm3 (0.0-0.012); Nucleated Red Blood Cells Perc 10.7 % (0.0-0.2); Platelet Count Result 74 k/mm3 (150-375); Red Blood Count 2.96 M/mm3 (4.6-6.20)
[2022-11-12 05:33] LABS: Alanine Aminotransferase 698 U/L (6-50); Albumin Level 2.9 g/dL (3.5-5.1); Alkaline Phosphatase 170 U/L (38-126); Anion Gap 6 mmol/L (8-16); Aspartate Amino Transferase 189 U/L (17-59); Bilirubin,Total 2.3 mg/dL (0.2-1.3); Blood Urea Nitrogen 31 mg/dL (9-20); Calcium 8.5 mg/dL (8.4-10.2); Carbon Dioxide 32 mmol/L (22-30); Chloride 101 mmol/L (98-107); Estimated CRCL calculation 23 ml/min; Estimated Glomerular Filt Rate 22; Glucose 180 mg/dL (65-110); Potassium 3.1 mmol/L (3.4-5.0); Sodium 139 mmol/L (137-145)
[2022-11-12 05:54] LABS: Anisocytosis 3+ (NORMAL); Macrocytosis 1+ (NORMAL); Platelet Estimate Decreased (Adequate); Schistocytes None Seen (NORMAL)
[2022-11-12] MEDS: LEVOTHYROXINE SODIUM INJ 100 MCG/5 ML VIAL 50 MCG IV PUSH (06:17)
--- NOTE | 2022-11-12 07:13 | WPDGIPROGNO ---
Progress Note: A&P Assessment and Plan (1) Elevated LFTs: Code(s): R79.89 - Other specified abnormal findings of blood chemistry Status: Acute Assessment and Plan: LFTs which were normal 2 days ago are Abdo normal today with ALT 1059, AST 547 but alkaline phosphatase is normal. Bilirubin is 2.9 Most likely etiology would be ischemic hepatopathy if perhaps he was dehydrated. Viral disease also needs to be considered. INR has not increased significantly since admission which is a good prognostic sign. Likewise but ammonia level is only slightly increased. Will closely monitor his liver functions. However at this point I do not think he is in imminent danger of hepatic failure. 11/11/2022 INR is down to 1.5 which is a good prognostic sign. ALT down to 894 11/12/2022 ALT continues to drop, 698 today. (2) Antiviral drug overdose: Code(s): T37.5X1A - Poisoning by antiviral drugs, accidental (unintentional), initial encounter Status: Acute Assessment and Plan: although he a had a antiviral does for patient without renal disease, he apparently only had taken 2 doses at the time this off lap of the began. is hoped that with dialysis his access drug can be removed (3) End stage renal disease: Code(s): N18.6 - End stage renal disease Status: Acute Assessment and Plan: on chronic hemodialysis (4) Chronic anticoagulation: Code(s): Z79.01 - [facility]P (current) use of anticoagulants Status: Acute Assessment and Plan: for chronic atrial fibrillation and what looks like flutter fib on current EKG, he is anticoagulated on Eliquis, 2.5 mg b.i.d.. (5) Encephalopathy: Code(s): G93.40 - Encephalopathy, unspecified Status: Acute Assessment and Plan: This was acute in onset, 7 days ago and shortly after he began taking an antiviral drug for shingles. This of course raises the possibility of viral encephalopathy. Neurology has been consulted. 11/12/2022 the patient remains a very quiet but actually was responsive to me this morning. He answered questions uh huh (yes) and uh uh (no) (6) Tachycardia: Code(s): R00.0 - Tachycardia, unspecified Status: Acute Assessment and Plan: Heart rate is 124 today. BUN and creatinine are decreasing and I do not think his tachycardia is secondary to dehydration. 11/12/2022 heart rate is down although blood pressure is soft today, 90/45 Plan NG tube has been placed for nutritional support. Lumbar puncture performed and viral studies pending. Hepatic function appears stable and slowly improving. Hepatitis C viral count pending Subjective Date/time seen: 11/12/22 07:13 he actually seems a little more alert today. He was able to answer questions but rather than yes or no day me answers such as [place] for instance when I asked if he was having pain or palpating his abdomen was there was uncomfortable. He remains on tube feedings. May eventually need G-tube depending on how quickly his encephalopathy clears. Exam Const: General: comfortable Nutritional Appearance: well nourished Orientation/consciousness: lethargic Neck: Neck: supple Resp: Effort & Inspection: no audible wheezes and decreased respiratory effort ( Initially he appeared have Francisco Javier-Crowder respirations ) Cardio: Palpation: normal PMI Rate: tachycardic ( 124) Rhythm: regular rhythm GI: Inspection: normal to inspection GI Palp: No Tenderness to palpation present (GI), No Guarding due to palpation present (GI), Yes No hepatosplenomegaly present, No Hernia present and No Ascites present Objective Data Vital Signs Vital Signs: Vital Signs - 24 hr 11/11/22 08:11 11/11/22 09:03 11/11/22 08:00 Temperature 36.4 C L Pulse Rate 97 102 H 97 Respiratory Rate 24 H 20 20 Blood Pressure 93/57 L 92/59 L 88/57 L Pulse Oximetry 96 98 98 Oxygen Delivery 11/11/22 08:00 11/11/22 10:00 11/11/22 08:00
[2022-11-12 08:34] LABS: Glucose Point of Care 191 mg/dl (65-105)
--- NOTE | 2022-11-12 08:48 | PC.NURSE ---
Pt to dialysis via bed
--- NOTE | 2022-11-12 09:32 | P.PNNP_ITS ---
Progress Note: A&P Assessment and Plan (1) End stage renal disease: Code(s): N18.6 - End stage renal disease Status: Chronic Assessment and Plan: * HD today again and likely tomorrow as well * follow electrolytes, volume status, and clearance volume status (2) Encephalopathy: Code(s): G93.40 - Encephalopathy, unspecified Status: Acute Assessment and Plan: * most likely due to Valtrex overdose * elevated liver enzymes, elevated bilirubin, and elevated ammonia noted as well (but are trending down) * suspect that the liver issues are due to the Valtrex as well * head CT negative * b12 and Folate okay * TSH is high -- getting IV Synthroid * s/p LP done (on 11/11/22) - follow-up on pending studies * haldol PRN for agitation * mental status mildly improved * NG tube in place for nutrition (3) Herpes zoster infection of thoracic region: Code(s): B02.9 - Zoster without complications Status: Acute Assessment and Plan: * holding antiviral therapy at this time * pain control as needed * continue supportive therapy (4) Atrial fibrillation: Qualifiers: Atrial fibrillation type: paroxysmal Qualified Code(s): I48.0 - Paroxysmal atrial fibrillation Code(s): I48.91 - Unspecified atrial fibrillation Status: Chronic Assessment and Plan: * rate control strategy * anticoagulation on hold (in case further procedures need to be done) (5) Insulin dependent diabetes mellitus: Status: Acute Assessment and Plan: * On accuchecks * glycemic control per hospitalists Will continue to follow. Subjective Date/time seen: 11/12/22 09:32 Tolerating dialysis at the time of my visit (seen on HD at 9:15AM); LFTs continue to slowly improve; mentation appears to be slowly improving as well; he responded to his name and was able to verbalize answers to simple questions. Exam Narrative: General: sleepy male in NAD Heart: normal S1 and S2; no rub Lungs: clear anteriorly Abdomen: soft, nontender, nondistended, positive bowel sounds Extremities: trace edema Skin: warm and dry Objective Data Vital Signs Vital Signs: Vital Signs Temp Pulse Resp BP Pulse Ox O2 Del Method 11/12/22 08:00 97.5 F L 85 18 100/79 100 11/12/22 04:00 99 Room Air 11/12/22 00:00 99 Room Air 11/12/22 06:00 90 11/12/22 04:00 96 11/12/22 02:00 95 11/12/22 00:00 95 11/11/22 22:00 95 11/11/22 20:00 96 11/12/22 04:00 97.8 F 90 20 90/45 L 94 11/11/22 20:00 99 Room Air 11/11/22 23:15 97.8 F 95 20 92/43 L 95 11/11/22 20:44 97.7 F 74 20 98/43 L 94 11/11/22 20:00 97.6 F 96 20 90/45 L 95 11/11/22 18:37 97.3 F L 97 21 H 143/60 H 11/11/22 18:15 97 132/76 11/11/22 18:00 99 129/63 11/11/22 17:40 100 141/85 H 11/11/22 17:20 97 162/64 H 11/11/22 17:00 98 140/69 11/11/22 16:40 96 131/57 L 11/11/22 16:20 100 148/65 H 11/11/22 16:00 81 20 98 Room Air 11/11/22 16:00 97 11/11/22 16:00 97 147/56 H 11/11/22 15:40 96 129/62 11/11/22 15:20 95 142/80 H 11/11/22 15:00 9
--- NOTE | 2022-11-12 09:32 | PM.PNNEP ---
Progress Note: A&P Assessment and Plan (1) End stage renal disease: Code(s): N18.6 - End stage renal disease Status: Chronic Assessment and Plan: HD today again and likely tomorrow as well follow electrolytes, volume status, and clearance volume status (2) Encephalopathy: Code(s): G93.40 - Encephalopathy, unspecified Status: Acute Assessment and Plan: most likely due to Valtrex overdose elevated liver enzymes, elevated bilirubin, and elevated ammonia noted as well (but are trending down) suspect that the liver issues are due to the Valtrex as well head CT negative b12 and Folate okay TSH is high -- getting IV Synthroid s/p LP done (on 11/11/22) - follow-up on pending studies haldol PRN for agitation mental status mildly improved NG tube in place for nutrition (3) Herpes zoster infection of thoracic region: Code(s): B02.9 - Zoster without complications Status: Acute Assessment and Plan: holding antiviral therapy at this time pain control as needed continue supportive therapy (4) Atrial fibrillation: Qualifiers: Atrial fibrillation type: paroxysmal Qualified Code(s): I48.0 - Paroxysmal atrial fibrillation Code(s): I48.91 - Unspecified atrial fibrillation Status: Chronic Assessment and Plan: rate control strategy anticoagulation on hold (in case further procedures need to be done) (5) Insulin dependent diabetes mellitus: Status: Acute Assessment and Plan: On accuchecks glycemic control per hospitalists Will continue to follow. Subjective Date/time seen: 11/12/22 09:32 Tolerating dialysis at the time of my visit (seen on HD at 9:15AM); LFTs continue to slowly improve; mentation appears to be slowly improving as well; he responded to his name and was able to verbalize answers to simple questions. Exam Narrative: General: sleepy male in NAD Heart: normal S1 and S2; no rub Lungs: clear anteriorly Abdomen: soft, nontender, nondistended, positive bowel sounds Extremities: trace edema Skin: warm and dry Objective Data Vital Signs Vital Signs: Vital Signs Temp Pulse Resp BP Pulse Ox O2 Del Method 11/12/22 08:00 97.5 F L 85 18 100/79 100 11/12/22 04:00 99 Room Air 11/12/22 00:00 99 Room Air 11/12/22 06:00 90 11/12/22 04:00 96 04/25/23 02:00 95 11/12/22 00:00 95 11/11/22 22:00 95 11/11/22 20:00 96 11/12/22 04:00 97.8 F 90 20 90/45 L 94 11/11/22 20:00 99 Room Air 11/11/22 23:15 97.8 F 95 20 92/43 L 95 11/11/22 20:44 97.7 F 74 20 98/43 L 94 11/11/22 20:00 97.6 F 96 20 90/45 L 95 11/11/22 18:37 97.3 F L 97 21 H 143/60 H 11/11/22 18:15 97 132/76 11/11/22 18:00 99 129/63 11/11/22 17:40 100 141/85 H 11/11/22 17:20 97 162/64 H 11/11/22 17:00 98 140/69 11/11/22 16:40 96 131/57 L 11/11/22 16:20 100 148/65 H 11/11/22 16:00 81 20 98 Room Air 11/11/22 16:00 97 11/11/22 16:00 97 147/56 H 11/11/22 15:40 96 129/62 11/11/22 15:20 95 142/80 H 11/11/22 15:00 96 172/86 H 11/11/22 14:41 93 183/71 H 11/11/22 14:30 97.3 F L 94 20 164/81 H 11/11/22 14:00 92 11/11/22 12:00 97.9 F 92 18 79/53 L 98 11/11/22 12:00 92 11/11/22 12:00 81 20 98 Room Air 11/11/22 10:00 81 Intake/Output Intake/Output: Intake & Output 11/09/22 11/10/22 11/11/22 11/12/22 23:59 23:59 23:59 23:59 Intake Total 300 1000 0 1000 Output Total 300 0 2000 Balance 0 1000 -2000 1000 Meds/Results Medications: Active Medications Generic Name Dose Route Start Last Admin Trade Name Will PRN Reason Stop Dose Admin Acetaminophen 650 mg 11/09/22 11:15 11/11/22 11:51 Acetaminophen 325 Mg Tablet FEED TUBE 650 mg Q4H PRN Administration Mild Pain (1
--- NOTE | 2022-11-12 12:34 | PCNFU ---
Nutrition Follow-Up Complete: Inadequate energy intake related to lack of alertness as evidenced by nursing report Goal:meet estimated needs Pt current nutrition is Nepro tube feeding. Nutrition recommendation: Advance to goal rate as tolerated Last recorded weight is 80 kg. Bowel Motility: +BM 11/12 Labs Reviewed: Hgb:9.8, HCT:32, Alb:2.9, K:3.1, BUN:31, Cr:2.9, Glu: 191 Meds Noted: nephrocaps, insulin Skin:WNL Additional Notes: Pt remains NPO, tube feedings started but were previously held due to a clogged tube. Tube is now clear and feedings has been initiated as of yesterday. Running Nepro at 30ml/hr with a goal rate of 60ml/hr. This will provide 2336kcals, 106g protein, 959ml fluid over 22hrs. Estimated needs: 2193kcals, 83-100g protein, 2200ml. Current goal rate is sufficient to meet 94% of energy needs, 100% of protein needs. Agree with diet orders. Advance tube feeding to goal rate as tolerated. Will monitor Monitor status, intake, wt, labs. Follow up every Friday and Friday
--- NOTE | 2022-11-12 13:00 | PC.NURSE ---
Pt returned from dialysis via bed. No issues noted
[2022-11-12] MEDS: AMIODARONE HCL 200 MG TABLET FEED TUBE ×2 (13:40→17:58)
[2022-11-12] MEDS: PANTOPRAZOLE SODIUM IV 40 MG VIAL IV PUSH (13:40)
[2022-11-12] MEDS: ASPIRIN 81 MG CHEWABLE TABLET FEED TUBE (13:40)
[2022-11-12 13:53] LABS: Glucose Point of Care 93 mg/dl (65-105)
[2022-11-12] MEDS: ACETAMINOPHEN 325 MG TABLET 650 MG FEED TUBE (16:10)
[2022-11-12 16:47] LABS: Glucose Point of Care 149 mg/dl (65-105)
--- NOTE | 2022-11-12 18:06 | PM.IMPN ---
Progress Note: A&P Assessment and Plan (1) Encephalopathy: Code(s): G93.40 - Encephalopathy, unspecified Status: Acute Assessment and Plan: Etiology is not entirely clear but concerns are for iatrogenic overdose on valacyclovir (he was taking valacyclovir 1000 mg t.i.d. instead of 500 mg on dialysis days after dialysis). Differential diagnosis does include herpes encephalitis, hepatic encephalopathy or others. Side effects of valacyclovir included encephalopathy. Neuro consulted and appreciate their input. They initially recommended conservative management with observation. CTA head and neck showing no significant stenosis, moderate pulmonary edema and lymphadenopathy. Received HD almost daily in hopes of dialysizing Valtrex out but this may not remove the toxin very fast. Cannot obtain MRI due to recent mitral valve replacement 10/03/22. Discussed with neurology who recommended proceeding with LP at this time and this was ordered but held due to elevated INR. Patient is not on antiviral or antibacterial treatment. HepC Ab positive but was negative 2 yrs ago so could be false positive. LP performed today showing RBC<2000 and WBC 15 mostly lymphocytes. Glucose 96 and Protein 71, both mildly elevated. Gram stain showing no microorganisms. Follow up on serologies Continue supportive care. NGT placed and started on TF. IV fluids low dose until TF at goal. 11/12/2022 interval history: Patient is 62-year-old male with history of end-stage renal disease on hemodialysis had developed shingles and was given acyclovir however patient became encephalopathic and presented emergency department with significantly elevated LFTs and INR patient is seen by Nephrology patient is being diuresed and today patient id more of awake and respons by noding and making sounds, patient LFT and INR are improving patient seen by GI recommended to continue to dialyze the patient to possibly remove toxic level of acyclovir, (2) Herpes zoster infection of thoracic region: Code(s): B02.9 - Zoster without complications Status: Acute Assessment and Plan: Hold antivirals as detailed above. Acetaminophen available as needed. Supportive care (3) Antiviral drug overdose: Code(s): T37.5X1A - Poisoning by antiviral drugs, accidental (unintentional), initial encounter Status: Acute Assessment and Plan: The patient has been taking 1000 mg of valacyclovir t.i.d. as detailed above. His altered mental status and delirium are likely result of iatrogenic overdose. He is being monitored closely in IMU. Continue HD per nephrology (4) End-stage renal disease on hemodialysis: Code(s): N18.6 - End stage renal disease; Z99.2 - Dependence on renal dialysis Status: Acute Assessment and Plan: Nephrology consulted for dialysis as detailed above. He has been dialyzed for the past several days. Appreciate nephrology input. (5) Insulin dependent diabetes mellitus: Status: Acute Assessment and Plan: A1c 5.1. The patient's blood glucose was reviewed on 11/11 Glucose remains well controlled. lantus on hold Continue AccuCheks covering with sliding scale. Hypoglycemia protocol available as needed. Continue to monitor (6) Atrial fibrillation: Qualifiers: Atrial fibrillation type: paroxysmal Qualified Code(s): I48.0 - Paroxysmal atrial fibrillation Code(s): I48.91 - Unspecified atrial fibrillation Status: Chronic Assessment and Plan: He has been in atrial fibrillation with rapid ventricular response with rates in the 100-120. EKG showing QTc 505. Repeat EKG showing improved QTc with probable AFlutter now. Continue to monitor on tele. Amiodarone resumed. Continue to hold Celexa. (7) Chronic anticoagulation: Code(s): Z79.01 - senior care (current) use of anticoagulants Status: Acute Assessment and Plan: Eliquis currently on hold. Resume tomorrow (8) Elevated
[2022-11-12 18:24] LABS: Hepatitis C RNA, Quant PCR <15 IU/mL
[2022-11-13] VITALS (25 sets, daily range): BP systolic 80–108; BP diastolic 37–61; PULSE 76–93; RESP 18–20; TEMP 35.8–36.6; O2SAT 94–100
[2022-11-13 00:05] LABS: Glucose Point of Care 163 mg/dl (65-105)
[2022-11-13 05:25] LABS: Alanine Aminotransferase 536 U/L (6-50); Albumin Level 2.8 g/dL (3.5-5.1); Alkaline Phosphatase 166 U/L (38-126); Anion Gap 5 mmol/L (8-16); Aspartate Amino Transferase 104 U/L (17-59); Bilirubin,Total 1.6 mg/dL (0.2-1.3); Blood Urea Nitrogen 24 mg/dL (9-20); Calcium 8.8 mg/dL (8.4-10.2); Carbon Dioxide 31 mmol/L (22-30); Chloride 103 mmol/L (98-107); Estimated CRCL calculation 24 ml/min; Estimated Glomerular Filt Rate 24; Glucose 138 mg/dL (65-110); Potassium 3.6 mmol/L (3.4-5.0); Sodium 139 mmol/L (137-145)
[2022-11-13 05:35] LABS: Hematocrit 31.6 % (42.0-52.0); Hemoglobin 9.4 g/dL (14.0-18.0); Immature Platelet Fraction Pct 8.7 % (0.9-11.2); Mean Corpuscular HGB Conc 29.7 g/dl (32-36); Mean Corpuscular Hemoglobin 33.1 pg (26-34); Mean Corpuscular Volume 111.3 fl (80-100); Platelet Count Result 63 k/mm3 (150-375); Red Blood Count 2.84 M/mm3 (4.6-6.20); Red Cell Distribution Width 23.9 % (11.5-14.5); White Blood Count 7.1 K/mm3 (4.5-10.0)
[2022-11-13] MEDS: LEVOTHYROXINE SODIUM INJ 100 MCG/5 ML VIAL 50 MCG IV PUSH (05:43)
[2022-11-13 07:04] LABS: Band Neutrophils Percent 12 % (0-6); Eosinophils Absolute Manual 0.14 K/mm3 (0.02-0.5); Eosinophils Percent Manual 2 % (0-4); Lymphocytes Absolute Manual 0.85 K/mm3 (1.1-4.5); Metamyelocytes Percent 2 %; Monocytes Absolute Manual 0.35 K/mm3 (0.1-0.90); Monocytes Percent Manual 5 % (3-9); Myelocytes Percent 1 %; Neutrophils Absolute Manual 5.53 K/mm3 (1.3-6.7); Neutrophils Percent Manual 66 % (46-73); Nucleated Red Blood Cells 1 %; Platelet Estimate Decreased (Adequate); Total Cells Counted 100
[2022-11-13 07:06] LABS: Anisocytosis 1+ (NORMAL); Macrocytosis 1+ (NORMAL)
[2022-11-13 07:07] LABS: Burr Cells 1+ (NORMAL); Hypochromasia 1+ (NORMAL); Schistocytes 1+ (NORMAL)
--- NOTE | 2022-11-13 08:21 | PC.NURSE ---
Tech in room obtaining morning vitals. RN called to room d/t low BP. Automatic BP's are 60-70's SBP. Manual BP was 80/42. Dr. Schmidt notified. New order for 250ml NS IVPB NS bolus x1
[2022-11-13] MEDS: SODIUM CHLORIDE 0.9% IV 250 ML 100 ML IV CONT (08:28)
[2022-11-13] MEDS: PANTOPRAZOLE SODIUM IV 40 MG VIAL IV PUSH (08:28)
[2022-11-13] MEDS: ASPIRIN 81 MG CHEWABLE TABLET FEED TUBE (08:29)
--- NOTE | 2022-11-13 09:30 | PC.NURSE ---
Addendum entered by Sariah Low RN 11/13/22 09:30: SBP 80-90's Addendum entered by Sariah Low RN 11/13/22 09:30: care manager notified of patient's BP running on the lower side this AM Original Note: Pt to dialysis via bed.
--- NOTE | 2022-11-13 12:50 | PM.PNNEP ---
Progress Note: A&P Assessment and Plan (1) End stage renal disease: Code(s): N18.6 - End stage renal disease Status: Chronic Assessment and Plan: HD today (daily HD for now) follow electrolytes, volume status, and clearance volume status (2) Encephalopathy: Code(s): G93.40 - Encephalopathy, unspecified Status: Acute Assessment and Plan: slow and steady improvement most likely due to Valtrex overdose elevated liver enzymes, elevated bilirubin, and elevated ammonia noted as well (but are trending down) suspect that the liver issues are due to the Valtrex as well head CT negative b12 and Folate okay TSH is high -- getting IV Synthroid s/p LP done (on 11/11/22) - follow-up on pending studies haldol PRN for agitation NG tube in place for nutrition (3) Herpes zoster infection of thoracic region: Code(s): B02.9 - Zoster without complications Status: Acute Assessment and Plan: holding antiviral therapy at this time pain control as needed continue supportive therapy (4) Atrial fibrillation: Qualifiers: Atrial fibrillation type: paroxysmal Qualified Code(s): I48.0 - Paroxysmal atrial fibrillation Code(s): I48.91 - Unspecified atrial fibrillation Status: Chronic Assessment and Plan: rate control strategy anticoagulation on hold (in case further procedures need to be done) (5) Insulin dependent diabetes mellitus: Status: Acute Assessment and Plan: On accuchecks glycemic control per hospitalists Will continue to follow. Subjective Date/time seen: 11/13/22 13:33 Tolerating dialysis at the time of my visit (seen on HD at 12:40PM); mentation continue to slowly improve as he is responsive to question and recognized who I was; asking me when his doboff tube can be removed; no apparent distress voiced otherwise. Exam Narrative: General: WD/WN male in NAD Heart: normal S1 and S2; no rub Lungs: clear anteriorly Abdomen: soft, nontender, nondistended, positive bowel sounds Extremities: trace edema Skin: warm and intact Objective Data Vital Signs Vital Signs: Vital Signs Temp Pulse Resp BP Pulse Ox O2 Del Method 11/13/22 12:00 85 11/13/22 12:40 85 89/47 L 11/13/22 12:20 84 96/50 L 11/13/22 12:00 84 87/48 L 11/13/22 08:00 81 11/13/22 11:40 84 89/48 L 11/13/22 11:20 84 95/49 L 11/13/22 11:00 84 94/49 L 11/13/22 10:40 84 90/49 L 11/13/22 10:20 79 90/53 L 11/13/22 10:10 76 97/53 L 11/13/22 09:55 96.5 F L 78 18 90/46 L 99 11/13/22 08:00 Room Air 11/13/22 09:24 90/56 L 11/13/22 08:00 97.4 F L 82 18 80/42 L 100 11/13/22 08:21 100 Room Air 11/13/22 02:38 83 18 95 Room Air 11/13/22 02:38 87 11/13/22 02:28 97.6 F 83 18 108/49 L 95 11/13/22 02:00 82 11/13/22 00:00 81 20 94 Room Air 11/13/22 00:00 81 11/12/22 23:44 97.8 F 73 20 116/61 94 11/12/22 22:00 86 11/12/22 20:00 84 20 94 Room Air 11/12/22 20:00 84 11/12/22 20:00 97.8 F 85 20 121/76 94 11/12/22 18:00 95 11/12/22 17:58 95 11/12/22 16:00 97.7 F 88 22 H 117/77 99 11/12/22 16:00 90 11/12/22 16:00 99 Room Air 11/12/22 14:00 86 11/12/22 13:40 85 Intake/Output Intake/Output: Intake & Output 11/10/22 11/11/22 11/12/22 11/13/22 23:59 23:59 23:59 23:59 Intake Total 1000 0 1308 817 Output Total 0 2000 0 0 Balance 1000 -1999 1308 817 Meds/Results Medications: Active Medications Generic Name Dose Route Start Last Admin Trade Name Freq PRN Reason Stop Dose Admin Acetaminophen 650 mg 11/09/22 11:15 11/12/22 16:10 Acetaminophen 325 Mg Tablet FEED TUBE 650 mg Q4H PRN Administration Mild Pain (1-3) or Fever Amiodarone HCl 200 mg 11/09/22 17:00 11/12/22 17:
[2022-11-13] MEDS: EPOETIN ALFA-EPBX 10,000 UNITS/ML VIAL 10000 UNITS IV PUSH (13:00)
--- NOTE | 2022-11-13 14:00 | PC.NURSE ---
Pt returned from dialysis via bed. No issues noted
[2022-11-13] MEDS: ACETAMINOPHEN 325 MG TABLET 650 MG FEED TUBE ×2 (15:01→20:37)
--- NOTE | 2022-11-13 15:55 | PC.NURSE ---
Spoke with Dr. Schmidt regarding Dobhoff being clogged. New order to try and insert NG tube. If unsuccessful, may order bedside swallow study for in the AM and hold all PO medications until then.
[2022-11-13 17:02] LABS: Glucose Point of Care 134 mg/dl (65-105)
--- NOTE | 2022-11-13 17:08 | PM.IMPN ---
Progress Note: A&P Assessment and Plan (1) Encephalopathy: Code(s): G93.40 - Encephalopathy, unspecified Status: Acute Assessment and Plan: Etiology is not entirely clear but concerns are for iatrogenic overdose on valacyclovir (he was taking valacyclovir 1000 mg t.i.d. instead of 500 mg on dialysis days after dialysis). Differential diagnosis does include herpes encephalitis, hepatic encephalopathy or others. Side effects of valacyclovir included encephalopathy. Neuro consulted and appreciate their input. They initially recommended conservative management with observation. CTA head and neck showing no significant stenosis, moderate pulmonary edema and lymphadenopathy. Received HD almost daily in hopes of dialysizing Valtrex out but this may not remove the toxin very fast. Cannot obtain MRI due to recent mitral valve replacement 10/03/22. Discussed with neurology who recommended proceeding with LP at this time and this was ordered but held due to elevated INR. Patient is not on antiviral or antibacterial treatment. HepC Ab positive but was negative 2 yrs ago so could be false positive. LP performed today showing RBC<2000 and WBC 15 mostly lymphocytes. Glucose 96 and Protein 71, both mildly elevated. Gram stain showing no microorganisms. Follow up on serologies Continue supportive care. NGT placed and started on TF. IV fluids low dose until TF at goal. 11/13/2022 interval history: Patient is 62-year-old male with history of end-stage renal disease on hemodialysis had developed shingles and was given acyclovir however patient became encephalopathic and presented emergency department with significantly elevated LFTs and INR patient is seen by Nephrology patient is being diuresed and today patient is more of awake and respons by noding and making sounds, his is present in the room, patient LFT and INR are improving patient seen by GI recommended to continue to dialyze the patient to possibly remove toxic level of acyclovir, (2) Herpes zoster infection of thoracic region: Code(s): B02.9 - Zoster without complications Status: Acute Assessment and Plan: Hold antivirals as detailed above. Acetaminophen available as needed. Supportive care (3) Antiviral drug overdose: Code(s): T37.5X1A - Poisoning by antiviral drugs, accidental (unintentional), initial encounter Status: Acute Assessment and Plan: The patient has been taking 1000 mg of valacyclovir t.i.d. as detailed above. His altered mental status and delirium are likely result of iatrogenic overdose. He is being monitored closely in IMU. Continue HD per nephrology (4) End-stage renal disease on hemodialysis: Code(s): N18.6 - End stage renal disease; Z99.2 - Dependence on renal dialysis Status: Acute Assessment and Plan: Nephrology consulted for dialysis as detailed above. He has been dialyzed for the past several days. Appreciate nephrology input. (5) Insulin dependent diabetes mellitus: Status: Acute Assessment and Plan: A1c 5.1. The patient's blood glucose was reviewed on 11/11 Glucose remains well controlled. lantus on hold Continue AccuCheks covering with sliding scale. Hypoglycemia protocol available as needed. Continue to monitor (6) Atrial fibrillation: Qualifiers: Atrial fibrillation type: paroxysmal Qualified Code(s): I48.0 - Paroxysmal atrial fibrillation Code(s): I48.91 - Unspecified atrial fibrillation Status: Chronic Assessment and Plan: He has been in atrial fibrillation with rapid ventricular response with rates in the 100-120. EKG showing QTc 505. Repeat EKG showing improved QTc with probable AFlutter now. Continue to monitor on tele. Amiodarone resumed. Continue to hold Celexa. (7) Chronic anticoagulation: Code(s): Z79.01 - [facility] (current) use of anticoagulants Status: Acute Assessment and Plan: Becca currently on hold.
[2022-11-13] MEDS: ALBUMIN HUMAN 25% 12.5 GM/50ML 50 ML IVPB ×2 (17:27→23:08)
[2022-11-13] MEDS: AMIODARONE HCL 200 MG TABLET FEED TUBE (17:27)
[2022-11-13 21:57] LABS: Heparin Induced Platelet Antib Negative (Negative)
[2022-11-13 23:18] LABS: Glucose Point of Care 149 mg/dl (65-105)
[2022-11-14] VITALS (25 sets, daily range): BP systolic 83–108; BP diastolic 38–58; PULSE 78–93; RESP 18–22; TEMP 36–37; O2SAT 94–100
[2022-11-14 04:46] LABS: Hematocrit 29.3 % (42.0-52.0); Hemoglobin 8.6 g/dL (14.0-18.0); Immature Platelet Fraction Pct 8.5 % (0.9-11.2); Mean Corpuscular HGB Conc 29.4 g/dl (32-36); Mean Corpuscular Hemoglobin 33.1 pg (26-34); Mean Corpuscular Volume 112.7 fl (80-100); Platelet Count Result 57 k/mm3 (150-375); Red Cell Distribution Width 24.9 % (11.5-14.5)
[2022-11-14 04:55] LABS: INR 1.2; Prothrombin Time 14.9 Seconds (11.1-14.7)
[2022-11-14 05:01] LABS: Alanine Aminotransferase 347 U/L (6-50); Albumin Level 2.9 g/dL (3.5-5.1); Alkaline Phosphatase 126 U/L (38-126); Anion Gap 7 mmol/L (8-16); Aspartate Amino Transferase 46 U/L (17-59); Bilirubin,Total 1.3 mg/dL (0.2-1.3); Blood Urea Nitrogen 22 mg/dL (9-20); Carbon Dioxide 27 mmol/L (22-30); Chloride 106 mmol/L (98-107); Estimated CRCL calculation 25 ml/min; Estimated Glomerular Filt Rate 25; Glucose 159 mg/dL (65-110); Potassium 4.1 mmol/L (3.4-5.0); Sodium 140 mmol/L (137-145)
[2022-11-14] MEDS: ALBUMIN HUMAN 25% 12.5 GM/50ML 50 ML IVPB ×2 (05:34→11:52)
[2022-11-14] MEDS: LEVOTHYROXINE SODIUM INJ 100 MCG/5 ML VIAL 50 MCG IV PUSH (05:34)
[2022-11-14 05:52] LABS: Anisocytosis 2+ (NORMAL); Band Neutrophils Percent 36 % (0-6); Eosinophils Absolute Manual 0.18 K/mm3 (0.02-0.5); Eosinophils Percent Manual 3 % (0-4); Hypochromasia 2+ (NORMAL); Metamyelocytes Percent 1 %; Monocytes Percent Manual 5 % (3-9); Neutrophils Absolute Manual 4.86 K/mm3 (1.3-6.7); Neutrophils Percent Manual 45 % (46-73); Ovalocytes 1+ (NORMAL); Platelet Estimate Decreased (Adequate); Poikilocytosis 2+ (NORMAL); Total Cells Counted 100
[2022-11-14 05:53] LABS: Acanthocytes 1+ (NORMAL); Burr Cells 2+ (NORMAL); Schistocytes None Seen (NORMAL); Smudge Cells PRESENT
--- NOTE | 2022-11-14 06:24 | WPDGIPROGNO ---
Progress Note: A&P Assessment and Plan (1) Herpes zoster infection of thoracic region: Code(s): B02.9 - Zoster without complications Status: Acute Assessment and Plan: Hold antivirals as detailed above. Acetaminophen available as needed. Supportive care (2) Antiviral drug overdose: Code(s): T37.5X1A - Poisoning by antiviral drugs, accidental (unintentional), initial encounter Status: Acute Assessment and Plan: The patient has been taking 1000 mg of valacyclovir t.i.d. as detailed above. His altered mental status and delirium are likely result of iatrogenic overdose. He is being monitored closely in IMU. Continue HD per nephrology (3) End-stage renal disease on hemodialysis: Code(s): N18.6 - End stage renal disease; Z99.2 - Dependence on renal dialysis Status: Acute Assessment and Plan: Nephrology consulted for dialysis as detailed above. He has been dialyzed for the past several days. Appreciate nephrology input. (4) Insulin dependent diabetes mellitus: Status: Acute Assessment and Plan: A1c 5.1. The patient's blood glucose was reviewed on 11/11 Glucose remains well controlled. lantus on hold Continue AccuCheks covering with sliding scale. Hypoglycemia protocol available as needed. Continue to monitor (5) Atrial fibrillation: Qualifiers: Atrial fibrillation type: paroxysmal Qualified Code(s): I48.0 - Paroxysmal atrial fibrillation Code(s): I48.91 - Unspecified atrial fibrillation Status: Chronic Assessment and Plan: He has been in atrial fibrillation with rapid ventricular response with rates in the 100-120. EKG showing QTc 505. Repeat EKG showing improved QTc with probable AFlutter now. Continue to monitor on tele. Amiodarone resumed. Continue to hold Celexa. 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 Resume tomorrow (7) Hypothyroidism: Code(s): E03.9 - Hypothyroidism, unspecified Status: Acute Assessment and Plan: TSH elevated at 22. FT4 normal. Related to Amio? Levothyroxine IV started. Will need outpatient follow up labs. (8) Elevated LFTs: Code(s): R79.89 - Other specified abnormal findings of blood chemistry Status: Acute Assessment and Plan: LFTs which were normal 2 days ago are Abdo normal today with ALT 1059, AST 547 but alkaline phosphatase is normal. Bilirubin is 2.9 Most likely etiology would be ischemic hepatopathy if perhaps he was dehydrated. Viral disease also needs to be considered. INR has not increased significantly since admission which is a good prognostic sign. Likewise but ammonia level is only slightly increased. Will closely monitor his liver functions. However at this point I do not think he is in imminent danger of hepatic failure. 11/11/2022 INR is down to 1.5 which is a good prognostic sign. ALT down to 894 11/12/2022 ALT continues to drop, 698 today. now down to 347. I think we can continue to monitor this as an outpatient. (9) Encephalopathy: Code(s): G93.40 - Encephalopathy, unspecified Status: Acute Assessment and Plan: This was acute in onset, 7 days ago and shortly after he began taking an antiviral drug for shingles. This of course raises the possibility of viral encephalopathy. Neurology has been consulted. 11/12/2022 the patient remains a very quiet but actually was responsive to me this morning. He answered questions [facility] (yes) and [facility] (no) 11/14/2022 he is more lucid today. He was somewhat verbal. Etiology of his encephalopathy is not entirely clear, as viral studies are still pending. Plan DVT prophylaxis with SCDs GI prophylaxis Protonix Code status full code Nutrition - NGT in place and on TF I wonder if we could try feeding him. Subjective D
[2022-11-14] MEDS: AMIODARONE HCL 200 MG TABLET FEED TUBE ×2 (09:18→18:08)
[2022-11-14] MEDS: PANTOPRAZOLE SODIUM IV 40 MG VIAL IV PUSH (09:20)
[2022-11-14] MEDS: ASPIRIN 81 MG CHEWABLE TABLET FEED TUBE (09:24)
--- NOTE | 2022-11-14 12:02 | PM.PNNEP ---
Progress Note: A&P Assessment and Plan (1) End stage renal disease: Code(s): N18.6 - End stage renal disease Status: Chronic Assessment and Plan: HD later today (daily HD for now) follow electrolytes, volume status, and clearance volume status (2) Encephalopathy: Code(s): G93.40 - Encephalopathy, unspecified Status: Acute Assessment and Plan: slow and steady improvement most likely due to Valtrex overdose elevated liver enzymes, elevated bilirubin, and elevated ammonia noted as well (but are trending down) suspect that the liver issues are due to the Valtrex as well head CT negative b12 and Folate okay TSH is high -- getting IV Synthroid s/p LP done (on 11/11/22) - follow-up on pending viral studies haldol PRN for agitation NG tube in place for nutrition (3) Herpes zoster infection of thoracic region: Code(s): B02.9 - Zoster without complications Status: Acute Assessment and Plan: holding antiviral therapy at this time pain control as needed continue supportive therapy (4) Atrial fibrillation: Qualifiers: Atrial fibrillation type: paroxysmal Qualified Code(s): I48.0 - Paroxysmal atrial fibrillation Code(s): I48.91 - Unspecified atrial fibrillation Status: Chronic Assessment and Plan: rate control strategy anticoagulation on hold (in case further procedures need to be done) (5) Insulin dependent diabetes mellitus: Status: Acute Assessment and Plan: follow accuchecks glycemic control per hospitalists Will continue to follow. Subjective Date/time seen: 11/14/22 12:02 Mentation continues to slowly improve -- able to answer questions reasonably well; still asking about when doboff tube can be removed; issues with relative hypotension as noted by trend of hemodynamics but does not appear symptomatic from it; no apparent distress noted at this time. Exam Narrative: General: WD/WN male in NAD Heart: normal S1 and S2; no rub Lungs: clear anteriorly Abdomen: soft, nontender, nondistended, positive bowel sounds Extremities: trace edema Skin: no rash Objective Data Vital Signs Vital Signs: Vital Signs Temp Pulse Resp BP Pulse Ox O2 Del Method 11/14/22 12:00 81 11/14/22 09:15 98.1 F 11/14/22 08:00 81 11/14/22 09:10 97.5 F L 83 18 90/58 L 97 11/14/22 09:18 81 04/27/23 04:00 84 11/14/22 04:00 97.5 F L 82 20 95/45 L 94 11/14/22 00:00 80 11/13/22 23:29 97.8 F 83 20 95/61 L 97 11/13/22 20:00 78 20 97 Room Air 11/13/22 20:00 78 11/13/22 20:00 97.8 F 93 20 99/54 L 97 11/13/22 16:00 82 11/13/22 17:27 90 11/13/22 16:00 97.1 F L 80 20 87/37 L 98 11/13/22 13:25 86 92/44 L 11/13/22 13:20 85 89/49 L 11/13/22 13:30 96.7 F L 85 18 91/49 L 99 11/13/22 13:00 86 86/48 L 11/13/22 12:40 85 89/47 L Intake/Output Intake/Output: Intake & Output 11/11/22 11/12/22 11/13/22 11/14/22 23:59 23:59 23:59 23:59 Intake Total 0 1308 1508 100 Output Total 2000 0 1000 Balance -2000 1308 508 100 Meds/Results Medications: Active Medications Generic Name Dose Route Start Last Admin Trade Name Jennifer PRN Reason Stop Dose Admin Acetaminophen 650 mg 11/09/22 11:15 11/14/22 12:03 Acetaminophen 325 Mg Tablet FEED TUBE 650 mg Q4H PRN Administration Mild Pain (1-3) or Fever Amiodarone HCl 200 mg 11/09/22 17:00 11/14/22 09:18 Amiodarone Hcl 200 Mg Tablet FEED TUBE 200 mg BIDWM BARBARA Administration Aspirin 81 mg 11/10/22 08:00 11/14/22 09:24 Aspirin 81 Mg Chewable Tablet FEED TUBE 81 mg DAILY@0800 BARBARA Administration Citalopram Hydrobromide 20 mg 11/09/22 21:00 Citalopram Hydrobromide 20 Mg Tablet FEED TUBE BARBARA Dextrose 12.5 gm 11/06/22 23:54 11/08/22 21:26 Dextrose 50% 25 Gm/50 Ml S
--- NOTE | 2022-11-14 12:02 | P.PNNP_ITS ---
Progress Note: A&P Assessment and Plan (1) End stage renal disease: Code(s): N18.6 - End stage renal disease Status: Chronic Assessment and Plan: * HD later today (daily HD for now) * follow electrolytes, volume status, and clearance volume status (2) Encephalopathy: Code(s): G93.40 - Encephalopathy, unspecified Status: Acute Assessment and Plan: * slow and steady improvement * most likely due to Valtrex overdose * elevated liver enzymes, elevated bilirubin, and elevated ammonia noted as well (but are trending down) * suspect that the liver issues are due to the Valtrex as well * head CT negative * b12 and Folate okay * TSH is high -- getting IV Synthroid * s/p LP done (on 11/11/22) - follow-up on pending viral studies * haldol PRN for agitation * NG tube in place for nutrition (3) Herpes zoster infection of thoracic region: Code(s): B02.9 - Zoster without complications Status: Acute Assessment and Plan: * holding antiviral therapy at this time * pain control as needed * continue supportive therapy (4) Atrial fibrillation: Qualifiers: Atrial fibrillation type: paroxysmal Qualified Code(s): I48.0 - Paroxysmal atrial fibrillation Code(s): I48.91 - Unspecified atrial fibrillation Status: Chronic Assessment and Plan: * rate control strategy * anticoagulation on hold (in case further procedures need to be done) (5) Insulin dependent diabetes mellitus: Status: Acute Assessment and Plan: * follow accuchecks * glycemic control per hospitalists Will continue to follow. Subjective Date/time seen: 11/14/22 12:02 Mentation continues to slowly improve -- able to answer questions reasonably well; still asking about when doboff tube can be removed; issues with relative hypotension as noted by trend of hemodynamics but does not appear symptomatic from it; no apparent distress noted at this time. Exam Narrative: General: WD/WN male in NAD Heart: normal S1 and S2; no rub Lungs: clear anteriorly Abdomen: soft, nontender, nondistended, positive bowel sounds Extremities: trace edema Skin: no rash Objective Data Vital Signs Vital Signs: Vital Signs Temp Pulse Resp BP Pulse Ox O2 Del Method 11/14/22 12:00 81 11/14/22 09:15 98.1 F 11/14/22 08:00 81 11/14/22 09:10 97.5 F L 83 18 90/58 L 97 11/14/22 09:18 81 11/14/22 04:00 84 11/14/22 04:00 97.5 F L 82 20 95/45 L 94 11/14/22 00:00 80 11/13/22 23:29 97.8 F 83 20 95/61 L 97 11/13/22 20:00 78 20 97 Room Air 11/13/22 20:00 78 11/13/22 20:00 97.8 F 93 20 99/54 L 97 11/13/22 16:00 82 11/13/22 17:27 90 11/13/22 16:00 97.1 F L 80 20 87/37 L 98 11/13/22 13:25 86 92/44 L 11/13/22 13:20 85 89/49 L 11/13/22 13:30 96.7 F L 85 18 91/49 L 99 11/13/22 13:00 86 86/48 L 11/13/22 12:40 85 89/47 L Intake/Output Intake/Output: Intake & Output 11/11/22 11/12/22 11/13/22 11/14/22 23:59 23:59 23:59 23:59 Intake Total 0 1308 1508 100 Output Total 2000 0 1000 B
[2022-11-14] MEDS: ACETAMINOPHEN 325 MG TABLET 650 MG FEED TUBE ×2 (12:03→18:07)
[2022-11-14 12:23] LABS: Glucose Point of Care 130 mg/dl (65-105)
--- NOTE | 2022-11-14 14:25 | PCSTNOTE ---
Bedside swallow evaluation attempted but pt not available due to being in dialysis.
[2022-11-14 14:59] LABS: UFH SRA Result Interpretation Indeterminate (Negative)
--- NOTE | 2022-11-14 16:52 | PM.IMPN ---
Progress Note: A&P Assessment and Plan (1) Encephalopathy: Code(s): G93.40 - Encephalopathy, unspecified Status: Acute Assessment and Plan: Etiology is not entirely clear but concerns are for iatrogenic overdose on valacyclovir (he was taking valacyclovir 1000 mg t.i.d. instead of 500 mg on dialysis days after dialysis). Differential diagnosis does include herpes encephalitis, hepatic encephalopathy or others. Side effects of valacyclovir included encephalopathy. Neuro consulted and appreciate their input. They initially recommended conservative management with observation. CTA head and neck showing no significant stenosis, moderate pulmonary edema and lymphadenopathy. Received HD almost daily in hopes of dialysizing Valtrex out but this may not remove the toxin very fast. Cannot obtain MRI due to recent mitral valve replacement 10/03/22. Discussed with neurology who recommended proceeding with LP at this time and this was ordered but held due to elevated INR. Patient is not on antiviral or antibacterial treatment. HepC Ab positive but was negative 2 yrs ago so could be false positive. LP performed today showing RBC<2000 and WBC 15 mostly lymphocytes. Glucose 96 and Protein 71, both mildly elevated. Gram stain showing no microorganisms. Follow up on serologies Continue supportive care. NGT placed and started on TF. IV fluids low dose until TF at goal. 11/14/2022 interval history: Patient is 62-year-old male with history of end-stage renal disease on hemodialysis had developed shingles and was given acyclovir however patient became encephalopathic and presented emergency department with significantly elevated LFTs and INR patient is seen by Nephrology patient is being diuresed and today patient is more of awake and stats feeling better and would like to particiate in PT/OT, patient LFT and INR today is 1.2 compare to 1.9 upon arrival are improving patient seen by GI recommended to continue to dialyze the patient to possibly remove toxic level of acyclovir, (2) Herpes zoster infection of thoracic region: Code(s): B02.9 - Zoster without complications Status: Acute Assessment and Plan: Hold antivirals as detailed above. Acetaminophen available as needed. Supportive care (3) Antiviral drug overdose: Code(s): T37.5X1A - Poisoning by antiviral drugs, accidental (unintentional), initial encounter Status: Acute Assessment and Plan: The patient has been taking 1000 mg of valacyclovir t.i.d. as detailed above. His altered mental status and delirium are likely result of iatrogenic overdose. He is being monitored closely in IMU. Continue HD per nephrology (4) End-stage renal disease on hemodialysis: Code(s): N18.6 - End stage renal disease; Z99.2 - Dependence on renal dialysis Status: Acute Assessment and Plan: Nephrology consulted for dialysis as detailed above. He has been dialyzed for the past several days. Appreciate nephrology input. (5) Insulin dependent diabetes mellitus: Status: Acute Assessment and Plan: A1c 5.1. The patient's blood glucose was reviewed on 11/11 Glucose remains well controlled. lantus on hold Continue AccuCheks covering with sliding scale. Hypoglycemia protocol available as needed. Continue to monitor (6) Atrial fibrillation: Qualifiers: Atrial fibrillation type: paroxysmal Qualified Code(s): I48.0 - Paroxysmal atrial fibrillation Code(s): I48.91 - Unspecified atrial fibrillation Status: Chronic Assessment and Plan: He has been in atrial fibrillation with rapid ventricular response with rates in the 100-120. EKG showing QTc 505. Repeat EKG showing improved QTc with probable AFlutter now. Continue to monitor on tele. Amiodarone resumed. Continue to hold Celexa. (7) Chronic anticoagulation: Code(s): Z79.01 - senior care (current) use of anticoagulants Status: Acute Assessment and Pl
[2022-11-14 17:46] LABS: Glucose Point of Care 117 mg/dl (65-105)
[2022-11-14] MEDS: MIDODRINE HCL 10 MG TABLET PO (18:07)
[2022-11-14] MEDS: LIDOCAINE HCL 4% SOLN 50 ML BTL 1 APPLIC TOPICAL (18:24)
--- NOTE | 2022-11-14 19:03 | PC.NURSE ---
pt transferred in to room 301 via bed,oriented to new room and environment, at bedside, pt doing well, denies discomfort
--- NOTE | 2022-11-14 19:05 | PC.NURSE ---
Pt transfered to room 301 today at 1845 report given to Raghav KAUFMAN on [facility]rd [facility]/surg made aware of transfer
[2022-11-15] VITALS (24 sets, daily range): BP systolic 76–136; BP diastolic 46–71; PULSE 73–120; RESP 16–26; TEMP 35.9–37.3; O2SAT 91–100
[2022-11-15 00:54] LABS: Glucose Point of Care 143 mg/dl (65-105)
[2022-11-15] MEDS: LEVOTHYROXINE SODIUM INJ 100 MCG/5 ML VIAL 50 MCG IV PUSH (06:08)
[2022-11-15 06:13] LABS: Prothrombin Time 13.6 Seconds (11.1-14.7)
[2022-11-15 06:36] LABS: Glucose Point of Care 144 mg/dl (65-105)
[2022-11-15 07:18] LABS: Basophils Absolute Auto 0.1 K/mm3 (0.0-0.1); Basophils Percent Auto 0.8 % (0.2-1.2); Eosinophils Absolute Auto 0.1 K/mm3 (0-0.3); Eosinophils Percent Auto 1.9 % (0-4.4); Hematocrit 29.4 % (42.0-52.0); Hemoglobin 8.5 g/dL (14.0-18.0); Immature Granulocyte Absolute 0.31 K/mm3 (0.00-0.031); Immature Platelet Fraction Pct 9.3 % (0.9-11.2); Lymphocytes Absolute Auto 0.68 K/mm3 (0.9-3.2); Mean Corpuscular HGB Conc 28.9 g/dl (32-36); Mean Corpuscular Hemoglobin 33.2 pg (26-34); Mean Corpuscular Volume 114.8 fl (80-100); Mean Platelet Volume 12.3 fl (7.4-10.4); Monocytes Absolute Auto 0.5 K/mm3 (0.1-0.6); Monocytes Percent Auto 8.1 % (2.6-8.5); Neutrophils Absolute Auto 4.5 K/mm3 (1.3-6.7); Neutrophils Percent Auto 73.2 % (45.5-73.1); Platelet Count Result 67 k/mm3 (150-375); Red Blood Count 2.56 M/mm3 (4.6-6.20); Red Cell Distribution Width 24.6 % (11.5-14.5); White Blood Count 6.2 K/mm3 (4.5-10.0)
[2022-11-15 07:33] LABS: Alanine Aminotransferase 247 U/L (6-50); Albumin Level 3.2 g/dL (3.5-5.1); Alkaline Phosphatase 114 U/L (38-126); Anion Gap 3 mmol/L (8-16); Aspartate Amino Transferase 34 U/L (17-59); Bilirubin,Total 1.3 mg/dL (0.2-1.3); Blood Urea Nitrogen 20 mg/dL (9-20); Calcium 9.4 mg/dL (8.4-10.2); Carbon Dioxide 33 mmol/L (22-30); Chloride 107 mmol/L (98-107); Estimated CRCL calculation 25 ml/min; Estimated Glomerular Filt Rate 25; Glucose 138 mg/dL (65-110); Potassium 4.3 mmol/L (3.4-5.0); Sodium 143 mmol/L (137-145)
[2022-11-15 07:44] LABS: Anisocytosis 3+ (NORMAL); Macrocytosis 2+ (NORMAL); Platelet Estimate Decreased (Adequate)
[2022-11-15 07:45] LABS: Schistocytes None Seen (NORMAL)
[2022-11-15] MEDS: PANTOPRAZOLE SODIUM IV 40 MG VIAL IV PUSH (08:05)
--- NOTE | 2022-11-15 09:28 | PCSTNOTE ---
Please refer to the Bedside Swallow Evaluation in the EMR. Please note, silent aspiration cannot be ruled out at bedside.
[2022-11-15] MEDS: MIDODRINE HCL 10 MG TABLET PO ×3 (10:04→18:33)
[2022-11-15] MEDS: ASPIRIN 81 MG CHEWABLE TABLET FEED TUBE (10:04)
[2022-11-15] MEDS: AMIODARONE HCL 200 MG TABLET FEED TUBE (10:04)
--- NOTE | 2022-11-15 10:32 | PM.IMPN ---
Progress Note: A&P Assessment and Plan (1) Encephalopathy: Code(s): G93.40 - Encephalopathy, unspecified Status: Acute Assessment and Plan: Etiology is not entirely clear but concerns are for iatrogenic overdose on valacyclovir (he was taking valacyclovir 1000 mg t.i.d. instead of 500 mg on dialysis days after dialysis). Differential diagnosis does include herpes encephalitis, hepatic encephalopathy or others. Side effects of valacyclovir included encephalopathy. Neuro consulted and appreciate their input. They initially recommended conservative management with observation. CTA head and neck showing no significant stenosis, moderate pulmonary edema and lymphadenopathy. Received HD almost daily in hopes of dialysizing Valtrex out but this may not remove the toxin very fast. Cannot obtain MRI due to recent mitral valve replacement 10/03/22. Discussed with neurology who recommended proceeding with LP at this time and this was ordered but held due to elevated INR. Patient is not on antiviral or antibacterial treatment. HepC Ab positive but was negative 2 yrs ago so could be false positive. LP performed today showing RBC<2000 and WBC 15 mostly lymphocytes. Glucose 96 and Protein 71, both mildly elevated. Gram stain showing no microorganisms. Follow up on serologies Continue supportive care. NGT placed and started on TF. IV fluids low dose until TF at goal. 11/15/2022 interval history: Patient is 62-year-old male with history of end-stage renal disease on hemodialysis had developed shingles and was given acyclovir however patient became encephalopathic and presented emergency department with significantly elevated LFTs and INR patient is seen by Nephrology patient is being diuresed and on 11/14 patient wanted to participate in PT, patient is more of awake and stats feeling better and patient LFT and INR are improving, today is 1.0 compare to 1.9 upon arrival are improving patient seen by GI recommended to continue to dialyze the patient to possibly remove toxic level of acyclovir, patient BP is running soft may hold dialysis today, 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 (2) Herpes zoster infection of thoracic region: Code(s): B02.9 - Zoster without complications Status: Acute Assessment and Plan: Hold antivirals as detailed above. Acetaminophen available as needed. Supportive care (3) Antiviral drug overdose: Code(s): T37.5X1A - Poisoning by antiviral drugs, accidental (unintentional), initial encounter Status: Acute Assessment and Plan: The patient has been taking 1000 mg of valacyclovir t.i.d. as detailed above. His altered mental status and delirium are likely result of iatrogenic overdose. He is being monitored closely in IMU. Continue HD per nephrology (4) End-stage renal disease on hemodialysis: Code(s): N18.6 - End stage renal disease; Z99.2 - Dependence on renal dialysis Status: Acute Assessment and Plan: Nephrology consulted for dialysis as detailed above. He has been dialyzed for the past several days. Appreciate nephrology input. (5) Insulin dependent diabetes mellitus: Status: Acute Assessment and Plan: A1c 5.1. The patient's blood glucose was reviewed on 11/11 Glucose remains well controlled. lantus on hold Continue AccuCheks covering with sliding scale. Hypoglycemia protocol available as needed. Continue to monitor (6) Atrial fibrillation: Qualifiers: Atrial fibrillation type: paroxysmal Qualified Code(s): I48.0 - Paroxysmal atrial fibrillation Code(s): I48.91 - Unspecified atrial fibrillation Status: Chronic Assessment and Plan: He has been in atrial fibrillation with rapid ventricular response with rates in the 100-120. EKG showing QTc 505. Repeat EKG showing improved QTc with probable AFlutter now. Continue to monitor on tele. Amiodarone resumed. Continue to hold Celexa. (7) Chronic anticoagulation: C
[2022-11-15 11:31] LABS: Glucose Point of Care 118 mg/dl (65-105)
--- NOTE | 2022-11-15 11:45 | PM.PNNEP ---
Progress Note: A&P Assessment and Plan (1) End stage renal disease: Code(s): N18.6 - End stage renal disease Status: Chronic Assessment and Plan: HD later today (daily HD for now) follow electrolytes, volume status, and clearance volume status will likely HD on the weekend and resume 3x/week dialysis next week (2) Encephalopathy: Code(s): G93.40 - Encephalopathy, unspecified Status: Acute Assessment and Plan: slow and steady improvement most likely due to Valtrex overdose elevated liver enzymes, elevated bilirubin, and elevated ammonia noted as well (but are trending down) suspect that the liver issues are due to the Valtrex as well head CT negative b12 and Folate okay TSH is high -- getting IV Synthroid s/p LP done (on 11/11/22) - follow-up on pending viral studies haldol PRN for agitation (3) Herpes zoster infection of thoracic region: Code(s): B02.9 - Zoster without complications Status: Acute Assessment and Plan: holding antiviral therapy at this time pain control as needed continue supportive therapy (4) Atrial fibrillation: Qualifiers: Atrial fibrillation type: paroxysmal Qualified Code(s): I48.0 - Paroxysmal atrial fibrillation Code(s): I48.91 - Unspecified atrial fibrillation Status: Chronic Assessment and Plan: rate control strategy anticoagulation on hold (in case further procedures need to be done) (5) Hypotension: Code(s): I95.9 - Hypotension, unspecified Status: Acute Assessment and Plan: chronic during this hospital stay back on midodrine follow trend of hemodynamics (6) Insulin dependent diabetes mellitus: Status: Acute Assessment and Plan: follow accuchecks glycemic control per hospitalists Will continue to follow. Subjective Date/time seen: 11/15/22 11:45 Mentation continues to slowly improve; doboff has since been removed; still with issues related to relative hypotension (although his midodrine was just recently resumed); due for dialysis later this afternoon (more so for clearance than fluid removal); no apparent distress noted. Exam Narrative: General: WD/WN male in NAD Heart: normal S1 and S2; no rub Lungs: clear anteriorly Abdomen: soft, nontender, nondistended, positive bowel sounds Extremities: trace edema Skin: no nodules Objective Data Vital Signs Vital Signs: Vital Signs Temp Pulse Resp BP Pulse Ox O2 Del Method 11/15/22 08:00 80 11/15/22 10:00 96.6 F L 120 H 20 98/48 L 91 11/15/22 10:04 73 11/15/22 06:49 90/50 L 11/15/22 06:00 97.0 F L 73 20 76/50 L 100 11/15/22 04:00 75 11/15/22 00:00 83 11/14/22 20:00 78 11/15/22 02:00 97.7 F 82 16 82/50 L 97 11/14/22 20:00 82 20 100 Room Air 11/14/22 21:00 97.3 F L 82 20 83/47 L 100 11/14/22 18:08 81 11/14/22 17:20 83 20 91/38 L 11/14/22 17:18 98.6 F 83 20 91/38 L 11/14/22 16:40 84 84/48 L 11/14/22 16:20 84 85/48 L 11/14/22 16:00 84 90/38 L 11/14/22 16:00 84 11/14/22 15:40 83 91/50 L 11/14/22 15:20 83 90/55 L 11/14/22 15:00 85 100/51 L 11/14/22 14:40 84 91/42 L 11/14/22 14:20 85 96/51 L 11/14/22 14:00 84 101/49 L 11/14/22 13:53 78 108/44 L 11/14/22 13:51 98.4 F 81 22 H 95/44 L Intake/Output Intake/Output: Intake & Output 11/12/22 11/13/22 11/14/22 11/15/22 23:59 23:59 23:59 23:59 Intake Total 1308 1508 100 840 Output Total 0 1000 1 0 Balance 1308 508 99 840 Meds/Results Medications: Active Medications Generic Name Dose Route Start Last Admin Trade Name Freq PRN Reason Stop Dose Admin Acetaminophen 650 mg 11/09/22 11:15 11/14/22 18:07 Acetaminophen 325 Mg Tablet FEED TUBE 650 mg Q4H PRN Administration Mild Pain (1-3) or Fever Am
--- NOTE | 2022-11-15 11:45 | P.PNNP_ITS ---
Progress Note: A&P Assessment and Plan (1) End stage renal disease: Code(s): N18.6 - End stage renal disease Status: Chronic Assessment and Plan: * HD later today (daily HD for now) * follow electrolytes, volume status, and clearance volume status * will likely HD on the weekend and resume 3x/week dialysis next week (2) Encephalopathy: Code(s): G93.40 - Encephalopathy, unspecified Status: Acute Assessment and Plan: * slow and steady improvement * most likely due to Valtrex overdose * elevated liver enzymes, elevated bilirubin, and elevated ammonia noted as well (but are trending down) * suspect that the liver issues are due to the Valtrex as well * head CT negative * b12 and Folate okay * TSH is high -- getting IV Synthroid * s/p LP done (on 11/11/22) - follow-up on pending viral studies * haldol PRN for agitation (3) Herpes zoster infection of thoracic region: Code(s): B02.9 - Zoster without complications Status: Acute Assessment and Plan: * holding antiviral therapy at this time * pain control as needed * continue supportive therapy (4) Atrial fibrillation: Qualifiers: Atrial fibrillation type: paroxysmal Qualified Code(s): I48.0 - Paroxysmal atrial fibrillation Code(s): I48.91 - Unspecified atrial fibrillation Status: Chronic Assessment and Plan: * rate control strategy * anticoagulation on hold (in case further procedures need to be done) (5) Hypotension: Code(s): I95.9 - Hypotension, unspecified Status: Acute Assessment and Plan: * chronic during this hospital stay * back on midodrine * follow trend of hemodynamics (6) Insulin dependent diabetes mellitus: Status: Acute Assessment and Plan: * follow accuchecks * glycemic control per hospitalists Will continue to follow. Subjective Date/time seen: 11/15/22 11:45 Mentation continues to slowly improve; doboff has since been removed; still with issues related to relative hypotension (although his midodrine was just recently resumed); due for dialysis later this afternoon (more so for clearance than fluid removal); no apparent distress noted. Exam Narrative: General: WD/WN male in NAD Heart: normal S1 and S2; no rub Lungs: clear anteriorly Abdomen: soft, nontender, nondistended, positive bowel sounds Extremities: trace edema Skin: no nodules Objective Data Vital Signs Vital Signs: Vital Signs Temp Pulse Resp BP Pulse Ox O2 Del Method 11/15/22 08:00 80 11/15/22 10:00 96.6 F L 120 H 20 98/48 L 91 11/15/22 10:04 73 11/15/22 06:49 90/50 L 11/15/22 06:00 97.0 F L 73 20 76/50 L 100 11/15/22 04:00 75 11/15/22 00:00 83 11/14/22 20:00 78 11/15/22 02:00 97.7 F 82 16 82/50 L 97 11/14/22 20:00 82 20 100 Room Air 11/14/22 21:00 97.3 F L 82 20 83/47 L 100 11/14/22 18:08 81 11/14/22 17:20 83 20 91/38 L 11/14/22 17:18 98.6 F 83 20 91/38 L 11/14/22 16:40 84 84/48 L 11/14/22 16:20 84 85/48 L 11/14/22 16:00 84 90/38 L 11/14/22 16:00 84 11/14/22 15:40 83 91/50 L 11/14/22 15:20 83 90/55 L
--- NOTE | 2022-11-15 12:18 | WPDGIPROGNO ---
Progress Note: A&P Assessment and Plan (1) Elevated LFTs: Code(s): R79.89 - Other specified abnormal findings of blood chemistry Status: Acute Assessment and Plan: LFTs continue to improve. AST revealing remains elevated but has improved dramatically. I suspect this is on the basis of ischemic injury to the liver. shock liver . Continue to monitor, but would expect this to resolve. (2) Thrombocytopenia: Code(s): D69.6 - Thrombocytopenia, unspecified Status: Acute Assessment and Plan: Thrombocytopenia noted. Patient also has macrocytosis. Etiology of this unclear at present. (3) Delirium, drug-induced: Code(s): R41.0 - Disorientation, unspecified; T50.905A - Adverse effect of unspecified drugs, medicaments and biological substances, initial encounter Status: Acute Assessment and Plan: Patient has been somewhat confused with encephalopathy. Apparently gradually improving. [place] to be on the basis of drug induced. Likely related to hide her than expected dose of antiviral agent. (4) End stage renal disease: Code(s): N18.6 - End stage renal disease Status: Acute Assessment and Plan: Patient remains on dialysis for end-stage renal disease. 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 Okay to resume this. (6) End-stage renal disease on hemodialysis: Code(s): N18.6 - End stage renal disease; Z99.2 - Dependence on renal dialysis Status: Acute (7) Antiviral drug overdose: Code(s): T37.5X1A - Poisoning by antiviral drugs, accidental (unintentional), initial encounter Status: Acute (8) Herpes zoster infection of thoracic region: Code(s): B02.9 - Zoster without complications Status: Acute Subjective Date/time seen: 11/15/22 12:18 Interval history: Patient seen today in the absence of Dr. Stinson. Patient is somewhat more lucid. Patient denies any localized abdominal pain. No fever reported. Tolerating diet. Review of Systems Review of Systems: Review of systems noncontributory. Exam Narrative: Physical exam reveals patient to be alert. Vital signs stable. HEENT exam is unremarkable. Patient anicteric. No significant jaundice appreciated present. Lungs are clear. Heart without murmur. Abdomen bowel sounds present soft no localized masses. No localized tenderness. Objective Data Vital Signs Vital Signs: Vital Signs - 24 hr 11/14/22 12:27 11/14/22 13:51 11/14/22 13:53 Temperature 98.1 F 98.4 F Pulse Rate 93 81 78 Respiratory Rate 18 22 H Blood Pressure 91/48 L 95/44 L 108/44 L Pulse Oximetry 97 Oxygen Delivery 11/14/22 14:00 11/14/22 14:20 11/14/22 14:40 Temperature Pulse Rate 84 85 84 Respiratory Rate Blood Pressure 101/49 L 96/51 L 91/42 L Pulse Oximetry Oxygen Delivery 11/14/22 15:00 11/14/22 15:20 11/14/22 15:40 Temperature Pulse Rate 85 83 83 Respiratory Rate Blood Pressure 100/51 L 90/55 L 91/50 L Pulse Oximetry Oxygen Delivery 11/14/22 16:00 11/14/22 16:00 11/14/22 16:20 Temperature Pulse Rate 84 84 84 Respiratory Rate Blood Pressure 90/38 L 85/48 L Pulse Oximetry Oxygen Delivery 11/14/22 16:40 11/14/22 17:18 11/14/22 17:20 Temperature 98.6 F Pulse Rate 84 83 83 Respiratory Rate 20 20 Blood Pressure 84/48 L 91/38 L 91/38 L Pulse Oximetry Oxygen Delivery 11/14/22 18:08 11/14/22 21:00 11/14/22 20:00 Temperature 97.3 F L Pulse Rate 81 82 82 Respiratory Rate 20 20 Blood Pressure 83/47 L Pulse Oximetry 100 100 Oxygen Delivery Room Air 11/15/22 02:00 11/14/22 20:00 11/15/22 00:00 Temperature 97.7 F Pulse Rate 82 78 83 Respiratory Rate 16 Blood Pressure 82/50 L Pulse Oximetry 97 Oxygen Delivery 11/15/22
--- NOTE | 2022-11-15 12:21 | PCNFU ---
Nutrition Follow-Up Complete: Inadequate energy intake related to lack of alertness as evidenced by nursing report Goal: Alert and oriented - Improved. Answering questions appropriately this morning Greater than 50% intake of meals - Progressing. Just advanced to an oral diet this morning. No meal intakes yet Pt current nutrition is Soft & bite sized level 6. Renal diet. No intakes yet. Nutrition recommendation: Add Nepro shakes TID for additional 420 kcals and 19 g protein each. Feeding assistance as needed Last recorded weight is 85.1 kg. Bowel Motility: +1 BM today 11/15/22 Labs Reviewed: Hgb 8.5, Hct 29.4, Alb 3.2, GFR 25, Cre 2.6 Meds Noted: Novolog, lantus, zofran Skin: WNL Additional Notes: He was placed on a tube feeding 11/11/22 because of weakness/lethargy. TF was discontinued this morning and he was advanced to soft & bite sized renal diet. Pt will try to sit up and eat lunch. He might need assistance because of weakness. Agreeable to try Nepro shakes TID. Monitor status, intake, wt, labs. Follow up in 3 days.
--- NOTE | 2022-11-15 15:02 | PCPTNOTE ---
Attempt PT evaluation, pt in dialysis. Will follow.
[2022-11-15 16:41] LABS: Glucose Point of Care 110 mg/dl (65-105)
[2022-11-15 21:43] LABS: Cryptococcus Antigen Not Detected (Not Detected); Cryptococcus Specimen Source Serum
[2022-11-15] MEDS: LIDOCAINE HCL 4% SOLN 50 ML BTL 1 APPLIC TOPICAL (21:43)
[2022-11-16] VITALS (83 sets, daily range): BP systolic 71–124; BP diastolic 47–85; PULSE 65–133; RESP 16–40; TEMP 36.1–39.5; O2SAT 86–100
--- NOTE | 2022-11-16 | ECHO_ITS ---
Patient Info Name: Orestes Blank Age: 62 years : 1960 Gender: Male Ht: 67 in Wt: 187 lbs BSA: 2.03 m2 HR: 88 bpm BP: 105 / 68 mmHg Technical Quality: Fair Exam Date: 11/16/2022 10:57 AM Exam Location: [facility] Pulmonary Exam Room: ICU10 Patient Status: Inpatient Admit Date: 11/07/2022 Staff Ordering Physician: Mannie Ray MD Ground [employer]apons Assembly Officer: Kaitlin Schwartz RDCS Attending Provider: Nancy Lewis DO Exam Type: CA echo doppler color flow Study Info Indications - CHF ESRD ON HD MVR - S/P TAVR Complete two-dimensional, color flow and Doppler transthoracic echocardiogram is performed. Summary 1. Complete two-dimensional, color flow and Doppler transthoracic echocardiogram is performed. 2. Left ventricular chamber dimension is normal. 3. Left ventricular systolic function is normal, estimated at 65-70%. 4. Left ventricular septal wall motion is abnormal with septal motion related to bundle branch block. 5. Right ventricular chamber dimension is moderately enlarged. 6. Right ventricular systolic function is reduced. 7. Left atrial chamber dimension is moderately enlarged. 8. Right atrial chamber dimension is moderately enlarged. 9. S/p prior TAVR. Bioprosthetic aortic valve is well seated. Mean gradient across valve is 13mmHg. 10. The mitral valve annulus is severely calcified. 11. Known mitral valve replacement with #25 Epic porcine valve. Mean gradient across valve is 13mmHg. 12. 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 13. There is mild tricuspid valve regurgitation. 14. Dilated inferior vena cava with <50% collapse upon inspiration consistent with elevated right atrial pressure. 15. Left pleural effusion present. Left Ventricle Left ventricular chamber dimension is normal. Left ventricular systolic function is normal, estimated at 65-70%. There is no increased left ventricular wall thickness. Left ventricular septal wall motion is abnormal with septal motion related to bundle branch block. Right Ventricle Right ventricular chamber dimension is moderately enlarged. Right ventricular systolic function is reduced. Left Atria Left atrial chamber dimension is moderately enlarged. Right Atria Right atrial chamber dimension is moderately enlarged. Atrial Septum Intact interatrial septum visualized by color flow imaging. Aortic Valve S/p prior TAVR. Bioprosthetic aortic valve is well seated. Mean gradient across valve is 13mmHg. There is no aortic valve regurgitation. Pulmonic Valve The pulmonic valve is not well visualized. Mitral Valve Known mitral valve replacement with #25 Epic porcine valve. Mean gradient across valve is 13mmHg. There is trace mitral valve regurgitation. The mitral valve annulus is severely calcified. 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 There is mild tricuspid valve regurgitation. Pericardium/Pleural Left pleural effusion present. There is no pericardial effusion. Inferior Vena Cava Dilated inferior vena cava with <50% collapse upon inspiration consistent with elevated right atrial pressure. Aorta The aortic root size at the sinus of Valsalva is normal. Left Ventricular Outflow Tract Name Value Normal LVOT 2D LVOT Diameter 2.
[2022-11-16 00:07] LABS: Glucose Point of Care 101 mg/dl (65-105)
[2022-11-16] MEDS: ACETAMINOPHEN 650 MG SUPPOSITORY RECTAL (04:50)
[2022-11-16 05:06] LABS: Glucose Point of Care 93 mg/dl (65-105)
[2022-11-16 05:08] LABS: Basophils Absolute Auto 0.1 K/mm3 (0.0-0.1); Basophils Percent Auto 0.9 % (0.2-1.2); Eosinophils Absolute Auto 0.1 K/mm3 (0-0.3); Eosinophils Percent Auto 0.7 % (0-4.4); Hematocrit 33.6 % (42.0-52.0); Hemoglobin 9.6 g/dL (14.0-18.0); Immature Granulocyte Percent A 4.7 % (0-0.5); Lymphocytes Absolute Auto 0.89 K/mm3 (0.9-3.2); Lymphocytes Percent Auto 8.5 % (18.3-44.2); Mean Corpuscular HGB Conc 28.6 g/dl (32-36); Mean Corpuscular Hemoglobin 32.8 pg (26-34); Mean Corpuscular Volume 114.7 fl (80-100); Mean Platelet Volume 12.1 fl (7.4-10.4); Neutrophils Percent Auto 76.2 % (45.5-73.1); Nucleated Red Blood Cells Perc 0.3 % (0.0-0.2); Platelet Count Result 111 k/mm3 (150-375); Red Blood Count 2.93 M/mm3 (4.6-6.20); Red Cell Distribution Width 24.3 % (11.5-14.5); White Blood Count 10.5 K/mm3 (4.5-10.0)
[2022-11-16] MEDS: FUROSEMIDE INJ 100 MG/10 ML VIAL 80 MG IV PUSH (05:13)
[2022-11-16] MEDS: MIDAZOLAM HCL (*CRX) 2 MG/2 ML VIAL IV PUSH (05:17)
[2022-11-16] MEDS: ROCURONIUM BROMIDE 50 MG/5 ML VIAL 40 MG IV PUSH (05:18)
[2022-11-16 05:19] LABS: Alanine Aminotransferase 191 U/L (6-50); Albumin Level 3.9 g/dL (3.5-5.1); Alkaline Phosphatase 134 U/L (38-126); Anion Gap 12 mmol/L (8-16); Aspartate Amino Transferase 47 U/L (17-59); Bilirubin,Total 1.8 mg/dL (0.2-1.3); Blood Urea Nitrogen 18 mg/dL (9-20); Calcium 9.7 mg/dL (8.4-10.2); Carbon Dioxide 22 mmol/L (22-30); Chloride 106 mmol/L (98-107); Estimated CRCL calculation 27 ml/min; Estimated Glomerular Filt Rate 28; Glucose 134 mg/dL (65-110); Potassium 5.1 mmol/L (3.4-5.0); Sodium 140 mmol/L (137-145)
[2022-11-16 05:24] LABS: INR 1.1; Prothrombin Time 14.8 Seconds (11.1-14.7)
[2022-11-16 05:24] LABS: Lactic Acid Reflex 5.7 mmol/L (0.7-2.0)
[2022-11-16] MEDS: MIDAZOLAM 100MG/NS 100ML(*CRX) 100 MG/100 ML BAG IV CONT (05:40)
[2022-11-16] MEDS: FENTANYL 2,500MCG/NS250ML(*CRX 2,500 MCG/250 ML BAG IV CONT (05:40)
--- NOTE | 2022-11-16 05:49 | PC.NURSE ---
This patient, Orestes Restrepo Abhay Drew., was received from [facility] [place] 11/16/22 at 0549. Report received from SHAE Avilez. Patient/family oriented to unit policies and routines
--- NOTE | 2022-11-16 05:57 | PC.NURSE ---
Called and spoke with , Nicole Blank, at this time. Updated on patient status and events. Says she will call to see where he is at later before she comes up.
[2022-11-16 06:04] LABS: Platelet Estimate Decreased (Adequate)
[2022-11-16 06:05] LABS: Anisocytosis 2+ (NORMAL); Crenated RBC 1+ (NORMAL); Macrocytosis 1+ (NORMAL); Ovalocytes 1+ (NORMAL); Schistocytes None Seen (NORMAL)
--- NOTE | 2022-11-16 06:05 | PC.NURSE ---
At 0415 LATHE WINDER notified this nurse that patient had an elevated temp of 103.1 axillary with respirations at 26 and HR at 124. This nurse went to room to assess patient. Patient's face flushed and tachypnea noted. Spo2 92% on RA. Patient responding to voice at this time. [address] Collazo of patient's status. New orders received for Stat Blood cultures, lactic acid, cbc, and BMP with a tylenol suppository. 0445 Lab in room drawing labs. Tylenol suppository given after. Patient had BM at this time and cleaned up. Patient noted to have copious secretions and starts having difficulty breathing after returning to supine position. Spo2 84% on RA. 2L o2 applied per NC. Ineffective and increased to 4L. Patient suctioned at this time. Spo2 remains at 87% on 4L. Rapid response called at this time.
[2022-11-16] MEDS: NOREPINEPHRINE 8 MG/D5W 250 ML 8 MG/250 ML BAG 9.38 MG IV CONT (06:17)
[2022-11-16 06:33] LABS: Glucose Point of Care 134 mg/dl (65-105)
--- NOTE | 2022-11-16 07:08 | PM.CCN ---
Critical Care Event Note Summary Code activated: No Narrative: Nursing staff called me around 430 morning after patient spiked a temperature of a 103.1?. They needed Tylenol orders and the patient is confused and they did not feel comfortable giving the patient p.o. Tylenol. Rectal Tylenol was ordered. The patient was also tachycardic and new onset of tachypnea. Heart rates were in the 120s to 130s. Respiratory rates were in the mid 20s. The the patient had some crackles on exam per the report. The patient of would open his eyes to verbal stimuli but was not really following commands. I also ordered stat lactic acid, CMP and CBC. I was getting rate go evaluate the patient but before I could get to the patient's room the patient's condition further decompensated. The patient acutely developed hypoxia and was on 6 L nasal cannula and had oxygen saturations of 87%. Subsequently a non-rebreather was applied. Patient's oxygen saturations improved. At rapid response was called. I arrived to the bedside as the non-rebreather was being applied. The patient was not protecting his airway. He was to the point of only opening his eyes to noxious stimuli. He was not following commands. Subsequently patient was intubated for airway protection. Rocuronium and Versed were provided. Patient was intubated with a 7.5 ET tube and measure 23 at the lip. During the rapid response the patient's systolic blood pressures dropped to the 70s. Patient was subsequently transferred to the ICU. The patient was placed on ventilator tidal volume 450 rate of 15 peep of 5 with 50% FiO2. Post intubation ABG was ordered. During the resuscitation the patient's stat labs returned in the patient's lactic acid was noted to be 5.7. The patient does have a history of chronic/persistent hypotension since admission with a systolic blood pressures being in the 80s to low 90s. He is on midodrine and has been getting albumin. The patient's last dialysis session was on the . The patient had evidently been getting daily dialysis. This is the 1st fever the patient has spiked since admission. Post intubation chest x-ray was obtained and demonstrated bilateral infiltrates and ET tube was 2.5 cm from the robert. Central line was in good position. No pneumothorax. Patient was started on minimal sedation with 25 of fentanyl and 1 of Versed. Patient's systolic blood pressures were in the 70s. Levophed was ordered and rapidly escalated up to 20 mcg. Labs were reviewed the patient's bicarb was down to 20 from prior value of 33 in given his lactic acidosis and mild hyperkalemia I ordered a dose of bicarb. Initially in order was given for UA with reflex but the patient is an uric at baseline. COVID and flu PCRs have been ordered. Patient has been placed on broad-spectrum antibiotic coverage with Zosyn and vancomycin. Zosyn was chosen since the patient may have aspirated. 140 minute spent critical care activities. Due to a high probability of clinically significant, life threatening deterioration, the patient required my highest level of preparedness to intervene emergently and I personally spent this critical care time directly and personally managing the patient. This critical care time included obtaining a history; examining the patient; pulse oximetry; ordering and review of studies; arranging urgent treatment with development of a management plan; evaluation of patient's response to treatment; frequent reassessment; and discussions with other providers. It was exclusive of separately billable procedures and treating other patients and teaching time. Please see Assessment and Plan section and the rest of the note for further information on patient assessment and treatment. Critical care time: 135 - 164 mins
--- NOTE | 2022-11-16 07:24 | P.PCNBED_ITS ---
Procedures Intubation Intubation Date: 11/16/22 Intubation Time: 05:15 Consent: Performed emergently Sedative: versed Mg given: 2 Paralytic: rocuronium Mg given: 40 Laryngoscope: fiber optic video scope ET tube size: 7.5 Tube secured depth (cm): 23 Tube secured location: lips Tube placement confirmation: visualized tube passing through cords, equal breath sounds bilaterally, no breath sounds over epigastrium and confirmation by capno metry Patient tolerated procedure: no complications Additional comments: Chest x-ray personally reviewed ET tube 2.5 cm from robert. Increased bilateral opacities lung field compared to prior x-ray.
[2022-11-16] MEDS: SODIUM BICARBONATE 8.4% 50 MEQ/50 ML SYRINGE IV PUSH (07:25)
[2022-11-16 07:26] LABS: Glucose Point of Care 111 mg/dl (65-105)
--- NOTE | 2022-11-16 07:27 | P.PCNBED_ITS ---
Procedures Central Line Placement Right IJ: Central Line Date: 11/16/22 Central Line Time: 05:45 Performed Emergently - Given emergent patient condition, temporal constraints may have precluded informed consent.: Yes Time Out Performed: Yes Patient Position: trendelenburg Provider Prep: mask, sterile gown, sterile gloves, Max. sterile barrier precautions, cap and hand hygiene with conventional soap/water or alcohol based hand rub Central line prep: 2% Chlorhexidine scrub Sterile US Technique with sterile gel/sterile probe covers: Yes Central line lumen inserted: triple Faroese: 7 Length (cm): 16 Depth of Insertion (cm): 15 Post Procedure: sutured in place, good blood return, all ports aspirated, flushed, capped, transparent dressing, securement product and aseptic technique maintained throughout procedure Post procedure x-ray: tip of catheter in good position and no pneumothorax seen Patient tolerated procedure: no complications
[2022-11-16] MEDS: PIPERACILLN/TAZ 3.375GM/NS50ML 3.375 GM/50 ML BAG IVPB ×3 (07:56→17:48)
[2022-11-16] MEDS: LEVOTHYROXINE SODIUM INJ 100 MCG/5 ML VIAL 50 MCG IV PUSH (07:56)
[2022-11-16] MEDS: ALBUMIN HUMAN 5% 25 GM/500 ML BTL IV CONT (07:57)
[2022-11-16] MEDS: PANTOPRAZOLE SODIUM IV 40 MG VIAL IV PUSH (07:57)
[2022-11-16] MEDS: SODIUM CHLORIDE 0.9% IV 500 ML 999 ML IV CONT (07:57)
[2022-11-16] MEDS: MIDODRINE HCL 10 MG TABLET PO ×3 (07:58→16:04)
[2022-11-16] MEDS: MINERAL OIL/WHITE PETROLATUM OINTMENT 1 APPLIC EACH EYE ×2 (07:58→20:45)
[2022-11-16] MEDS: AMIODARONE HCL 200 MG TABLET FEED TUBE ×2 (07:58→16:04)
[2022-11-16] MEDS: ASPIRIN 81 MG CHEWABLE TABLET FEED TUBE (07:58)
[2022-11-16 08:01] LABS: Reflex Lactic Acid Yes or No Add Lactic
[2022-11-16 08:15] LABS: Alveolar/Arterial O2 Gradient 223.8 mmHg; Base Excess ABG 2.7 mEq/l (+/-2.0); Carboxyhemoglobin 0.4 % THb (0-2.0); Fractional Inspired Oxygen 60 %; HCO3 ABG 26.7 mEq/l (22.0-26.0); Methemoglobin ABG 0.3 %THb (0-1.5); Oxygen Content ABG 15.1 %vol (16.0-22.0); Oxygen Saturation ABG 99.1 % (95.0-100.0); Oxyhemoglobin 97.9 % THb (90.0-100.0); PO2 ABG 161.1 mmHg (80.0-100.0); PO2 FiO2 Ratio Arterial Blood 2.69 %; Reduced Hemoglobin 1.4 %THb (0-5.0); Total Hemoglobin 10.7 g/dL (12.0-18.0); pH ABG 7.454 (7.350-7.450)
[2022-11-16 08:16] LABS: Arterial Blood Gas PEEP 5 cmH2O; Arterial Blood Gas Tidal Volume 450 ml; Arterial Blood Gas Vent Mode CMV; Arterial Blood Gas Ventilator rate 18 /MIN; Device VENTILATOR; Site Drawn LEFT BRACHIAL
[2022-11-16 08:25] LABS: Procalcitonin 2.1 ng/mL
[2022-11-16 08:30] LABS: Lipase 452 U/L (23-300)
[2022-11-16 08:32] LABS: Ammonia 10 umol/L (9-30)
[2022-11-16] MEDS: VASOPRESSIN INJ 100 UNITS in DEXTROSE 5% 95 ML IV CONT (08:36)
[2022-11-16 08:45] LABS: Lactic Acid 2.1 mmol/L (0.7-2.0)
[2022-11-16 09:24] LABS: Influenza A QL RT-PCR Negative (Negative); Influenza B QL RT-PCR Negative (Negative); SARS-CoV-2 RNA PCR Negative (Negative)
--- NOTE | 2022-11-16 09:24 | WPDGIPROGNO ---
Progress Note: A&P Assessment and Plan (1) Respiratory failure: Code(s): J96.90 - Respiratory failure, unspecified, unspecified whether with hypoxia or hypercapnia Status: Acute Assessment and Plan: Patient with respiratory failure. Placed on the ventilator. Workup by production cost estimator service in progress at present. (2) Elevated LFTs: Code(s): R79.89 - Other specified abnormal findings of blood chemistry Status: Acute Assessment and Plan: Patient with elevated LFTs that have been gradually improving. Suspect this was related to higher doses of antiviral agent which he was taking prior to admission. These have been improving. Minimal change today. Bilirubin slightly elevated. Continue to monitor at this point. 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 Sedated unable to add any history. Apparently had respiratory event overnight. Review of Systems Review of Systems: ROS unobtainable: Yes unobtainable due to endotracheal tube Exam Narrative: On exam patient is on the ventilator. Vital signs currently stable. HEENT exam with no icterus. Lungs with bilateral rhonchi. Heart without murmur. Abdomen soft flat with no obvious organomegaly. Objective Data Vital Signs Vital Signs: Vital Signs - 24 hr 11/15/22 10:04 11/15/22 10:00 11/15/22 12:00 Temperature 96.6 F L Pulse Rate 73 120 H 81 Respiratory Rate 20 Blood Pressure 98/48 L Pulse Oximetry 91 Oxygen Delivery Oxygen Flow Rate Fraction of Inspired Oxygen 11/15/22 13:34 11/15/22 13:44 11/15/22 14:00 Temperature 98.4 F Pulse Rate 96 81 73 Respiratory Rate 22 H Blood Pressure 136/49 L 89/47 L 85/46 L Pulse Oximetry Oxygen Delivery Oxygen Flow Rate Fraction of Inspired Oxygen 11/15/22 14:20 11/15/22 14:40 11/15/22 15:00 Temperature Pulse Rate 76 78 81 Respiratory Rate Blood Pressure 87/50 L 87/52 L 89/52 L Pulse Oximetry Oxygen Delivery Oxygen Flow Rate Fraction of Inspired Oxygen 11/15/22 15:20 11/15/22 15:40 11/15/22 16:00 Temperature Pulse Rate 73 82 81 Respiratory Rate Blood Pressure 93/57 L 88/56 L 89/56 L Pulse Oximetry Oxygen Delivery Oxygen Flow Rate Fraction of Inspired Oxygen 11/15/22 16:20 11/15/22 16:00 11/15/22 16:42 Temperature Pulse Rate 82 82 78 Respiratory Rate Blood Pressure 91/54 L 88/53 L Pulse Oximetry Oxygen Delivery Oxygen Flow Rate Fraction of Inspired Oxygen 11/15/22 17:10 11/15/22 20:00 11/15/22 20:00 Temperature 98.0 F 97 F L Pulse Rate 82 83 83 Respiratory Rate 20 20 20 Blood Pressure 90/52 L 86/57 L Pulse Oximetry 97 97 Oxygen Delivery Room Air Oxygen Flow Rate Fraction of Inspired Oxygen 11/15/22 23:44 11/16/22 04:50 11/15/22 20:00 Temperature 99.1 F 103.1 F H Pulse Rate 91 84 Respiratory Rate 26 H Blood Pressure 116/71 Pulse Oximetry 96 Oxygen Delivery Oxygen Flow Rate Fraction of Inspired Oxygen 11/16/22 00:00 11/16/22 04:00 11/16/22 06:17 Temperature Pulse Rate 101 H 124 H 122 H Respiratory Rate Blood Pressure 72/49 L Pulse Oximetry Oxygen Delivery Oxygen Flow Rate Fraction of Inspired Oxygen 11/16/22 05:40 11/16/22 05:40 11/16/22 04:30 [facility]
--- NOTE | 2022-11-16 09:52 | PCOTNOTE ---
Spoke with RN, patient is currently on ventilator and not appropriate at this time. MD agreed to cancel orders.
[2022-11-16 10:20] LABS: Herpes Simplex Type 1 DNA PCR Not Detected (Not Detected); Herpes Simplex Type 2 DNA PCR Not Detected (Not Detected)
--- NOTE | 2022-11-16 10:36 | P.PNNP_ITS ---
Progress Note: A&P Assessment and Plan (1) End stage renal disease: Code(s): N18.6 - End stage renal disease Status: Chronic Assessment and Plan: * holding further dialysis due to acute change in condition * follow electrolytes, volume status, and clearance * reassess need for dialysis tomorrow (2) Acute respiratory failure: Code(s): J96.00 - Acute respiratory failure, unspecified whether with hypoxia or hypercapnia Status: Acute Assessment and Plan: * suspect secondary to pulmonary edema +/- pneumonia (possibly aspiration) * on ventilator support * follow CXR results * weaning when more stable (3) Septic shock: Code(s): A41.9 - Sepsis, unspecified organism; R65.21 - Severe sepsis with septic shock Status: Acute Assessment and Plan: * as noted by worsening WBC, hypoxia, lactic acidosis, and shock * follow culture data * empiric antibiotics * vasopressor support * repeat imaging ordered (4) Encephalopathy: Code(s): G93.40 - Encephalopathy, unspecified Status: Acute Assessment and Plan: * had been improving until recent events * thought to be due to Valtrex overdose * elevated liver enzymes, elevated bilirubin, and elevated ammonia noted as well (but are trending down) * suspect that the liver issues are due to the Valtrex as well * head CT negative * b12 and Folate okay * TSH is high -- getting IV Synthroid * s/p LP done (on 11/11/22) - follow-up on pending viral studies (5) Herpes zoster infection of thoracic region: Code(s): B02.9 - Zoster without complications Status: Acute Assessment and Plan: * holding antiviral therapy at this time * continue supportive therapy (6) Atrial fibrillation: Qualifiers: Atrial fibrillation type: paroxysmal Qualified Code(s): I48.0 - Paroxysmal atrial fibrillation Code(s): I48.91 - Unspecified atrial fibrillation Status: Chronic Assessment and Plan: * rate control strategy * anticoagulation on hold (in case further procedures need to be done) (7) Insulin dependent diabetes mellitus: Status: Acute Assessment and Plan: * follow accuchecks * glycemic control per hospitalists/knitting teacher Will continue to follow. Subjective Date/time seen: 11/16/22 10:36 Interval history: Follow-up for end stage renal disease on hemodialysis. Had dialysis yesterday but did not tolerate it very well due to ongoing hypotension despite midodrine and IV albumin support; events overnight and earlier this morning noted -- rapid response called due to high fever associated hypotension as well as worsening hypoxia and respiratory distress; further complicating matter was worsening mental status (which had been improving since admission) and inability to protect his airway; he required intubation and mechanical ventilation with placement of a central line for levophed given his continued hypotension/shock; he was subsequently transferred to the ICU for further management. At the time of my visit, he is intubated/sedated along with ventilator support as well as vasopressor therapy. Exam Narrative: General: ill appearing male intubated/sedated and on mechanical ventilation Heart: tachycardic normal S1 and S2; no rub Lungs: coarse breath sounds with scattered crackles Abdomen: soft, nontender, nondistended, positive bowel sounds Extremities: no cyanosis or clubbing; 1+ edema Skin: warm and dry Objective Jan
--- NOTE | 2022-11-16 10:36 | PM.PNNEP ---
Progress Note: A&P Assessment and Plan (1) End stage renal disease: Code(s): N18.6 - End stage renal disease Status: Chronic Assessment and Plan: holding further dialysis due to acute change in condition follow electrolytes, volume status, and clearance reassess need for dialysis tomorrow (2) Acute respiratory failure: Code(s): J96.00 - Acute respiratory failure, unspecified whether with hypoxia or hypercapnia Status: Acute Assessment and Plan: suspect secondary to pulmonary edema +/- pneumonia (possibly aspiration) on ventilator support follow CXR results weaning when more stable (3) Septic shock: Code(s): A41.9 - Sepsis, unspecified organism; R65.21 - Severe sepsis with septic shock Status: Acute Assessment and Plan: as noted by worsening WBC, hypoxia, lactic acidosis, and shock follow culture data empiric antibiotics vasopressor support repeat imaging ordered (4) Encephalopathy: Code(s): G93.40 - Encephalopathy, unspecified Status: Acute Assessment and Plan: had been improving until recent events thought to be due to Valtrex overdose elevated liver enzymes, elevated bilirubin, and elevated ammonia noted as well (but are trending down) suspect that the liver issues are due to the Valtrex as well head CT negative b12 and Folate okay TSH is high -- getting IV Synthroid s/p LP done (on 11/11/22) - follow-up on pending viral studies (5) Herpes zoster infection of thoracic region: Code(s): B02.9 - Zoster without complications Status: Acute Assessment and Plan: holding antiviral therapy at this time continue supportive therapy (6) Atrial fibrillation: Qualifiers: Atrial fibrillation type: paroxysmal Qualified Code(s): I48.0 - Paroxysmal atrial fibrillation Code(s): I48.91 - Unspecified atrial fibrillation Status: Chronic Assessment and Plan: rate control strategy anticoagulation on hold (in case further procedures need to be done) (7) Insulin dependent diabetes mellitus: Status: Acute Assessment and Plan: follow accuchecks glycemic control per hospitalists/practice assistant Will continue to follow. Subjective Date/time seen: 11/16/22 10:36 Interval history: Follow-up for end stage renal disease on hemodialysis. Had dialysis yesterday but did not tolerate it very well due to ongoing hypotension despite midodrine and IV albumin support; events overnight and earlier this morning noted -- rapid response called due to high fever associated hypotension as well as worsening hypoxia and respiratory distress; further complicating matter was worsening mental status (which had been improving since admission) and inability to protect his airway; he required intubation and mechanical ventilation with placement of a central line for levophed given his continued hypotension/shock; he was subsequently transferred to the ICU for further management. At the time of my visit, he is intubated/sedated along with ventilator support as well as vasopressor therapy. Exam Narrative: General: ill appearing male intubated/sedated and on mechanical ventilation Heart: tachycardic normal S1 and S2; no rub Lungs: coarse breath sounds with scattered crackles Abdomen: soft, nontender, nondistended, positive bowel sounds Extremities: no cyanosis or clubbing; 1+ edema Skin: warm and dry Objective Data Vital Signs Vital Signs: Vital Signs Temp Pulse Resp BP Pulse Ox O2 Del Method O2 Flow Rate 11/16/22 10:30 116 H 100 Mechanical Ventilation 11/16/22 08:45 127 H 83/59 L 11/16/22 09:00 126 H 16 11/16/22 10:15 121 H 123/66 11/16/22 10:00 122 H 119/83 11/16/22 09:45 123 H 117/85 11/16/22 09:30 111/77 11/16/22 09:15 125 H 104/71 11/16/22 09:00 126 H 105/75 11/16/22 08:30 127
--- NOTE | 2022-11-16 10:59 | WPDCNINT ---
Assessment and Plan Assessment and plan (1) Acute respiratory failure: Code(s): J96.00 - Acute respiratory failure, unspecified whether with hypoxia or hypercapnia Status: Acute Assessment and Plan: Acute respiratory failure likely secondary to pulmonary edema with possibility of pneumonia which could be aspiration Patient now intubated and on mechanical ventilation ABG ordered and reviewed Chest x-ray reviewed and ETT was advanced ventilator settings reviewed and rate change to 18 and tidal volume to 420 (2) Sepsis: Code(s): A41.9 - Sepsis, unspecified organism Status: Acute Assessment and Plan: Patient febrile with increasing WBC count, shock and increased hypoxia 0 point towards sepsis likely secondary to pneumonia Blood cultures and sputum cultures ordered Check procalcitonin level MRSA screen ordered Empiric vancomycin and Zosyn Check CT chest abdomen pelvis (3) Pneumonia: Code(s): J18.9 - Pneumonia, unspecified organism Status: Acute Assessment and Plan: See above (4) Shock: Code(s): R57.9 - Shock, unspecified Status: Acute Assessment and Plan: Likely combination of sepsis and cardiogenic Patient overall volume overloaded hence only will give small IV fluid bolus Continue Levophed infusion Add vasopressin Add stress dose steroids (5) Encephalopathy: Code(s): G93.40 - Encephalopathy, unspecified Status: Acute Assessment and Plan: Patient was being evaluated for encephalopathy since admission. It was suspected to be secondary to iatrogenic overdose on valacyclovir (he was taking valacyclovir 1000 mg t.i.d. instead of 500 mg on dialysis days after dialysis). Neurology was following. Head CT scan was negative. Patient had a lumbar puncture done. CTA head and neck showing no significant stenosis, moderate pulmonary edema and lymphadenopathy. Received HD almost daily in hopes of dialysizing Valtrex out but this may not remove the toxin very fast. Unable obtain MRI due to recent mitral valve replacement 10/03/22. HepC Ab positive but RNA PCR was negative LP performed 11/11 showing RBC<2000 and WBC 15 mostly lymphocytes. Glucose 96 and Protein 71, both mildly elevated. Gram stain and cultures have been negative. Some of the serologies are pending but CSF herpes PCR was negative Patient now is intubated and sedated. Exam is unreliable (6) Herpes zoster infection of thoracic region: Code(s): B02.9 - Zoster without complications Status: Acute Assessment and Plan: Which was treated earlier and currently off of antiviral s (7) Antiviral drug overdose: Code(s): T37.5X1A - Poisoning by antiviral drugs, accidental (unintentional), initial encounter Status: Acute Assessment and Plan: The patient has been taking 1000 mg of valacyclovir t.i.d. as detailed above. His altered mental status and delirium are likely result of iatrogenic overdose. He is being monitored closely in IMU. Continue HD per nephrology (8) End-stage renal disease on hemodialysis: Code(s): N18.6 - End stage renal disease; Z99.2 - Dependence on renal dialysis Status: Acute Assessment and Plan: Nephrology following for dialysis. Patient in shock and currently unstable for hemodialysis at this time (9) Insulin dependent diabetes mellitus: Status: Acute Assessment and Plan: Sliding scale insulin (10) Atrial fibrillation: Qualifiers: Atrial fibrillation type: paroxysmal Qualified Code(s): I48.0 - Paroxysmal atrial fibrillation Code(s): I48.91 - Unspecified atrial fibrillation Status: Chronic Assessment and Plan: P.o. amiodarone Anticoagulation on hold at this time (11) Elevated LFTs: Code(s): R79.89 - Other specified abnormal findings of blood chemistry Status: Acute Assessment and Plan: AST 720 and ALT 1059 have been impr
[2022-11-16] MEDS: HYDROCORTISONE SODIUM SUCCINATE 100 MG/2 ML VIAL IV PUSH ×2 (12:26→20:47)
[2022-11-16 12:35] LABS: Glucose Point of Care 231 mg/dl (65-105)
[2022-11-16] MEDS: INSULIN ASPART (*BKC) 100 UNITS/ML SUB-Q (12:35)
--- NOTE | 2022-11-16 15:39 | PM.IMPN ---
Progress Note: A&P Assessment and Plan (1) Encephalopathy: Code(s): G93.40 - Encephalopathy, unspecified Status: Acute Assessment and Plan: Etiology is not entirely clear but concerns are for iatrogenic overdose on valacyclovir (he was taking valacyclovir 1000 mg t.i.d. instead of 500 mg on dialysis days after dialysis). Differential diagnosis does include herpes encephalitis, hepatic encephalopathy or others. Side effects of valacyclovir included encephalopathy. Neuro consulted and appreciate their input. They initially recommended conservative management with observation. CTA head and neck showing no significant stenosis, moderate pulmonary edema and lymphadenopathy. Received HD almost daily in hopes of dialysizing Valtrex out but this may not remove the toxin very fast. Cannot obtain MRI due to recent mitral valve replacement 10/03/22. Discussed with neurology who recommended proceeding with LP at this time and this was ordered but held due to elevated INR. Patient is not on antiviral or antibacterial treatment. HepC Ab positive but was negative 2 yrs ago so could be false positive. LP performed today showing RBC<2000 and WBC 15 mostly lymphocytes. Glucose 96 and Protein 71, both mildly elevated. Gram stain showing no microorganisms. Follow up on serologies Continue supportive care. NGT placed and started on TF. IV fluids low dose until TF at goal. 11/16/2022 interval history: Patient is 62-year-old male with history of end-stage renal disease on hemodialysis had developed shingles and was given acyclovir however patient became encephalopathic and presented emergency department with significantly elevated LFTs and INR patient is seen by Nephrology patient is being diuresed and on 11/14 patient wanted to participate in PT, on 11/15 patient was more of awake and stats feeling better and patient LFT and INR are improving, abd his 1.0 was compareed to 1.9 upon arrival are improving patient seen by GI recommended to continue to dialyze the patient to possibly remove toxic level of acyclovir, however early this morning patient developed fever and was hypoxic was seen by tar pot man and patient was intubated currently on ventilator. Rotary Adjuster suspect most likely secondary aspiration pneumonia patient being treated Zosyn and vancomycin will follow-up on blood and sputum culture and further recommendation to follow. (2) Herpes zoster infection of thoracic region: Code(s): B02.9 - Zoster without complications Status: Acute Assessment and Plan: Hold antivirals as detailed above. Acetaminophen available as needed. Supportive care (3) Antiviral drug overdose: Code(s): T37.5X1A - Poisoning by antiviral drugs, accidental (unintentional), initial encounter Status: Acute Assessment and Plan: The patient has been taking 1000 mg of valacyclovir t.i.d. as detailed above. His altered mental status and delirium are likely result of iatrogenic overdose. He is being monitored closely in IMU. Continue HD per nephrology (4) End-stage renal disease on hemodialysis: Code(s): N18.6 - End stage renal disease; Z99.2 - Dependence on renal dialysis Status: Acute Assessment and Plan: Nephrology consulted for dialysis as detailed above. He has been dialyzed for the past several days. Appreciate nephrology input. (5) Insulin dependent diabetes mellitus: Status: Acute Assessment and Plan: A1c 5.1. The patient's blood glucose was reviewed on 11/11 Glucose remains well controlled. lantus on hold Continue AccuCheks covering with sliding scale. Hypoglycemia protocol available as needed. Continue to monitor (6) Atrial fibrillation: Qualifiers: Atrial fibrillation type: paroxysmal Qualified Code(s): I48.0 - Paroxysmal atrial fibrillation Code(s): I48.91 - Unspecified atrial fibrillation Status: Chronic Assessment and Plan: He has been in atrial fibrillation
[2022-11-16 17:48] LABS: Glucose Point of Care 174 mg/dl (65-105)
[2022-11-16] MEDS: NOREPINEPHRINE 8 MG/D5W 250 ML 8 MG/250 ML BAG 7.5 MG IV CONT (17:58)
[2022-11-16 20:52] LABS: Glucose Point of Care 162 mg/dl (65-105)
[2022-11-16 20:52] LABS: Glucose Point of Care < 20 mg/dl (65-105)
[2022-11-17] VITALS (75 sets, daily range): BP systolic 73–217; BP diastolic 54–157; PULSE 52–129; RESP 15–25; TEMP 35.9–36.4; O2SAT 94–100
[2022-11-17 00:33] LABS: Glucose Point of Care 161 mg/dl (65-105)
[2022-11-17] MEDS: PIPERACILLN/TAZ 3.375GM/NS50ML 3.375 GM/50 ML BAG IVPB ×4 (01:00→17:46)
[2022-11-17 04:41] LABS: Hematocrit 28.5 % (42.0-52.0); Hemoglobin 8.5 g/dL (14.0-18.0); Immature Platelet Fraction Pct 11.8 % (0.9-11.2); Mean Corpuscular HGB Conc 29.8 g/dl (32-36); Mean Corpuscular Hemoglobin 32.7 pg (26-34); Mean Corpuscular Volume 109.6 fl (80-100); Mean Platelet Volume 13.2 fl (7.4-10.4); Platelet Count Result 78 k/mm3 (150-375); Red Cell Distribution Width 23.3 % (11.5-14.5)
[2022-11-17 04:47] LABS: Alveolar/Arterial O2 Gradient 87.1 mmHg; Base Excess ABG 0.8 mEq/l (+/-2.0); Fractional Inspired Oxygen 30 %; HCO3 ABG 25.5 mEq/l (22.0-26.0); Oxygen Saturation ABG 95.6 % (95.0-100.0); Oxyhemoglobin 94.5 % THb (90.0-100.0); PCO2 ABG 41.6 mmHg (35.0-45.0); PO2 ABG 77.9 mmHg (80.0-100.0); Total Hemoglobin 9.7 g/dL (12.0-18.0); pH ABG 7.406 (7.350-7.450)
[2022-11-17 04:48] LABS: Arterial Blood Gas PEEP 5 cmH2O; Arterial Blood Gas Tidal Volume 420 ml; Arterial Blood Gas Vent Mode CMV; Arterial Blood Gas Ventilator rate 18 /MIN; Device VENTILATOR; Site Drawn LEFT BRACHIAL
[2022-11-17 04:53] LABS: INR 1.2
[2022-11-17 04:56] LABS: Alanine Aminotransferase 136 U/L (6-50); Albumin Level 3.3 g/dL (3.5-5.1); Alkaline Phosphatase 86 U/L (38-126); Anion Gap 8 mmol/L (8-16); Aspartate Amino Transferase 33 U/L (17-59); Bilirubin,Total 1.5 mg/dL (0.2-1.3); Blood Urea Nitrogen 36 mg/dL (9-20); Calcium 8.8 mg/dL (8.4-10.2); Carbon Dioxide 27 mmol/L (22-30); Chloride 102 mmol/L (98-107); Estimated CRCL calculation 18 ml/min; Estimated Glomerular Filt Rate 17; Glucose 165 mg/dL (65-110); Magnesium 2.1 mg/dL (1.6-2.3); Potassium 5.5 mmol/L (3.4-5.0); Sodium 137 mmol/L (137-145)
[2022-11-17] MEDS: HYDROCORTISONE SODIUM SUCCINATE 100 MG/2 ML VIAL IV PUSH ×2 (05:27→15:11)
[2022-11-17] MEDS: LEVOTHYROXINE SODIUM INJ 100 MCG/5 ML VIAL 50 MCG IV PUSH (05:30)
[2022-11-17 05:33] LABS: Anisocytosis 2+ (NORMAL); Band Neutrophils Percent 18 % (0-6); Lymphocytes Absolute Manual 0.84 K/mm3 (1.1-4.5); Monocytes Absolute Manual 0.42 K/mm3 (0.1-0.90); Monocytes Percent Manual 6 % (3-9); Neutrophils Absolute Manual 5.74 K/mm3 (1.3-6.7); Neutrophils Percent Manual 64 % (46-73); Platelet Estimate Adequate (Adequate); Total Cells Counted 100
[2022-11-17 05:34] LABS: Large Platelets Present; Macrocytosis 2+ (NORMAL); Poikilocytosis 2+ (NORMAL)
[2022-11-17 05:35] LABS: Acanthocytes 1+ (NORMAL); Hypochromasia 1+ (NORMAL); Schistocytes 1+ (NORMAL)
[2022-11-17 06:18] LABS: Glucose Point of Care 167 mg/dl (65-105)
[2022-11-17] MEDS: PANTOPRAZOLE SODIUM IV 40 MG VIAL IV PUSH (08:35)
[2022-11-17] MEDS: ASPIRIN 81 MG CHEWABLE TABLET FEED TUBE (08:35)
[2022-11-17] MEDS: MIDODRINE HCL 10 MG TABLET PO ×3 (08:35→16:54)
[2022-11-17] MEDS: AMIODARONE HCL 200 MG TABLET FEED TUBE ×2 (08:35→15:52)
[2022-11-17] MEDS: MINERAL OIL/WHITE PETROLATUM OINTMENT 1 APPLIC EACH EYE (08:36)
[2022-11-17 08:56] LABS: Glucose Point of Care 173 mg/dl (65-105)
[2022-11-17 09:00] LABS: VZV DNA, QL PCR Not Detected (Not Detected); Varicella Zoster Source CSF
--- NOTE | 2022-11-17 10:29 | WPDINTPN ---
Progress Note: A&P Assessment and Plan (1) Acute respiratory failure: Code(s): J96.00 - Acute respiratory failure, unspecified whether with hypoxia or hypercapnia Status: Acute Assessment and Plan: Acute respiratory failure likely secondary to pulmonary edema with possibility of pneumonia which could be aspiration Patient now intubated and on mechanical ventilation ABG ordered and reviewed on 30% FiO2 and 5 of PEEP Chest x-ray reviewed ventilator settings reviewed Will try to remove fluid with dialysis before attempting weaning trial CT results below (2) Sepsis: Code(s): A41.9 - Sepsis, unspecified organism Status: Acute Assessment and Plan: On presentation patient was febrile with increasing WBC count, shock and increased hypoxia pointing towards towards sepsis likely secondary to pneumonia Blood cultures and sputum cultures ordered and pending procalcitonin level 2.0 MRSA screen ordered Continue empiric vancomycin and Zosyn CT chest abdomen pelvis IMPRESSION: 1. Likely congestive heart failure with cardiomegaly, mild pulmonary edema and small bilateral pleural effusions. 2. Dependent consolidation in the bilateral upper and lower lobes most likely atelectasis although superimposed pneumonia difficult to exclude. 3. Small pericardial effusion. 4. Nonspecific mediastinal lymphadenopathy which is most likely reactive. 5. Cholelithiasis. 6. Small amount of nonspecific ascites in the abdomen and pelvis. (3) Pneumonia: Code(s): J18.9 - Pneumonia, unspecified organism Status: Acute Assessment and Plan: See above (4) Shock: Code(s): R57.9 - Shock, unspecified Status: Acute Assessment and Plan: Likely combination of sepsis and cardiogenic Patient overall volume overloaded hence only will give small IV fluid bolus Continue Levophed infusion vasopressin weaned off Continue stress dose steroids Echo Summary ? 1. Complete two-dimensional, color flow and Doppler transthoracic echocardiogram is performed. ? 2. Left ventricular chamber dimension is normal. ? 3. Left ventricular systolic function is normal, estimated at 65-70%. ? 4. Left ventricular septal wall motion is abnormal with septal motion related to bundle branch block. ? 5. Right ventricular chamber dimension is moderately enlarged. ? 6. Right ventricular systolic function is reduced. ? 7. Left atrial chamber dimension is moderately enlarged. ? 8. Right atrial chamber dimension is moderately enlarged. ? 9. S/p prior TAVR. Bioprosthetic aortic valve is well seated. Mean gradient across valve is 13mmHg. ? 10. The mitral valve annulus is severely calcified. ? 11. Known mitral valve replacement with #25 Epic porcine valve. Mean gradient across valve is 13mmHg. ? 12. 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 ? 13. There is mild tricuspid valve regurgitation. ? 14. Dilated inferior vena cava with <50% collapse upon inspiration consistent with elevated right atrial pressure. ? 15. Left pleural effusion present. (5) Encephalopathy: Code(s): G93.40 - Encephalopathy, unspecified Status: Acute Assessment and Plan: Patient was being evaluated for encephalopathy since admission. It was suspected to be secondary to iatrogenic overdose on valacyclovir (he was taking valacyclovir 1000 mg t.i.d. instead of 500 mg on dialysis days after dialysis). Neurology was following. Head CT scan was negative. Patient had a lumbar puncture done. CTA head and neck showing no significant stenosis, moderate pulmonary edema and lymphadenopathy. Received HD almost daily in hopes of dialysizing Valtrex out but this may not remove the toxin very fast. Unable obtain MRI due to recent mitral valve replacement 10/03/22. HepC Ab positive but RNA PCR was negative LP performed 11/11 showing RBC<2000 and WBC 15 mostly lymphocytes. Glucose 96 and Protein 71, both mildly elevated. Gram stai
--- NOTE | 2022-11-17 10:41 | WPDGIPROGNO ---
Progress Note: A&P Assessment and Plan (1) Elevated LFTs: Code(s): R79.89 - Other specified abnormal findings of blood chemistry Status: Acute Assessment and Plan: LFT these continue to improve, this consistent with the suspicion that this is either related to drug effect from overdose of medication versus ischemic effect from hypotensive episode. Continue monitor conservatively at this point. Dr. Ger Stinson returns tomorrow and will resume care. (2) Delirium, drug-induced: Code(s): R41.0 - Disorientation, unspecified; T50.905A - Adverse effect of unspecified drugs, medicaments and biological substances, initial encounter Status: Acute (3) End stage renal disease: Code(s): N18.6 - End stage renal disease Status: Acute (4) Shingles: Code(s): B02.9 - Zoster without complications Status: Acute (5) Acute respiratory failure: Code(s): J96.00 - Acute respiratory failure, unspecified whether with hypoxia or hypercapnia Status: Acute Assessment and Plan: Patient currently in the ICU on the ventilator with respiratory failure. Subjective Date/time seen: 11/17/22 10:41 Interval history: Patient seen today in the absence Dr. Ger Stinson. Patient remains intubated. Unable to give any useful history. Review of Systems Review of Systems: ROS unobtainable: Yes unobtainable due to endotracheal tube Exam Narrative: patient is on the ventilator. Vital signs are stable. No icterus is evident. Lungs are clear. Abdomen soft nontender no organomegaly evident. Objective Data Vital Signs Vital Signs: Vital Signs - 24 hr 11/16/22 10:45 11/16/22 11:15 11/16/22 11:30 Temperature Pulse Rate 109 H 109 H 97 Respiratory Rate Blood Pressure 94/69 L 99/73 L 97/66 L Pulse Oximetry Oxygen Delivery Fraction of Inspired Oxygen 11/16/22 12:15 11/16/22 13:00 11/16/22 13:00 Temperature Pulse Rate 87 82 82 Respiratory Rate 16 Blood Pressure 99/70 L 86/57 L Pulse Oximetry Oxygen Delivery Fraction of Inspired Oxygen 11/16/22 11:40 11/16/22 14:15 11/16/22 14:00 Temperature Pulse Rate 77 77 Respiratory Rate Blood Pressure Pulse Oximetry 100 Oxygen Delivery Mechanical Ventilation Mechanical Ventilation Fraction of Inspired Oxygen 50 30 11/16/22 14:00 11/16/22 12:00 11/16/22 14:00 Temperature 98.2 F Pulse Rate 77 88 77 Respiratory Rate 19 20 Blood Pressure 105/66 105/66 Pulse Oximetry 100 100 Oxygen Delivery Mechanical Ventilation Fraction of Inspired Oxygen 60 11/16/22 12:00 11/16/22 12:00 11/16/22 16:04 Temperature 98.7 F Pulse Rate 88 88 76 Respiratory Rate 20 Blood Pressure 91/66 L Pulse Oximetry 100 Oxygen Delivery Fraction of Inspired Oxygen 11/16/22 16:40 11/16/22 16:15 11/16/22 17:42 Temperature Pulse Rate 78 76 76 Respiratory Rate Blood Pressure 95/73 L 111/73 Pulse Oximetry 100 Oxygen Delivery Mechanical Ventilation Fraction of Inspired Oxygen 30 11/16/22 17:58 11/16/22 17:58 11/16/22 18:03 Temperature Pulse Rate 75 75 76 Respiratory Rate 29 H Blood Pressure 104/72 104/72 Pulse Oximetry Oxygen Delivery Fraction of Inspired Oxygen 11/16/22 18:04 11/16/22 18:26 11/16/22 16:00 Temperature Pulse Rate 75 77 Respiratory Rate 28 H 31 H Blood Pressure Pulse Oximetry Oxygen Delivery Fraction of Inspired Oxygen 30 11/16/22 16:00 11/16/22 16:00 11/16/22 18:00 Temperature 98 F Pulse Rate 78 78 75 Respiratory Rate 18 Blood Pressure 88/68 L Pulse Oximetry 100 Oxygen Delivery Fraction of Inspired Oxygen 11/16/22 18:00 11/16/22 16:00 11/16/22 12:00 Temperature 97.9 F Pulse Rate 75 78 Respiratory Rate 18 18 Blood Pressure 100/71 Pulse Oximetry 100 100 Oxygen Delivery Mechanical Ventilation Fraction of Inspired Oxygen 30 60 11/16/22 19:17 0
--- NOTE | 2022-11-17 11:18 | P.PNNP_ITS ---
Progress Note: A&P Assessment and Plan (1) End stage renal disease: Code(s): N18.6 - End stage renal disease Status: Chronic Assessment and Plan: * HD today * follow electrolytes, volume status, and clearance * likely plan HD/DUF tomorrow as well for further fluid removal (2) Acute respiratory failure: Code(s): J96.00 - Acute respiratory failure, unspecified whether with hypoxia or hypercapnia Status: Acute Assessment and Plan: * suspect secondary to pulmonary edema +/- pneumonia (possibly aspiration) * on ventilator support * follow CXR results * weaning when more stable (3) Septic shock: Code(s): A41.9 - Sepsis, unspecified organism; R65.21 - Severe sepsis with septic shock Status: Acute Assessment and Plan: * as noted by worsening WBC, hypoxia, lactic acidosis, and shock * follow culture data * empiric antibiotics * vasopressor support * repeat imaging ordered (4) Encephalopathy: Code(s): G93.40 - Encephalopathy, unspecified Status: Acute Assessment and Plan: * had been improving until recent events * thought to be due to Valtrex overdose * elevated liver enzymes, elevated bilirubin, and elevated ammonia noted as well (but are trending down) * suspect that the liver issues are due to the Valtrex as well * head CT negative * b12 and Folate okay * TSH is high -- getting IV Synthroid * s/p LP done (on 11/11/22) - follow-up on pending viral studies (5) Herpes zoster infection of thoracic region: Code(s): B02.9 - Zoster without complications Status: Acute Assessment and Plan: * holding antiviral therapy at this time * continue supportive therapy (6) Atrial fibrillation: Qualifiers: Atrial fibrillation type: paroxysmal Qualified Code(s): I48.0 - Paroxysmal atrial fibrillation Code(s): I48.91 - Unspecified atrial fibrillation Status: Chronic Assessment and Plan: * rate control strategy * anticoagulation on hold (in case further procedures need to be done) (7) Insulin dependent diabetes mellitus: Status: Acute Assessment and Plan: * follow accuchecks * glycemic control per hospitalists/manager supply chain planning Extensive discussion with at bedside (> 20 minutes) with regard to his multiple medical issues/problems at this time and current interventions being done to optimize his situation. Will continue to follow. Subjective Date/time seen: 11/17/22 11:18 Interval history: Follow-up for end stage renal disease on hemodialysis. Tolerating dialysis treatment at the time of my visit; hemodynamics better with just low dose levophed (vasopressin has been weaned off) although levophed being adjusted to allow for better fluid removal with current dialysis treatment; remains intubated/sedated and on mechanical ventilation; no issues/events overnight; at bedside and we discussed the situation. Exam Narrative: General: ill appearing male intubated/sedated and on mechanical ventilation Heart: tachycardic normal S1 and S2; no rub Lungs: coarse breath sounds with scattered crackles Abdomen: soft, nontender, nondistended, positive bowel sounds Extremities: no cyanosis or clubbing; 1+ edema Skin: warm and dry Objective Data Vital Signs Vital Signs: Vital Signs Temp Pulse Resp BP Pulse Ox O2 Del Method FiO2
--- NOTE | 2022-11-17 11:18 | PM.PNNEP ---
Progress Note: A&P Assessment and Plan (1) End stage renal disease: Code(s): N18.6 - End stage renal disease Status: Chronic Assessment and Plan: HD today follow electrolytes, volume status, and clearance likely plan HD/DUF tomorrow as well for further fluid removal (2) Acute respiratory failure: Code(s): J96.00 - Acute respiratory failure, unspecified whether with hypoxia or hypercapnia Status: Acute Assessment and Plan: suspect secondary to pulmonary edema +/- pneumonia (possibly aspiration) on ventilator support follow CXR results weaning when more stable (3) Septic shock: Code(s): A41.9 - Sepsis, unspecified organism; R65.21 - Severe sepsis with septic shock Status: Acute Assessment and Plan: as noted by worsening WBC, hypoxia, lactic acidosis, and shock follow culture data empiric antibiotics vasopressor support repeat imaging ordered (4) Encephalopathy: Code(s): G93.40 - Encephalopathy, unspecified Status: Acute Assessment and Plan: had been improving until recent events thought to be due to Valtrex overdose elevated liver enzymes, elevated bilirubin, and elevated ammonia noted as well (but are trending down) suspect that the liver issues are due to the Valtrex as well head CT negative b12 and Folate okay TSH is high -- getting IV Synthroid s/p LP done (on 11/11/22) - follow-up on pending viral studies (5) Herpes zoster infection of thoracic region: Code(s): B02.9 - Zoster without complications Status: Acute Assessment and Plan: holding antiviral therapy at this time continue supportive therapy (6) Atrial fibrillation: Qualifiers: Atrial fibrillation type: paroxysmal Qualified Code(s): I48.0 - Paroxysmal atrial fibrillation Code(s): I48.91 - Unspecified atrial fibrillation Status: Chronic Assessment and Plan: rate control strategy anticoagulation on hold (in case further procedures need to be done) (7) Insulin dependent diabetes mellitus: Status: Acute Assessment and Plan: follow accuchecks glycemic control per hospitalists/small package 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 Will continue to follow. Subjective Date/time seen: 11/17/22 11:18 Interval history: Follow-up for end stage renal disease on hemodialysis. Tolerating dialysis treatment at the time of my visit; hemodynamics better with just low dose levophed (vasopressin has been weaned off) although levophed being adjusted to allow for better fluid removal with current dialysis treatment; remains intubated/sedated and on mechanical ventilation; no issues/events overnight; at bedside and we discussed the situation. Exam Narrative: General: ill appearing male intubated/sedated and on mechanical ventilation Heart: tachycardic normal S1 and S2; no rub Lungs: coarse breath sounds with scattered crackles Abdomen: soft, nontender, nondistended, positive bowel sounds Extremities: no cyanosis or clubbing; 1+ edema Skin: warm and dry Objective Data Vital Signs Vital Signs: Vital Signs Temp Pulse Resp BP Pulse Ox O2 Del Method FiO2 11/17/22 11:04 96.7 F L 90 20 100 11/17/22 10:34 96.7 F L 76 20 100 11/17/22 10:02 96.8 F L 77 25 H 100 11/17/22 09:30 96.9 F L 71 18 100 11/17/22 09:29 96.9 F L 71 18 100 11/17/22 09:01 96.9 F L 68 15 100/71 100 11/17/22 08:35 96.9 F L 69 18 11/17/22 06:32 97 11/17/22 04:37 96.8 F L 69 20 100 11/17/22 04:22 96.7 F L 61 17 99 11/17/22 03:12 96.8 F L 60 18 100 11/17/22 02:32 96.8 F L 63 18 100 11/17/22 02:15 96.9 F L 63 18 86/61 L 100 11/17/22 02:09 96.9 F L 67
[2022-11-17] MEDS: EPOETIN ALFA-EPBX 10,000 UNITS/ML VIAL 10000 UNITS IV PUSH (11:32)
[2022-11-17] MEDS: SODIUM CHLORIDE 0.9% IV 1,000 ML 999 ML IV CONT (11:33)
[2022-11-17 15:19] LABS: Glucose Point of Care 155 mg/dl (65-105)
--- NOTE | 2022-11-17 15:37 | PM.IMPN ---
Progress Note: A&P Assessment and Plan (1) Encephalopathy: Code(s): G93.40 - Encephalopathy, unspecified Status: Acute Assessment and Plan: Etiology is not entirely clear but concerns are for iatrogenic overdose on valacyclovir (he was taking valacyclovir 1000 mg t.i.d. instead of 500 mg on dialysis days after dialysis). Differential diagnosis does include herpes encephalitis, hepatic encephalopathy or others. Side effects of valacyclovir included encephalopathy. Neuro consulted and appreciate their input. They initially recommended conservative management with observation. CTA head and neck showing no significant stenosis, moderate pulmonary edema and lymphadenopathy. Received HD almost daily in hopes of dialysizing Valtrex out but this may not remove the toxin very fast. Cannot obtain MRI due to recent mitral valve replacement 10/03/22. Discussed with neurology who recommended proceeding with LP at this time and this was ordered but held due to elevated INR. Patient is not on antiviral or antibacterial treatment. HepC Ab positive but was negative 2 yrs ago so could be false positive. LP performed today showing RBC<2000 and WBC 15 mostly lymphocytes. Glucose 96 and Protein 71, both mildly elevated. Gram stain showing no microorganisms. Follow up on serologies Continue supportive care. NGT placed and started on TF. IV fluids low dose until TF at goal. 11/17/2022 interval history: Patient is 62-year-old male with history of end-stage renal disease on hemodialysis had developed shingles and was given acyclovir however patient became encephalopathic and presented emergency department with significantly elevated LFTs and INR patient is seen by Nephrology patient is being diuresed and on 11/14 patient wanted to participate in PT, on 11/15 patient was more of awake and stats feeling better and patient LFT and INR are improving, abd his 1.0 was compareed to 1.9 upon arrival are improving patient seen by GI recommended to continue to dialyze the patient to possibly remove toxic level of acyclovir, however on 11/16 early this morning patient developed fever and was hypoxic was seen by director industrial museum and patient was intubated currently on ventilator. Parking Ramp Attendant suspect most likely secondary aspiration pneumonia patient being treated Zosyn and vancomycin, today patient will receive dialysis and will have a attending to wean the patient off the ventilator, will follow-up on blood and sputum culture no growth so far, and further recommendation to follow. (2) Herpes zoster infection of thoracic region: Code(s): B02.9 - Zoster without complications Status: Acute Assessment and Plan: Hold antivirals as detailed above. Acetaminophen available as needed. Supportive care (3) Antiviral drug overdose: Code(s): T37.5X1A - Poisoning by antiviral drugs, accidental (unintentional), initial encounter Status: Acute Assessment and Plan: The patient has been taking 1000 mg of valacyclovir t.i.d. as detailed above. His altered mental status and delirium are likely result of iatrogenic overdose. He is being monitored closely in IMU. Continue HD per nephrology (4) End-stage renal disease on hemodialysis: Code(s): N18.6 - End stage renal disease; Z99.2 - Dependence on renal dialysis Status: Acute Assessment and Plan: Nephrology consulted for dialysis as detailed above. He has been dialyzed for the past several days. Appreciate nephrology input. (5) Insulin dependent diabetes mellitus: Status: Acute Assessment and Plan: A1c 5.1. The patient's blood glucose was reviewed on 11/11 Glucose remains well controlled. lantus on hold Continue AccuCheks covering with sliding scale. Hypoglycemia protocol available as needed. Continue to monitor (6) Atrial fibrillation: Qualifiers: Atrial fibrillation type: paroxysmal Qualified Code(s): I48.0 - Paroxysmal atrial fibrillation Code(
[2022-11-17 18:14] LABS: Glucose Point of Care 117 mg/dl (65-105)
[2022-11-17 19:24] LABS: Epstein Barr Virus DNA PCR Detected (Not Detected); Source Epstein Barr Virus CSF
[2022-11-18] VITALS (39 sets, daily range): BP systolic 78–203; BP diastolic 43–102; PULSE 80–126; RESP 16–36; TEMP 36.1–37.1; O2SAT 96–100; BMI 29.8
[2022-11-18 00:27] LABS: Glucose Point of Care 188 mg/dl (65-105)
[2022-11-18] MEDS: MINERAL OIL/WHITE PETROLATUM OINTMENT 1 APPLIC EACH EYE ×3 (00:41→20:12)
[2022-11-18] MEDS: HYDROCORTISONE SODIUM SUCCINATE 100 MG/2 ML VIAL IV PUSH ×4 (00:41→20:35)
[2022-11-18] MEDS: PIPERACILLN/TAZ 3.375GM/NS50ML 3.375 GM/50 ML BAG IVPB ×5 (00:44→23:16)
[2022-11-18 05:26] LABS: Alveolar/Arterial O2 Gradient 128.7 mmHg; Base Excess ABG 2.4 mEq/l (+/-2.0); Carboxyhemoglobin 0.2 % THb (0-2.0); Fractional Inspired Oxygen 30 %; HCO3 ABG 26.8 mEq/l (22.0-26.0); Methemoglobin ABG 0.3 %THb (0-1.5); Oxygen Content ABG 11.9 %vol (16.0-22.0); PCO2 ABG 40.4 mmHg (35.0-45.0); PO2 FiO2 Ratio Arterial Blood 1.26 %; Reduced Hemoglobin 22.2 %THb (0-5.0); pH ABG 7.439 (7.350-7.450)
[2022-11-18 05:42] LABS: Alveolar/Arterial O2 Gradient 61.2 mmHg; Carboxyhemoglobin 0.6 % THb (0-2.0); Fractional Inspired Oxygen 30 %; HCO3 ABG 28.9 mEq/l (22.0-26.0); Methemoglobin ABG 0.3 %THb (0-1.5); Oxygen Content ABG 15.4 %vol (16.0-22.0); Oxygen Saturation ABG 98.2 % (95.0-100.0); Oxyhemoglobin 96.9 % THb (90.0-100.0); PCO2 ABG 39.9 mmHg (35.0-45.0); PO2 ABG 105.8 mmHg (80.0-100.0); PO2 FiO2 Ratio Arterial Blood 3.53 %; Reduced Hemoglobin 2.2 %THb (0-5.0); Total Hemoglobin 11.2 g/dL (12.0-18.0); pH ABG 7.478 (7.350-7.450)
[2022-11-18 05:43] LABS: PO2 ABG 37.7 mmHg (80.0-100.0)
[2022-11-18 05:44] LABS: Device VENTILATOR; Modified Allen's Test Pass; Oxygen Saturation ABG 73.8 % (95.0-100.0); Oxyhemoglobin 77.3 % THb (90.0-100.0); Site Drawn LEFT RADIAL
[2022-11-18 05:45] LABS: Arterial Blood Gas PEEP 5 cmH2O; Arterial Blood Gas Tidal Volume 420 ml; Arterial Blood Gas Vent Mode CMV; Arterial Blood Gas Ventilator rate 18 /MIN
[2022-11-18 05:46] LABS: Arterial Blood Gas PEEP 5 cmH2O; Arterial Blood Gas Tidal Volume 420 ml; Arterial Blood Gas Vent Mode CMV; Arterial Blood Gas Ventilator rate 18 /MIN; Device VENTILATOR; Modified Allen's Test Pass; Site Drawn LEFT RADIAL
[2022-11-18 05:58] LABS: Basophils Absolute Auto 0.1 K/mm3 (0.0-0.1); Basophils Percent Auto 0.4 % (0.2-1.2); Eosinophils Percent Auto 0.2 % (0-4.4); Hematocrit 33.1 % (42.0-52.0); Hemoglobin 9.8 g/dL (14.0-18.0); Immature Granulocyte Absolute 0.29 K/mm3 (0.00-0.031); Immature Granulocyte Percent A 2.1 % (0-0.5); Lymphocytes Absolute Auto 0.76 K/mm3 (0.9-3.2); Lymphocytes Percent Auto 5.5 % (18.3-44.2); Mean Corpuscular HGB Conc 29.6 g/dl (32-36); Mean Corpuscular Hemoglobin 31.8 pg (26-34); Mean Corpuscular Volume 107.5 fl (80-100); Mean Platelet Volume 12.2 fl (7.4-10.4); Monocytes Absolute Auto 0.8 K/mm3 (0.1-0.6); Neutrophils Absolute Auto 11.8 K/mm3 (1.3-6.7); Neutrophils Percent Auto 85.8 % (45.5-73.1); Nucleated Red Blood Cells Absolute Auto 0.1 K/mm3 (0.0-0.012); Nucleated Red Blood Cells Perc 0.5 % (0.0-0.2); Platelet Count Result 214 k/mm3 (150-375); Red Blood Count 3.08 M/mm3 (4.6-6.20); Red Cell Distribution Width 23.4 % (11.5-14.5); White Blood Count 13.7 K/mm3 (4.5-10.0)
[2022-11-18 06:07] LABS: INR 1.2; Prothrombin Time 15.5 Seconds (11.1-14.7)
[2022-11-18 06:08] LABS: Alanine Aminotransferase 118 U/L (6-50); Albumin Level 3.7 g/dL (3.5-5.1); Alkaline Phosphatase 114 U/L (38-126); Anion Gap 9 mmol/L (8-16); Aspartate Amino Transferase 28 U/L (17-59); Bilirubin,Total 1.4 mg/dL (0.2-1.3); Blood Urea Nitrogen 36 mg/dL (9-20); Calcium 8.8 mg/dL (8.4-10.2); Carbon Dioxide 31 mmol/L (22-30); Chloride 96 mmol/L (98-107); Estimated CRCL calculation 25 ml/min; Estimated Glomerular Filt Rate 22; Glucose 240 mg/dL (65-110); Magnesium 2.1 mg/dL (1.6-2.3); Potassium 4.4 mmol/L (3.4-5.0); Sodium 136 mmol/L (137-145)
[2022-11-18 06:23] LABS: Anisocytosis 1+ (NORMAL); Platelet Clumps Present; Platelet Estimate Adequate (Adequate)
[2022-11-18 06:25] LABS: Burr Cells 1+ (NORMAL); Macrocytosis 1+ (NORMAL); Poikilocytosis 1+ (NORMAL); Schistocytes Rare (NORMAL)
[2022-11-18] MEDS: INSULIN ASPART (*BKC) 100 UNITS/ML SUB-Q ×4 (06:30→23:22)
[2022-11-18] MEDS: LEVOTHYROXINE SODIUM INJ 100 MCG/5 ML VIAL 50 MCG IV PUSH (06:30)
[2022-11-18] MEDS: ACETAMINOPHEN 325 MG TABLET 650 MG FEED TUBE ×2 (07:41→15:37)
[2022-11-18] MEDS: MIDODRINE HCL 10 MG TABLET PO ×3 (07:42→18:25)
[2022-11-18] MEDS: ASPIRIN 81 MG CHEWABLE TABLET FEED TUBE (07:42)
[2022-11-18] MEDS: AMIODARONE HCL 200 MG TABLET FEED TUBE ×2 (07:43→18:24)
[2022-11-18] MEDS: PANTOPRAZOLE SODIUM IV 40 MG VIAL IV PUSH (07:44)
--- NOTE | 2022-11-18 07:50 | PCOTNOTE ---
Stopping OT orders due to patients medical status. Please re - order if appropriate.
--- NOTE | 2022-11-18 07:51 | PCPTNOTE ---
Patient is currently on ventilator and not appropriate at this time. Please re-order when pt becomes appropriate.
[2022-11-18] MEDS: LINEZOLID 600 MG/300 ML 600 MG/300 ML SOLN 300 MG IVPB ×2 (08:54→20:10)
[2022-11-18] MEDS: SODIUM CHLORIDE 0.9% IV 1,000 ML 999 ML IV CONT (09:03)
[2022-11-18] MEDS: MORPHINE SULFATE (*CRX) 2 MG/ML INJ IV PUSH ×2 (09:14→23:07)
--- NOTE | 2022-11-18 09:46 | WPDINTPN ---
Progress Note: A&P Assessment and Plan (1) Acute respiratory failure: Code(s): J96.00 - Acute respiratory failure, unspecified whether with hypoxia or hypercapnia Status: Acute Assessment and Plan: Acute respiratory failure likely secondary to pulmonary edema with possibility of pneumonia which could be aspiration Patient now intubated and on mechanical ventilation ABG ordered and reviewed on 30% FiO2 and 5 of PEEP Chest x-ray reviewed and shows improvement as patient received dialysis yesterday and 4 L fluid was removed Patient received hemodialysis again today I will try weaning trial post hemodialysis CT results below (2) Sepsis: Code(s): A41.9 - Sepsis, unspecified organism Status: Acute Assessment and Plan: On presentation patient was febrile with increasing WBC count, shock and increased hypoxia pointing towards towards sepsis likely secondary to pneumonia Blood cultures is growing Enterococcus faecalis sputum cultures negative procalcitonin level 2.0 MRSA screen ordered Continue empiric Zosyn but vancomycin changed to linezolid cover for VRE CT chest abdomen pelvis IMPRESSION: 1. Likely congestive heart failure with cardiomegaly, mild pulmonary edema and small bilateral pleural effusions. 2. Dependent consolidation in the bilateral upper and lower lobes most likely atelectasis although superimposed pneumonia difficult to exclude. 3. Small pericardial effusion. 4. Nonspecific mediastinal lymphadenopathy which is most likely reactive. 5. Cholelithiasis. 6. Small amount of nonspecific ascites in the abdomen and pelvis. (3) Pneumonia: Code(s): J18.9 - Pneumonia, unspecified organism Status: Acute Assessment and Plan: See above (4) Shock: Code(s): R57.9 - Shock, unspecified Status: Acute Assessment and Plan: Likely combination of sepsis and cardiogenic Patient overall volume overloaded hence only will give small IV fluid bolus Continue Levophed infusion vasopressin weaned off Continue stress dose steroids Echo Summary ? 1. Complete two-dimensional, color flow and Doppler transthoracic echocardiogram is performed. ? 2. Left ventricular chamber dimension is normal. ? 3. Left ventricular systolic function is normal, estimated at 65-70%. ? 4. Left ventricular septal wall motion is abnormal with septal motion related to bundle branch block. ? 5. Right ventricular chamber dimension is moderately enlarged. ? 6. Right ventricular systolic function is reduced. ? 7. Left atrial chamber dimension is moderately enlarged. ? 8. Right atrial chamber dimension is moderately enlarged. ? 9. S/p prior TAVR. Bioprosthetic aortic valve is well seated. Mean gradient across valve is 13mmHg. ? 10. The mitral valve annulus is severely calcified. ? 11. Known mitral valve replacement with #25 Epic porcine valve. Mean gradient across valve is 13mmHg. ? 12. 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 ? 13. There is mild tricuspid valve regurgitation. ? 14. Dilated inferior vena cava with <50% collapse upon inspiration consistent with elevated right atrial pressure. ? 15. Left pleural effusion present. (5) Encephalopathy: Code(s): G93.40 - Encephalopathy, unspecified Status: Acute Assessment and Plan: Patient was being evaluated for encephalopathy since admission. It was suspected to be secondary to iatrogenic overdose on valacyclovir (he was taking valacyclovir 1000 mg t.i.d. instead of 500 mg on dialysis days after dialysis). His symptoms as per his started after he taking the medication. Neurology was following. Head CT scan was negative. CTA head and neck showing no significant stenosis, moderate pulmonary edema and lymphadenopathy. Received HD almost daily in hopes of dialysizing Valtrex out but this may not remove the toxin very fast. Unable obtain MRI due to recent mitral valve replacement 10/03/22. HepC Ab
--- NOTE | 2022-11-18 10:03 | PM.PNNEP ---
Progress Note: A&P Assessment and Plan (1) End stage renal disease: Code(s): N18.6 - End stage renal disease Status: Chronic Assessment and Plan: HD yesterday and DUF treatment today follow electrolytes, volume status, and clearance (2) Acute respiratory failure: Code(s): J96.00 - Acute respiratory failure, unspecified whether with hypoxia or hypercapnia Status: Acute Assessment and Plan: suspect secondary to pulmonary edema +/- pneumonia (possibly aspiration) on ventilator support follow CXR results weaning when more stable (3) Septic shock: Code(s): A41.9 - Sepsis, unspecified organism; R65.21 - Severe sepsis with septic shock Status: Acute Assessment and Plan: as noted by worsening WBC, hypoxia, lactic acidosis, and shock follow culture data blood culture with Enterococcus on IV antibiotics vasopressor support as needed - wean as tolerated follow repeat cultures (4) Encephalopathy: Code(s): G93.40 - Encephalopathy, unspecified Status: Acute Assessment and Plan: had been improving until recent events thought to be due to Valtrex overdose elevated liver enzymes, elevated bilirubin, and elevated ammonia noted as well (but are trending down) suspect that the liver issues are due to the Valtrex as well head CT negative b12 and Folate okay TSH is high -- getting IV Synthroid s/p LP done (on 11/11/22) - follow-up on viral studies Chris Pickard Viruus DNA PCR positive (5) Herpes zoster infection of thoracic region: Code(s): B02.9 - Zoster without complications Status: Acute Assessment and Plan: holding antiviral therapy at this time continue supportive therapy (6) Atrial fibrillation: Qualifiers: Atrial fibrillation type: paroxysmal Qualified Code(s): I48.0 - Paroxysmal atrial fibrillation Code(s): I48.91 - Unspecified atrial fibrillation Status: Chronic Assessment and Plan: rate control strategy anticoagulation on hold (in case further procedures need to be done) (7) Insulin dependent diabetes mellitus: Status: Acute Assessment and Plan: follow accuchecks glycemic control per hospitalists/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 Will continue to follow. Subjective Date/time seen: 11/18/22 10:03 Interval history: Follow-up for end stage renal disease on hemodialysis. Tolerating dry ultrafiltration treatment at the time of my visit (seen on DUF at 9:50AM); tolerated hemodialysis treatment yesterday with 4L fluid removal; hemodynamics better but still on low dose levophed; remains intubated and on mechanical ventilation; no other issues/events overnight or earlier this AM. Exam Narrative: General: ill appearing male intubated and on mechanical ventilation Heart: tachycardic normal S1 and S2; no rub Lungs: coarse breath sounds with scattered crackles Abdomen: soft, nontender, nondistended, positive bowel sounds Extremities: no cyanosis or clubbing; 1+ edema Skin: warm and dry Objective Data Vital Signs Vital Signs: Vital Signs Temp Pulse Resp BP Pulse Ox O2 Del Method FiO2 11/18/22 10:00 121 H 11/18/22 10:00 122 H 25 H 109/84 100 11/18/22 10:00 122 H 176/102 H 11/18/22 09:45 122 H 203/88 H 11/18/22 09:30 122 H 176/75 H 11/18/22 09:15 123 H 172/74 H 11/18/22 09:00 125 H 166/75 H 11/18/22 08:45 111 H 171/65 H 11/18/22 08:00 110 H 11/18/22 08:30 109 H 162/65 H 11/18/22 08:00 30 11/18/22 08:00 98.7 F 112 H 29 H 158/46 H 100 11/18/22 08:13 111 H 167/59 H 11/18/22 08:00 98.5 F 114 H 36 H 95/72 L 100 11/18/22 07:56 Mechanical Ventil
--- NOTE | 2022-11-18 10:03 | P.PNNP_ITS ---
Progress Note: A&P Assessment and Plan (1) End stage renal disease: Code(s): N18.6 - End stage renal disease Status: Chronic Assessment and Plan: * HD yesterday and DUF treatment today * follow electrolytes, volume status, and clearance (2) Acute respiratory failure: Code(s): J96.00 - Acute respiratory failure, unspecified whether with hypoxia or hyper capnia Status: Acute Assessment and Plan: * suspect secondary to pulmonary edema +/- pneumonia (possibly aspiration) * on ventilator support * follow CXR results * weaning when more stable (3) Septic shock: Code(s): A41.9 - Sepsis, unspecified organism; R65.21 - Severe sepsis with septic shock Status: Acute Assessment and Plan: * as noted by worsening WBC, hypoxia, lactic acidosis, and shock * follow culture data * blood culture with Enterococcus * on IV antibiotics * vasopressor support as needed - wean as tolerated * follow repeat cultures (4) Encephalopathy: Code(s): G93.40 - Encephalopathy, unspecified Status: Acute Assessment and Plan: * had been improving until recent events * thought to be due to Valtrex overdose * elevated liver enzymes, elevated bilirubin, and elevated ammonia noted as well (but are trending down) * suspect that the liver issues are due to the Valtrex as well * head CT negative * b12 and Folate okay * TSH is high -- getting IV Synthroid * s/p LP done (on 11/11/22) - follow-up on viral studies * Chris Pickard Viruus DNA PCR positive (5) Herpes zoster infection of thoracic region: Code(s): B02.9 - Zoster without complications Status: Acute Assessment and Plan: * holding antiviral therapy at this time * continue supportive therapy (6) Atrial fibrillation: Qualifiers: Atrial fibrillation type: paroxysmal Qualified Code(s): I48.0 - Paroxysmal atrial fibrillation Code(s): I48.91 - Unspecified atrial fibrillation Status: Chronic Assessment and Plan: * rate control strategy * anticoagulation on hold (in case further procedures need to be done) (7) Insulin dependent diabetes mellitus: Status: Acute Assessment and Plan: * follow accuchecks * glycemic control per hospitalists/skid man Extensive discussion with at bedside (> 20 minutes) with regard to his multiple medical issues/problems at this time and current interventions being done to optimize his situation. Will continue to follow. Subjective Date/time seen: 11/18/22 10:03 Interval history: Follow-up for end stage renal disease on hemodialysis. Tolerating dry ultrafiltration treatment at the time of my visit (seen on DUF at 9:50AM); tolerated hemodialysis treatment yesterday with 4L fluid removal; hemodynamics better but still on low dose levophed; remains intubated and on mechanical ventilation; no other issues/events overnight or earlier this AM. Exam Narrative: General: ill appearing male intubated and on mechanical ventilation Heart: tachycardic normal S1 and S2; no rub Lungs: coarse breath sounds with scattered crackles Abdomen: soft, nontender, nondistended, positive bowel sounds Extremities: no cyanosis or clubbing; 1+ edema Skin: warm and dry Objective Data Vital Signs Vital Signs: Vital Signs Temp Pulse Resp BP Pulse Ox O2 Del Method FiO2
--- NOTE | 2022-11-18 10:07 | PCFNICU ---
ICU Rounding Note: Pt current nutrition is nepro @ 40 ml/h. flushes 30 ml q 4 h. Tolerating well. Nutrition recommendation: Contnue with current TF orders. Tolerating well. Last recorded weight is 86.5 kg. Bowel Motility: Last BM +1 11/17/22` Labs Reviewed: Hgb 9.8, Hct 33.1, Na 136, GFR 22, BUN 36, Cre 2.9, Glu 188 Meds Noted: Versed, levophed, zofran, novolog, lantus Skin: WNL Additional Notes: Had to be intubated over the weekend. Energy needs on current mechanical vent: 1900 kcals (22kcal/kg), 104-121 g protein (1.2-1,4 g/kg), 1900 ml free water. Recommended prosource x 1 to meet protein energy needs. Discussion with MD, pt may be extubated today so holding off on intervention. No interventions today. Agree with orders. Following daily in ICU rounds. Monitor status, intake, wt, labs. Follow up in 3 days. .
[2022-11-18 11:53] LABS: Glucose Point of Care 316 mg/dl (65-105)
[2022-11-18] MEDS: CENTRAL LINE FLUSH 10 ML IV PUSH ×3 (14:29→20:11)
--- NOTE | 2022-11-18 17:12 | PM.IMPN ---
Progress Note: A&P Assessment and Plan (1) Encephalopathy: Code(s): G93.40 - Encephalopathy, unspecified Status: Acute Assessment and Plan: Etiology is not entirely clear but concerns are for iatrogenic overdose on valacyclovir (he was taking valacyclovir 1000 mg t.i.d. instead of 500 mg on dialysis days after dialysis). Differential diagnosis does include herpes encephalitis, hepatic encephalopathy or others. Side effects of valacyclovir included encephalopathy. Neuro consulted and appreciate their input. They initially recommended conservative management with observation. CTA head and neck showing no significant stenosis, moderate pulmonary edema and lymphadenopathy. Received HD almost daily in hopes of dialysizing Valtrex out but this may not remove the toxin very fast. Cannot obtain MRI due to recent mitral valve replacement 10/03/22. Discussed with neurology who recommended proceeding with LP at this time and this was ordered but held due to elevated INR. Patient is not on antiviral or antibacterial treatment. HepC Ab positive but was negative 2 yrs ago so could be false positive. LP performed today showing RBC<2000 and WBC 15 mostly lymphocytes. Glucose 96 and Protein 71, both mildly elevated. Gram stain showing no microorganisms. Follow up on serologies Continue supportive care. NGT placed and started on TF. IV fluids low dose until TF at goal. 11/18/2022 interval history: Patient is 62-year-old male with history of end-stage renal disease on hemodialysis had developed shingles and was given acyclovir however patient became encephalopathic and presented emergency department with significantly elevated LFTs and INR patient is seen by Nephrology patient is being diuresed and on 11/14 patient wanted to participate in PT, on 11/15 patient was more of awake and stats feeling better and patient LFT and INR are improving, abd his 1.0 was compareed to 1.9 upon arrival are improving patient seen by GI recommended to continue to dialyze the patient to possibly remove toxic level of acyclovir, however on 11/16 early this morning patient developed fever and was hypoxic was seen by system architect and patient was intubated currently on ventilator. Sheriff suspect most likely secondary aspiration pneumonia patient being treated Zosyn and vancomycin, patient had dialysis on 11/17 and again today, and in attempt to wean the patient off the ventilator, will follow-up on blood and sputum culture no growth so far, patient is present in the room gave update and further recommendation to follow. (2) Herpes zoster infection of thoracic region: Code(s): B02.9 - Zoster without complications Status: Acute Assessment and Plan: Hold antivirals as detailed above. Acetaminophen available as needed. Supportive care (3) Antiviral drug overdose: Code(s): T37.5X1A - Poisoning by antiviral drugs, accidental (unintentional), initial encounter Status: Acute Assessment and Plan: The patient has been taking 1000 mg of valacyclovir t.i.d. as detailed above. His altered mental status and delirium are likely result of iatrogenic overdose. He is being monitored closely in IMU. Continue HD per nephrology (4) End-stage renal disease on hemodialysis: Code(s): N18.6 - End stage renal disease; Z99.2 - Dependence on renal dialysis Status: Acute Assessment and Plan: Nephrology consulted for dialysis as detailed above. He has been dialyzed for the past several days. Appreciate nephrology input. (5) Insulin dependent diabetes mellitus: Status: Acute Assessment and Plan: A1c 5.1. The patient's blood glucose was reviewed on 11/11 Glucose remains well controlled. lantus on hold Continue AccuCheks covering with sliding scale. Hypoglycemia protocol available as needed. Continue to monitor (6) Atrial fibrillation: Qualifiers: Atrial fibrillation type: paroxysmal Qualified Code(s): I48.
[2022-11-18 18:23] LABS: Glucose Point of Care 209 mg/dl (65-105)
[2022-11-18 23:22] LABS: Glucose Point of Care 224 mg/dl (65-105)
[2022-11-19] VITALS (28 sets, daily range): BP systolic 86–128; BP diastolic 57–83; PULSE 67–117; RESP 18–28; TEMP 36.6–37.1; O2SAT 99–100
[2022-11-19] MEDS: MORPHINE SULFATE (*CRX) 2 MG/ML INJ IV PUSH ×2 (01:31→09:25)
[2022-11-19] MEDS: ACETAMINOPHEN 325 MG TABLET 650 MG FEED TUBE ×2 (01:31→08:34)
[2022-11-19 05:39] LABS: Basophils Percent Auto 0.3 % (0.2-1.2); Hematocrit 31.5 % (42.0-52.0); Hemoglobin 9.3 g/dL (14.0-18.0); Immature Granulocyte Absolute 0.25 K/mm3 (0.00-0.031); Lymphocytes Absolute Auto 0.69 K/mm3 (0.9-3.2); Lymphocytes Percent Auto 5.5 % (18.3-44.2); Mean Corpuscular HGB Conc 29.5 g/dl (32-36); Mean Corpuscular Hemoglobin 31.2 pg (26-34); Mean Corpuscular Volume 105.7 fl (80-100); Monocytes Absolute Auto 0.7 K/mm3 (0.1-0.6); Monocytes Percent Auto 5.3 % (2.6-8.5); Neutrophils Absolute Auto 10.8 K/mm3 (1.3-6.7); Neutrophils Percent Auto 86.9 % (45.5-73.1); Nucleated Red Blood Cells Perc 0.3 % (0.0-0.2); Platelet Count Result 197 k/mm3 (150-375); Red Blood Count 2.98 M/mm3 (4.6-6.20); White Blood Count 12.5 K/mm3 (4.5-10.0)
[2022-11-19 05:46] LABS: INR 1.1; Prothrombin Time 14.3 Seconds (11.1-14.7)
[2022-11-19 05:57] LABS: Alveolar/Arterial O2 Gradient 31.9 mmHg; Base Excess ABG 3.6 mEq/l (+/-2.0); Carboxyhemoglobin 0.1 % THb (0-2.0); Fractional Inspired Oxygen 30 %; HCO3 ABG 29.3 mEq/l (22.0-26.0); Methemoglobin ABG 0.3 %THb (0-1.5); Oxygen Content ABG 14.6 %vol (16.0-22.0); Oxygen Saturation ABG 98.4 % (95.0-100.0); Oxyhemoglobin 97.4 % THb (90.0-100.0); PCO2 ABG 49.7 mmHg (35.0-45.0); PO2 ABG 123.6 mmHg (80.0-100.0); PO2 FiO2 Ratio Arterial Blood 4.12 %; Reduced Hemoglobin 2.2 %THb (0-5.0); Total Hemoglobin 10.5 g/dL (12.0-18.0); pH ABG 7.388 (7.350-7.450)
[2022-11-19 05:58] LABS: Arterial Blood Gas Ventilator rate 18 /MIN; Device VENTILATOR; Modified Allen's Test Pass; Site Drawn LEFT RADIAL
[2022-11-19 05:59] LABS: Arterial Blood Gas PEEP 5 cmH2O; Arterial Blood Gas Tidal Volume 420 ml; Arterial Blood Gas Vent Mode CMV
[2022-11-19 06:00] LABS: Alanine Aminotransferase 92 U/L (6-50); Albumin Level 3.7 g/dL (3.5-5.1); Alkaline Phosphatase 107 U/L (38-126); Anion Gap 9 mmol/L (8-16); Aspartate Amino Transferase 23 U/L (17-59); Bilirubin,Total 1.3 mg/dL (0.2-1.3); Blood Urea Nitrogen 58 mg/dL (9-20); Calcium 9.5 mg/dL (8.4-10.2); Carbon Dioxide 32 mmol/L (22-30); Chloride 94 mmol/L (98-107); Estimated CRCL calculation 18 ml/min; Estimated Glomerular Filt Rate 15; Glucose 185 mg/dL (65-110); Magnesium 2.2 mg/dL (1.6-2.3); Potassium 4.5 mmol/L (3.4-5.0); Sodium 135 mmol/L (137-145)
[2022-11-19] MEDS: PIPERACILLN/TAZ 3.375GM/NS50ML 3.375 GM/50 ML BAG IVPB (06:00)
[2022-11-19 06:08] LABS: Platelet Estimate Adequate (Adequate)
[2022-11-19 06:09] LABS: Anisocytosis 3+ (NORMAL); Burr Cells 1+ (NORMAL); Macrocytosis 1+ (NORMAL); Schistocytes Rare (NORMAL)
[2022-11-19] MEDS: CENTRAL LINE FLUSH 10 ML IV PUSH ×4 (06:39→21:08)
[2022-11-19] MEDS: HYDROCORTISONE SODIUM SUCCINATE 100 MG/2 ML VIAL IV PUSH ×3 (06:39→21:08)
[2022-11-19] MEDS: LEVOTHYROXINE SODIUM INJ 100 MCG/5 ML VIAL 50 MCG IV PUSH (06:39)
[2022-11-19] MEDS: NOREPINEPHRINE 8 MG/D5W 250 ML 8 MG/250 ML BAG 7.5 MG IV CONT (06:44)
[2022-11-19] MEDS: AMIODARONE HCL 200 MG TABLET FEED TUBE ×2 (08:08→16:28)
[2022-11-19] MEDS: ASPIRIN 81 MG CHEWABLE TABLET FEED TUBE (08:08)
[2022-11-19] MEDS: MIDODRINE HCL 10 MG TABLET PO ×3 (08:08→16:28)
[2022-11-19] MEDS: PANTOPRAZOLE SODIUM IV 40 MG VIAL IV PUSH (08:08)
[2022-11-19] MEDS: MINERAL OIL/WHITE PETROLATUM OINTMENT 1 APPLIC EACH EYE ×2 (08:09→21:08)
[2022-11-19] MEDS: LINEZOLID 600 MG/300 ML 600 MG/300 ML SOLN 300 MG IVPB (08:10)
--- NOTE | 2022-11-19 09:40 | PM.PNNEP ---
Progress Note: A&P Assessment and Plan (1) End stage renal disease: Code(s): N18.6 - End stage renal disease Status: Chronic Assessment and Plan: DUF yesterday and HD the day before yesterday plan HD tomorrow follow electrolytes, volume status, and clearance (2) Acute respiratory failure: Code(s): J96.00 - Acute respiratory failure, unspecified whether with hypoxia or hypercapnia Status: Acute Assessment and Plan: suspect secondary to pulmonary edema +/- pneumonia (possibly aspiration) on ventilator support follow CXR results push fluid removal as tolerated with HD weaning when more stable (3) Septic shock: Code(s): A41.9 - Sepsis, unspecified organism; R65.21 - Severe sepsis with septic shock Status: Acute Assessment and Plan: as noted by worsening WBC, hypoxia, lactic acidosis, and shock follow culture data blood culture with Enterococcus + Staph aureus on IV antibiotics vasopressor support as needed - wean as tolerated follow repeat cultures (4) Encephalopathy: Code(s): G93.40 - Encephalopathy, unspecified Status: Acute Assessment and Plan: had been improving until recent events thought to be due to Valtrex overdose elevated liver enzymes, elevated bilirubin, and elevated ammonia noted as well (but are trending down) suspect that the liver issues are due to the Valtrex as well head CT negative b12 and Folate okay TSH is high -- getting IV Synthroid s/p LP done (on 11/11/22) - follow-up on viral studies (Chris Pickard Viruus DNA PCR positive) (5) Herpes zoster infection of thoracic region: Code(s): B02.9 - Zoster without complications Status: Acute Assessment and Plan: holding antiviral therapy at this time continue supportive therapy (6) Atrial fibrillation: Qualifiers: Atrial fibrillation type: paroxysmal Qualified Code(s): I48.0 - Paroxysmal atrial fibrillation Code(s): I48.91 - Unspecified atrial fibrillation Status: Chronic Assessment and Plan: rate control strategy anticoagulation on hold (in case further procedures need to be done) (7) Insulin dependent diabetes mellitus: Status: Acute Assessment and Plan: follow accuchecks glycemic control per hospitalists/pole cutter Will continue to follow. Subjective Date/time seen: 11/19/22 09:40 Interval history: Follow-up for end stage renal disease on hemodialysis. Tolerated dry ultrafiltration yesterday with another 4L of fluid removal achieved; remains intubated and on mechanical ventilation at the time of my visit; remains on levophed for blood pressure support; awakes and follows simple commands when sedation is off; no other acute issues/events overnight or earlier this morning. Exam Narrative: General: ill appearing male intubated and on mechanical ventilation Heart: tachycardic normal S1 and S2; no rub Lungs: coarse breath sounds with a few crackles Abdomen: soft, nontender, nondistended, positive bowel sounds Extremities: no cyanosis or clubbing; 1+ edema Skin: warm and intact Objective Data Vital Signs Vital Signs: Vital Signs Temp Pulse Resp BP Pulse Ox O2 Del Method FiO2 11/19/22 09:00 92 113/79 11/19/22 08:00 30 11/19/22 08:00 100 Mechanical Ventilation 30 11/19/22 08:00 89 11/19/22 08:21 117 H 100 Mechanical Ventilation 30 11/19/22 08:08 82 11/19/22 08:00 98.2 F 90 18 127/82 100 11/19/22 08:02 92 127/82 11/19/22 06:44 94 107/67 11/19/22 05:48 100 100 Mechanical Ventilation 30 11/19/22 04:00 30 11/19/22 04:00 102 H 22 H 100 Mechanical Ventilation 30 11/19/22 04:00 98.0 F 102 H 22 H 89/66 L 100 11/19/22 04:00 87 11/19/22 02:00 98.2 F 87 18 99/74 L 99 11/19/22 02:00 98 11/19/22 03:42 98 100 Mecha
--- NOTE | 2022-11-19 09:40 | P.PNNP_ITS ---
Progress Note: A&P Assessment and Plan (1) End stage renal disease: Code(s): N18.6 - End stage renal disease Status: Chronic Assessment and Plan: * DUF yesterday and HD the day before yesterday * plan HD tomorrow * follow electrolytes, volume status, and clearance (2) Acute respiratory failure: Code(s): J96.00 - Acute respiratory failure, unspecified whether with hypoxia or hypercapnia Status: Acute Assessment and Plan: * suspect secondary to pulmonary edema +/- pneumonia (possibly aspiration) * on ventilator support * follow CXR results * push fluid removal as tolerated with HD * weaning when more stable (3) Septic shock: Code(s): A41.9 - Sepsis, unspecified organism; R65.21 - Severe sepsis with septic shock Status: Acute Assessment and Plan: * as noted by worsening WBC, hypoxia, lactic acidosis, and shock * follow culture data * blood culture with Enterococcus + Staph aureus * on IV antibiotics * vasopressor support as needed - wean as tolerated * follow repeat cultures (4) Encephalopathy: Code(s): G93.40 - Encephalopathy, unspecified Status: Acute Assessment and Plan: * had been improving until recent events * thought to be due to Valtrex overdose * elevated liver enzymes, elevated bilirubin, and elevated ammonia noted as well (but are trending down) * suspect that the liver issues are due to the Valtrex as well * head CT negative * b12 and Folate okay * TSH is high -- getting IV Synthroid * s/p LP done (on 11/11/22) - follow-up on viral studies (Chris Pickard Viruus DNA PCR positive) (5) Herpes zoster infection of thoracic region: Code(s): B02.9 - Zoster without complications Status: Acute Assessment and Plan: * holding antiviral therapy at this time * continue supportive therapy (6) Atrial fibrillation: Qualifiers: Atrial fibrillation type: paroxysmal Qualified Code(s): I48.0 - Paroxysmal atrial fibrillation Code(s): I48.91 - Unspecified atrial fibrillation Status: Chronic Assessment and Plan: * rate control strategy * anticoagulation on hold (in case further procedures need to be done) (7) Insulin dependent diabetes mellitus: Status: Acute Assessment and Plan: * follow accuchecks * glycemic control per hospitalists/ssn/ssbn assistant navigator Will continue to follow. Subjective Date/time seen: 11/19/22 09:40 Interval history: Follow-up for end stage renal disease on hemodialysis. Tolerated dry ultrafiltration yesterday with another 4L of fluid removal [facility]; remains intubated and on mechanical ventilation at the time of my visit; remains on levophed for blood pressure support; awakes and follows simple commands when sedation is off; no other acute issues/events overnight or earlier this morning. Exam Narrative: General: ill appearing male intubated and on mechanical ventilation Heart: tachycardic normal S1 and S2; no rub Lungs: coarse breath sounds with a few crackles Abdomen: soft, nontender, nondistended, positive bowel sounds Extremities: no cyanosis or clubbing; 1+ edema Skin: warm and intact Objective Data Vital Signs Vital Signs: Vital Signs Temp Pulse Resp BP Pulse Ox O2 Del Method FiO2 11/19/22 09:00 92 113/79 11/19/22 08:00 30 11/19/22 08:
[2022-11-19 09:52] LABS: VDRL Quantitative CSF Nonreactive (Nonreactive)
--- NOTE | 2022-11-19 12:02 | PCNFU ---
Nutrition Follow-Up Complete: Inadequate po intake related to NPO status as evidenced by diet order and need for alternative nutrition support Goal: meet estimated needs Pt current nutrition is Nepro at 40ml/hr = 1584kcals, 71g protein. Nutrition recommendation: Increase tube feeding rate to 45ml/hr to provide 1753kcals, 80g protein, Add prosource daily for an additional 80kcals, 20g protein. Totals: 1833kcals, 100g protein. Last recorded weight is 84.6 kg. Bowel Motility: +BM 11/17 Labs Reviewed: hgb:9.3, HCT:31.5, NA:135, BUN:58, Cr: 4.1, Glu:185 Meds Noted:Novolog, lantus, zofran, protonix Skin: Additional Notes: Pt remains on mechanical ventilation, failed breathing trial. Tube feeds remain running at goal rate of 40ml/hr and pt is tolerating. Energy needs on current mechanical vent: 1900 kcals, 100 g protein. Recommend to increase tube feeding rate per recommendation above and add prosource daily to better meet estimated needs. Monitor status, intake, wt, labs. Follow up in 3 days.
[2022-11-19] MEDS: AMPICILLIN SULB 3 GM/NS 100 ML 3 GM/100 ML VIAL IVPB (12:54)
[2022-11-19] MEDS: INSULIN ASPART (*BKC) 100 UNITS/ML SUB-Q ×2 (12:58→17:07)
[2022-11-19 13:00] LABS: Glucose Point of Care 272 mg/dl (65-105)
--- NOTE | 2022-11-19 14:45 | WPDINTPN ---
Progress Note: A&P Assessment and Plan (1) Acute respiratory failure: Code(s): J96.00 - Acute respiratory failure, unspecified whether with hypoxia or hypercapnia Status: Acute Assessment and Plan: Acute respiratory failure likely secondary to pulmonary edema with possibility of pneumonia which could be aspiration -Patient now intubated and on mechanical ventilatio on 30% FiO2 and 5 of PEEP -chest x-ray this morning shows mild pulmonary edema -patient received hemodialysis on 11/17/2022 and 11/18/2022 -will discuss with Nephrology, patient will require more fluid removal with dialysis 11/16: CT chest : showed congestive heart failure with cardiomegaly, mild pulmonary edema and small bilateral pleural effusions, dependent consolidation bilateral upper and lower lobes most likely atelectasis although superimposed pneumonia difficult to exclude. Small pericardial effusion (2) Sepsis: Code(s): A41.9 - Sepsis, unspecified organism Status: Acute Assessment and Plan: On presentation patient was febrile with increasing WBC count, shock and increased hypoxia pointing towards towards sepsis likely secondary to pneumonia 11/16: Blood cultures is growing Enterococcus faecalis 11/16: sputum cultures negative procalcitonin level 2.0 11/16: MRSA screen negative -patient was on linezolid will switch to Unasyn on11/19 as Enterococcus faecalis is pansensitive 11/16: CT chest abdomen pelvis IMPRESSION: 1. Likely congestive heart failure with cardiomegaly, mild pulmonary edema and small bilateral pleural effusions. 2. Dependent consolidation in the bilateral upper and lower lobes most likely atelectasis although superimposed pneumonia difficult to exclude. 3. Small pericardial effusion. 4. Nonspecific mediastinal lymphadenopathy which is most likely reactive. 5. Cholelithiasis. 6. Small amount of nonspecific ascites in the abdomen and pelvis. (3) Pneumonia: Code(s): J18.9 - Pneumonia, unspecified organism Status: Acute Assessment and Plan: See above (4) Shock: Code(s): R57.9 - Shock, unspecified Status: Acute Assessment and Plan: Likely combination of sepsis and cardiogenic Patient overall volume overloaded hence only will give small IV fluid bolus Continue Levophed infusion, ventilated MAP > 65 mmHg for adequate end organ perfusion vasopressin weaned off Continue stress dose steroids 11/16: Echocardiogram Summary ? 1. Complete two-dimensional, color flow and Doppler transthoracic echocardiogram is performed. ? 2. Left ventricular chamber dimension is normal. ? 3. Left ventricular systolic function is normal, estimated at 65-70%. ? 4. Left ventricular septal wall motion is abnormal with septal motion related to bundle branch block. ? 5. Right ventricular chamber dimension is moderately enlarged. ? 6. Right ventricular systolic function is reduced. ? 7. Left atrial chamber dimension is moderately enlarged. ? 8. Right atrial chamber dimension is moderately enlarged. ? 9. S/p prior TAVR. Bioprosthetic aortic valve is well seated. Mean gradient across valve is 13mmHg. ? 10. The mitral valve annulus is severely calcified. ? 11. Known mitral valve replacement with #25 Epic porcine valve. Mean gradient across valve is 13mmHg. ? 12. 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 ? 13. There is mild tricuspid valve regurgitation. ? 14. Dilated inferior vena cava with <50% collapse upon inspiration consistent with elevated right atrial pressure. ? 15. Left pleural effusion present. (5) Encephalopathy: Code(s): G93.40 - Encephalopathy, unspecified Status: Acute Assessment and Plan: Patient was being evaluated for encephalopathy since admission. -It was suspected to be secondary to iatrogenic overdose on valacyclovir (he was taking valacyclovir 1000 mg t.i.d. instead of 500 mg on dialysis days after dialysis). His symptoms as per hi
[2022-11-19] MEDS: dexmedeTOMIDine 400 MCG/100 ML 400 MCG/100 ML BAG IV CONT (15:15)
[2022-11-19] MEDS: CENTRAL LINE FLUSH 20 ML IV PUSH (16:27)
[2022-11-19 16:33] LABS: Glucose Point of Care 211 mg/dl (65-105)
--- NOTE | 2022-11-19 17:39 | PM.IMPN ---
Progress Note: A&P Assessment and Plan (1) Encephalopathy: Code(s): G93.40 - Encephalopathy, unspecified Status: Acute Assessment and Plan: Etiology is not entirely clear but concerns are for iatrogenic overdose on valacyclovir (he was taking valacyclovir 1000 mg t.i.d. instead of 500 mg on dialysis days after dialysis). Differential diagnosis does include herpes encephalitis, hepatic encephalopathy or others. Side effects of valacyclovir included encephalopathy. Neuro consulted and appreciate their input. They initially recommended conservative management with observation. CTA head and neck showing no significant stenosis, moderate pulmonary edema and lymphadenopathy. Received HD almost daily in hopes of dialysizing Valtrex out but this may not remove the toxin very fast. Cannot obtain MRI due to recent mitral valve replacement 10/03/22. Discussed with neurology who recommended proceeding with LP at this time and this was ordered but held due to elevated INR. Patient is not on antiviral or antibacterial treatment. HepC Ab positive but was negative 2 yrs ago so could be false positive. LP performed today showing RBC<2000 and WBC 15 mostly lymphocytes. Glucose 96 and Protein 71, both mildly elevated. Gram stain showing no microorganisms. Follow up on serologies Continue supportive care. NGT placed and started on TF. IV fluids low dose until TF at goal. 11/19/2022 interval history: Patient is 62-year-old male with history of end-stage renal disease on hemodialysis had developed shingles and was given acyclovir however patient became encephalopathic and presented emergency department with significantly elevated LFTs and INR patient is seen by Nephrology patient is being diuresed and on 11/14 patient wanted to participate in PT, on 11/15 patient was more of awake and stats feeling better and patient LFT and INR are improving, abd his 1.0 was compareed to 1.9 upon arrival are improving patient seen by GI recommended to continue to dialyze the patient to possibly remove toxic level of acyclovir, however on 11/16 early this morning patient developed fever and was hypoxic was seen by risk management analyst and patient was intubated currently on ventilator. Spare Hand Carding suspect most likely secondary aspiration pneumonia patient being treated Zosyn and vancomycin, patient had dialysis on 11/17 and again today, and in attempt to wean the patient off the ventilator, today patient blood culture is growing Enterococcus and Staph aureus patient is being treated with Unasyn, patient seen by Nephrology product development director and appreciate. (2) Herpes zoster infection of thoracic region: Code(s): B02.9 - Zoster without complications Status: Acute Assessment and Plan: Hold antivirals as detailed above. Acetaminophen available as needed. Supportive care (3) Antiviral drug overdose: Code(s): T37.5X1A - Poisoning by antiviral drugs, accidental (unintentional), initial encounter Status: Acute Assessment and Plan: The patient has been taking 1000 mg of valacyclovir t.i.d. as detailed above. His altered mental status and delirium are likely result of iatrogenic overdose. He is being monitored closely in IMU. Continue HD per nephrology (4) End-stage renal disease on hemodialysis: Code(s): N18.6 - End stage renal disease; Z99.2 - Dependence on renal dialysis Status: Acute Assessment and Plan: Nephrology consulted for dialysis as detailed above. He has been dialyzed for the past several days. Appreciate nephrology input. (5) Insulin dependent diabetes mellitus: Status: Acute Assessment and Plan: A1c 5.1. The patient's blood glucose was reviewed on 11/11 Glucose remains well controlled. lantus on hold Continue AccuCheks covering with sliding scale. Hypoglycemia protocol available as needed. Continue to monitor (6) Atrial fibrillation: Qualifiers: Atrial fibrillation type: paroxysmal Qualified
[2022-11-20] VITALS (51 sets, daily range): BP systolic 80–136; BP diastolic 58–88; PULSE 56–115; RESP 12–30; TEMP 36–37.3; O2SAT 95–100
[2022-11-20] MEDS: AMPICILLIN SULB 3 GM/NS 100 ML 3 GM/100 ML VIAL IVPB ×2 (00:03→21:14)
[2022-11-20 00:06] LABS: Glucose Point of Care 236 mg/dl (65-105)
[2022-11-20] MEDS: INSULIN ASPART (*BKC) 100 UNITS/ML SUB-Q ×3 (00:07→12:00)
[2022-11-20 05:15] LABS: Alveolar/Arterial O2 Gradient 36.8 mmHg; Base Excess ABG 0.7 mEq/l (+/-2.0); Carboxyhemoglobin 0.2 % THb (0-2.0); Fractional Inspired Oxygen 30 %; HCO3 ABG 25.7 mEq/l (22.0-26.0); Methemoglobin ABG 0.2 %THb (0-1.5); Oxygen Content ABG 14.5 %vol (16.0-22.0); Oxygen Saturation ABG 98.5 % (95.0-100.0); Oxyhemoglobin 97.5 % THb (90.0-100.0); PCO2 ABG 43.1 mmHg (35.0-45.0); PO2 ABG 126.5 mmHg (80.0-100.0); PO2 FiO2 Ratio Arterial Blood 4.22 %; Reduced Hemoglobin 2.1 %THb (0-5.0); Total Hemoglobin 10.4 g/dL (12.0-18.0); pH ABG 7.394 (7.350-7.450)
[2022-11-20 05:16] LABS: Device VENTILATOR; Modified Allen's Test Pass; Site Drawn LEFT RADIAL
[2022-11-20 05:17] LABS: Arterial Blood Gas PEEP 5 cmH2O; Arterial Blood Gas Tidal Volume 420 ml; Arterial Blood Gas Vent Mode CMV; Arterial Blood Gas Ventilator rate 20 /MIN
[2022-11-20] MEDS: dexmedeTOMIDine 400 MCG/100 ML 400 MCG/100 ML BAG IV CONT (05:21)
[2022-11-20] MEDS: LEVOTHYROXINE SODIUM INJ 100 MCG/5 ML VIAL 50 MCG IV PUSH (05:23)
[2022-11-20] MEDS: HYDROCORTISONE SODIUM SUCCINATE 100 MG/2 ML VIAL IV PUSH (05:23)
[2022-11-20] MEDS: CENTRAL LINE FLUSH 10 ML IV PUSH ×4 (05:25→21:15)
[2022-11-20 05:48] LABS: Glucose Point of Care 250 mg/dl (65-105)
[2022-11-20 05:52] LABS: Basophils Percent Auto 0.4 % (0.2-1.2); Hematocrit 31.6 % (42.0-52.0); Hemoglobin 9.6 g/dL (14.0-18.0); Immature Granulocyte Absolute 0.34 K/mm3 (0.00-0.031); Immature Granulocyte Percent A 3.1 % (0-0.5); Lymphocytes Absolute Auto 0.79 K/mm3 (0.9-3.2); Lymphocytes Percent Auto 7.1 % (18.3-44.2); Mean Corpuscular HGB Conc 30.4 g/dl (32-36); Mean Corpuscular Hemoglobin 32.3 pg (26-34); Mean Corpuscular Volume 106.4 fl (80-100); Mean Platelet Volume 11.5 fl (7.4-10.4); Monocytes Absolute Auto 0.4 K/mm3 (0.1-0.6); Neutrophils Absolute Auto 9.5 K/mm3 (1.3-6.7); Neutrophils Percent Auto 85.4 % (45.5-73.1); Platelet Count Result 183 k/mm3 (150-375); Red Blood Count 2.97 M/mm3 (4.6-6.20); Red Cell Distribution Width 22.8 % (11.5-14.5); White Blood Count 11.1 K/mm3 (4.5-10.0)
[2022-11-20 06:08] LABS: INR 1.1; Prothrombin Time 14.5 Seconds (11.1-14.7)
[2022-11-20 06:11] LABS: Alanine Aminotransferase 72 U/L (6-50); Albumin Level 3.7 g/dL (3.5-5.1); Alkaline Phosphatase 115 U/L (38-126); Anion Gap 12 mmol/L (8-16); Aspartate Amino Transferase 28 U/L (17-59); Bilirubin,Total 1.4 mg/dL (0.2-1.3); Blood Urea Nitrogen 79 mg/dL (9-20); Calcium 9.8 mg/dL (8.4-10.2); Carbon Dioxide 30 mmol/L (22-30); Chloride 91 mmol/L (98-107); Estimated CRCL calculation 12 ml/min; Estimated Glomerular Filt Rate 11; Glucose 263 mg/dL (65-110); Magnesium 2.5 mg/dL (1.6-2.3); Potassium 5.2 mmol/L (3.4-5.0); Sodium 133 mmol/L (137-145)
[2022-11-20 06:23] LABS: Anisocytosis 2+ (NORMAL); Platelet Estimate Adequate (Adequate); Schistocytes None Seen (NORMAL)
[2022-11-20] MEDS: APIXABAN 2.5 MG TABLET PO ×2 (09:24→21:18)
[2022-11-20] MEDS: ASPIRIN 81 MG CHEWABLE TABLET FEED TUBE (09:24)
[2022-11-20] MEDS: MIDODRINE HCL 10 MG TABLET PO ×3 (09:24→21:18)
[2022-11-20] MEDS: PANTOPRAZOLE SODIUM IV 40 MG VIAL IV PUSH (09:25)
[2022-11-20] MEDS: SILVERGEL (ELTA) 45 ML 1 APPLIC TOPICAL (09:45)
[2022-11-20] MEDS: INSULIN GLARGINE (*BKC) 100 UNITS/ML SUB-Q (09:52)
[2022-11-20 11:59] LABS: Glucose Point of Care 262 mg/dl (65-105)
--- NOTE | 2022-11-20 12:23 | PCFNICU ---
ICU Rounding Note: Pt current nutrition is Nepro @ goal rate 45 ml/h with Prosource protein modular 1x daily. Flushes 30 ml q 4 hours. Total 1862 kcals, 100 g protein, 899 ml free water. Nutrition recommendation: No changes to current tube feeding regimen, supplement and flushes. Continue with current orders. Agree with orders. Last recorded weight is 76.7 kg. Bowel Motility: Last bowel movement +2 11/07/22 Labs Reviewed: Hgb 9.6, Hct 31.6, Na 133, K+ 5.2, BUN 79, Cre 5.5, Glu 262 Meds Noted: Novolog, lantus, zofran, protonix, precedex, low dose levophed Skin: shingles Additional Notes: Remains on vent. Potassium is high today, pt already on low-potassium tube feeding formula Nepro. Requiring low dose levophed; MAP is 77, not requiring reduction in tube feeding. Sedation with precedex. Continue current orders. Following daily in ICU rounds. Monitor status, intake, wt, labs. Follow up in 3 days. .
--- NOTE | 2022-11-20 13:01 | WPDINTPN ---
Progress Note: A&P Assessment and Plan (1) Acute respiratory failure: Code(s): J96.00 - Acute respiratory failure, unspecified whether with hypoxia or hypercapnia Status: Acute Assessment and Plan: Acute respiratory failure likely secondary to pulmonary edema with possibility of pneumonia which could be aspiration -Patient now intubated and on mechanical ventilatio on 30% FiO2 and 5 of PEEP -chest x-ray this morning shows mild pulmonary edema -patient received hemodialysis on 11/17/2022 and 11/18/2022 -11/20: Dialysis today -placed patient on ASV mode of ventilation, try SBT after dialysis 11/16: CT chest : showed congestive heart failure with cardiomegaly, mild pulmonary edema and small bilateral pleural effusions, dependent consolidation bilateral upper and lower lobes most likely atelectasis although superimposed pneumonia difficult to exclude. Small pericardial effusion (2) Sepsis: Code(s): A41.9 - Sepsis, unspecified organism Status: Acute Assessment and Plan: On presentation patient was febrile with increasing WBC count, shock and increased hypoxia pointing towards towards sepsis likely secondary to pneumonia 11/16: Blood cultures is growing Enterococcus faecalis and Staph aureus (MSSA) 11/16: sputum cultures negative procalcitonin level 2.0 11/16: MRSA screen negative -11/19/2022: Switched to Unasyn, linezolid discontinued As Enterococcus faecalis and Staph aureus are pansensitive 11/16: CT chest abdomen pelvis IMPRESSION: 1. Likely congestive heart failure with cardiomegaly, mild pulmonary edema and small bilateral pleural effusions. 2. Dependent consolidation in the bilateral upper and lower lobes most likely atelectasis although superimposed pneumonia difficult to exclude. 3. Small pericardial effusion. 4. Nonspecific mediastinal lymphadenopathy which is most likely reactive. 5. Cholelithiasis. 6. Small amount of nonspecific ascites in the abdomen and pelvis. (3) Pneumonia: Code(s): J18.9 - Pneumonia, unspecified organism Status: Acute Assessment and Plan: See above (4) Shock: Code(s): R57.9 - Shock, unspecified Status: Acute Assessment and Plan: Likely combination of sepsis and cardiogenic Patient overall volume overloaded hence only will give small IV fluid bolus Continue Levophed infusion, ventilated MAP > 65 mmHg for adequate end organ perfusion vasopressin weaned off Weaning stress dose steroids 11/16: Echocardiogram Summary ? 1. Complete two-dimensional, color flow and Doppler transthoracic echocardiogram is performed. ? 2. Left ventricular chamber dimension is normal. ? 3. Left ventricular systolic function is normal, estimated at 65-70%. ? 4. Left ventricular septal wall motion is abnormal with septal motion related to bundle branch block. ? 5. Right ventricular chamber dimension is moderately enlarged. ? 6. Right ventricular systolic function is reduced. ? 7. Left atrial chamber dimension is moderately enlarged. ? 8. Right atrial chamber dimension is moderately enlarged. ? 9. S/p prior TAVR. Bioprosthetic aortic valve is well seated. Mean gradient across valve is 13mmHg. ? 10. The mitral valve annulus is severely calcified. ? 11. Known mitral valve replacement with #25 Epic porcine valve. Mean gradient across valve is 13mmHg. ? 12. 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 ? 13. There is mild tricuspid valve regurgitation. ? 14. Dilated inferior vena cava with <50% collapse upon inspiration consistent with elevated right atrial pressure. ? 15. Left pleural effusion present. (5) Encephalopathy: Code(s): G93.40 - Encephalopathy, unspecified Status: Acute Assessment and Plan: Patient was being evaluated for encephalopathy since admission. -It was suspected to be secondary to iatrogenic overdose on valacyclovir (he was taking valacyclovir 1000 mg t.i.d. instead of 500 mg on dial
--- NOTE | 2022-11-20 15:05 | PM.PNNEP ---
Progress Note: A&P Assessment and Plan (1) End stage renal disease: Code(s): N18.6 - End stage renal disease Status: Chronic Assessment and Plan: HD today continue HD 3x/week while hospitalized follow electrolytes, volume status, and clearance (2) Acute respiratory failure: Code(s): J96.00 - Acute respiratory failure, unspecified whether with hypoxia or hypercapnia Status: Acute Assessment and Plan: suspect secondary to pulmonary edema +/- pneumonia (possibly aspiration) on ventilator support follow CXR results push fluid removal as tolerated with HD weaning when more stable (3) Septic shock: Code(s): A41.9 - Sepsis, unspecified organism; R65.21 - Severe sepsis with septic shock Status: Acute Assessment and Plan: as noted by worsening WBC, hypoxia, lactic acidosis, and shock follow culture data blood culture with Enterococcus + Staph aureus on IV antibiotics vasopressor support as needed - wean as tolerated follow repeat cultures (4) Encephalopathy: Code(s): G93.40 - Encephalopathy, unspecified Status: Acute Assessment and Plan: had been improving until recent events thought to be due to Valtrex overdose elevated liver enzymes, elevated bilirubin, and elevated ammonia noted as well (but are trending down) suspect that the liver issues are due to the Valtrex as well head CT negative b12 and Folate okay TSH is high -- getting IV Synthroid s/p LP done (on 11/11/22) - follow-up on viral studies (Chris Pickard Viruus DNA PCR positive) (5) Herpes zoster infection of thoracic region: Code(s): B02.9 - Zoster without complications Status: Acute Assessment and Plan: holding antiviral therapy at this time continue supportive therapy (6) Atrial fibrillation: Qualifiers: Atrial fibrillation type: paroxysmal Qualified Code(s): I48.0 - Paroxysmal atrial fibrillation Code(s): I48.91 - Unspecified atrial fibrillation Status: Chronic Assessment and Plan: rate control strategy anticoagulation on hold (in case further procedures need to be done) (7) Insulin dependent diabetes mellitus: Status: Acute Assessment and Plan: follow accuchecks glycemic control per hospitalists/newspaper managing editor Will continue to follow. Subjective Date/time seen: 11/20/22 15:05 Interval history: Follow-up for end stage renal disease on hemodialysis. Tolerating dialysis treatment at the time of my visit (seen on HD at 2:55PM); remains intubated/sedated and on mechanical ventilation; was off levophed but back on it due to soft blood pressure readings; no apparent distress; and son at bedside and we discussed the situation. Exam Narrative: General: ill appearing male intubated and on mechanical ventilation Heart: tachycardic normal S1 and S2; no rub Lungs: coarse breath sounds with a few crackles Abdomen: soft, nontender, nondistended, positive bowel sounds Extremities: no cyanosis or clubbing; 1+ edema Skin: warm and intact Objective Data Vital Signs Vital Signs: Vital Signs Temp Pulse Resp BP Pulse Ox O2 Del Method FiO2 11/20/22 15:00 73 92/76 L 11/20/22 14:48 98.4 F 76 13 112/81 100 11/20/22 14:26 81 100 Mechanical Ventilation 11/20/22 13:50 79 30 H 11/20/22 13:13 76 26 H 11/20/22 12:00 78 11/20/22 12:00 97.9 F 78 20 120/83 100 11/20/22 12:13 79 120/83 11/20/22 09:10 30 11/20/22 10:00 57 L 11/20/22 11:16 63 100 Mechanical Ventilation 11/20/22 11:52 78 13 11/20/22 11:52 30 11/20/22 11:51 100 Mechanical Ventilation 11/20/22 08:00 30 11/20/22 08:00 100 Mechanical Ventilation 30 11/20/22 08:00 64 11/20/22 11:08 57 L 80/58 L 11/20/22 10:00 97.7 F 59 L 13 90/65 L 100 11/20/22
--- NOTE | 2022-11-20 15:05 | P.PNNP_ITS ---
Progress Note: A&P Assessment and Plan (1) End stage renal disease: Code(s): N18.6 - End stage renal disease Status: Chronic Assessment and Plan: * HD today * continue HD 3x/week while hospitalized * follow electrolytes, volume status, and clearance (2) Acute respiratory failure: Code(s): J96.00 - Acute respiratory failure, unspecified whether with hypoxia or hypercapnia Status: Acute Assessment and Plan: * suspect secondary to pulmonary edema +/- pneumonia (possibly aspiration) * on ventilator support * follow CXR results * push fluid removal as tolerated with HD * weaning when more stable (3) Septic shock: Code(s): A41.9 - Sepsis, unspecified organism; R65.21 - Severe sepsis with septic shock Status: Acute Assessment and Plan: * as noted by worsening WBC, hypoxia, lactic acidosis, and shock * follow culture data * blood culture with Enterococcus + Staph aureus * on IV antibiotics * vasopressor support as needed - wean as tolerated * follow repeat cultures (4) Encephalopathy: Code(s): G93.40 - Encephalopathy, unspecified Status: Acute Assessment and Plan: * had been improving until recent events * thought to be due to Valtrex overdose * elevated liver enzymes, elevated bilirubin, and elevated ammonia noted as well (but are trending down) * suspect that the liver issues are due to the Valtrex as well * head CT negative * b12 and Folate okay * TSH is high -- getting IV Synthroid * s/p LP done (on 11/11/22) - follow-up on viral studies (Chris Pickard Viruus DNA PCR positive) (5) Herpes zoster infection of thoracic region: Code(s): B02.9 - Zoster without complications Status: Acute Assessment and Plan: * holding antiviral therapy at this time * continue supportive therapy (6) Atrial fibrillation: Qualifiers: Atrial fibrillation type: paroxysmal Qualified Code(s): I48.0 - Paroxysmal atrial fibrillation Code(s): I48.91 - Unspecified atrial fibrillation Status: Chronic Assessment and Plan: * rate control strategy * anticoagulation on hold (in case further procedures need to be done) (7) Insulin dependent diabetes mellitus: Status: Acute Assessment and Plan: * follow accuchecks * glycemic control per hospitalists/dynamicist Will continue to follow. Subjective Date/time seen: 11/20/22 15:05 Interval history: Follow-up for end stage renal disease on hemodialysis. Tolerating dialysis treatment at the time of my visit (seen on HD at 2:55PM); remains intubated/sedated and on mechanical ventilation; was off levophed but back on it due to soft blood pressure readings; no apparent distress; and son at bedside and we discussed the situation. Exam Narrative: General: ill appearing male intubated and on mechanical ventilation Heart: tachycardic normal S1 and S2; no rub Lungs: coarse breath sounds with a few crackles Abdomen: soft, nontender, nondistended, positive bowel sounds Extremities: no cyanosis or clubbing; 1+ edema Skin: warm and intact Objective Data Vital Signs Vital Signs: Vital Signs Temp Pulse Resp BP Pulse Ox O2 Del Method FiO2 11/20/22 15:00 73 92/76 L 11/20/22 14:48 98.4 F 76 13 112/81 100 11/20/22 14:26 81 100 Mechanical Ventilation
[2022-11-20] MEDS: EPOETIN ALFA-EPBX 10,000 UNITS/ML VIAL 10000 UNITS IV PUSH (15:31)
[2022-11-20 16:53] LABS: Glucose Point of Care 141 mg/dl (65-105)
[2022-11-20] MEDS: ONDANSETRON INJ 4 MG/2 ML VIAL IV PUSH (19:47)
[2022-11-20] MEDS: HYDROCORTISONE SODIUM SUCCINATE 100 MG/2 ML VIAL 50 MG IV PUSH (19:49)
--- NOTE | 2022-11-20 19:53 | PC.NURSE ---
Patient vomited post dialysis, PRN zofran given and tube feeding shut off. Spoke with Dr. Wharton, verify tube placement of OG, Hold tube feeds for 2 hours, then restart at half rate increasing by 10ml Q4hr until at goal.
[2022-11-20] MEDS: MINERAL OIL/WHITE PETROLATUM OINTMENT 1 APPLIC EACH EYE (21:16)
[2022-11-20] MEDS: AMIODARONE HCL 200 MG TABLET FEED TUBE (21:16)
[2022-11-20] MEDS: dexmedeTOMIDine 400 MCG/100 ML 400 MCG/100 ML BAG 10.58 MCG IV CONT (22:43)
[2022-11-21] VITALS (31 sets, daily range): BP systolic 68–116; BP diastolic 56–81; PULSE 65–106; RESP 15–38; TEMP 35.8–37.6; O2SAT 96–100
[2022-11-21 00:15] LABS: Glucose Point of Care 213 mg/dl (65-105)
[2022-11-21] MEDS: INSULIN ASPART (*BKC) 100 UNITS/ML SUB-Q ×3 (00:15→23:25)
[2022-11-21 04:33] LABS: Hematocrit 33.2 % (42.0-52.0); Hemoglobin 10.1 g/dL (14.0-18.0); Mean Corpuscular HGB Conc 30.4 g/dl (32-36); Mean Corpuscular Hemoglobin 32.4 pg (26-34); Mean Corpuscular Volume 106.4 fl (80-100); Mean Platelet Volume 10.4 fl (7.4-10.4); Platelet Count Result 201 k/mm3 (150-375); Red Blood Count 3.12 M/mm3 (4.6-6.20); Red Cell Distribution Width 23.2 % (11.5-14.5); White Blood Count 17.2 K/mm3 (4.5-10.0)
[2022-11-21 04:43] LABS: INR 1.2
[2022-11-21 04:54] LABS: Alanine Aminotransferase 128 U/L (6-50); Albumin Level 3.7 g/dL (3.5-5.1); Alkaline Phosphatase 120 U/L (38-126); Anion Gap 11 mmol/L (8-16); Aspartate Amino Transferase 75 U/L (17-59); Bilirubin,Total 1.5 mg/dL (0.2-1.3); Blood Urea Nitrogen 45 mg/dL (9-20); Calcium 9.2 mg/dL (8.4-10.2); Carbon Dioxide 29 mmol/L (22-30); Chloride 98 mmol/L (98-107); Estimated CRCL calculation 18 ml/min; Estimated Glomerular Filt Rate 17; Glucose 246 mg/dL (65-110); Magnesium 2.4 mg/dL (1.6-2.3); Phosphorus 3.2 mg/dL (2.5-4.5); Potassium 4.2 mmol/L (3.4-5.0); Sodium 138 mmol/L (137-145)
[2022-11-21 04:58] LABS: Band Neutrophils Percent 4 % (0-6); Large Platelets Present; Lymphocytes Absolute Manual 1.37 K/mm3 (1.1-4.5); Monocytes Absolute Manual 0.51 K/mm3 (0.1-0.90); Monocytes Percent Manual 3 % (3-9); Myelocytes Percent 1 %; Neutrophils Absolute Manual 15.13 K/mm3 (1.3-6.7); Neutrophils Percent Manual 84 % (46-73); Platelet Estimate Adequate (Adequate); Total Cells Counted 100
[2022-11-21 04:59] LABS: Anisocytosis 2+ (NORMAL); Macrocytosis 2+ (NORMAL); Poikilocytosis 1+ (NORMAL); Schistocytes None Seen (NORMAL)
[2022-11-21 05:00] LABS: Burr Cells 1+ (NORMAL); Hypochromasia 1+ (NORMAL)
[2022-11-21] MEDS: LEVOTHYROXINE SODIUM INJ 100 MCG/5 ML VIAL 50 MCG IV PUSH (05:49)
[2022-11-21] MEDS: HYDROCORTISONE SODIUM SUCCINATE 100 MG/2 ML VIAL 50 MG IV PUSH ×2 (05:50→17:41)
[2022-11-21] MEDS: CENTRAL LINE FLUSH 10 ML IV PUSH ×4 (05:52→20:27)
[2022-11-21 05:53] LABS: Alveolar/Arterial O2 Gradient 0.5 mmHg; Base Excess ABG -1.2 mEq/l (+/-2.0); Carboxyhemoglobin 0.3 % THb (0-2.0); Fractional Inspired Oxygen 25 %; HCO3 ABG 24.2 mEq/l (22.0-26.0); Methemoglobin ABG 0.2 %THb (0-1.5); Oxygen Content ABG 15.3 %vol (16.0-22.0); Oxygen Saturation ABG 98.4 % (95.0-100.0); Oxyhemoglobin 97.5 % THb (90.0-100.0); PO2 ABG 126.7 mmHg (80.0-100.0); PO2 FiO2 Ratio Arterial Blood 5.07 %; pH ABG 7.368 (7.350-7.450)
[2022-11-21 05:54] LABS: Arterial Blood Gas Vent Mode CMV; Arterial Blood Gas Ventilator rate 20 /MIN; Device VENTILATOR; Modified Allen's Test Unable to perform; Site Drawn LEFT RADIAL
[2022-11-21 05:55] LABS: Arterial Blood Gas PEEP 5 cmH2O; Arterial Blood Gas Tidal Volume 420 ml
[2022-11-21 05:55] LABS: Glucose Point of Care 260 mg/dl (65-105)
[2022-11-21] MEDS: dexmedeTOMIDine 400 MCG/100 ML 400 MCG/100 ML BAG 8.46 MCG IV CONT (07:58)
[2022-11-21] MEDS: MINERAL OIL/WHITE PETROLATUM OINTMENT 1 APPLIC EACH EYE (08:34)
[2022-11-21] MEDS: MIDODRINE HCL 10 MG TABLET PO ×3 (08:34→16:10)
[2022-11-21] MEDS: PANTOPRAZOLE SODIUM IV 40 MG VIAL IV PUSH ×2 (08:34→20:26)
[2022-11-21] MEDS: AMIODARONE HCL 200 MG TABLET FEED TUBE ×2 (08:34→16:10)
[2022-11-21] MEDS: ASPIRIN 81 MG CHEWABLE TABLET FEED TUBE (08:35)
[2022-11-21] MEDS: APIXABAN 2.5 MG TABLET PO ×2 (08:35→16:10)
[2022-11-21] MEDS: AMPICILLIN SULB 3 GM/NS 100 ML 3 GM/100 ML VIAL IVPB ×2 (08:42→20:25)
--- NOTE | 2022-11-21 11:54 | PM.IMPN ---
Progress Note: A&P Assessment and Plan (1) Acute respiratory failure: Code(s): J96.00 - Acute respiratory failure, unspecified whether with hypoxia or hypercapnia Status: Acute Assessment and Plan: Acute respiratory failure likely secondary to pulmonary edema with possibility of pneumonia which could be aspiration -Patient now intubated and on mechanical ventilatio on 30% FiO2 and 5 of PEEP Continue antibiotics. That being managed per ICU. (2) Sepsis: Code(s): A41.9 - Sepsis, unspecified organism Status: Acute Assessment and Plan: On presentation patient was febrile with increasing WBC count, shock and increased hypoxia pointing towards towards sepsis likely secondary to pneumonia 11/16: Blood cultures is growing Enterococcus faecalis and Staph aureus (MSSA) 11/16: sputum cultures negative procalcitonin level 2.0 11/16: MRSA screen negative -11/19/2022: Switched to Unasyn, linezolid discontinued As Enterococcus faecalis and Staph aureus are pansensitive (3) Pneumonia: Code(s): J18.9 - Pneumonia, unspecified organism Status: Acute Assessment and Plan: See above (4) Shock: Code(s): R57.9 - Shock, unspecified Status: Acute Assessment and Plan: Likely combination of sepsis and cardiogenic Patient overall volume overloaded hence only will give small IV fluid bolus Continue Levophed infusion, ventilated MAP > 65 mmHg for adequate end organ perfusion vasopressin weaned off Weaning stress dose steroids 11/16: Echocardiogram Summary ? 1. Complete two-dimensional, color flow and Doppler transthoracic echocardiogram is performed. ? 2. Left ventricular chamber dimension is normal. ? 3. Left ventricular systolic function is normal, estimated at 65-70%. ? 4. Left ventricular septal wall motion is abnormal with septal motion related to bundle branch block. ? 5. Right ventricular chamber dimension is moderately enlarged. ? 6. Right ventricular systolic function is reduced. ? 7. Left atrial chamber dimension is moderately enlarged. ? 8. Right atrial chamber dimension is moderately enlarged. ? 9. S/p prior TAVR. Bioprosthetic aortic valve is well seated. Mean gradient across valve is 13mmHg. ? 10. The mitral valve annulus is severely calcified. ? 11. Known mitral valve replacement with #25 Epic porcine valve. Mean gradient across valve is 13mmHg. ? 12. 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 ? 13. There is mild tricuspid valve regurgitation. ? 14. Dilated inferior vena cava with <50% collapse upon inspiration consistent with elevated right atrial pressure. ? 15. Left pleural effusion present. (5) Encephalopathy: Code(s): G93.40 - Encephalopathy, unspecified Status: Acute Assessment and Plan: Monitor (6) Herpes zoster infection of thoracic region: Code(s): B02.9 - Zoster without complications Status: Acute Assessment and Plan: Patient was treated earlier and currently off of antiviral drugs (7) Antiviral drug overdose: Code(s): T37.5X1A - Poisoning by antiviral drugs, accidental (unintentional), initial encounter Status: Acute Assessment and Plan: The patient has been taking 1000 mg of valacyclovir t.i.d. as detailed above. His altered mental status and delirium are likely result of iatrogenic overdose. (8) End-stage renal disease on hemodialysis: Code(s): N18.6 - End stage renal disease; Z99.2 - Dependence on renal dialysis Status: Acute Assessment and Plan: Nephrology following for dialysis. Patient received hemodialysis yesterday 4 L fluid was removed. Patient is again receiving ultrafiltration this morning with goal of 3 L -dialyzed on 11/17/2022 and 11/18/2022 per Nephrology -dialysis per nephrology (9) Insulin dependent diabetes mellitus: Status: Acute Assessment and Plan: Sliding scale insulin and Accu-Cheks -add
[2022-11-21 12:02] LABS: Glucose Point of Care 211 mg/dl (65-105)
[2022-11-21 12:19] LABS: Alveolar/Arterial O2 Gradient 59.6 mmHg; Base Excess ABG 1.3 mEq/l (+/-2.0); Fractional Inspired Oxygen 25 %; HCO3 ABG 26.3 mEq/l (22.0-26.0); Oxygen Content ABG 14.9 %vol (16.0-22.0); Oxygen Saturation ABG 93.2 % (95.0-100.0); Oxyhemoglobin 92.6 % THb (90.0-100.0); PCO2 ABG 43.6 mmHg (35.0-45.0); PO2 ABG 66.9 mmHg (80.0-100.0); PO2 FiO2 Ratio Arterial Blood 2.68 %; Total Hemoglobin 11.4 g/dL (12.0-18.0); pH ABG 7.399 (7.350-7.450)
[2022-11-21 12:20] LABS: Modified Allen's Test Pass; Site Drawn LEFT RADIAL
--- NOTE | 2022-11-21 12:20 | P.PNNP_ITS ---
Progress Note: A&P Assessment and Plan (1) End stage renal disease: Code(s): N18.6 - End stage renal disease Status: Chronic Assessment and Plan: * HD yesterday - plan next treatment tomorrow * continue HD 3x/week while hospitalized * follow electrolytes, volume status, and clearance (2) Acute respiratory failure: Code(s): J96.00 - Acute respiratory failure, unspecified whether with hypoxia or hypercapnia Status: Acute Assessment and Plan: * suspect secondary to pulmonary edema +/- pneumonia (possibly aspiration) * on ventilator support * follow CXR results * push fluid removal as tolerated with HD * weaning as tolerated (3) Septic shock: Code(s): A41.9 - Sepsis, unspecified organism; R65.21 - Severe sepsis with septic shock Status: Acute Assessment and Plan: * as noted by worsening WBC, hypoxia, lactic acidosis, and shock * follow culture data * blood culture with Enterococcus + Staph aureus * on IV antibiotics * vasopressor support as needed - wean as tolerated * follow repeat cultures (4) Encephalopathy: Code(s): G93.40 - Encephalopathy, unspecified Status: Acute Assessment and Plan: * had been improving * thought to be due to Valtrex overdose * elevated liver enzymes, elevated bilirubin, and elevated ammonia noted as well (but are trending down) * suspect that the liver issues are due to the Valtrex as well * head CT negative * b12 and Folate okay * TSH is high -- getting IV Synthroid * s/p LP done (on 11/11/22) - follow-up on viral studies (Chris Pickard Viruus DNA PCR positive) * follow mentation once extubated (5) Herpes zoster infection of thoracic region: Code(s): B02.9 - Zoster without complications Status: Acute Assessment and Plan: * holding antiviral therapy at this time * continue supportive therapy (6) Atrial fibrillation: Qualifiers: Atrial fibrillation type: paroxysmal Qualified Code(s): I48.0 - Paroxysmal atrial fibrillation Code(s): I48.91 - Unspecified atrial fibrillation Status: Chronic Assessment and Plan: * rate control strategy * anticoagulation on hold (in case further procedures need to be done) (7) Insulin dependent diabetes mellitus: Status: Acute Assessment and Plan: * follow accuchecks * glycemic control per hospitalists/facilities management executive Will continue to follow. Subjective Date/time seen: 11/21/22 12:20 Interval history: Follow-up for end stage renal disease on hemodialysis. Tolerated dialysis treatment yesterday with 3L fluid removal; remains intubated and on mechanical ventilation at this time; awake and following commands with sedation on hold; no other issues/events overnight or earlier this morning; no apparent distress noted on my visit. Exam Narrative: General: ill appearing male intubated and on mechanical ventilation Heart: tachycardic normal S1 and S2; no rub Lungs: coarse breath sounds with a few crackles Abdomen: soft, nontender, nondistended, positive bowel sounds Extremities: no cyanosis or clubbing; 1+ edema Skin: warm and intact Objective Data Vital Signs Vital Signs: Vital Signs Temp Pulse Resp BP Pulse Ox O2 Del Method FiO2 11/21/22 12:00 100 Mechanical Ventilation 25 11/21/22 12:00 99.2 F 86 19 95/67 L 100
--- NOTE | 2022-11-21 12:20 | PM.PNNEP ---
Progress Note: A&P Assessment and Plan (1) End stage renal disease: Code(s): N18.6 - End stage renal disease Status: Chronic Assessment and Plan: HD yesterday - plan next treatment tomorrow continue HD 3x/week while hospitalized follow electrolytes, volume status, and clearance (2) Acute respiratory failure: Code(s): J96.00 - Acute respiratory failure, unspecified whether with hypoxia or hypercapnia Status: Acute Assessment and Plan: suspect secondary to pulmonary edema +/- pneumonia (possibly aspiration) on ventilator support follow CXR results push fluid removal as tolerated with HD weaning as tolerated (3) Septic shock: Code(s): A41.9 - Sepsis, unspecified organism; R65.21 - Severe sepsis with septic shock Status: Acute Assessment and Plan: as noted by worsening WBC, hypoxia, lactic acidosis, and shock follow culture data blood culture with Enterococcus + Staph aureus on IV antibiotics vasopressor support as needed - wean as tolerated follow repeat cultures (4) Encephalopathy: Code(s): G93.40 - Encephalopathy, unspecified Status: Acute Assessment and Plan: had been improving thought to be due to Valtrex overdose elevated liver enzymes, elevated bilirubin, and elevated ammonia noted as well (but are trending down) suspect that the liver issues are due to the Valtrex as well head CT negative b12 and Folate okay TSH is high -- getting IV Synthroid s/p LP done (on 11/11/22) - follow-up on viral studies (Chris Pickard Viruus DNA PCR positive) follow mentation once extubated (5) Herpes zoster infection of thoracic region: Code(s): B02.9 - Zoster without complications Status: Acute Assessment and Plan: holding antiviral therapy at this time continue supportive therapy (6) Atrial fibrillation: Qualifiers: Atrial fibrillation type: paroxysmal Qualified Code(s): I48.0 - Paroxysmal atrial fibrillation Code(s): I48.91 - Unspecified atrial fibrillation Status: Chronic Assessment and Plan: rate control strategy anticoagulation on hold (in case further procedures need to be done) (7) Insulin dependent diabetes mellitus: Status: Acute Assessment and Plan: follow accuchecks glycemic control per hospitalists/revenue stamper Will continue to follow. Subjective Date/time seen: 11/21/22 12:20 Interval history: Follow-up for end stage renal disease on hemodialysis. Tolerated dialysis treatment yesterday with 3L fluid removal; remains intubated and on mechanical ventilation at this time; awake and following commands with sedation on hold; no other issues/events overnight or earlier this morning; no apparent distress noted on my visit. Exam Narrative: General: ill appearing male intubated and on mechanical ventilation Heart: tachycardic normal S1 and S2; no rub Lungs: coarse breath sounds with a few crackles Abdomen: soft, nontender, nondistended, positive bowel sounds Extremities: no cyanosis or clubbing; 1+ edema Skin: warm and intact Objective Data Vital Signs Vital Signs: Vital Signs Temp Pulse Resp BP Pulse Ox O2 Del Method FiO2 11/21/22 12:00 100 Mechanical Ventilation 11/21/22 12:00 99.2 F 86 19 95/67 L 100 11/21/22 11:05 83 100 Mechanical Ventilation 11/21/22 10:45 83 100 Mechanical Ventilation 11/21/22 10:47 25 11/21/22 10:47 87/63 L 11/21/22 09:30 86 16 11/21/22 10:00 84 11/21/22 08:00 86 11/21/22 10:00 99.2 F 85 27 H 88/63 L 100 11/21/22 08:24 25 11/21/22 08:00 100 Mechanical Ventilation 11/21/22 08:00 25 11/21/22 09:22 76/57 L 11/21/22 09:08 68/56 L 11/21/22 08:59 79 16 11/21/22 08:45 84 100 Mechanical Ventilation 11/21/22 08:35 84 15
[2022-11-21 12:21] LABS: Device VENTILATOR
[2022-11-21 12:22] LABS: Arterial Blood Gas PEEP 5 cmH2O; Arterial Blood Gas Pressure Support 8 cmH2O; Arterial Blood Gas Vent Mode SPONTANEOUS
--- NOTE | 2022-11-21 12:42 | PCFNICU ---
ICU Rounding Note: Pt current nutrition is Nepro @ goal rate 50 ml/h with Prosource modular 1x per day, on hold for breathing trial. . Nutrition recommendation: Resume current orders as medically appropriate. Last recorded weight is 81.4 kg. Bowel Motility: Last BM 11/17/22 Labs Reviewed: Hgb 10.1, Hct 33.2, BUN 45, Cre 3.7, Glu 26 Meds Noted: Novolog, lantus, zofran, prtonix, levophed Skin: Shingles Additional Notes: Breathing trial today. Pt had some vomiting for which tube feeding was held and he was given Reglan. Sedation is currently off. On small dose of Levophed not requiring a reduction in tube feeding. Following daily in ICU rounds. Monitor status, intake, wt, labs. Follow up in 3 days. .
--- NOTE | 2022-11-21 15:11 | WPDINTPN ---
Progress Note: A&P Assessment and Plan (1) Acute respiratory failure: Code(s): J96.00 - Acute respiratory failure, unspecified whether with hypoxia or hypercapnia Status: Acute Assessment and Plan: Acute respiratory failure likely secondary to pulmonary edema with possibility of pneumonia which could be aspiration -Patient now intubated and on mechanical ventilatio on 30% FiO2 and 5 of PEEP -chest x-ray this morning shows mild pulmonary edema -patient received hemodialysis on 11/17/2022 and 11/18/2022 -11/20: Patient was dialyzed with 3000 mL in fluid removal -11/21: Patient was on ASV mode, placed him in SBT and will evaluate for extubation 11/16: CT chest : showed congestive heart failure with cardiomegaly, mild pulmonary edema and small bilateral pleural effusions, dependent consolidation bilateral upper and lower lobes most likely atelectasis although superimposed pneumonia difficult to exclude. Small pericardial effusion (2) Sepsis: Code(s): A41.9 - Sepsis, unspecified organism Status: Acute Assessment and Plan: On presentation patient was febrile with increasing WBC count, shock and increased hypoxia pointing towards towards sepsis likely secondary to pneumonia 11/16: Blood cultures is growing Enterococcus faecalis and Staph aureus (MSSA) 11/16: sputum cultures negative procalcitonin level 2.0 11/16: MRSA screen negative -11/20/2022: Repeat blood cultures negative x2 so far -11/19/2022: Continue Unasyn, As Enterococcus faecalis and Staph aureus sensitive to ampicillin 11/16: CT chest abdomen pelvis IMPRESSION: 1. Likely congestive heart failure with cardiomegaly, mild pulmonary edema and small bilateral pleural effusions. 2. Dependent consolidation in the bilateral upper and lower lobes most likely atelectasis although superimposed pneumonia difficult to exclude. 3. Small pericardial effusion. 4. Nonspecific mediastinal lymphadenopathy which is most likely reactive. 5. Cholelithiasis. 6. Small amount of nonspecific ascites in the abdomen and pelvis. (3) Pneumonia: Code(s): J18.9 - Pneumonia, unspecified organism Status: Acute Assessment and Plan: See above (4) Shock: Code(s): R57.9 - Shock, unspecified Status: Acute Assessment and Plan: Likely combination of sepsis and cardiogenic Patient overall volume overloaded hence only will give small IV fluid bolus Continue Levophed infusion, ventilated MAP > 65 mmHg for adequate end organ perfusion vasopressin weaned off Weaning stress dose steroids 11/16: Echocardiogram Summary ? 1. Complete two-dimensional, color flow and Doppler transthoracic echocardiogram is performed. ? 2. Left ventricular chamber dimension is normal. ? 3. Left ventricular systolic function is normal, estimated at 65-70%. ? 4. Left ventricular septal wall motion is abnormal with septal motion related to bundle branch block. ? 5. Right ventricular chamber dimension is moderately enlarged. ? 6. Right ventricular systolic function is reduced. ? 7. Left atrial chamber dimension is moderately enlarged. ? 8. Right atrial chamber dimension is moderately enlarged. ? 9. S/p prior TAVR. Bioprosthetic aortic valve is well seated. Mean gradient across valve is 13mmHg. ? 10. The mitral valve annulus is severely calcified. ? 11. Known mitral valve replacement with #25 Epic porcine valve. Mean gradient across valve is 13mmHg. ? 12. 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 ? 13. There is mild tricuspid valve regurgitation. ? 14. Dilated inferior vena cava with <50% collapse upon inspiration consistent with elevated right atrial pressure. ? 15. Left pleural effusion present. (5) Encephalopathy: Code(s): G93.40 - Encephalopathy, unspecified Status: Acute Assessment and Plan: RESOLVED Patient was being evaluated for encephalopathy since admission. -It was suspected to be secondary to ia
[2022-11-21] MEDS: ACETAMINOPHEN 325 MG TABLET 650 MG FEED TUBE ×2 (16:08→21:02)
[2022-11-21] MEDS: SILVERGEL (ELTA) 45 ML 1 APPLIC TOPICAL (16:10)
[2022-11-21 17:55] LABS: Glucose Point of Care 198 mg/dl (65-105)
[2022-11-21] MEDS: metroNIDAZOLE 500 MG/ISO 100ML 500 MG/100 ML BAG 100 MG IVPB (18:41)
[2022-11-21] MEDS: LIDOCAINE HCL 4% SOLN 50 ML BTL 1 APPLIC TOPICAL (21:42)
[2022-11-21 23:26] LABS: Glucose Point of Care 204 mg/dl (65-105)
[2022-11-22] VITALS (32 sets, daily range): BP systolic 69–96; BP diastolic 56–74; PULSE 95–140; RESP 12–25; TEMP 35.5–36.5; O2SAT 93–99
[2022-11-22] MEDS: metroNIDAZOLE 500 MG/ISO 100ML 500 MG/100 ML BAG 100 MG IVPB ×2 (00:59→06:42)
[2022-11-22] MEDS: ACETAMINOPHEN 325 MG TABLET 650 MG FEED TUBE (00:59)
[2022-11-22] MEDS: NOREPINEPHRINE 8 MG/D5W 250 ML 8 MG/250 ML BAG 5.63 MG IV CONT (03:45)
[2022-11-22] MEDS: HYDROCORTISONE SODIUM SUCCINATE 100 MG/2 ML VIAL 50 MG IV PUSH (06:00)
[2022-11-22] MEDS: LEVOTHYROXINE SODIUM INJ 100 MCG/5 ML VIAL 50 MCG IV PUSH (06:00)
[2022-11-22] MEDS: CENTRAL LINE FLUSH 10 ML IV PUSH ×4 (06:04→21:22)
[2022-11-22 06:25] LABS: Basophils Absolute Auto 0.1 K/mm3 (0.0-0.1); Basophils Percent Auto 0.3 % (0.2-1.2); Hematocrit 34.4 % (42.0-52.0); Hemoglobin 10.5 g/dL (14.0-18.0); Immature Granulocyte Absolute 0.63 K/mm3 (0.00-0.031); Immature Granulocyte Percent A 3.5 % (0-0.5); Lymphocytes Absolute Auto 0.85 K/mm3 (0.9-3.2); Lymphocytes Percent Auto 4.7 % (18.3-44.2); Mean Corpuscular HGB Conc 30.5 g/dl (32-36); Mean Corpuscular Hemoglobin 31.7 pg (26-34); Mean Corpuscular Volume 103.9 fl (80-100); Mean Platelet Volume 11.3 fl (7.4-10.4); Monocytes Absolute Auto 0.6 K/mm3 (0.1-0.6); Monocytes Percent Auto 3.4 % (2.6-8.5); Neutrophils Absolute Auto 15.8 K/mm3 (1.3-6.7); Neutrophils Percent Auto 88.1 % (45.5-73.1); Platelet Count Result 235 k/mm3 (150-375); Red Blood Count 3.31 M/mm3 (4.6-6.20); Red Cell Distribution Width 23.3 % (11.5-14.5); White Blood Count 17.9 K/mm3 (4.5-10.0)
[2022-11-22 06:40] LABS: Alanine Aminotransferase 91 U/L (6-50); Albumin Level 3.4 g/dL (3.5-5.1); Alkaline Phosphatase 103 U/L (38-126); Anion Gap 13 mmol/L (8-16); Aspartate Amino Transferase 31 U/L (17-59); Bilirubin,Total 1.4 mg/dL (0.2-1.3); Blood Urea Nitrogen 70 mg/dL (9-20); Calcium 9.4 mg/dL (8.4-10.2); Carbon Dioxide 26 mmol/L (22-30); Chloride 98 mmol/L (98-107); Estimated CRCL calculation 13 ml/min; Estimated Glomerular Filt Rate 12; Glucose 194 mg/dL (65-110); Phosphorus 4.1 mg/dL (2.5-4.5); Potassium 4.3 mmol/L (3.4-5.0); Sodium 137 mmol/L (137-145)
[2022-11-22 06:43] LABS: INR 1.1; Prothrombin Time 14.9 Seconds (11.1-14.7)
[2022-11-22 06:46] LABS: Glucose Point of Care 187 mg/dl (65-105)
[2022-11-22 07:04] LABS: Anisocytosis 3+ (NORMAL); Macrocytosis 1+ (NORMAL); Platelet Estimate Adequate (Adequate); Schistocytes None Seen (NORMAL)
[2022-11-22] MEDS: ALBUMIN HUMAN 25% 25 GM/100 ML 100 ML IVPB (08:18)
[2022-11-22] MEDS: PANTOPRAZOLE SODIUM IV 40 MG VIAL IV PUSH ×2 (08:27→21:21)
[2022-11-22] MEDS: INSULIN GLARGINE (*BKC) 100 UNITS/ML SUB-Q (08:27)
[2022-11-22] MEDS: SILVERGEL (ELTA) 45 ML 1 APPLIC TOPICAL (08:27)
[2022-11-22] MEDS: ASPIRIN 81 MG CHEWABLE TABLET FEED TUBE (08:28)
[2022-11-22] MEDS: MIDODRINE HCL 10 MG TABLET PO ×3 (08:28→17:19)
[2022-11-22] MEDS: AMIODARONE HCL 200 MG TABLET FEED TUBE ×2 (08:28→17:19)
[2022-11-22] MEDS: APIXABAN 2.5 MG TABLET PO ×2 (08:28→17:19)
[2022-11-22] MEDS: AMPICILLIN SULB 3 GM/NS 100 ML 3 GM/100 ML VIAL IVPB ×2 (08:37→21:20)
--- NOTE | 2022-11-22 11:04 | PM.PNNEP ---
Progress Note: A&P Assessment and Plan (1) End stage renal disease: Code(s): N18.6 - End stage renal disease Status: Chronic Assessment and Plan: HD today continue HD 3x/week while hospitalized follow electrolytes, volume status, and clearance (2) Acute respiratory failure: Code(s): J96.00 - Acute respiratory failure, unspecified whether with hypoxia or hypercapnia Status: Acute Assessment and Plan: resolving/resolved suspect secondary to pulmonary edema +/- pneumonia (possibly aspiration) on ventilator support follow CXR results push fluid removal as tolerated with HD weaning as tolerated (3) Septic shock: Code(s): A41.9 - Sepsis, unspecified organism; R65.21 - Severe sepsis with septic shock Status: Acute Assessment and Plan: as noted by worsening WBC, hypoxia, lactic acidosis, and shock follow culture data blood culture with Enterococcus + Staph aureus repeat cultures (11/20/22) positive as well suspect will need MIKE to r/o endocarditis on IV antibiotics vasopressor support as needed - wean as tolerated (4) Encephalopathy: Code(s): G93.40 - Encephalopathy, unspecified Status: Acute Assessment and Plan: had been improving thought to be due to Valtrex overdose but sepsis playing a role as well elevated liver enzymes, elevated bilirubin, and elevated ammonia noted as well (but are trending down) suspect that the liver issues are due to the Valtrex as well head CT negative b12 and Folate okay TSH is high -- getting IV Synthroid s/p LP done (on 11/11/22) - follow-up on viral studies (Chris Pickard Viruus DNA PCR positive) follow mentation now that he is extubated (5) Herpes zoster infection of thoracic region: Code(s): B02.9 - Zoster without complications Status: Acute Assessment and Plan: holding antiviral therapy at this time continue supportive therapy (6) Atrial fibrillation: Qualifiers: Atrial fibrillation type: paroxysmal Qualified Code(s): I48.0 - Paroxysmal atrial fibrillation Code(s): I48.91 - Unspecified atrial fibrillation Status: Chronic Assessment and Plan: rate control strategy anticoagulation on hold (in case further procedures need to be done) (7) Insulin dependent diabetes mellitus: Status: Acute Assessment and Plan: follow accuchecks glycemic control per hospitalists/music pastor Will continue to follow. Subjective Date/time seen: 11/22/22 11:04 Interval history: Follow-up for end stage renal disease on hemodialysis. Tolerating dialysis treatment at the time of my visit (seen on HD at around 10:50AM); extubated yesterday afternoon with relative stability in respiratory status (on 2L by nasal cannula); awake and alert with major complaint being pain where shingles is localized; NG tube in place (inserted due to concerns of gastric distension and possible gastroparesis); remains on low dose levophed as well. Exam Narrative: General: ill appearing male in NAD Heart: tachycardic normal S1 and S2; no rub Lungs: coarse breath sounds Abdomen: soft, nontender, nondistended, positive bowel sounds Extremities: no cyanosis or clubbing; 1+ edema Skin: no rash Objective Data Vital Signs Vital Signs: Vital Signs Temp Pulse Resp BP Pulse Ox O2 Del Method O2 Flow Rate 11/22/22 11:00 108 H 69/59 L 11/22/22 10:00 100 94/74 L 11/22/22 10:00 96.1 F L 100 15 94/74 L 93 11/22/22 12:00 136 H 11/22/22 10:00 100 11/22/22 08:00 96 11/22/22 08:00 96.2 F L 99 18 87/70 L 96 11/22/22 13:30 140 H 78/61 L 11/22/22 13:15 130 H 85/61 L 11/22/22 13:00 140 H 76/58 L 11/22/22 12:45 138 H 81/63 L 11/22/22 12:30 138 H 87/66 L 11/22/22 12:15 130 H 83/65 L 11/22/22 12:00 128 H 83/67 L 11/22/22 11:45
--- NOTE | 2022-11-22 11:04 | P.PNNP_ITS ---
Progress Note: A&P Assessment and Plan (1) End stage renal disease: Code(s): N18.6 - End stage renal disease Status: Chronic Assessment and Plan: * HD today * continue HD 3x/week while hospitalized * follow electrolytes, volume status, and clearance (2) Acute respiratory failure: Code(s): J96.00 - Acute respiratory failure, unspecified whether with hypoxia or hypercapnia Status: Acute Assessment and Plan: * resolving/resolved * suspect secondary to pulmonary edema +/- pneumonia (possibly aspiration) * on ventilator support * follow CXR results * push fluid removal as tolerated with HD * weaning as tolerated (3) Septic shock: Code(s): A41.9 - Sepsis, unspecified organism; R65.21 - Severe sepsis with septic shock Status: Acute Assessment and Plan: * as noted by worsening WBC, hypoxia, lactic acidosis, and shock * follow culture data * blood culture with Enterococcus + Staph aureus * repeat cultures (11/20/22) positive as well * suspect will need MIKE to r/o endocarditis * on IV antibiotics * vasopressor support as needed - wean as tolerated (4) Encephalopathy: Code(s): G93.40 - Encephalopathy, unspecified Status: Acute Assessment and Plan: * had been improving * thought to be due to Valtrex overdose but sepsis playing a role as well * elevated liver enzymes, elevated bilirubin, and elevated ammonia noted as well (but are trending down) * suspect that the liver issues are due to the Valtrex as well * head CT negative * b12 and Folate okay * TSH is high -- getting IV Synthroid * s/p LP done (on 11/11/22) - follow-up on viral studies (Chris Pickard Viruus DNA PCR positive) * follow mentation now that he is extubated (5) Herpes zoster infection of thoracic region: Code(s): B02.9 - Zoster without complications Status: Acute Assessment and Plan: * holding antiviral therapy at this time * continue supportive therapy (6) Atrial fibrillation: Qualifiers: Atrial fibrillation type: paroxysmal Qualified Code(s): I48.0 - Paroxysmal atrial fibrillation Code(s): I48.91 - Unspecified atrial fibrillation Status: Chronic Assessment and Plan: * rate control strategy * anticoagulation on hold (in case further procedures need to be done) (7) Insulin dependent diabetes mellitus: Status: Acute Assessment and Plan: * follow accuchecks * glycemic control 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 Subjective Date/time seen: 11/22/22 11:04 Interval history: Follow-up for end stage renal disease on hemodialysis. Tolerating dialysis treatment at the time of my visit (seen on HD at around 10:50AM); extubated yesterday afternoon with relative stability in respiratory status (on 2L by nasal cannula); awake and alert with major complaint being pain where shingles is localized; NG tube in place (inserted due to concerns of gastric distension and possible gastroparesis); remains on low dose levophed as well. Exam Narrative: General: ill appearing male in NAD Heart: tachycardic normal S1 and S2; no rub Lungs: coarse breath sounds Abdomen: soft, nontender, nondistended, positive bowel sounds Extremities: no cyanosis or clubbing; 1+ edema Skin: no rash Objective Data Vital Signs Vital Signs: Vital Signs
--- NOTE | 2022-11-22 11:16 | WPDINTPN ---
Progress Note: A&P Assessment and Plan (1) Acute respiratory failure: Code(s): J96.00 - Acute respiratory failure, unspecified whether with hypoxia or hypercapnia Status: Acute Assessment and Plan: Acute respiratory failure likely secondary to pulmonary edema with possibility of pneumonia which could be aspiration -intubated on 11/16 -extubated 11/21 -currently on 2 L nasal cannula with adequate O2 sats -patient received hemodialysis on 11/17/2022, 11/18/2022, 11/20/2022 -will be dialyzed again today on 11/22 11/16: CT chest : showed congestive heart failure with cardiomegaly, mild pulmonary edema and small bilateral pleural effusions, dependent consolidation bilateral upper and lower lobes most likely atelectasis although superimposed pneumonia difficult to exclude. Small pericardial effusion (2) Sepsis: Code(s): A41.9 - Sepsis, unspecified organism Status: Acute Assessment and Plan: On presentation patient was febrile with increasing WBC count, shock and increased hypoxia pointing towards towards sepsis likely secondary to pneumonia 11/16: Blood cultures is growing Enterococcus faecalis and Staph aureus (MSSA) 11/16: sputum cultures negative procalcitonin level 2.0 11/16: MRSA screen negative -11/20/2022: Repeat blood cultures Gram-positive cocci in chains 2/2 bottles -11/19/2022: Continue Unasyn, As Enterococcus faecalis and Staph aureus sensitive to ampicillin Will consult Cardiology for possible MIKE as patient has bioprosthetic valve to rule out endocarditis 11/16: CT chest abdomen pelvis IMPRESSION: 1. Likely congestive heart failure with cardiomegaly, mild pulmonary edema and small bilateral pleural effusions. 2. Dependent consolidation in the bilateral upper and lower lobes most likely atelectasis although superimposed pneumonia difficult to exclude. 3. Small pericardial effusion. 4. Nonspecific mediastinal lymphadenopathy which is most likely reactive. 5. Cholelithiasis. 6. Small amount of nonspecific ascites in the abdomen and pelvis. (3) Pneumonia: Code(s): J18.9 - Pneumonia, unspecified organism Status: Acute Assessment and Plan: See above (4) Shock: Code(s): R57.9 - Shock, unspecified Status: Acute Assessment and Plan: Likely combination of sepsis and cardiogenic Patient overall volume overloaded hence only will give small IV fluid bolus Continue Levophed infusion, ventilated MAP > 65 mmHg for adequate end organ perfusion vasopressin weaned off Weaning stress dose steroids -will add midodrine 11/16: Echocardiogram Summary ? 1. Complete two-dimensional, color flow and Doppler transthoracic echocardiogram is performed. ? 2. Left ventricular chamber dimension is normal. ? 3. Left ventricular systolic function is normal, estimated at 65-70%. ? 4. Left ventricular septal wall motion is abnormal with septal motion related to bundle branch block. ? 5. Right ventricular chamber dimension is moderately enlarged. ? 6. Right ventricular systolic function is reduced. ? 7. Left atrial chamber dimension is moderately enlarged. ? 8. Right atrial chamber dimension is moderately enlarged. ? 9. S/p prior TAVR. Bioprosthetic aortic valve is well seated. Mean gradient across valve is 13mmHg. ? 10. The mitral valve annulus is severely calcified. ? 11. Known mitral valve replacement with #25 Epic porcine valve. Mean gradient across valve is 13mmHg. ? 12. 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 ? 13. There is mild tricuspid valve regurgitation. ? 14. Dilated inferior vena cava with <50% collapse upon inspiration consistent with elevated right atrial pressure. ? 15. Left pleural effusion present. (5) Encephalopathy: Code(s): G93.40 - Encephalopathy, unspecified Status: Acute Assessment and Plan: RESOLVED Patient was being evaluated for encephalopathy since admission. -It was suspected to be s
--- NOTE | 2022-11-22 11:21 | PM.IMPN ---
Progress Note: A&P Assessment and Plan (1) Acute respiratory failure: Code(s): J96.00 - Acute respiratory failure, unspecified whether with hypoxia or hypercapnia Status: Acute Assessment and Plan: Acute respiratory failure likely secondary to pulmonary edema with possibility of pneumonia which could be aspiration -now extubated. Continue antibiotics. Overall respiratory status is much improved. (2) Sepsis: Code(s): A41.9 - Sepsis, unspecified organism Status: Acute Assessment and Plan: Cultures noted. Continue antibiotic Initial cultures positive with Staph and Enterococcus faecalis. These were drawn on 11/16. Repeat cultures on 11/20 positive for Gram-positive cocci in chains (3) Pneumonia: Code(s): J18.9 - Pneumonia, unspecified organism Status: Acute Assessment and Plan: See above (4) Shock: Code(s): R57.9 - Shock, unspecified Status: Acute Assessment and Plan: Improved (5) Encephalopathy: Code(s): G93.40 - Encephalopathy, unspecified Status: Acute Assessment and Plan: Improving (6) Herpes zoster infection of thoracic region: Code(s): B02.9 - Zoster without complications Status: Acute Assessment and Plan: Patient was treated earlier and currently off of antiviral drugs (7) Antiviral drug overdose: Code(s): T37.5X1A - Poisoning by antiviral drugs, accidental (unintentional), initial encounter Status: Acute Assessment and Plan: The patient has been taking 1000 mg of valacyclovir t.i.d. as detailed above. His altered mental status and delirium are likely result of iatrogenic overdose. (8) End-stage renal disease on hemodialysis: Code(s): N18.6 - End stage renal disease; Z99.2 - Dependence on renal dialysis Status: Acute Assessment and Plan: Continue dialysis. (9) Insulin dependent diabetes mellitus: Status: Acute Assessment and Plan: Sliding scale insulin and Accu-Cheks -will hold Lantus as patient may be extubated (10) Atrial fibrillation: Qualifiers: Atrial fibrillation type: paroxysmal Qualified Code(s): I48.0 - Paroxysmal atrial fibrillation Code(s): I48.91 - Unspecified atrial fibrillation Status: Chronic Assessment and Plan: P.o. amiodarone Continue apixaban (11) Elevated LFTs: Code(s): R79.89 - Other specified abnormal findings of blood chemistry Status: Acute Assessment and Plan: Monitor (12) Hypothyroidism: Code(s): E03.9 - Hypothyroidism, unspecified Status: Acute Assessment and Plan: Continue levothyroxine (13) Thrombocytopenia: Code(s): D69.6 - Thrombocytopenia, unspecified Status: Acute Assessment and Plan: Multifactorial? Hit antibody was negative and wendie was indeterminate. -platelets have improved, could be related to septic shock (14) Pulmonary edema: Code(s): J81.1 - Chronic pulmonary edema Status: Acute Assessment and Plan: Hemodialysis per Nephrology (15) Gastric distention: Code(s): K31.89 - Other diseases of stomach and duodenum Status: Acute Assessment and Plan: Monitor. Subjective Date/time seen: 11/22/22 11:21 Interval history: Doing okay, extubated. Breathing okay. Receiving hemodialysis. Exam Narrative: General: Pt is sedated, intubated and on mechanical ventilation Lungs/Chest: Trachea central Coarse BS B/L, bilateral crackles Cardiac: RRR. Normal S1 S2. No murmurs Circulation: Pedal pulses are intact and symmetrical. Abdomen: Decreased bowel sounds. Obese. Soft. NT. ND. Extremities: No clubbing, cyanosis or. Warm. Bilateral edema in upper extremity right more than left, bilateral lower extremity edema : [place] in place Neurologic: On very low-dose Precedex infusion, patient opens his eyes, follows simple commands in all extremities a
[2022-11-22] MEDS: oxyCODONE/ACETAMINOPHEN (*CRX) 10-325 MG TABLET 1 TAB PO ×2 (11:37→17:27)
--- NOTE | 2022-11-22 11:40 | PCNFU ---
Nutrition Follow-Up Complete: Inadequate energy intake related to lack of alertness as evidenced by nursing report Goal: Alert and oriented - Not at goal but improving Greater than 50% intake of meals - Not able to meet goals PO, meeting nutrition needs with tube feeding Pt current nutrition is Nepro @45 ml/h - 1782 kcal, 80 g protein, 719 ml free water , Prosource protein modular 1x per day for total 1862 kcal, 100 g protein, 899 total free water with 30 ml flushes q 4 hours. Nutrition recommendation: Restart tube feeding. Continue with current tube feeding and Prosource modular as pt has increased protein energy needs from HD. Last recorded weight is 82.3 kg. Bowel Motility: Last BM 11/17/22 Labs Reviewed: Hgb 10.5, Hct 34.4, Alb 3.4, BUN 70, Cre 5.1 Meds Noted: Novologm, lantus, protonix, levophed Skin: Shingles Additional Notes: Extubated, still requiring tube feedings because of weakness. MIKE is planned. Still requiring small dose of Levophed which does not require a reduction in tube feeding. MAP is 75 currently. Monitor status, intake, wt, labs. Follow up in 3 days.
--- NOTE | 2022-11-22 12:03 | WPDGIPROGNO ---
Progress Note: A&P Assessment and Plan (1) Antiviral drug overdose: Code(s): T37.5X1A - Poisoning by antiviral drugs, accidental (unintentional), initial encounter Status: Acute Assessment and Plan: The patient has been taking 1000 mg of valacyclovir t.i.d. as detailed above. His altered mental status and delirium are likely result of iatrogenic overdose. He is being monitored closely in IMU. Continue HD per nephrology (2) End-stage renal disease on hemodialysis: Code(s): N18.6 - End stage renal disease; Z99.2 - Dependence on renal dialysis Status: Acute Assessment and Plan: Nephrology consulted for dialysis as detailed above. He has been dialyzed for the past several days. Appreciate nephrology input. (3) Insulin dependent diabetes mellitus: Status: Acute Assessment and Plan: A1c 5.1. The patient's blood glucose was reviewed on 11/11 Glucose remains well controlled. lantus on hold Continue AccuCheks covering with sliding scale. Hypoglycemia protocol available as needed. Continue to monitor (4) Chronic anticoagulation: Code(s): Z79.01 - detention (current) use of anticoagulants Status: Acute Assessment and Plan: Eliquis currently on hold. Resume tomorrow (5) Hypothyroidism: Code(s): E03.9 - Hypothyroidism, unspecified Status: Acute Assessment and Plan: TSH elevated at 22. FT4 normal. Related to Amio? Levothyroxine IV started. Will need outpatient follow up labs. (6) Elevated LFTs: Code(s): R79.89 - Other specified abnormal findings of blood chemistry Status: Acute Assessment and Plan: LFTs which were normal 2 days ago are Abdo normal today with ALT 1059, AST 547 but alkaline phosphatase is normal. Bilirubin is 2.9 Most likely etiology would be ischemic hepatopathy if perhaps he was dehydrated. Viral disease also needs to be considered. INR has not increased significantly since admission which is a good prognostic sign. Likewise but ammonia level is only slightly increased. Will closely monitor his liver functions. However at this point I do not think he is in imminent danger of hepatic failure. 11/11/2022 INR is down to 1.5 which is a good prognostic sign. ALT down to 894 11/12/2022 ALT continues to drop, 698 today. now down to 347. I think we can continue to monitor this as an outpatient. 11/22/2022 ALT is down to 91 (7) Encephalopathy: Code(s): G93.40 - Encephalopathy, unspecified Status: Acute Assessment and Plan: This was acute in onset, 7 days ago and shortly after he began taking an antiviral drug for shingles. This of course raises the possibility of viral encephalopathy. Neurology has been consulted. 11/12/2022 the patient remains a very quiet but actually was responsive to me this morning. He answered questions uh [facility] (yes) and [facility] (no) 11/14/2022 he is more lucid today. He was somewhat verbal. Etiology of his encephalopathy is not entirely clear, as viral studies are still pending. (8) Gastric distention: Code(s): K31.89 - Other diseases of stomach and duodenum Status: Acute Assessment and Plan: he had a high residual, and then NG was placed with about 1 L of contents removed yesterday. today it appears only 120 mL more. I doubt that he would have developed gastric outlet obstruction. I think that we will try few doses of Reglan and then consider trying feeding tomorrow. If again high residual then we will need to do EGD Plan DVT prophylaxis with SCDs GI prophylaxis Protonix Code status full code Nutrition - NGT in place and on TF he had a high residual from his tube feedings. X-ray showed distended stomach and sees them excess air in the small bowel. Now his stomach is decompressed with NG suction. Reglan 10 mg IV q.6 hours for 3 or 4 doses. Consider retrying to feed tomorrow Subjective Date/time seen: 11/22/22 12
[2022-11-22] MEDS: cefTRIAXone 2 GM/NS 100 ML 2 GM/100 ML BAG IVPB ×2 (14:33→21:21)
[2022-11-22] MEDS: METOCLOPRAMIDE HCL INJ 10 MG/2 ML VIAL IV PUSH ×2 (14:33→17:31)
[2022-11-22 14:34] LABS: Glucose Point of Care 144 mg/dl (65-105)
[2022-11-23] VITALS (67 sets, daily range): BP systolic 74–106; BP diastolic 53–79; PULSE 88–120; RESP 7–23; TEMP 36.1–37.3; O2SAT 85–100
[2022-11-23 00:19] LABS: Glucose Point of Care 225 mg/dl (65-105)
[2022-11-23] MEDS: METOCLOPRAMIDE HCL INJ 10 MG/2 ML VIAL IV PUSH ×5 (00:24→23:46)
[2022-11-23] MEDS: INSULIN ASPART (*BKC) 100 UNITS/ML SUB-Q (00:24)
[2022-11-23] MEDS: oxyCODONE/ACETAMINOPHEN (*CRX) 10-325 MG TABLET 1 TAB PO ×2 (03:40→20:24)
[2022-11-23 05:42] LABS: Hemoglobin 10.8 g/dL (14.0-18.0); Mean Corpuscular Volume 106.8 fl (80-100); Mean Platelet Volume 10.5 fl (7.4-10.4); Platelet Count Result 225 k/mm3 (150-375); Red Blood Count 3.37 M/mm3 (4.6-6.20); Red Cell Distribution Width 24.4 % (11.5-14.5); White Blood Count 17.5 K/mm3 (4.5-10.0)
[2022-11-23] MEDS: CENTRAL LINE FLUSH 10 ML IV PUSH ×4 (05:46→23:34)
[2022-11-23] MEDS: NOREPINEPHRINE 8 MG/D5W 250 ML 8 MG/250 ML BAG 7.5 MG IV CONT (05:48)
[2022-11-23] MEDS: LEVOTHYROXINE SODIUM INJ 100 MCG/5 ML VIAL 50 MCG IV PUSH (05:48)
[2022-11-23 05:52] LABS: INR 1.3
[2022-11-23 06:10] LABS: Alanine Aminotransferase 72 U/L (6-50); Albumin Level 3.5 g/dL (3.5-5.1); Alkaline Phosphatase 88 U/L (38-126); Anion Gap 11 mmol/L (8-16); Aspartate Amino Transferase 27 U/L (17-59); Blood Urea Nitrogen 39 mg/dL (9-20); Calcium 9.3 mg/dL (8.4-10.2); Carbon Dioxide 29 mmol/L (22-30); Chloride 99 mmol/L (98-107); Estimated CRCL calculation 20 ml/min; Estimated Glomerular Filt Rate 19; Glucose 149 mg/dL (65-110); Magnesium 2.3 mg/dL (1.6-2.3); Phosphorus 3.3 mg/dL (2.5-4.5); Potassium 3.9 mmol/L (3.4-5.0); Sodium 139 mmol/L (137-145)
[2022-11-23 07:02] LABS: Total Cells Counted 100
[2022-11-23 07:03] LABS: Anisocytosis 3+ (NORMAL); Lymphocytes Absolute Manual 1.05 K/mm3 (1.1-4.5); Lymphocytes Percent Manual 6 % (18-44); Macrocytosis 1+ (NORMAL); Metamyelocytes Percent 3 %; Monocytes Absolute Manual 0.52 K/mm3 (0.1-0.90); Monocytes Percent Manual 3 % (3-9); Neutrophils Percent Manual 88 % (46-73); Platelet Estimate Adequate (Adequate)
[2022-11-23 07:04] LABS: Hypochromasia 1+ (NORMAL); Schistocytes None Seen (NORMAL)
--- NOTE | 2022-11-23 09:53 | WPDINTPN ---
Progress Note: A&P Assessment and Plan (1) Acute respiratory failure: Code(s): J96.00 - Acute respiratory failure, unspecified whether with hypoxia or hypercapnia Status: Acute Assessment and Plan: Acute respiratory failure likely secondary to pulmonary edema with possibility of pneumonia which could be aspiration -intubated on 11/16 -extubated 11/21 -currently on 2 L nasal cannula with adequate O2 sats -patient received hemodialysis on 11/17/2022, 11/18/2022, 11/20/2022, 11/22/202211/16: CT chest : showed congestive heart failure with cardiomegaly, mild pulmonary edema and small bilateral pleural effusions, dependent consolidation bilateral upper and lower lobes most likely atelectasis although superimposed pneumonia difficult to exclude. Small pericardial effusion (2) Sepsis: Code(s): A41.9 - Sepsis, unspecified organism Status: Acute Assessment and Plan: On presentation patient was febrile with increasing WBC count, shock and increased hypoxia pointing towards towards sepsis likely secondary to pneumonia 11/16: Blood cultures is growing Enterococcus faecalis and Staph aureus (MSSA) 11/16: sputum cultures negative procalcitonin level 2.0 11/16: MRSA screen negative -11/20/2022: Repeat blood cultures growing Enterococcus faecalis sensitive to ampicillin and vancomycin -11/19/2022: Enterococcus faecalis and Staph aureus sensitive to ampicillin Patient was on Unasyn (11/19), -added vancomycin and ceftriaxone (11/22) for possible endocarditis -cardiology has been consulted for MIKE as patient has bioprosthetic valve to rule out endocarditis -11/23/2022 CT scan was ordered to rule out any other abscess the abdomen, CT results as under 11/23: Repeat CT scan of the chest, abdomen and pelvis IMPRESSION: 1. Moderate pulmonary edema. 2. Small left pleural effusion. 3. Stable small pericardial effusion. 4. Wall thickening of the stomach, consistent with gastritis. 11/16: CT chest abdomen pelvis IMPRESSION: 1. Likely congestive heart failure with cardiomegaly, mild pulmonary edema and small bilateral pleural effusions. 2. Dependent consolidation in the bilateral upper and lower lobes most likely atelectasis although superimposed pneumonia difficult to exclude. 3. Small pericardial effusion. 4. Nonspecific mediastinal lymphadenopathy which is most likely reactive. 5. Cholelithiasis. 6. Small amount of nonspecific ascites in the abdomen and pelvis. (3) Pneumonia: Code(s): J18.9 - Pneumonia, unspecified organism Status: Acute Assessment and Plan: Resolved (4) Shock: Code(s): R57.9 - Shock, unspecified Status: Acute Assessment and Plan: Likely combination of sepsis and cardiogenic Continue Levophed infusion, ventilated MAP > 65 mmHg for adequate end organ perfusion vasopressin weaned off Status post Solu-Cortef -continue midodrine 11/16: Echocardiogram Summary ? 1. Complete two-dimensional, color flow and Doppler transthoracic echocardiogram is performed. ? 2. Left ventricular chamber dimension is normal. ? 3. Left ventricular systolic function is normal, estimated at 65-70%. ? 4. Left ventricular septal wall motion is abnormal with septal motion related to bundle branch block. ? 5. Right ventricular chamber dimension is moderately enlarged. ? 6. Right ventricular systolic function is reduced. ? 7. Left atrial chamber dimension is moderately enlarged. ? 8. Right atrial chamber dimension is moderately enlarged. ? 9. S/p prior TAVR. Bioprosthetic aortic valve is well seated. Mean gradient across valve is 13mmHg. ? 10. The mitral valve annulus is severely calcified. ? 11. Known mitral valve replacement with #25 Epic porcine valve. Mean gradient across valve is 13mmHg. ? 12. 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 ? 13. There is mild tricuspid valve regurgitation. ? 14. Dilated inferior vena cava with <50% collapse
[2022-11-23] MEDS: ACETAMINOPHEN 325 MG TABLET 650 MG FEED TUBE ×2 (10:09→23:34)
[2022-11-23] MEDS: APIXABAN 2.5 MG TABLET PO ×2 (10:10→18:10)
[2022-11-23] MEDS: MIDODRINE HCL 10 MG TABLET PO ×3 (10:10→18:10)
[2022-11-23] MEDS: AMIODARONE HCL 200 MG TABLET FEED TUBE ×2 (10:10→18:09)
[2022-11-23] MEDS: PANTOPRAZOLE SODIUM IV 40 MG VIAL IV PUSH ×2 (10:10→20:18)
[2022-11-23] MEDS: ASPIRIN 81 MG CHEWABLE TABLET FEED TUBE (10:10)
[2022-11-23] MEDS: cefTRIAXone 2 GM/NS 100 ML 2 GM/100 ML BAG IVPB ×2 (10:11→20:19)
[2022-11-23] MEDS: AMPICILLIN SULB 3 GM/NS 100 ML 3 GM/100 ML VIAL IVPB ×2 (10:11→20:19)
[2022-11-23] MEDS: SILVERGEL (ELTA) 45 ML 1 APPLIC TOPICAL (10:13)
[2022-11-23] MEDS: INSULIN GLARGINE (*BKC) 100 UNITS/ML SUB-Q (10:55)
--- NOTE | 2022-11-23 11:34 | PM.PNNEP ---
Progress Note: A&P Assessment and Plan (1) End stage renal disease: Code(s): N18.6 - End stage renal disease Status: Chronic Assessment and Plan: HD yesterday continue HD on Fri/Fri/Friday schedule while hospitalized follow electrolytes, volume status, and clearance (2) Acute respiratory failure: Code(s): J96.00 - Acute respiratory failure, unspecified whether with hypoxia or hypercapnia Status: Acute Assessment and Plan: resolving/resolved (extubated) suspect secondary to pulmonary edema +/- pneumonia (possibly aspiration) on ventilator support follow CXR results push fluid removal as tolerated with HD follow respiratory status (3) Septic shock: Code(s): A41.9 - Sepsis, unspecified organism; R65.21 - Severe sepsis with septic shock Status: Acute Assessment and Plan: as noted by worsening WBC, hypoxia, lactic acidosis, and hypotension follow culture data blood culture with Enterococcus + Staph aureus repeat cultures (11/20/22) positive as well suspect will need MIKE to r/o endocarditis on IV antibiotics vasopressor support as needed - wean as tolerated (4) Encephalopathy: Code(s): G93.40 - Encephalopathy, unspecified Status: Acute Assessment and Plan: has been improving thought to be due to Valtrex overdose but sepsis playing a role as well elevated liver enzymes, elevated bilirubin, and elevated ammonia noted as well (but are trending down) suspect that the liver issues are due to the Valtrex as well head CT negative b12 and Folate okay TSH is high -- getting IV Synthroid s/p LP done (on 11/11/22) - follow-up on viral studies (Chris Pickard Viruus DNA PCR positive) follow mentation (5) Herpes zoster infection of thoracic region: Code(s): B02.9 - Zoster without complications Status: Acute Assessment and Plan: holding antiviral therapy at this time continue supportive therapy (6) Atrial fibrillation: Qualifiers: Atrial fibrillation type: paroxysmal Qualified Code(s): I48.0 - Paroxysmal atrial fibrillation Code(s): I48.91 - Unspecified atrial fibrillation Status: Chronic Assessment and Plan: rate control strategy anticoagulation on hold (in case further procedures need to be done) (7) Insulin dependent diabetes mellitus: Status: Acute Assessment and Plan: follow accuchecks glycemic control per hospitalists/operational trainer Will continue to follow. Subjective Date/time seen: 11/23/22 11:34 Interval history: Follow-up for end stage renal disease on hemodialysis. Tolerated dialysis yesterday and tolerated reasonably well; remains on low dose levophed to maintain MAP; respiratory status stable (on 2L by nasal cannula); major complaint remains pain at the site of shingles; blood cultures remains persistently positive. Exam Narrative: General: ill appearing male in NAD Heart: tachycardic normal S1 and S2; no rub Lungs: coarse breath sounds Abdomen: soft, nontender, nondistended, positive bowel sounds Extremities: no cyanosis or clubbing; 1+ edema Skin: no nodules Objective Data Vital Signs Vital Signs: Vital Signs Temp Pulse Resp BP Pulse Ox O2 Del Method O2 Flow Rate 11/23/22 10:00 118 H 11/23/22 08:00 108 H 11/23/22 11:01 107 H 9 L 92/65 L 93 11/23/22 11:00 111 H 13 93 11/23/22 10:31 118 H 18 97/73 L 11/23/22 10:30 113 H 13 11/23/22 10:01 110 H 13 104/74 11/23/22 10:00 112 H 14 11/23/22 09:31 113 H 10 L 88/67 L 11/23/22 09:30 112 H 10 L 11/23/22 09:01 117 H 14 97/77 L 98 11/23/22 09:00 114 H 16 98 11/23/22 08:46 113 H 16 83/65 L 11/23/22 08:41 107 H 14 83/65 L 11/23/22 08:30 103 H 11 L 94 11/23/22 08:01 102 H 14 79/62 L 96 11/23/22 08:00 102 H 19 97 11/23/22
--- NOTE | 2022-11-23 11:34 | P.PNNP_ITS ---
Progress Note: A&P Assessment and Plan (1) End stage renal disease: Code(s): N18.6 - End stage renal disease Status: Chronic Assessment and Plan: * HD yesterday * continue HD on Fri/Fri/Friday schedule while hospitalized * follow electrolytes, volume status, and clearance (2) Acute respiratory failure: Code(s): J96.00 - Acute respiratory failure, unspecified whether with hypoxia or hypercapnia Status: Acute Assessment and Plan: * resolving/resolved (extubated) * suspect secondary to pulmonary edema +/- pneumonia (possibly aspiration) * on ventilator support * follow CXR results * push fluid removal as tolerated with HD * follow respiratory status (3) Septic shock: Code(s): A41.9 - Sepsis, unspecified organism; R65.21 - Severe sepsis with septic shock Status: Acute Assessment and Plan: * as noted by worsening WBC, hypoxia, lactic acidosis, and hypotension * follow culture data * blood culture with Enterococcus + Staph aureus * repeat cultures (11/20/22) positive as well * suspect will need MIKE to r/o endocarditis * on IV antibiotics * vasopressor support as needed - wean as tolerated (4) Encephalopathy: Code(s): G93.40 - Encephalopathy, unspecified Status: Acute Assessment and Plan: * has been improving * thought to be due to Valtrex overdose but sepsis playing a role as well * elevated liver enzymes, elevated bilirubin, and elevated ammonia noted as well (but are trending down) * suspect that the liver issues are due to the Valtrex as well * head CT negative * b12 and Folate okay * TSH is high -- getting IV Synthroid * s/p LP done (on 11/11/22) - follow-up on viral studies (Chris Pickard Viruus DNA PCR positive) * follow mentation (5) Herpes zoster infection of thoracic region: Code(s): B02.9 - Zoster without complications Status: Acute Assessment and Plan: * holding antiviral therapy at this time * continue supportive therapy (6) Atrial fibrillation: Qualifiers: Atrial fibrillation type: paroxysmal Qualified Code(s): I48.0 - Paroxysmal atrial fibrillation Code(s): I48.91 - Unspecified atrial fibrillation Status: Chronic Assessment and Plan: * rate control strategy * anticoagulation on hold (in case further procedures need to be done) (7) Insulin dependent diabetes mellitus: Status: Acute Assessment and Plan: * follow accuchecks * glycemic control per hospitalists/engineering manager electronics Will continue to follow. Subjective Date/time seen: 11/23/22 11:34 Interval history: Follow-up for end stage renal disease on hemodialysis. Tolerated dialysis yesterday and tolerated reasonably well; remains on low dose levophed to maintain MAP; respiratory status stable (on 2L by nasal cannula); major complaint remains pain at the site of shingles; blood cultures remains p ersistently positive. Exam Narrative: General: ill appearing male in NAD Heart: tachycardic normal S1 and S2; no rub Lungs: coarse breath sounds Abdomen: soft, nontender, nondistended, positive bowel sounds Extremities: no cyanosis or clubbing; 1+ edema Skin: no nodules Objective Data Vital Signs Vital Signs: Vital Signs Temp Pulse Resp BP Pulse Ox O2 Del Method O2 Flow Rate 11/23/22 10:00 118 H 11/23/22
--- NOTE | 2022-11-23 11:55 | PM.IMPN ---
Progress Note: A&P Assessment and Plan (1) Acute respiratory failure: Code(s): J96.00 - Acute respiratory failure, unspecified whether with hypoxia or hypercapnia Status: Acute Assessment and Plan: Acute respiratory failure likely secondary to pulmonary edema with possibility of pneumonia which could be aspiration -now extubated. Continue antibiotics. Overall respiratory status is much improved. (2) Sepsis: Code(s): A41.9 - Sepsis, unspecified organism Status: Acute Assessment and Plan: Cultures noted. Continue antibiotic Initial cultures positive with Staph and Enterococcus faecalis. These were drawn on 11/16. Repeat cultures on 11/20 positive for Gram-positive cocci in chains (3) Pneumonia: Code(s): J18.9 - Pneumonia, unspecified organism Status: Acute Assessment and Plan: See above (4) Shock: Code(s): R57.9 - Shock, unspecified Status: Acute Assessment and Plan: Improved (5) Encephalopathy: Code(s): G93.40 - Encephalopathy, unspecified Status: Acute Assessment and Plan: Improving (6) Herpes zoster infection of thoracic region: Code(s): B02.9 - Zoster without complications Status: Acute Assessment and Plan: Patient was treated earlier and currently off of antiviral drugs (7) Antiviral drug overdose: Code(s): T37.5X1A - Poisoning by antiviral drugs, accidental (unintentional), initial encounter Status: Acute Assessment and Plan: The patient has been taking 1000 mg of valacyclovir t.i.d. as detailed above. His altered mental status and delirium are likely result of iatrogenic overdose. (8) End-stage renal disease on hemodialysis: Code(s): N18.6 - End stage renal disease; Z99.2 - Dependence on renal dialysis Status: Acute Assessment and Plan: Continue dialysis. (9) Insulin dependent diabetes mellitus: Status: Acute Assessment and Plan: Sliding scale insulin and Accu-Cheks -will hold Lantus as patient may be extubated (10) Atrial fibrillation: Qualifiers: Atrial fibrillation type: paroxysmal Qualified Code(s): I48.0 - Paroxysmal atrial fibrillation Code(s): I48.91 - Unspecified atrial fibrillation Status: Chronic Assessment and Plan: P.o. amiodarone Continue apixaban (11) Elevated LFTs: Code(s): R79.89 - Other specified abnormal findings of blood chemistry Status: Acute Assessment and Plan: Monitor (12) Hypothyroidism: Code(s): E03.9 - Hypothyroidism, unspecified Status: Acute Assessment and Plan: Continue levothyroxine (13) Thrombocytopenia: Code(s): D69.6 - Thrombocytopenia, unspecified Status: Acute Assessment and Plan: Multifactorial? Hit antibody was negative and wendie was indeterminate. -platelets have improved, could be related to septic shock (14) Pulmonary edema: Code(s): J81.1 - Chronic pulmonary edema Status: Acute Assessment and Plan: Hemodialysis per Nephrology (15) Gastric distention: Code(s): K31.89 - Other diseases of stomach and duodenum Status: Acute Assessment and Plan: Monitor. Subjective Date/time seen: 11/23/22 11:55 Interval history: Feeling better, respiratory status is improved Exam Narrative: General: Patient is extubated, awake in no acute distress Lungs/Chest: Trachea central, clear to auscultation bilaterally, decreased at bases, adequate air entry Cardiac: RRR. Normal S1 S2. No murmurs Circulation: Pedal pulses are intact and symmetrical. Abdomen: Decreased bowel sounds. Obese. Soft. NT. ND. Extremities: No clubbing, cyanosis or. Warm. Bilateral edema in upper extremity right more than left, bilateral lower extremity edema : [place] in place Neurologic: Off all sedation, extubated, patient is awake, alert, follows simple commands, general
--- NOTE | 2022-11-23 13:58 | PM.CNCAR ---
Assessment and Plan Assessment and plan (1) Bacteremia: Code(s): R78.81 - Bacteremia Status: Acute Plan Persistent bacteremia E Faecalis in pateitn with recent MV replacement. AF s/p LAAO during cardiac surgery Hx of TAVR and TV repair/ring CHF with preserved EF Shock likely septic Plan anticiotic per ID and ICU Septic shock management per ICU MIKE on Friday History of Present Illness History of Present Illness Consult date/time: 11/23/22 13:58 Reason For Visit: Drug Induced Delirium, Shingles, ESRD Narrative: Patient presented with altered mental status. Work up initially was unremarkable and thought to be related to antiviral medication overdose in setting of ESRD on HD. Blood cultures was positive for enterococcal faecalis and has been persistent despite therapy. TTE didn't show vegetations. He had Hx of TAVR 2021 and MV bioprosthetic replacement and TV repair/ring. Currently patient is confused and hypotensive on vasopressors. Hx of AF and LAAO during Cardiac surgery. Review of Systems Review of Systems: ROS unobtainable: Yes unobtainable due to mental status PMFSH Past Medical History Medical History Atrial fibrillation Chronic anticoagulation End-stage renal disease on hemodialysis Home dialysis 5 days a week. Hemorrhoids Hyperlipidemia Hypertension Insulin dependent diabetes mellitus Obesity (BMI 30-39.9) Obstructive sleep apnea syndrome in adult Surgical History Surgical History History of cardiac cath Minimal blockages and no stents. History of colonoscopy History of esophagogastroduodenoscopy (EGD) History of mitral valve replacement with bioprosthetic valve (10/03/22) History of tonsillectomy and adenoidectomy History of transcatheter aortic valve replacement (TAVR) Status post creation of arteriovenous fistula Family History Family History Father Hypertension Heart disease Diabetes mellitus Cancer Mother Cancer Social History Social History Social History: Surrogate medical decision maker: Nicole Blank, spouse. Code status: Full code. Smoking packs per day: 5 Smoking cigarettes per day: 100.0 Years smoked: 30 Smoking pack-years: 150.00 Smoking status: Current every day smoker Tobacco type: cigarettes Alcohol intake: unknown Substance use: unknown Additional living arrangements comments: Lives with spouse in [place]. They have 3 children. 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 Spiritual care concerns: No Meds Home Medications and Allergies Home Medications Medication Instructions Recorded Confirmed Type Adult Low Dose Aspirin 81 mg PO DAILY 06/09/21 11/06/22 History apixaban 5 mg tablet (Eliquis) 2.5 mg PO BID 06/09/21 11/06/22 History ascorbic acid (vitamin C) 1,000 mg PO HS 06/09/21 11/06/22 History sevelamer carbonate 800 mg tablet 4,000 mg PO TIDWMEAL 06/09/21 11/06/22 History vitamin B comp no.3-folic acid 1 1 tablet PO HS 06/09/21 11/06/22 History mg-vit C 60 mg-biotin 300 mcg tablet ([facility]) benzonatate 100 mg capsule 100 mg PO TID PRN cough #90 caps 10/29/21 11/06/22 Rx pen needle, diabetic 31 gauge x #100 ea 02/08/22 11/06/22 Rx 3/16 (BD Ultra-Fine Mini Pen Needle) alprazolam 0.5 mg tablet 0.5 mg PO HS 11/03/22 11/06/22 History amiodarone 200 mg tablet 200 mg PO BID 11/03/22 11/06/22 History citalopram 20 mg tablet 20 mg PO HS 11/03/22 11/06/22 History famotidine 20 mg tablet 20 mg PO BID 11/03/22 11/06/22 History valacyclovir 1 gram tablet 1,000 mg PO TID 7 days #21 tabs 11/03/22 11/06/22 Rx atorvastatin 20 mg tablet 20 mg PO HS 11/06/22 11/06/22 History ezetimibe 10 mg tablet 10 mg PO DAILY 11/06/22 11/06/22 History insulin glargine 100 unit/mL (3 10 unit subcut HS
[2022-11-23 14:15] LABS: Glucose Point of Care 163 mg/dl (65-105)
[2022-11-23 18:31] LABS: Glucose Point of Care 181 mg/dl (65-105)
[2022-11-23 23:52] LABS: Glucose Point of Care 173 mg/dl (65-105)
[2022-11-24] VITALS (79 sets, daily range): BP systolic 81–113; BP diastolic 55–81; PULSE 87–106; RESP 9–22; TEMP 36.2–36.6; O2SAT 91–97
[2022-11-24] MEDS: oxyCODONE/ACETAMINOPHEN (*CRX) 10-325 MG TABLET 1 TAB PO ×3 (03:08→20:16)
[2022-11-24 05:14] LABS: Basophils Absolute Auto 0.1 K/mm3 (0.0-0.1); Basophils Percent Auto 0.4 % (0.2-1.2); Eosinophils Absolute Auto 0.2 K/mm3 (0-0.3); Eosinophils Percent Auto 1.1 % (0-4.4); Hematocrit 35.9 % (42.0-52.0); Hemoglobin 10.7 g/dL (14.0-18.0); Immature Granulocyte Absolute 1.06 K/mm3 (0.00-0.031); Immature Granulocyte Percent A 5.3 % (0-0.5); Lymphocytes Absolute Auto 1.06 K/mm3 (0.9-3.2); Lymphocytes Percent Auto 5.3 % (18.3-44.2); Mean Corpuscular HGB Conc 29.8 g/dl (32-36); Mean Corpuscular Hemoglobin 32.2 pg (26-34); Mean Corpuscular Volume 108.1 fl (80-100); Mean Platelet Volume 10.9 fl (7.4-10.4); Monocytes Absolute Auto 0.6 K/mm3 (0.1-0.6); Neutrophils Absolute Auto 16.8 K/mm3 (1.3-6.7); Neutrophils Percent Auto 84.9 % (45.5-73.1); Nucleated Red Blood Cells Absolute Auto 0.1 K/mm3 (0.0-0.012); Nucleated Red Blood Cells Perc 0.3 % (0.0-0.2); Platelet Count Result 236 k/mm3 (150-375); Red Blood Count 3.32 M/mm3 (4.6-6.20); White Blood Count 19.9 K/mm3 (4.5-10.0)
[2022-11-24 05:26] LABS: INR 1.3; Prothrombin Time 16.8 Seconds (11.1-14.7)
[2022-11-24 05:34] LABS: Alanine Aminotransferase 55 U/L (6-50); Albumin Level 3.4 g/dL (3.5-5.1); Alkaline Phosphatase 118 U/L (38-126); Anion Gap 11 mmol/L (8-16); Aspartate Amino Transferase 24 U/L (17-59); Bilirubin,Total 1.1 mg/dL (0.2-1.3); Blood Urea Nitrogen 54 mg/dL (9-20); Calcium 9.6 mg/dL (8.4-10.2); Carbon Dioxide 29 mmol/L (22-30); Chloride 97 mmol/L (98-107); Estimated CRCL calculation 16 ml/min; Estimated Glomerular Filt Rate 14; Glucose 230 mg/dL (65-110); Magnesium 2.4 mg/dL (1.6-2.3); Phosphorus 4.2 mg/dL (2.5-4.5); Potassium 3.8 mmol/L (3.4-5.0); Sodium 137 mmol/L (137-145)
[2022-11-24 05:41] LABS: Anisocytosis 1+ (NORMAL); Platelet Estimate Adequate (Adequate); Poikilocytosis 1+ (NORMAL)
[2022-11-24 05:42] LABS: Burr Cells 1+ (NORMAL); Schistocytes Rare (NORMAL)
[2022-11-24] MEDS: METOCLOPRAMIDE HCL INJ 10 MG/2 ML VIAL IV PUSH ×3 (05:43→23:21)
[2022-11-24] MEDS: INSULIN ASPART (*BKC) 100 UNITS/ML SUB-Q (05:43)
[2022-11-24] MEDS: LEVOTHYROXINE SODIUM INJ 100 MCG/5 ML VIAL 50 MCG IV PUSH (05:43)
[2022-11-24] MEDS: CENTRAL LINE FLUSH 10 ML IV PUSH ×4 (05:43→20:17)
[2022-11-24] MEDS: ACETAMINOPHEN 325 MG TABLET 650 MG FEED TUBE ×4 (05:44→23:21)
[2022-11-24 06:12] LABS: Vancomycin Random 21.8 ug/mL (10-20)
[2022-11-24] MEDS: NOREPINEPHRINE 8 MG/D5W 250 ML 8 MG/250 ML BAG 13.13 MG IV CONT (09:08)
[2022-11-24] MEDS: cefTRIAXone 2 GM/NS 100 ML 2 GM/100 ML BAG IVPB ×2 (09:09→20:33)
[2022-11-24] MEDS: AMPICILLIN SULB 3 GM/NS 100 ML 3 GM/100 ML VIAL IVPB ×2 (09:10→20:33)
[2022-11-24] MEDS: ASPIRIN 81 MG CHEWABLE TABLET FEED TUBE (09:10)
[2022-11-24] MEDS: MIDODRINE HCL 10 MG TABLET PO ×3 (09:11→17:25)
[2022-11-24] MEDS: APIXABAN 2.5 MG TABLET PO ×2 (09:11→17:26)
[2022-11-24] MEDS: AMIODARONE HCL 200 MG TABLET FEED TUBE ×2 (09:11→17:26)
[2022-11-24] MEDS: PANTOPRAZOLE SODIUM IV 40 MG VIAL IV PUSH ×2 (09:11→20:16)
[2022-11-24] MEDS: SILVERGEL (ELTA) 45 ML 1 APPLIC TOPICAL (09:12)
[2022-11-24] MEDS: INSULIN GLARGINE (*BKC) 100 UNITS/ML SUB-Q (09:21)
--- NOTE | 2022-11-24 11:12 | WPDINTPN ---
Progress Note: A&P Assessment and Plan (1) Acute respiratory failure: Code(s): J96.00 - Acute respiratory failure, unspecified whether with hypoxia or hypercapnia Status: Acute Assessment and Plan: Acute respiratory failure likely secondary to pulmonary edema with possibility of pneumonia which could be aspiration -intubated on 11/16 -extubated 11/21 -currently on 2 L nasal cannula with adequate O2 sats -encourage incentive spirometry 11/16: CT chest : showed congestive heart failure with cardiomegaly, mild pulmonary edema and small bilateral pleural effusions, dependent consolidation bilateral upper and lower lobes most likely atelectasis although superimposed pneumonia difficult to exclude. Small pericardial effusion (2) Sepsis: Code(s): A41.9 - Sepsis, unspecified organism Status: Acute Assessment and Plan: On presentation patient was febrile with increasing WBC count, shock and increased hypoxia pointing towards towards sepsis likely secondary to pneumonia 11/16: Blood cultures is growing Enterococcus faecalis and Staph aureus (MSSA) 11/16: sputum cultures negative procalcitonin level 2.0 11/16: MRSA screen negative -11/20/2022: Repeat blood cultures growing Enterococcus faecalis sensitive to ampicillin and vancomycin -11/19/2022: Enterococcus faecalis and Staph aureus sensitive to ampicillin -continue Unasyn (11/19), vancomycin and ceftriaxone (11/22) for possible endocarditis -cardiology has been consulted for MIKE as patient has bioprosthetic valve to rule out endocarditis, MIKE scheduled for 11/25/2022 -11/23/2022 CT scan was ordered to rule out any other abscess the abdomen, CT results as under 11/23: Repeat CT scan of the chest, abdomen and pelvis IMPRESSION: 1. Moderate pulmonary edema. 2. Small left pleural effusion. 3. Stable small pericardial effusion. 4. Wall thickening of the stomach, consistent with gastritis. 11/16: CT chest abdomen pelvis IMPRESSION: 1. Likely congestive heart failure with cardiomegaly, mild pulmonary edema and small bilateral pleural effusions. 2. Dependent consolidation in the bilateral upper and lower lobes most likely atelectasis although superimposed pneumonia difficult to exclude. 3. Small pericardial effusion. 4. Nonspecific mediastinal lymphadenopathy which is most likely reactive. 5. Cholelithiasis. 6. Small amount of nonspecific ascites in the abdomen and pelvis. (3) Shock: Code(s): R57.9 - Shock, unspecified Status: Acute Assessment and Plan: Likely combination of sepsis and cardiogenic Continue Levophed infusion, ventilated MAP > 65 mmHg for adequate end organ perfusion vasopressin weaned off Status post Solu-Cortef -continue midodrine 11/16: Echocardiogram Summary ? 1. Complete two-dimensional, color flow and Doppler transthoracic echocardiogram is performed. ? 2. Left ventricular chamber dimension is normal. ? 3. Left ventricular systolic function is normal, estimated at 65-70%. ? 4. Left ventricular septal wall motion is abnormal with septal motion related to bundle branch block. ? 5. Right ventricular chamber dimension is moderately enlarged. ? 6. Right ventricular systolic function is reduced. ? 7. Left atrial chamber dimension is moderately enlarged. ? 8. Right atrial chamber dimension is moderately enlarged. ? 9. S/p prior TAVR. Bioprosthetic aortic valve is well seated. Mean gradient across valve is 13mmHg. ? 10. The mitral valve annulus is severely calcified. ? 11. Known mitral valve replacement with #25 Epic porcine valve. Mean gradient across valve is 13mmHg. ? 12. 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 ? 13. There is mild tricuspid valve regurgitation. ? 14. Dilated inferior vena cava with <50% collapse upon inspiration consistent with elevated right atrial pressure. ? 15. Left pleural effusion present. (4) Pneumonia: Code(s): J18.9 - Pneumonia, unspeci
--- NOTE | 2022-11-24 11:15 | P.PNNP_ITS ---
Progress Note: A&P Assessment and Plan (1) End stage renal disease: Code(s): N18.6 - End stage renal disease Status: Chronic Assessment and Plan: * HD tomorrow * continue HD on Fri/Fri/Friday schedule while hospitalized * follow electrolytes, volume status, and clearance (2) Acute respiratory failure: Code(s): J96.00 - Acute respiratory failure, unspecified whether with hypoxia or hypercapnia Status: Acute Assessment and Plan: * resolving/resolved (extubated) * suspect secondary to pulmonary edema +/- pneumonia (possibly aspiration) * follow CXR results * push fluid removal as tolerated with HD * follow respiratory status (3) Septic shock: Code(s): A41.9 - Sepsis, unspecified organism; R65.21 - Severe sepsis with septic shock Status: Acute Assessment and Plan: * as noted by worsening WBC, hypoxia, lactic acidosis, and hypotension * follow culture data * blood culture with Enterococcus + Staph aureus * repeat cultures (11/20/22) positive as well * will need MIKE to r/o endocarditis * on IV antibiotics * vasopressor support as needed - wean as tolerated (4) Encephalopathy: Code(s): G93.40 - Encephalopathy, unspecified Status: Acute Assessment and Plan: * improving/resolving * thought to be due to Valtrex overdose but sepsis playing a role as well * elevated liver enzymes, elevated bilirubin, and elevated ammonia noted as well (but are trending down) * suspect that the liver issues are due to the Valtrex as well * head CT negative * b12 and Folate okay * TSH is high -- getting IV Synthroid * s/p LP done (on 11/11/22) - follow-up on viral studies (Chris Pickard Viruus DNA PCR positive) * follow mentation (5) Herpes zoster infection of thoracic region: Code(s): B02.9 - Zoster without complications Status: Acute Assessment and Plan: * holding antiviral therapy at this time * continue supportive therapy (6) Atrial fibrillation: Qualifiers: Atrial fibrillation type: paroxysmal Qualified Code(s): I48.0 - Paroxysmal atrial fibrillation Code(s): I48.91 - Unspecified atrial fibrillation Status: Chronic Assessment and Plan: * rate control strategy * anticoagulation on hold (in case further procedures need to be done) (7) Insulin dependent diabetes mellitus: Status: Acute Assessment and Plan: * follow accuchecks * glycemic control per hospitalists/frame bander Will continue to follow. Subjective Date/time seen: 11/24/22 11:15 Interval history: Follow-up for end stage renal disease on hemodialysis. Appears to be doing reasonably well at the time of my visit; awake and alert along with answering questions; remains on levophed to maintain MAP/BP; no other acute complaints voiced other than pain at the area of his shingles; no apparent distress to report at this time. Exam Narrative: General: ill appearing male in NAD Heart: tachycardic normal S1 and S2; no rub Lungs: coarse breath sounds Abdomen: soft, nontender, nondistended, positive bowel sounds Extremities: no cyanosis or clubbing; 1+ edema Skin: warm and dry Objective Data Vital Signs Vital Signs: Vital Signs Temp Pulse Resp BP Pulse Ox O2 Del Method O2 Flow Rate 11/24/22 11:00 95 104/76 11/24/22 10:17 91 Amanuel
--- NOTE | 2022-11-24 11:15 | PM.PNNEP ---
Progress Note: A&P Assessment and Plan (1) End stage renal disease: Code(s): N18.6 - End stage renal disease Status: Chronic Assessment and Plan: HD tomorrow continue HD on Fri/Fri/Friday schedule while hospitalized follow electrolytes, volume status, and clearance (2) Acute respiratory failure: Code(s): J96.00 - Acute respiratory failure, unspecified whether with hypoxia or hypercapnia Status: Acute Assessment and Plan: resolving/resolved (extubated) suspect secondary to pulmonary edema +/- pneumonia (possibly aspiration) follow CXR results push fluid removal as tolerated with HD follow respiratory status (3) Septic shock: Code(s): A41.9 - Sepsis, unspecified organism; R65.21 - Severe sepsis with septic shock Status: Acute Assessment and Plan: as noted by worsening WBC, hypoxia, lactic acidosis, and hypotension follow culture data blood culture with Enterococcus + Staph aureus repeat cultures (11/20/22) positive as well will need MIKE to r/o endocarditis on IV antibiotics vasopressor support as needed - wean as tolerated (4) Encephalopathy: Code(s): G93.40 - Encephalopathy, unspecified Status: Acute Assessment and Plan: improving/resolving thought to be due to Valtrex overdose but sepsis playing a role as well elevated liver enzymes, elevated bilirubin, and elevated ammonia noted as well (but are trending down) suspect that the liver issues are due to the Valtrex as well head CT negative b12 and Folate okay TSH is high -- getting IV Synthroid s/p LP done (on 11/11/22) - follow-up on viral studies (Chris Pickard Viruus DNA PCR positive) follow mentation (5) Herpes zoster infection of thoracic region: Code(s): B02.9 - Zoster without complications Status: Acute Assessment and Plan: holding antiviral therapy at this time continue supportive therapy (6) Atrial fibrillation: Qualifiers: Atrial fibrillation type: paroxysmal Qualified Code(s): I48.0 - Paroxysmal atrial fibrillation Code(s): I48.91 - Unspecified atrial fibrillation Status: Chronic Assessment and Plan: rate control strategy anticoagulation on hold (in case further procedures need to be done) (7) Insulin dependent diabetes mellitus: Status: Acute Assessment and Plan: follow accuchecks glycemic control per hospitalists/guest service supervisor Will continue to follow. Subjective Date/time seen: 11/24/22 11:15 Interval history: Follow-up for end stage renal disease on hemodialysis. Appears to be doing reasonably well at the time of my visit; awake and alert along with answering questions; remains on levophed to maintain MAP/BP; no other acute complaints voiced other than pain at the area of his shingles; no apparent distress to report at this time. Exam Narrative: General: ill appearing male in NAD Heart: tachycardic normal S1 and S2; no rub Lungs: coarse breath sounds Abdomen: soft, nontender, nondistended, positive bowel sounds Extremities: no cyanosis or clubbing; 1+ edema Skin: warm and dry Objective Data Vital Signs Vital Signs: Vital Signs Temp Pulse Resp BP Pulse Ox O2 Del Method O2 Flow Rate 11/24/22 11:00 95 104/76 11/24/22 10:17 91 Nasal Cannula 3.5 11/24/22 10:00 106 H 16 94/63 L 91 11/24/22 10:00 106 H 11/24/22 08:00 106 H 11/24/22 10:20 96 82/59 L 11/24/22 08:00 93 16 96 Nasal Cannula 2 11/24/22 08:00 97.1 F L 100 16 93/66 L 96 11/24/22 09:11 93 11/24/22 09:08 93 93/66 L 11/24/22 06:45 91 96/69 L 11/24/22 06:30 97 86/62 L 11/24/22 06:15 97 88/76 L 11/24/22 05:45 98 98/69 L 11/24/22 05:30 103 H 97/77 L 11/24/22 05:15 100 89/69 L 11/24/22 05:00 101 H 106/66 11/24/22 04:45 95 91/67 L 07
--- NOTE | 2022-11-24 11:24 | PM.IMPN ---
Progress Note: A&P Assessment and Plan (1) Acute respiratory failure: Code(s): J96.00 - Acute respiratory failure, unspecified whether with hypoxia or hypercapnia Status: Acute Assessment and Plan: Acute respiratory failure likely secondary to pulmonary edema with possibility of pneumonia which could be aspiration -now extubated. Continue antibiotics. Overall respiratory status is much improved. (2) Sepsis: Code(s): A41.9 - Sepsis, unspecified organism Status: Acute Assessment and Plan: Cultures noted. Continue antibiotic (3) Pneumonia: Code(s): J18.9 - Pneumonia, unspecified organism Status: Acute Assessment and Plan: See above (4) Shock: Code(s): R57.9 - Shock, unspecified Status: Acute Assessment and Plan: Improved (5) Encephalopathy: Code(s): G93.40 - Encephalopathy, unspecified Status: Acute Assessment and Plan: Improving (6) Herpes zoster infection of thoracic region: Code(s): B02.9 - Zoster without complications Status: Acute Assessment and Plan: Patient was treated earlier and currently off of antiviral drugs (7) Antiviral drug overdose: Code(s): T37.5X1A - Poisoning by antiviral drugs, accidental (unintentional), initial encounter Status: Acute Assessment and Plan: The patient has been taking 1000 mg of valacyclovir t.i.d. as detailed above. His altered mental status and delirium are likely result of iatrogenic overdose. (8) End-stage renal disease on hemodialysis: Code(s): N18.6 - End stage renal disease; Z99.2 - Dependence on renal dialysis Status: Acute Assessment and Plan: Continue dialysis. (9) Insulin dependent diabetes mellitus: Status: Acute Assessment and Plan: Sliding scale insulin and Accu-Cheks -will hold Lantus as patient may be extubated (10) Atrial fibrillation: Qualifiers: Atrial fibrillation type: paroxysmal Qualified Code(s): I48.0 - Paroxysmal atrial fibrillation Code(s): I48.91 - Unspecified atrial fibrillation Status: Chronic Assessment and Plan: P.o. amiodarone Continue apixaban (11) Elevated LFTs: Code(s): R79.89 - Other specified abnormal findings of blood chemistry Status: Acute Assessment and Plan: Monitor (12) Hypothyroidism: Code(s): E03.9 - Hypothyroidism, unspecified Status: Acute Assessment and Plan: Continue levothyroxine (13) Thrombocytopenia: Code(s): D69.6 - Thrombocytopenia, unspecified Status: Acute Assessment and Plan: Multifactorial? Hit antibody was negative and wendie was indeterminate. -platelets have improved, could be related to septic shock (14) Pulmonary edema: Code(s): J81.1 - Chronic pulmonary edema Status: Acute Assessment and Plan: Hemodialysis per Nephrology (15) Gastric distention: Code(s): K31.89 - Other diseases of stomach and duodenum Status: Acute Assessment and Plan: Monitor. Subjective Date/time seen: 11/24/22 11:24 Interval history: No new complaints. Exam Narrative: General: Patient remains extubated, awake in no acute distress Lungs/Chest: Trachea central, clear to auscultation bilaterally, decreased at bases, adequate air entry Cardiac: RRR. Normal S1 S2. No murmurs Circulation: Pedal pulses are intact and symmetrical. Abdomen: Decreased bowel sounds. Obese. Soft. NT. ND. Extremities: No clubbing, cyanosis or. Warm. Bilateral edema in upper extremity right more than left, bilateral lower extremity edema has improved : [place] in place Neurologic: , patient is awake, alert, follows simple commands, generalized weakness Skin: Right chest wall scabs of shingles infection Objective Data Vital Signs Vital Signs: Vital Signs - 24 hr 11/23/22 12:00 11/23/22 12:00 11/23/22 12:00 Tenzin
[2022-11-24 14:07] LABS: Glucose Point of Care 193 mg/dl (65-105)
[2022-11-24 17:56] LABS: Glucose Point of Care 186 mg/dl (65-105)
[2022-11-25] VITALS (76 sets, daily range): BP systolic 62–202; BP diastolic 28–85; PULSE 83–132; RESP 9–20; TEMP 35.6–36.6; O2SAT 91–100
[2022-11-25] MEDS: oxyCODONE/ACETAMINOPHEN (*CRX) 10-325 MG TABLET 1 TAB PO ×3 (01:33→17:53)
[2022-11-25] MEDS: NOREPINEPHRINE 8 MG/D5W 250 ML 8 MG/250 ML BAG 9.38 MG IV CONT (01:33)
[2022-11-25 04:59] LABS: Basophils Absolute Auto 0.1 K/mm3 (0.0-0.1); Basophils Percent Auto 0.4 % (0.2-1.2); Eosinophils Absolute Auto 0.4 K/mm3 (0-0.3); Eosinophils Percent Auto 1.7 % (0-4.4); Hematocrit 35.2 % (42.0-52.0); Hemoglobin 10.5 g/dL (14.0-18.0); Immature Granulocyte Absolute 0.88 K/mm3 (0.00-0.031); Immature Granulocyte Percent A 4.1 % (0-0.5); Lymphocytes Percent Auto 4.7 % (18.3-44.2); Mean Corpuscular HGB Conc 29.8 g/dl (32-36); Mean Corpuscular Hemoglobin 32.2 pg (26-34); Mean Platelet Volume 11.2 fl (7.4-10.4); Monocytes Absolute Auto 0.5 K/mm3 (0.1-0.6); Monocytes Percent Auto 2.5 % (2.6-8.5); Neutrophils Absolute Auto 18.4 K/mm3 (1.3-6.7); Neutrophils Percent Auto 86.6 % (45.5-73.1); Platelet Count Result 214 k/mm3 (150-375); Red Blood Count 3.26 M/mm3 (4.6-6.20); Red Cell Distribution Width 24.2 % (11.5-14.5); White Blood Count 21.2 K/mm3 (4.5-10.0)
[2022-11-25 05:13] LABS: Alanine Aminotransferase 43 U/L (6-50); Albumin Level 3.2 g/dL (3.5-5.1); Alkaline Phosphatase 120 U/L (38-126); Anion Gap 14 mmol/L (8-16); Aspartate Amino Transferase 21 U/L (17-59); Bilirubin,Total 1.2 mg/dL (0.2-1.3); Blood Urea Nitrogen 67 mg/dL (9-20); Calcium 9.7 mg/dL (8.4-10.2); Carbon Dioxide 26 mmol/L (22-30); Chloride 96 mmol/L (98-107); Estimated CRCL calculation 11 ml/min; Estimated Glomerular Filt Rate 10; Glucose 147 mg/dL (65-110); Magnesium 2.7 mg/dL (1.6-2.3); Phosphorus 4.1 mg/dL (2.5-4.5); Potassium 4.1 mmol/L (3.4-5.0); Sodium 136 mmol/L (137-145)
[2022-11-25 05:21] LABS: Vancomycin Random 20.8 ug/mL (10-20)
[2022-11-25 05:30] LABS: Anisocytosis 1+ (NORMAL); Platelet Estimate Adequate (Adequate); Poikilocytosis 1+ (NORMAL)
[2022-11-25 05:31] LABS: Schistocytes Rare (NORMAL)
[2022-11-25] MEDS: CENTRAL LINE FLUSH 10 ML IV PUSH ×4 (06:34→20:17)
[2022-11-25] MEDS: METOCLOPRAMIDE HCL INJ 10 MG/2 ML VIAL IV PUSH ×4 (06:34→23:31)
[2022-11-25 06:50] LABS: Glucose Point of Care 185 mg/dl (65-105)
--- NOTE | 2022-11-25 06:53 | WPDGIPROGNO ---
Progress Note: A&P Assessment and Plan (1) Antiviral drug overdose: Code(s): T37.5X1A - Poisoning by antiviral drugs, accidental (unintentional), initial encounter Status: Acute Assessment and Plan: The patient has been taking 1000 mg of valacyclovir t.i.d. as detailed above. His altered mental status and delirium are likely result of iatrogenic overdose. He is being monitored closely in IMU. Continue HD per nephrology (2) End-stage renal disease on hemodialysis: Code(s): N18.6 - End stage renal disease; Z99.2 - Dependence on renal dialysis Status: Acute Assessment and Plan: Nephrology consulted for dialysis as detailed above. He has been dialyzed for the past several days. Appreciate nephrology input. He will have hemodialysis today. (3) Insulin dependent diabetes mellitus: Status: Acute Assessment and Plan: A1c 5.1. The patient's blood glucose was reviewed on 11/11 Glucose remains well controlled. lantus on hold Continue AccuCheks covering with sliding scale. Hypoglycemia protocol available as needed. Continue to monitor (4) Chronic anticoagulation: Code(s): Z79.01 - FDC (current) use of anticoagulants Status: Acute Assessment and Plan: Eliquis has been restarted at 2.5 mg b.i.d.. He may have a MIKE today. Also he needs EGD to determine if he has gastric outlet obstruction due to persistent high residuals of feedings. I will hold Eliquis this morning. (5) Hypothyroidism: Code(s): E03.9 - Hypothyroidism, unspecified Status: Acute Assessment and Plan: TSH elevated at 22. FT4 normal. Related to Amio? Levothyroxine IV started. Will need outpatient follow up labs. (6) Elevated LFTs: Code(s): R79.89 - Other specified abnormal findings of blood chemistry Status: Acute Assessment and Plan: LFTs which were normal 2 days ago are Abdo normal today with ALT 1059, AST 547 but alkaline phosphatase is normal. Bilirubin is 2.9 Most likely etiology would be ischemic hepatopathy if perhaps he was dehydrated. Viral disease also needs to be considered. INR has not increased significantly since admission which is a good prognostic sign. Likewise but ammonia level is only slightly increased. Will closely monitor his liver functions. However at this point I do not think he is in imminent danger of hepatic failure. 11/11/2022 INR is down to 1.5 which is a good prognostic sign. ALT down to 894 11/12/2022 ALT continues to drop, 698 today. now down to 347. I think we can continue to monitor this as an outpatient. 11/22/2022 ALT is down to 91 (7) Encephalopathy: Code(s): G93.40 - Encephalopathy, unspecified Status: Acute Assessment and Plan: This was acute in onset, 7 days ago and shortly after he began taking an antiviral drug for shingles. This of course raises the possibility of viral encephalopathy. Neurology has been consulted. 11/12/2022 the patient remains a very quiet but actually was responsive to me this morning. He answered questions uh huh (yes) and uh uh (no) 11/14/2022 he is more lucid today. He was somewhat verbal. Etiology of his encephalopathy is not entirely clear, as viral studies are still pending. (8) Gastric distention: Code(s): K31.89 - Other diseases of stomach and duodenum Status: Acute Assessment and Plan: he had a high residual, and then NG was placed with about 1 L of contents removed yesterday. today it appears only 120 mL more. I doubt that he would have developed gastric outlet obstruction. I think that we will try few doses of Reglan and then consider trying feeding tomorrow. If again high residual then we will need to do EGD (9) Hypotension: Code(s): I95.9 - Hypotension, unspecified Status: Acute Assessment and Plan: Blood pressure remains quite soft requiring doubling of the Levophed. Consequently he is
[2022-11-25] MEDS: INSULIN GLARGINE (*BKC) 100 UNITS/ML SUB-Q (08:11)
[2022-11-25] MEDS: PANTOPRAZOLE SODIUM IV 40 MG VIAL IV PUSH ×2 (08:12→20:05)
[2022-11-25] MEDS: MIDODRINE HCL 10 MG TABLET PO ×3 (08:12→16:21)
[2022-11-25] MEDS: AMIODARONE HCL 200 MG TABLET FEED TUBE ×2 (08:12→16:21)
[2022-11-25] MEDS: SILVERGEL (ELTA) 45 ML 1 APPLIC TOPICAL (08:13)
--- NOTE | 2022-11-25 09:30 | PM.PNNEP ---
Progress Note: A&P Assessment and Plan (1) End stage renal disease: Code(s): N18.6 - End stage renal disease Status: Chronic Assessment and Plan: HD today continue HD on Fri/Fri/Friday schedule while hospitalized follow electrolytes, volume status, and clearance (2) Acute respiratory failure: Code(s): J96.00 - Acute respiratory failure, unspecified whether with hypoxia or hypercapnia Status: Acute Assessment and Plan: resolved (extubated) suspect secondary to pulmonary edema +/- pneumonia (possibly aspiration) follow CXR results push fluid removal as tolerated with HD follow respiratory status (3) Septic shock: Code(s): A41.9 - Sepsis, unspecified organism; R65.21 - Severe sepsis with septic shock Status: Acute Assessment and Plan: as noted by worsening WBC, hypoxia, lactic acidosis, and hypotension follow culture data blood culture with Enterococcus + Staph aureus repeat cultures (11/20/22) positive as well plan MIEK to r/o endocarditis on IV antibiotics vasopressor support as needed - wean as tolerated (4) Encephalopathy: Code(s): G93.40 - Encephalopathy, unspecified Status: Acute Assessment and Plan: improving/resolving thought to be due to Valtrex overdose but sepsis playing a role as well elevated liver enzymes, elevated bilirubin, and elevated ammonia noted as well (but are trending down) suspect that the liver issues are due to the Valtrex as well head CT negative b12 and Folate okay TSH is high -- getting IV Synthroid s/p LP done (on 11/11/22) - follow-up on viral studies (Chris Pickard Viruus DNA PCR positive) follow mentation (5) Herpes zoster infection of thoracic region: Code(s): B02.9 - Zoster without complications Status: Acute Assessment and Plan: holding antiviral therapy at this time continue supportive therapy (6) Atrial fibrillation: Qualifiers: Atrial fibrillation type: paroxysmal Qualified Code(s): I48.0 - Paroxysmal atrial fibrillation Code(s): I48.91 - Unspecified atrial fibrillation Status: Chronic Assessment and Plan: rate control strategy anticoagulation on hold (in case further procedures need to be done) (7) Insulin dependent diabetes mellitus: Status: Acute Assessment and Plan: follow accuchecks glycemic control per hospitalists/inspector publications Will continue to follow. Subjective Date/time seen: 11/25/22 09:30 Interval history: Follow-up for end stage renal disease on hemodialysis. Tolerating dialysis treatment at this time (seen on HD at 9:15AM); remains awake and alert with stable mentation; remains on levophed although BP readings seem better when checked on leg; no issues/events overnight; tentatively scheduled for MIKE later today. Exam Narrative: General: ill appearing male in NAD Heart: tachycardic normal S1 and S2; no rub Lungs: coarse breath sounds Abdomen: soft, nontender, nondistended, positive bowel sounds Extremities: no cyanosis or clubbing; trace - 1+ edema Skin: warm and intact Objective Data Vital Signs Vital Signs: Vital Signs Temp Pulse Resp BP Pulse Ox O2 Del Method O2 Flow Rate 11/25/22 08:00 105 H 11/25/22 08:00 96.0 F L 108 H 16 83/60 L 94 11/25/22 08:00 105 H 14 94 Nasal Cannula 2 11/25/22 09:25 101 H 154/68 H 11/25/22 09:10 99 179/70 H 11/25/22 08:55 113 H 147/77 H 11/25/22 08:40 111 H 168/78 H 11/25/22 08:05 2 11/25/22 08:05 96.0 F L 104 H 14 202/80 H 94 11/25/22 08:25 105 H 159/64 H 11/25/22 08:11 104 H 179/78 H 11/25/22 08:12 107 H 11/25/22 07:15 100 91/57 L 11/25/22 07:00 100 81/61 L 11/25/22 06:30 100 78/57 L 11/25/22 06:15 101 H 81/67 L 11/25/22 05:45 101 H 97/62 L 11/25/22 05:30 100 87/60 L
--- NOTE | 2022-11-25 09:30 | P.PNNP_ITS ---
Progress Note: A&P Assessment and Plan (1) End stage renal disease: Code(s): N18.6 - End stage renal disease Status: Chronic Assessment and Plan: * HD today * continue HD on Fri/Fri/Friday schedule while hospitalized * follow electrolytes, volume status, and clearance (2) Acute respiratory failure: Code(s): J96.00 - Acute respiratory failure, unspecified whether with hypoxia or hypercapnia Status: Acute Assessment and Plan: * resolved (extubated) * suspect secondary to pulmonary edema +/- pneumonia (possibly aspiration) * follow CXR results * push fluid removal as tolerated with HD * follow respiratory status (3) Septic shock: Code(s): A41.9 - Sepsis, unspecified organism; R65.21 - Severe sepsis with septic shock Status: Acute Assessment and Plan: * as noted by worsening WBC, hypoxia, lactic acidosis, and hypotension * follow culture data * blood culture with Enterococcus + Staph aureus * repeat cultures (11/20/22) positive as well * plan MIKE to r/o endocarditis * on IV antibiotics * vasopressor support as needed - wean as tolerated (4) Encephalopathy: Code(s): G93.40 - Encephalopathy, unspecified Status: Acute Assessment and Plan: * improving/resolving * thought to be due to Valtrex overdose but sepsis playing a role as well * elevated liver enzymes, elevated bilirubin, and elevated ammonia noted as well (but are trending down) * suspect that the liver issues are due to the Valtrex as well * head CT negative * b12 and Folate okay * TSH is high -- getting IV Synthroid * s/p LP done (on 11/11/22) - follow-up on viral studies (Chris Pickard Viruus DNA PCR positive) * follow mentation (5) Herpes zoster infection of thoracic region: Code(s): B02.9 - Zoster without complications Status: Acute Assessment and Plan: * holding antiviral therapy at this time * continue supportive therapy (6) Atrial fibrillation: Qualifiers: Atrial fibrillation type: paroxysmal Qualified Code(s): I48.0 - Paroxysmal atrial fibrillation Code(s): I48.91 - Unspecified atrial fibrillation Status: Chronic Assessment and Plan: * rate control strategy * anticoagulation on hold (in case further procedures need to be done) (7) Insulin dependent diabetes mellitus: Status: Acute Assessment and Plan: * follow accuchecks * glycemic control per hospitalists/spray maker Will continue to follow. Subjective Date/time seen: 11/25/22 09:30 Interval history: Follow-up for end stage renal disease on hemodialysis. Tolerating dialysis treatment at this time (seen on HD at 9:15AM); remains awake and alert with stable mentation; remains on levophed although BP readings seem better when checked on leg; no issues/events overnight; tentatively scheduled for MIKE later today. Exam Narrative: General: ill appearing male in NAD Heart: tachycardic normal S1 and S2; no rub Lungs: coarse breath sounds Abdomen: soft, nontender, nondistended, positive bowel sounds Extremities: no cyanosis or clubbing; trace - 1+ edema Skin: warm and intact Objective Data Vital Signs Vital Signs: Vital Signs Temp Pulse Resp BP Pulse Ox O2 Del Method O2 Flow Rate 11/25/22 08:00 105 H 11/25/22 08:00 96.0 F L 108 H 16 83/60 L 94
[2022-11-25] MEDS: SODIUM CHLORIDE 0.9% IV 1,000 ML 999 ML IV CONT (10:01)
--- NOTE | 2022-11-25 11:06 | WPDINTPN ---
Progress Note: A&P Assessment and Plan (1) Acute respiratory failure: Code(s): J96.00 - Acute respiratory failure, unspecified whether with hypoxia or hypercapnia Status: Acute Assessment and Plan: Acute respiratory failure likely secondary to pulmonary edema with possibility of pneumonia which could be aspiration -intubated on 11/16 -extubated 11/21 -currently on 2 L nasal cannula with adequate O2 sats -encourage incentive spirometry 11/16: CT chest : showed congestive heart failure with cardiomegaly, mild pulmonary edema and small bilateral pleural effusions, dependent consolidation bilateral upper and lower lobes most likely atelectasis although superimposed pneumonia difficult to exclude. Small pericardial effusion (2) Sepsis: Code(s): A41.9 - Sepsis, unspecified organism Status: Acute Assessment and Plan: On presentation patient was febrile with increasing WBC count, shock and increased hypoxia pointing towards towards sepsis likely secondary to pneumonia 11/16: Blood cultures is growing Enterococcus faecalis and Staph aureus (MSSA) 11/16: sputum cultures negative procalcitonin level 2.0 11/16: MRSA screen negative -11/20/2022: Repeat blood cultures growing Enterococcus faecalis sensitive to ampicillin and vancomycin -11/19/2022: Enterococcus faecalis and Staph aureus sensitive to ampicillin 11/25/2022: Repeat blood cultures -continue Unasyn (11/19), vancomycin and ceftriaxone (11/22) for possible endocarditis -cardiology has been consulted for MIKE as patient has bioprosthetic valve to rule out endocarditis, MIKE scheduled for 11/25/202211/23: Repeat CT scan of the chest, abdomen and pelvis IMPRESSION: 1. Moderate pulmonary edema. 2. Small left pleural effusion. 3. Stable small pericardial effusion. 4. Wall thickening of the stomach, consistent with gastritis. 11/16: CT chest abdomen pelvis IMPRESSION: 1. Likely congestive heart failure with cardiomegaly, mild pulmonary edema and small bilateral pleural effusions. 2. Dependent consolidation in the bilateral upper and lower lobes most likely atelectasis although superimposed pneumonia difficult to exclude. 3. Small pericardial effusion. 4. Nonspecific mediastinal lymphadenopathy which is most likely reactive. 5. Cholelithiasis. 6. Small amount of nonspecific ascites in the abdomen and pelvis. (3) Shock: Code(s): R57.9 - Shock, unspecified Status: Acute Assessment and Plan: Likely combination of sepsis and cardiogenic Continue Levophed infusion, ventilated MAP > 65 mmHg for adequate end organ perfusion vasopressin weaned off Status post Solu-Cortef -continue midodrine 11/16: Echocardiogram Summary ? 1. Complete two-dimensional, color flow and Doppler transthoracic echocardiogram is performed. ? 2. Left ventricular chamber dimension is normal. ? 3. Left ventricular systolic function is normal, estimated at 65-70%. ? 4. Left ventricular septal wall motion is abnormal with septal motion related to bundle branch block. ? 5. Right ventricular chamber dimension is moderately enlarged. ? 6. Right ventricular systolic function is reduced. ? 7. Left atrial chamber dimension is moderately enlarged. ? 8. Right atrial chamber dimension is moderately enlarged. ? 9. S/p prior TAVR. Bioprosthetic aortic valve is well seated. Mean gradient across valve is 13mmHg. ? 10. The mitral valve annulus is severely calcified. ? 11. Known mitral valve replacement with #25 Epic porcine valve. Mean gradient across valve is 13mmHg. ? 12. 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 ? 13. There is mild tricuspid valve regurgitation. ? 14. Dilated inferior vena cava with <50% collapse upon inspiration consistent with elevated right atrial pressure. ? 15. Left pleural effusion present. (4) Pneumonia: Code(s): J18.9 - Pneumonia, unspecified organism Status: Acute Assessment and
--- NOTE | 2022-11-25 11:49 | PCFNICU ---
ICU Rounding Note: Pt current nutrition is NPO. Nutrition recommendation: Nepro at 50 ml/hr Last recorded weight is 83.5 kg. Bowel Motility:+BM reported 5/5 Labs Reviewed:Mg 2.7, Cr 5.8,GFR 10, BUN 67, Glu 147 Meds Noted:Zofran, Protonix, Lantus, NovoLog, Skin: Skin tears noted Additional Notes: Patient remains NPO at this time for MIKE and EGD. High residuals reported. Tube feeding recommendations remain as Nepro at 50 ml/hr providing 1980 kcals/89 gm protein/800 ml water. Flush 30 ml q 4 hours. Agree with diet orders. Following daily in ICU rounds. Monitor status, intake, wt, labs. Follow up every Friday and Friday.
[2022-11-25] MEDS: cefTRIAXone 2 GM/NS 100 ML 2 GM/100 ML BAG IVPB ×2 (12:20→20:17)
[2022-11-25] MEDS: AMPICILLIN SULB 3 GM/NS 100 ML 3 GM/100 ML VIAL IVPB ×2 (12:20→20:16)
[2022-11-25] MEDS: ACETAMINOPHEN 325 MG TABLET 650 MG FEED TUBE ×2 (12:23→20:05)
--- NOTE | 2022-11-25 12:53 | PCSTNOTE ---
Order for bedside swallowing evaluation received. Per nursing patient will be NPO until later today. Will leave on evaluation list for tomorrow.
[2022-11-25 12:54] LABS: Glucose Point of Care 141 mg/dl (65-105)
[2022-11-25] MEDS: VANCOMYCIN HCL 500 MG in DEXTROSE 5% 100 ML IVPB (13:21)
--- NOTE | 2022-11-25 14:13 | P.PCNCC_ITS ---
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 During this hospital stay he has been found to have positive blood cultures for Streptococcus faecalis and earlier for Staph aureus. Alhaji has been requested to examine for evidence of endocarditis Procedure Procedure performed:: Transesophageal echocardiogram Sedation/Medication given:: Fentanyl 25 mg Versed 2 mg Estimated blood loss:: 0 Procedure note:: Patient was hospitalized in ICU room 10. He was in the supine position I topical benzocaine was used for or pharyngeal spray. A bite block was then placed into position and the ALHAJI probe was easily placed into the esophagus and ALHAJI examination was carried out. Multiplanar transesophageal echocardiographic exam was performed to visualize all of his got cardiac valves and Doppler of the valves. Following this the ALHAJI probe was withdrawn the bite block was with withdrawn the patient will be recovered in his same room ICU room 10. Procedure was well tolerated and uncomplicated. His oxygen FiO2 was increased during the procedure with sedation. Findings:: The left atrium is moderately enlarged the mitral valve prosthesis was nicely visualized the valve she was a trivial central regurgitation jet and there was no visible evidence of infectious vegetation. The TAVR valve was also then inspected carefully and with good quality imaging. The ALHAJI valve appears unremarkable the valve leaflets are thin and pliable there were no masses or lesions consistent with infectious vegetation. No regurgitant lesion was seen regarding the TAVR valve. The tricuspid valve is anatomically unremarkable and is not regurgitant. There were no tricuspid valve lesions identified. The pulmonic valve was unremarkable in appearance and showed no evidence of infectious vegetation. The left ventricle was of normal dimension and appears to contract well in all segments with a global ejection fraction I would visually estimated to be 60%. Conclusion:: No transesophageal echocardiographic evidence of infectious vegetation on any of the patient's valve. The TAVR and mitral prosthesis appeared to be free of infectious material and do not show any significant regurgitant lesion. There was a tiny central jet of MR no evidence of any perivalvular leak. Germain Mayorga MD [facility]
--- NOTE | 2022-11-25 14:17 | ECHO_ITS ---
This document was recreated with the correct Report Title on 09/17/23.? The original document was signed by Germain Mayorga MD 11/25/22 1417. 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 During this hospital stay he has been found to have positive blood cultures for Streptococcus faecalis and earlier for Staph aureus. Alhaji has been requested to examine for evidence of endocarditis Procedure Procedure performed:: Transesophageal echocardiogram Sedation/Medication given:: Fentanyl 25 mg Versed 2 mg Estimated blood loss:: 0 Procedure note:: Patient was hospitalized in ICU room 10. He was in the supine position I topical benzocaine was used for or pharyngeal spray. A bite block was then placed into position and the ALHAJI probe was easily placed into the esophagus and ALHAJI examination was carried out. Multiplanar transesophageal echocardiographic exam was performed to visualize all of his got cardiac valves and Doppler of the valves. Following this the ALHAJI probe was withdrawn the bite block was with withdrawn the patient will be recovered in his same room ICU room 10. Procedure was well tolerated and uncomplicated. His oxygen FiO2 was increased during the procedure with sedation. Findings:: The left atrium is moderately enlarged the mitral valve prosthesis was nicely visualized the valve she was a trivial central regurgitation jet and there was no visible evidence of infectious vegetation. The TAVR valve was also then inspected carefully and with good quality imaging. The ALHAJI valve appears unremarkable the valve leaflets are thin and pliable there were no masses or lesions consistent with infectious vegetation. No regurgitant lesion was seen regarding the TAVR valve. The tricuspid valve is anatomically unremarkable and is not regurgitant. There were no tricuspid valve lesions identified. The pulmonic valve was unremarkable in appearance and showed no evidence of infectious vegetation. The left ventricle was of normal dimension and appears to contract well in all segments with a global ejection fraction I would visually estimated to be 60%. Conclusion:: No transesophageal echocardiographic evidence of infectious vegetation on any of the patient's valve. The TAVR and mitral prosthesis appeared to be free of infectious material and do not show any significant regurgitant lesion. There was a tiny central jet of MR no evidence of any perivalvular leak. Germain Mayorga MD [facility] This report may have been done utilizing a voice recognition system. Attempts have been made to correct errors. However, there may be uncorrected grammatical, spelling, and recognition errors present. Report Initialized date/time: Germain Mayorga MD 11/25/221416 Electronically signed by: Germain Mayorga MD 11/25/221416 [facility]
[2022-11-25] MEDS: APIXABAN 2.5 MG TABLET PO (16:20)
[2022-11-25] MEDS: NOREPINEPHRINE 8 MG/D5W 250 ML 8 MG/250 ML BAG 24.38 MG IV CONT (17:56)
[2022-11-25 18:13] LABS: Glucose Point of Care 188 mg/dl (65-105)
[2022-11-25] MEDS: AMIODARONE 150 MG/D5W 100 ML 150 MG/100 ML BAG 600 MG IV CONT (18:18)
[2022-11-25 23:37] LABS: Glucose Point of Care 164 mg/dl (65-105)
[2022-11-26] VITALS (36 sets, daily range): BP systolic 73–118; BP diastolic 53–77; PULSE 87–130; RESP 10–20; TEMP 36.1–36.9; O2SAT 90–98
[2022-11-26] MEDS: oxyCODONE/ACETAMINOPHEN (*CRX) 10-325 MG TABLET 1 TAB PO (01:59)
[2022-11-26] MEDS: NOREPINEPHRINE 8 MG/D5W 250 ML 8 MG/250 ML BAG 33.75 MG IV CONT ×2 (03:24→11:27)
[2022-11-26] MEDS: METOCLOPRAMIDE HCL INJ 10 MG/2 ML VIAL IV PUSH ×4 (05:41→23:48)
[2022-11-26] MEDS: ACETAMINOPHEN 325 MG TABLET 650 MG FEED TUBE ×3 (05:41→18:40)
[2022-11-26] MEDS: CENTRAL LINE FLUSH 10 ML IV PUSH ×4 (05:42→21:08)
[2022-11-26] MEDS: LEVOTHYROXINE SODIUM INJ 100 MCG/5 ML VIAL 50 MCG IV PUSH (05:43)
[2022-11-26 05:53] LABS: Basophils Absolute Auto 0.1 K/mm3 (0.0-0.1); Basophils Percent Auto 0.5 % (0.2-1.2); Eosinophils Absolute Auto 0.3 K/mm3 (0-0.3); Hematocrit 37.6 % (42.0-52.0); Hemoglobin 11.2 g/dL (14.0-18.0); Immature Granulocyte Absolute 0.87 K/mm3 (0.00-0.031); Immature Granulocyte Percent A 3.5 % (0-0.5); Lymphocytes Absolute Auto 0.94 K/mm3 (0.9-3.2); Lymphocytes Percent Auto 3.8 % (18.3-44.2); Mean Corpuscular HGB Conc 29.8 g/dl (32-36); Mean Corpuscular Volume 107.4 fl (80-100); Mean Platelet Volume 11.3 fl (7.4-10.4); Monocytes Absolute Auto 0.6 K/mm3 (0.1-0.6); Monocytes Percent Auto 2.6 % (2.6-8.5); Neutrophils Percent Auto 88.6 % (45.5-73.1); Nucleated Red Blood Cells Perc 0.1 % (0.0-0.2); Platelet Count Result 238 k/mm3 (150-375); Red Cell Distribution Width 24.7 % (11.5-14.5); White Blood Count 24.8 K/mm3 (4.5-10.0)
[2022-11-26 06:23] LABS: Alanine Aminotransferase 40 U/L (6-50); Albumin Level 3.5 g/dL (3.5-5.1); Alkaline Phosphatase 114 U/L (38-126); Anion Gap 13 mmol/L (8-16); Aspartate Amino Transferase 25 U/L (17-59); Bilirubin,Total 1.1 mg/dL (0.2-1.3); Blood Urea Nitrogen 37 mg/dL (9-20); Calcium 9.2 mg/dL (8.4-10.2); Carbon Dioxide 27 mmol/L (22-30); Chloride 96 mmol/L (98-107); Estimated CRCL calculation 17 ml/min; Estimated Glomerular Filt Rate 16; Glucose 214 mg/dL (65-110); Magnesium 2.4 mg/dL (1.6-2.3); Sodium 136 mmol/L (137-145)
[2022-11-26] MEDS: INSULIN ASPART (*BKC) 100 UNITS/ML SUB-Q (06:53)
--- NOTE | 2022-11-26 06:56 | ECG_ITS ---
Measurements Intervals [place] Rate: 128 P: [place]: 0 QRS: 99 QRSD: 107 T: 93 QT: 389 QTc: 568 Interpretive Statements ATRIAL FLUTTER/TACHYCARDIA WITH RAPID VENTRICULAR RESPONSE RIGHT AXIS DEVIATION INCOMPLETE RIGHT BUNDLE BRANCH BLOCK ST-T WAVE ABNORMALITY IN LAT/INF LEADS- CONSIDER ISCHEMIA BASELINE ARTIFACT- I, V1-V3 ABNORMAL ECG COMPARED TO ECG 11/09/2022 14:55:28 INCOMPLETE RIGHT BUNDLE-BRANCH BLOCK NOW PRESENT ST-T WAVE ABNORMALITY NOW PRESENT Electronically Signed On 11-26-2022 9:36:44 CDT by John Art D.O.
[2022-11-26] MEDS: ASPIRIN 81 MG CHEWABLE TABLET FEED TUBE (09:15)
[2022-11-26] MEDS: APIXABAN 2.5 MG TABLET PO ×2 (09:15→18:34)
[2022-11-26] MEDS: MIDODRINE HCL 10 MG TABLET PO ×3 (09:15→18:34)
[2022-11-26] MEDS: AMIODARONE HCL 200 MG TABLET FEED TUBE ×2 (09:15→18:33)
[2022-11-26] MEDS: PANTOPRAZOLE SODIUM IV 40 MG VIAL IV PUSH ×2 (09:16→21:05)
[2022-11-26] MEDS: cefTRIAXone 2 GM/NS 100 ML 2 GM/100 ML BAG IVPB (09:19)
[2022-11-26] MEDS: AMPICILLIN SULB 3 GM/NS 100 ML 3 GM/100 ML VIAL IVPB ×2 (09:19→21:03)
[2022-11-26] MEDS: SILVERGEL (ELTA) 45 ML 1 APPLIC TOPICAL (09:20)
[2022-11-26] MEDS: INSULIN GLARGINE (*BKC) 100 UNITS/ML SUB-Q (09:20)
--- NOTE | 2022-11-26 09:21 | PM.PNNEP ---
Progress Note: A&P Assessment and Plan (1) End stage renal disease: Code(s): N18.6 - End stage renal disease Status: Chronic Assessment and Plan: HD tomorrow continue HD on Fri/Fri/Friday schedule while hospitalized follow electrolytes, volume status, and clearance (2) Acute respiratory failure: Code(s): J96.00 - Acute respiratory failure, unspecified whether with hypoxia or hypercapnia Status: Acute Assessment and Plan: resolved (extubated) suspect secondary to pulmonary edema +/- pneumonia (possibly aspiration) follow CXR results push fluid removal as tolerated with HD follow respiratory status (3) Septic shock: Code(s): A41.9 - Sepsis, unspecified organism; R65.21 - Severe sepsis with septic shock Status: Acute Assessment and Plan: as noted by worsening WBC, hypoxia, lactic acidosis, and hypotension follow culture data blood culture with Enterococcus + Staph aureus repeat cultures (11/20/22) positive as well s/p MIKE -- no evidence of endocarditis on IV antibiotics vasopressor support as needed - wean as tolerated (4) Encephalopathy: Code(s): G93.40 - Encephalopathy, unspecified Status: Acute Assessment and Plan: resolved thought to be due to Valtrex overdose but sepsis playing a role as well elevated liver enzymes, elevated bilirubin, and elevated ammonia noted as well (but are trending down) suspect that the liver issues are due to the Valtrex as well head CT negative b12 and Folate okay TSH is high -- getting IV Synthroid s/p LP done (on 11/11/22) - follow-up on viral studies (Chris Pickard Viruus DNA PCR positive) follow mentation (5) Herpes zoster infection of thoracic region: Code(s): B02.9 - Zoster without complications Status: Acute Assessment and Plan: holding antiviral therapy at this time continue supportive therapy (6) Atrial fibrillation: Qualifiers: Atrial fibrillation type: paroxysmal Qualified Code(s): I48.0 - Paroxysmal atrial fibrillation Code(s): I48.91 - Unspecified atrial fibrillation Status: Chronic Assessment and Plan: rate control strategy anticoagulation on hold (in case further procedures need to be done) (7) Insulin dependent diabetes mellitus: Status: Acute Assessment and Plan: follow accuchecks 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 Subjective Date/time seen: 05/09/23 09:21 Interval history: Follow-up for end stage renal disease on hemodialysis. Tolerated dialysis treatment yesterday without any issues or problems; tolerated MIKE yesterday afternoon as well with findings noted; respiratory status appears stable; stable hemodynamics noted off vasopressor therapy. Exam Narrative: General: ill appearing male in NAD Heart: tachycardic normal S1 and S2; no rub Lungs: clear anteriorly; decreased at bases Abdomen: soft, nontender, nondistended, positive bowel sounds Extremities: no cyanosis or clubbing; trace - 1+ edema Skin: no rash Objective Data Vital Signs Vital Signs: Vital Signs Temp Pulse Resp BP Pulse Ox O2 Del Method O2 Flow Rate 11/26/22 09:15 118 H 11/26/22 09:02 87 16 98 Nasal Cannula 3 11/26/22 07:41 97 F L 128 H 19 83/65 L 97 11/26/22 07:29 130 H 96/69 L 11/26/22 06:00 118 H 20 91/70 L 97 11/26/22 06:00 118 H 11/26/22 04:00 97 Nasal Cannula 5 11/26/22 04:00 97.9 F 129 H 18 93/67 L 97 11/26/22 04:00 129 H 11/26/22 03:00 120 H 95/64 L 11/26/22 01:00 119 H 90/67 L 11/25/22 23:00 120 H 90/63 L 11/25/22 21:00 104 H 90/68 L 11/25/22 19:00 110 H 82/59 L 11/26/22 02:45 123 H 73/53 L 11/26/22 02:00 125 H 14 87/68 L 95 11/26/22 02:00 125 H 11/26/22 00:00 95 Nasal Cannula 5 11/26/22 00:
--- NOTE | 2022-11-26 09:21 | P.PNNP_ITS ---
Progress Note: A&P Assessment and Plan (1) End stage renal disease: Code(s): N18.6 - End stage renal disease Status: Chronic Assessment and Plan: * HD tomorrow * continue HD on Fri/Fri/Friday schedule while hospitalized * follow electrolytes, volume status, and clearance (2) Acute respiratory failure: Code(s): J96.00 - Acute respiratory failure, unspecified whether with hypoxia or hypercapnia Status: Acute Assessment and Plan: * resolved (extubated) * suspect secondary to pulmonary edema +/- pneumonia (possibly aspiration) * follow CXR results * push fluid removal as tolerated with HD * follow respiratory status (3) Septic shock: Code(s): A41.9 - Sepsis, unspecified organism; R65.21 - Severe sepsis with septic shock Status: Acute Assessment and Plan: * as noted by worsening WBC, hypoxia, lactic acidosis, and hypotension * follow culture data * blood culture with Enterococcus + Staph aureus * repeat cultures (11/20/22) positive as well * s/p MIKE -- no evidence of endocarditis * on IV antibiotics * vasopressor support as needed - wean as tolerated (4) Encephalopathy: Code(s): G93.40 - Encephalopathy, unspecified Status: Acute Assessment and Plan: * resolved * thought to be due to Valtrex overdose but sepsis playing a role as well * elevated liver enzymes, elevated bilirubin, and elevated ammonia noted as well (but are trending down) * suspect that the liver issues are due to the Valtrex as well * head CT negative * b12 and Folate okay * TSH is high -- getting IV Synthroid * s/p LP done (on 11/11/22) - follow-up on viral studies (Chris Pickard Viruus DNA PCR positive) * follow mentation (5) Herpes zoster infection of thoracic region: Code(s): B02.9 - Zoster without complications Status: Acute Assessment and Plan: * holding antiviral therapy at this time * continue supportive therapy (6) Atrial fibrillation: Qualifiers: Atrial fibrillation type: paroxysmal Qualified Code(s): I48.0 - Paroxysmal atrial fibrillation Code(s): I48.91 - Unspecified atrial fibrillation Status: Chronic Assessment and Plan: * rate control strategy * anticoagulation on hold (in case further procedures need to be done) (7) Insulin dependent diabetes mellitus: Status: Acute Assessment and Plan: * follow accuchecks * 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 Subjective Date/time seen: 11/26/22 09:21 Interval history: Follow-up for end stage renal disease on hemodialysis. Tolerated dialysis treatment yesterday without any issues or problems; tolerated MIKE yesterday afternoon as well with findings noted; respiratory status appears stable; stable hemodynamics noted off vasopressor therapy. Exam Narrative: General: ill appearing male in NAD Heart: tachycardic normal S1 and S2; no rub Lungs: clear anteriorly; decreased at bases Abdomen: soft, nontender, nondistended, positive bowel sounds Extremities: no cyanosis or clubbing; trace - 1+ edema Skin: no rash Objective Data Vital Signs Vital Signs: Vital Signs Temp Pulse Resp BP Pulse Ox O2 Del Method O2 Flow Rate 11/26/22 09:15 118 H 11/26/22 09:02 87 16 98 Nasal Cannula 3 11/26/22 07:41 97 F L 1
--- NOTE | 2022-11-26 09:26 | PCSTNOTE ---
Please refer to the Bedside Swallow Evaluation in the EMR. Please note, silent aspiration cannot be ruled out at bedside.
--- NOTE | 2022-11-26 09:28 | WPDINTPN ---
Progress Note: A&P Assessment and Plan (1) Acute respiratory failure: Code(s): J96.00 - Acute respiratory failure, unspecified whether with hypoxia or hypercapnia Status: Acute Assessment and Plan: Acute respiratory failure likely secondary to pulmonary edema with possibility of pneumonia which could be aspiration -intubated on 11/16 -extubated 11/21 -currently on 3-4 L nasal cannula with adequate O2 sats -encourage incentive spirometry -PT OT 11/16: CT chest : showed congestive heart failure with cardiomegaly, mild pulmonary edema and small bilateral pleural effusions, dependent consolidation bilateral upper and lower lobes most likely atelectasis although superimposed pneumonia difficult to exclude. Small pericardial effusion 11/26 Chest x-ray shows pulmonary edema (2) Sepsis: Code(s): A41.9 - Sepsis, unspecified organism Status: Acute Assessment and Plan: On presentation patient was febrile with increasing WBC count, shock and increased hypoxia pointing towards towards sepsis likely secondary to pneumonia 11/16: Blood cultures is growing Enterococcus faecalis and Staph aureus (MSSA) 11/16: sputum cultures negative procalcitonin level 2.0 11/16: MRSA screen negative -11/20/2022: Repeat blood cultures growing Enterococcus faecalis sensitive to ampicillin and vancomycin -11/19/2022: Enterococcus faecalis and Staph aureus sensitive to ampicillin 11/25/2022: Repeat blood cultures negative till now -continue Unasyn (11/19), vancomycin and ceftriaxone (11/22) for bacteremia -cardiology was consulted for MIKE as patient has bioprosthetic valve to rule out endocarditis, MIKE 11/25 was negative for vegetation 11/16: CT chest abdomen pelvis IMPRESSION: 1. Likely congestive heart failure with cardiomegaly, mild pulmonary edema and small bilateral pleural effusions. 2. Dependent consolidation in the bilateral upper and lower lobes most likely atelectasis although superimposed pneumonia difficult to exclude. 3. Small pericardial effusion. 4. Nonspecific mediastinal lymphadenopathy which is most likely reactive. 5. Cholelithiasis. 6. Small amount of nonspecific ascites in the abdomen and pelvis. 11/23: Repeat CT scan of the chest, abdomen and pelvis IMPRESSION: 1. Moderate pulmonary edema. 2. Small left pleural effusion. 3. Stable small pericardial effusion. 4. Wall thickening of the stomach, consistent with gastritis. Chest x-ray today shows pulmonary edema Check venous Dopplers to rule out any thrombosis which could be a source Will discuss with family regarding transfer to a facility with infectious disease consultation. (3) Shock: Code(s): R57.9 - Shock, unspecified Status: Acute Assessment and Plan: Likely combination of sepsis and cardiogenic Continue Levophed infusion, ventilated MAP > 65 mmHg for adequate end organ perfusion vasopressin weaned off Resume solu-Cortef -continue midodrine 11/16: Echocardiogram Summary ? 1. Complete two-dimensional, color flow and Doppler transthoracic echocardiogram is performed. ? 2. Left ventricular chamber dimension is normal. ? 3. Left ventricular systolic function is normal, estimated at 65-70%. ? 4. Left ventricular septal wall motion is abnormal with septal motion related to bundle branch block. ? 5. Right ventricular chamber dimension is moderately enlarged. ? 6. Right ventricular systolic function is reduced. ? 7. Left atrial chamber dimension is moderately enlarged. ? 8. Right atrial chamber dimension is moderately enlarged. ? 9. S/p prior TAVR. Bioprosthetic aortic valve is well seated. Mean gradient across valve is 13mmHg. ? 10. The mitral valve annulus is severely calcified. ? 11. Known mitral valve replacement with #25 Epic porcine valve. Mean gradient across valve is 13mmHg. ? 12. 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 ? 13. There is mild tricuspid valve regurgitation. ? 14. Dilated inferior
--- NOTE | 2022-11-26 11:04 | PCNFU ---
Addendum entered by Bibi Mari RD, LDN 11/27/22 11:21: Patient was extubated on 11/21. Original Note: Nutrition Follow-Up Complete: Inadequate energy intake related to lack of alertness as evidenced by nursing report goal: Alert and oriented Greater than 50% intake of meals Patient is not meeting goal. We will continue current goal. Pt current nutrition is Nepro at 45 ml/hr. Nutrition recommendation: 50 ml/hr goal rate. Last recorded weight is 82.8 kg. Bowel Motility:+Bm reported 11/22 Labs Reviewed:Glu 214, GFR 16, BUN 37, Cr 3.9, Hct 37.6, Hgb 11.2 Meds Noted:Zofran, Protonix, Lantus, NovoLog,Reglan. Skin: Skin Tear noted. Additional Notes: Patient remains on mechanical vent. Per nursing tolerating tube feedings. He received dialysis yesterday. Nepro currently at 45 ml/hr with goal rate of tube feedings at 50ml/hr will provide 1980 kcals/89 gm protein/800 ml water. Flush 30 ml q 4 hours. Tube feedings is meeting 100% of kcal and protein needs. Agree with diet orders. Monitor in ICU rounds and reassessing every Friday and Friday.
[2022-11-26 12:21] LABS: Glucose Point of Care 192 mg/dl (65-105)
[2022-11-26] MEDS: HYDROCORTISONE SODIUM SUCCINATE 100 MG/2 ML VIAL IV PUSH ×2 (12:27→21:07)
[2022-11-26 17:03] LABS: Glucose Point of Care 195 mg/dl (65-105)
[2022-11-26] MEDS: NOREPINEPHRINE 8 MG/D5W 250 ML 8 MG/250 ML BAG 16.88 MG IV CONT (21:04)
[2022-11-27] VITALS (44 sets, daily range): BP systolic 78–115; BP diastolic 50–85; PULSE 80–125; RESP 12–22; TEMP 36–37.1; O2SAT 91–99
[2022-11-27 04:11] LABS: Glucose Point of Care 185 mg/dl (65-105)
[2022-11-27] MEDS: METOCLOPRAMIDE HCL INJ 10 MG/2 ML VIAL IV PUSH ×4 (06:10→23:21)
[2022-11-27] MEDS: LEVOTHYROXINE SODIUM INJ 100 MCG/5 ML VIAL 50 MCG IV PUSH (06:10)
[2022-11-27] MEDS: HYDROCORTISONE SODIUM SUCCINATE 100 MG/2 ML VIAL IV PUSH ×3 (06:10→21:04)
[2022-11-27] MEDS: CENTRAL LINE FLUSH 10 ML IV PUSH ×4 (06:10→21:04)
[2022-11-27 06:17] LABS: Glucose Point of Care 188 mg/dl (65-105)
--- NOTE | 2022-11-27 06:35 | PC.NURSE ---
Paper documentation exists on this patient due to [employer] downtime from 11/26/22 @ 4996 to 11/27/22 @ 1242.
[2022-11-27 09:22] LABS: Alanine Aminotransferase 33 U/L (6-50); Albumin Level 3.2 g/dL (3.5-5.1); Alkaline Phosphatase 122 U/L (38-126); Anion Gap 11 mmol/L (8-16); Aspartate Amino Transferase 24 U/L (17-59); Bilirubin,Total 1.3 mg/dL (0.2-1.3); Blood Urea Nitrogen 54 mg/dL (9-20); Calcium 9.8 mg/dL (8.4-10.2); Carbon Dioxide 26 mmol/L (22-30); Chloride 93 mmol/L (98-107); Estimated CRCL calculation 12 ml/min; Estimated Glomerular Filt Rate 11; Glucose 184 mg/dL (65-110); Magnesium 2.6 mg/dL (1.6-2.3); Potassium 4.4 mmol/L (3.4-5.0); Sodium 130 mmol/L (137-145)
[2022-11-27 09:41] LABS: Basophils Absolute Auto 0.1 K/mm3 (0.0-0.1); Basophils Percent Auto 0.2 % (0.2-1.2); Hematocrit 33.1 % (42.0-52.0); Hemoglobin 9.9 g/dL (14.0-18.0); Immature Granulocyte Absolute 0.45 K/mm3 (0.00-0.031); Immature Granulocyte Percent A 2.2 % (0-0.5); Lymphocytes Absolute Auto 0.55 K/mm3 (0.9-3.2); Lymphocytes Percent Auto 2.7 % (18.3-44.2); Mean Corpuscular HGB Conc 29.9 g/dl (32-36); Mean Corpuscular Hemoglobin 31.4 pg (26-34); Mean Corpuscular Volume 105.1 fl (80-100); Mean Platelet Volume 11.3 fl (7.4-10.4); Monocytes Absolute Auto 0.4 K/mm3 (0.1-0.6); Monocytes Percent Auto 1.9 % (2.6-8.5); Neutrophils Absolute Auto 18.7 K/mm3 (1.3-6.7); Platelet Count Result 179 k/mm3 (150-375); Red Blood Count 3.15 M/mm3 (4.6-6.20); Red Cell Distribution Width 23.9 % (11.5-14.5); White Blood Count 20.2 K/mm3 (4.5-10.0)
[2022-11-27 10:47] LABS: Anisocytosis 1+ (NORMAL); Burr Cells 2+ (NORMAL); Platelet Estimate Adequate (Adequate)
[2022-11-27 10:48] LABS: Poikilocytosis 1+ (NORMAL); Schistocytes Rare (NORMAL)
[2022-11-27 10:57] LABS: Vancomycin Random 20.5 ug/mL (10-20)
--- NOTE | 2022-11-27 11:15 | PCFNICU ---
ICU Rounding Note: Pt current nutrition is Nepro at 50 ml/hr. Last recorded weight is 81.4 kg. Bowel Motility:+BM reported 5/5 Labs Reviewed:Na 130, BUN 54, GFR 11, Cr 5.5,Glu 184, Hct 33.1,Hgb 9.9 Meds Noted:Zofran, Protonix, Lantus, NovoLog,Reglan Skin:WNL Additional Notes: Patient current with tube feedings of Nepro at 50 ml/hr providing 1980 kcals/89 gms protein/800ml water. Flush 30 ml q 4 hours. Speech eval today. In dialysis at this time. Agree with diet orders. Following daily in ICU rounds. Monitor status, intake, wt, labs every Friday and Friday.
--- NOTE | 2022-11-27 11:37 | WPDINTPN ---
Progress Note: A&P Assessment and Plan (1) Acute respiratory failure: Code(s): J96.00 - Acute respiratory failure, unspecified whether with hypoxia or hypercapnia Status: Acute Assessment and Plan: Acute respiratory failure likely secondary to pulmonary edema with possibility of pneumonia which could be aspiration -intubated on 11/16 -extubated 11/21 -currently on 3-4 L nasal cannula with adequate O2 sats -encourage incentive spirometry -PT OT 11/16: CT chest : showed congestive heart failure with cardiomegaly, mild pulmonary edema and small bilateral pleural effusions, dependent consolidation bilateral upper and lower lobes most likely atelectasis although superimposed pneumonia difficult to exclude. Small pericardial effusion 11/26 Chest x-ray shows pulmonary edema Patient receiving hemodialysis today with goal to remove additional fluid (2) Sepsis: Code(s): A41.9 - Sepsis, unspecified organism Status: Acute Assessment and Plan: On presentation patient was febrile with increasing WBC count, shock and increased hypoxia pointing towards towards sepsis likely secondary to pneumonia 11/16: Blood cultures is growing Enterococcus faecalis and Staph aureus (MSSA) 11/16: sputum cultures negative procalcitonin level 2.0 11/16: MRSA screen negative -11/20/2022: Repeat blood cultures growing Enterococcus faecalis sensitive to ampicillin and vancomycin -11/19/2022: Enterococcus faecalis and Staph aureus sensitive to ampicillin 11/25/2022: Repeat blood cultures negative till now continue Unasyn (11/19), vancomycin for bacteremia Ceftriaxone was discontinued 11/26 -cardiology was consulted for MIKE as patient has bioprosthetic valve to rule out endocarditis, MIKE 11/25 was negative for vegetation 11/16: CT chest abdomen pelvis IMPRESSION: 1. Likely congestive heart failure with cardiomegaly, mild pulmonary edema and small bilateral pleural effusions. 2. Dependent consolidation in the bilateral upper and lower lobes most likely atelectasis although superimposed pneumonia difficult to exclude. 3. Small pericardial effusion. 4. Nonspecific mediastinal lymphadenopathy which is most likely reactive. 5. Cholelithiasis. 6. Small amount of nonspecific ascites in the abdomen and pelvis. 11/23: Repeat CT scan of the chest, abdomen and pelvis IMPRESSION: 1. Moderate pulmonary edema. 2. Small left pleural effusion. 3. Stable small pericardial effusion. 4. Wall thickening of the stomach, consistent with gastritis. Chest x-ray today shows pulmonary edema Negative venous Dopplers for DVT 11/26 I offered patient's transferred to a facility with infectious disease consultation. We discussed pros and cons she states that she will think about whether she wants patient to be transferred continue to be managed here (3) Shock: Code(s): R57.9 - Shock, unspecified Status: Acute Assessment and Plan: Likely combination of sepsis and cardiogenic Continue Levophed infusion, ventilated MAP > 65 mmHg for adequate end organ perfusion vasopressin weaned off Continue solu-Cortef -continue midodrine 11/16: Echocardiogram Summary ? 1. Complete two-dimensional, color flow and Doppler transthoracic echocardiogram is performed. ? 2. Left ventricular chamber dimension is normal. ? 3. Left ventricular systolic function is normal, estimated at 65-70%. ? 4. Left ventricular septal wall motion is abnormal with septal motion related to bundle branch block. ? 5. Right ventricular chamber dimension is moderately enlarged. ? 6. Right ventricular systolic function is reduced. ? 7. Left atrial chamber dimension is moderately enlarged. ? 8. Right atrial chamber dimension is moderately enlarged. ? 9. S/p prior TAVR. Bioprosthetic aortic valve is well seated. Mean gradient across valve is 13mmHg. ? 10. The mitral valve annulus is severely calcified. ? 11. Known mitral valve replacement with #25 Epic porcine valve. Mean gradient across valve is
[2022-11-27] MEDS: KETOROLAC 15 MG/ML VIAL (*BKC) IV PUSH (11:39)
[2022-11-27 12:36] LABS: Glucose Point of Care 150 mg/dl (65-105)
--- NOTE | 2022-11-27 12:45 | PM.PNNEP ---
Progress Note: A&P Assessment and Plan (1) End stage renal disease: Code(s): N18.6 - End stage renal disease Status: Chronic Assessment and Plan: HD today continue HD on Fri/Fri/Friday schedule while hospitalized follow electrolytes, volume status, and clearance (2) Acute respiratory failure: Code(s): J96.00 - Acute respiratory failure, unspecified whether with hypoxia or hypercapnia Status: Acute Assessment and Plan: resolved (extubated) suspect secondary to pulmonary edema +/- pneumonia (possibly aspiration) follow CXR results push fluid removal as tolerated with HD follow respiratory status (3) Septic shock: Code(s): A41.9 - Sepsis, unspecified organism; R65.21 - Severe sepsis with septic shock Status: Acute Assessment and Plan: as noted by worsening WBC, hypoxia, lactic acidosis, and hypotension follow culture data blood culture with Enterococcus + Staph aureus repeat cultures (11/20/22) positive as well s/p MIKE -- no evidence of endocarditis on IV antibiotics vasopressor support as needed - wean as tolerated (4) Encephalopathy: Code(s): G93.40 - Encephalopathy, unspecified Status: Acute Assessment and Plan: resolved thought to be due to Valtrex overdose but sepsis playing a role as well elevated liver enzymes, elevated bilirubin, and elevated ammonia noted as well (but are trending down) suspect that the liver issues are due to the Valtrex as well head CT negative b12 and Folate okay TSH is high -- getting IV Synthroid s/p LP done (on 11/11/22) - follow-up on viral studies (Chris Pickard Viruus DNA PCR positive) follow mentation (5) Herpes zoster infection of thoracic region: Code(s): B02.9 - Zoster without complications Status: Acute Assessment and Plan: holding antiviral therapy at this time continue supportive therapy (6) Atrial fibrillation: Qualifiers: Atrial fibrillation type: paroxysmal Qualified Code(s): I48.0 - Paroxysmal atrial fibrillation Code(s): I48.91 - Unspecified atrial fibrillation Status: Chronic Assessment and Plan: rate control strategy anticoagulation on hold (in case further procedures need to be done) (7) Insulin dependent diabetes mellitus: Status: Acute Assessment and Plan: follow accuchecks glycemic control per hospitalists/tube handler Will continue to follow. Subjective Date/time seen: 11/27/22 12:45 Interval history: Follow-up for end stage renal disease on hemodialysis. Tolerating dialysis treatment at the time of my visit (seen on HD at 12:35PM); back on vasopressors to maintian BP/MAP; mentation seems stable although seems slower to respond at this time. Exam Narrative: General: ill appearing male in NAD Heart: tachycardic normal S1 and S2; no rub Lungs: clear anteriorly; decreased at bases Abdomen: soft, nontender, nondistended, positive bowel sounds Extremities: no cyanosis or clubbing; trace - 1+ edema Skin: no rash Objective Data Vital Signs Vital Signs: Vital Signs Temp Pulse Resp BP Pulse Ox O2 Del Method O2 Flow Rate 11/27/22 12:40 97.9 F 110 H 18 104/69 99 11/27/22 12:15 113 H 89/77 L 11/27/22 12:00 111 H 96/64 L 11/27/22 11:45 112 H 100/69 11/27/22 11:30 113 H 97/70 L 11/27/22 11:15 110 H 90/59 L 11/27/22 11:00 114 H 106/71 11/27/22 10:45 110 H 89/66 L 11/27/22 10:00 125 H 12 98/72 L 95 11/27/22 08:00 116 H 16 96 Room Air 11/27/22 09:00 78/50 L 11/27/22 10:30 119 H 97/69 L 11/27/22 10:15 118 H 89/68 L 11/27/22 10:00 116 H 98/72 L 11/27/22 09:45 116 H 95/66 L 11/27/22 09:30 114 H 111/84 11/27/22 09:15 108 H 98/70 L 11/27/22 08:59 80 87/52 L 11/27/22 08:40 98.4 F 91 16 108/62 96 11/27/22 07:
--- NOTE | 2022-11-27 12:45 | P.PNNP_ITS ---
Progress Note: A&P Assessment and Plan (1) End stage renal disease: Code(s): N18.6 - End stage renal disease Status: Chronic Assessment and Plan: * HD today * continue HD on Fri/Fri/Friday schedule while hospitalized * follow electrolytes, volume status, and clearance (2) Acute respiratory failure: Code(s): J96.00 - Acute respiratory failure, unspecified whether with hypoxia or hypercapnia Status: Acute Assessment and Plan: * resolved (extubated) * suspect secondary to pulmonary edema +/- pneumonia (possibly aspiration) * follow CXR results * push fluid removal as tolerated with HD * follow respiratory status (3) Septic shock: Code(s): A41.9 - Sepsis, unspecified organism; R65.21 - Severe sepsis with septic shock Status: Acute Assessment and Plan: * as noted by worsening WBC, hypoxia, lactic acidosis, and hypotension * follow culture data * blood culture with Enterococcus + Staph aureus * repeat cultures (11/20/22) positive as well * s/p MIKE -- no evidence of endocarditis * on IV antibiotics * vasopressor support as needed - wean as tolerated (4) Encephalopathy: Code(s): G93.40 - Encephalopathy, unspecified Status: Acute Assessment and Plan: * resolved * thought to be due to Valtrex overdose but sepsis playing a role as well * elevated liver enzymes, elevated bilirubin, and elevated ammonia noted as well (but are trending down) * suspect that the liver issues are due to the Valtrex as well * head CT negative * b12 and Folate okay * TSH is high -- getting IV Synthroid * s/p LP done (on 11/11/22) - follow-up on viral studies (Chris Pickard Viruus DNA PCR positive) * follow mentation (5) Herpes zoster infection of thoracic region: Code(s): B02.9 - Zoster without complications Status: Acute Assessment and Plan: * holding antiviral therapy at this time * continue supportive therapy (6) Atrial fibrillation: Qualifiers: Atrial fibrillation type: paroxysmal Qualified Code(s): I48.0 - Paroxysmal atrial fibrillation Code(s): I48.91 - Unspecified atrial fibrillation Status: Chronic Assessment and Plan: * rate control strategy * anticoagulation on hold (in case further procedures need to be done) (7) Insulin dependent diabetes mellitus: Status: Acute Assessment and Plan: * follow accuchecks * glycemic control per hospitalists/furnace checker Will continue to follow. Subjective Date/time seen: 11/27/22 12:45 Interval history: Follow-up for end stage renal disease on hemodialysis. Tolerating dialysis treatment at the time of my visit (seen on HD at 12:35PM); back on vasopressors to [facility] BP/MAP; mentation seems stable although seems slower to respond at this time. Exam Narrative: General: ill appearing male in NAD Heart: tachycardic normal S1 and S2; no rub Lungs: clear anteriorly; decreased at bases Abdomen: soft, nontender, nondistended, positive bowel sounds Extremities: no cyanosis or clubbing; trace - 1+ edema Skin: no rash Objective Data Vital Signs Vital Signs: Vital Signs Temp Pulse Resp BP Pulse Ox O2 Del Method O2 Flow Rate 11/27/22 12:40 97.9 F 110 H 18 104/69 99 11/27/22 12:15 113 H 89/77 L 11/27/22 12:00 111 H 96/64 L
--- NOTE | 2022-11-27 14:04 | PCOTNOTE ---
Attempted to see patient for OT evaluation this afternoon. Per nursing he is going down to radiology for a Dobhoff tube. Will continue to attempt as able.
[2022-11-27] MEDS: SILVERGEL (ELTA) 45 ML 1 APPLIC TOPICAL (15:22)
[2022-11-27] MEDS: VANCOMYCIN HCL 500 MG in DEXTROSE 5% 100 ML IVPB (15:23)
[2022-11-27] MEDS: PANTOPRAZOLE SODIUM IV 40 MG VIAL IV PUSH ×2 (15:24→20:39)
[2022-11-27] MEDS: AMPICILLIN SULB 3 GM/NS 100 ML 3 GM/100 ML VIAL IVPB ×2 (15:24→20:38)
[2022-11-27] MEDS: NOREPINEPHRINE 8 MG/D5W 250 ML 8 MG/250 ML BAG 13.13 MG IV CONT (15:42)
[2022-11-27 15:54] LABS: INR 1.2; Prothrombin Time 15.5 Seconds (11.1-14.7)
[2022-11-27 16:12] LABS: Glucose Point of Care 156 mg/dl (65-105)
[2022-11-27] MEDS: ACETAMINOPHEN 325 MG TABLET 650 MG FEED TUBE (17:12)
[2022-11-27] MEDS: APIXABAN 2.5 MG TABLET PO (17:13)
[2022-11-27] MEDS: AMIODARONE HCL 200 MG TABLET FEED TUBE (17:13)
[2022-11-27] MEDS: MIDODRINE HCL 10 MG TABLET PO (17:14)
--- NOTE | 2022-11-27 17:43 | WPDPN ---
Progress Note: A&P Assessment and Plan (1) Acute respiratory failure: Code(s): J96.00 - Acute respiratory failure, unspecified whether with hypoxia or hypercapnia Status: Acute Assessment and Plan: Acute respiratory failure likely secondary to pulmonary edema with possibility of pneumonia which could be aspiration -now extubated. Continue antibiotics. Overall respiratory status is much improved. 11/27/2022 interval history: Patient went into respiratory failure and was intubated and patient was extubated on 504 remains clinically stable is still somnolent unable to provide detailed review of systems, his is present in the room. Patient will have a scheduled dialysis seen by nephrology, seen by mobile plant operators and appreciated (2) Sepsis: Code(s): A41.9 - Sepsis, unspecified organism Status: Acute Assessment and Plan: Cultures noted. Continue antibiotic (3) Pneumonia: Code(s): J18.9 - Pneumonia, unspecified organism Status: Acute Assessment and Plan: See above (4) Shock: Code(s): R57.9 - Shock, unspecified Status: Acute Assessment and Plan: Improved (5) Encephalopathy: Code(s): G93.40 - Encephalopathy, unspecified Status: Acute Assessment and Plan: Improving (6) Herpes zoster infection of thoracic region: Code(s): B02.9 - Zoster without complications Status: Acute Assessment and Plan: Patient was treated earlier and currently off of antiviral drugs (7) Antiviral drug overdose: Code(s): T37.5X1A - Poisoning by antiviral drugs, accidental (unintentional), initial encounter Status: Acute Assessment and Plan: The patient has been taking 1000 mg of valacyclovir t.i.d. as detailed above. His altered mental status and delirium are likely result of iatrogenic overdose. (8) End-stage renal disease on hemodialysis: Code(s): N18.6 - End stage renal disease; Z99.2 - Dependence on renal dialysis Status: Acute Assessment and Plan: Continue dialysis. (9) Insulin dependent diabetes mellitus: Status: Acute Assessment and Plan: Sliding scale insulin and Accu-Cheks -will hold Lantus as patient may be extubated (10) Atrial fibrillation: Qualifiers: Atrial fibrillation type: paroxysmal Qualified Code(s): I48.0 - Paroxysmal atrial fibrillation Code(s): I48.91 - Unspecified atrial fibrillation Status: Chronic Assessment and Plan: P.o. amiodarone Continue apixaban (11) Elevated LFTs: Code(s): R79.89 - Other specified abnormal findings of blood chemistry Status: Acute Assessment and Plan: Monitor (12) Hypothyroidism: Code(s): E03.9 - Hypothyroidism, unspecified Status: Acute Assessment and Plan: Continue levothyroxine (13) Thrombocytopenia: Code(s): D69.6 - Thrombocytopenia, unspecified Status: Acute Assessment and Plan: Multifactorial? Hit antibody was negative and wendie was indeterminate. -platelets have improved, could be related to septic shock (14) Pulmonary edema: Code(s): J81.1 - Chronic pulmonary edema Status: Acute Assessment and Plan: Hemodialysis per Nephrology (15) Gastric distention: Code(s): K31.89 - Other diseases of stomach and duodenum Status: Acute Assessment and Plan: Monitor. Subjective Date/time seen: 11/27/22 17:43 Interval history: Follow-up for end stage renal disease on hemodialysis. Tolerating dialysis treatment at the time of my visit (seen on HD at 12:35PM); back on vasopressors to maintian BP/MAP; mentation seems stable although seems slower to respond at this time. This is to certifiy that patient is in the inpatient for 20 days due to respiratory failure and was on ventilator. 11/27/2022 interval history: Patient went into respiratory failure and was intubated
[2022-11-27 20:45] LABS: Glucose Point of Care 199 mg/dl (65-105)
[2022-11-27] MEDS: CAPSAICIN 0.025% CREAM 60 GM TUBE 1 APPLIC TOPICAL (21:05)
[2022-11-27] MEDS: oxyCODONE/ACETAMINOPHEN (*CRX) 10-325 MG TABLET 1 TAB PO (21:30)
[2022-11-27 23:32] LABS: Glucose Point of Care 186 mg/dl (65-105)
[2022-11-28] VITALS (22 sets, daily range): BP systolic 70–106; BP diastolic 49–74; PULSE 72–104; RESP 10–20; TEMP 36.5–36.9; O2SAT 92–100
[2022-11-28] MEDS: HYDROCORTISONE SODIUM SUCCINATE 100 MG/2 ML VIAL IV PUSH ×3 (05:38→20:33)
[2022-11-28] MEDS: METOCLOPRAMIDE HCL INJ 10 MG/2 ML VIAL IV PUSH (05:39)
[2022-11-28] MEDS: LEVOTHYROXINE SODIUM INJ 100 MCG/5 ML VIAL 50 MCG IV PUSH (05:40)
[2022-11-28] MEDS: CENTRAL LINE FLUSH 10 ML IV PUSH ×4 (05:40→20:33)
[2022-11-28 05:49] LABS: Glucose Point of Care 178 mg/dl (65-105)
[2022-11-28 05:52] LABS: Basophils Percent Auto 0.2 % (0.2-1.2); Eosinophils Percent Auto 0.1 % (0-4.4); Hematocrit 28.6 % (42.0-52.0); Hemoglobin 8.6 g/dL (14.0-18.0); Immature Granulocyte Absolute 0.34 K/mm3 (0.00-0.031); Immature Granulocyte Percent A 3.1 % (0-0.5); Lymphocytes Absolute Auto 0.46 K/mm3 (0.9-3.2); Lymphocytes Percent Auto 4.2 % (18.3-44.2); Mean Corpuscular HGB Conc 30.1 g/dl (32-36); Mean Corpuscular Hemoglobin 32.3 pg (26-34); Mean Corpuscular Volume 107.5 fl (80-100); Mean Platelet Volume 11.7 fl (7.4-10.4); Monocytes Absolute Auto 0.4 K/mm3 (0.1-0.6); Neutrophils Absolute Auto 9.8 K/mm3 (1.3-6.7); Neutrophils Percent Auto 88.4 % (45.5-73.1); Platelet Count Result 166 k/mm3 (150-375); Red Blood Count 2.66 M/mm3 (4.6-6.20); Red Cell Distribution Width 24.5 % (11.5-14.5); White Blood Count 11.1 K/mm3 (4.5-10.0)
[2022-11-28 06:07] LABS: Alanine Aminotransferase 30 U/L (6-50); Albumin Level 2.9 g/dL (3.5-5.1); Alkaline Phosphatase 93 U/L (38-126); Anion Gap 7 mmol/L (8-16); Aspartate Amino Transferase 24 U/L (17-59); Bilirubin,Total 1.1 mg/dL (0.2-1.3); Blood Urea Nitrogen 32 mg/dL (9-20); Carbon Dioxide 32 mmol/L (22-30); Chloride 97 mmol/L (98-107); Estimated CRCL calculation 21 ml/min; Estimated Glomerular Filt Rate 20; Glucose 179 mg/dL (65-110); Potassium 4.1 mmol/L (3.4-5.0); Sodium 136 mmol/L (137-145)
[2022-11-28 06:23] LABS: Anisocytosis 3+ (NORMAL); Hypochromasia 1+ (NORMAL); Macrocytosis 2+ (NORMAL); Platelet Estimate Adequate (Adequate)
[2022-11-28 06:24] LABS: Schistocytes None Seen (NORMAL)
[2022-11-28 07:33] LABS: Glucose Point of Care 186 mg/dl (65-105)
[2022-11-28] MEDS: AMIODARONE HCL 200 MG TABLET FEED TUBE ×2 (08:57→18:23)
[2022-11-28] MEDS: PANTOPRAZOLE SODIUM IV 40 MG VIAL IV PUSH ×2 (08:58→20:32)
[2022-11-28] MEDS: ASPIRIN 81 MG CHEWABLE TABLET FEED TUBE (08:58)
[2022-11-28] MEDS: MIDODRINE HCL 10 MG TABLET PO ×3 (08:58→18:23)
[2022-11-28] MEDS: AMPICILLIN SULB 3 GM/NS 100 ML 3 GM/100 ML VIAL IVPB (09:16)
[2022-11-28] MEDS: SILVERGEL (ELTA) 45 ML 1 APPLIC TOPICAL (09:18)
--- NOTE | 2022-11-28 11:34 | PCFNICU ---
ICU Rounding Note: Pt current nutrition is Nepro at 50 ml/hr. Last recorded weight is 80.6 kg. Bowel Motility:+Bm reported 11/25 Labs Reviewed:Glu 179, GFR 20, BUN 32, Cr 3.2,Alb 2.9,Na 136, Hgb 8.6 Meds Noted:Protonix, Levophed, Synthroid Skin: WNL Additional Notes: Patient currently NPO for PEG placement today. Recommend restarting tube feedings of Nepro- goal rate at 50 ml/hr. Flush 30 ml q 4 hours. Agree with diet orders. Following daily in ICU rounds. Monitor status, intake, wt, labs every Friday and Friday.
--- NOTE | 2022-11-28 12:14 | WPDINTPN ---
Progress Note: A&P Assessment and Plan (1) Acute respiratory failure: Code(s): J96.00 - Acute respiratory failure, unspecified whether with hypoxia or hypercapnia Status: Acute Assessment and Plan: Acute respiratory failure likely secondary to pulmonary edema with possibility of pneumonia which could be aspiration -intubated on 11/16 -extubated 11/21 -currently on 2-3 L nasal cannula with adequate O2 sats -encourage incentive spirometry -PT/OT 11/16: CT chest : showed congestive heart failure with cardiomegaly, mild pulmonary edema and small bilateral pleural effusions, dependent consolidation bilateral upper and lower lobes most likely atelectasis although superimposed pneumonia difficult to exclude. Small pericardial effusion (2) Sepsis: Code(s): A41.9 - Sepsis, unspecified organism Status: Acute Assessment and Plan: On presentation patient was febrile with increasing WBC count, shock and increased hypoxia pointing towards towards sepsis likely secondary to pneumonia 11/16: Blood cultures is growing Enterococcus faecalis and Staph aureus (MSSA) 11/16: sputum cultures negative procalcitonin level 2.0 11/16: MRSA screen negative -11/20/2022: Repeat blood cultures growing Enterococcus faecalis sensitive to ampicillin and vancomycin -11/19/2022: Enterococcus faecalis and Staph aureus sensitive to ampicillin 11/25/2022: Repeat blood cultures negative till now Ceftriaxone was discontinued 11/26 -cardiology was consulted for MIKE as patient has bioprosthetic valve to rule out endocarditis, MIKE 11/25 was negative for vegetation 11/28: Repeat blood cultures 0511: Will switch Unasyn to ampicillin and continue vancomycin for Enterococcus faecalis and Staph aureus bacteremia 11/16: CT chest abdomen pelvis IMPRESSION: 1. Likely congestive heart failure with cardiomegaly, mild pulmonary edema and small bilateral pleural effusions. 2. Dependent consolidation in the bilateral upper and lower lobes most likely atelectasis although superimposed pneumonia difficult to exclude. 3. Small pericardial effusion. 4. Nonspecific mediastinal lymphadenopathy which is most likely reactive. 5. Cholelithiasis. 6. Small amount of nonspecific ascites in the abdomen and pelvis. 11/23: Repeat CT scan of the chest, abdomen and pelvis IMPRESSION: 1. Moderate pulmonary edema. 2. Small left pleural effusion. 3. Stable small pericardial effusion. 4. Wall thickening of the stomach, consistent with gastritis. 11/27/2022 upper and lower extremity venous Dopplers were negative for DVT 11/26 Dr Ray discussed with patient's for transfer to a larger facility with infectious disease consultation. They discussed pros and cons she states that she will think about whether she wants patient to be transferred continue to be managed here (3) Shock: Code(s): R57.9 - Shock, unspecified Status: Acute Assessment and Plan: Likely combination of sepsis and cardiogenic Continue Levophed infusion, ventilated MAP > 65 mmHg for adequate end organ perfusion vasopressin weaned off Continue solu-Cortef -continue midodrine 11/16: Echocardiogram Summary ? 1. Complete two-dimensional, color flow and Doppler transthoracic echocardiogram is performed. ? 2. Left ventricular chamber dimension is normal. ? 3. Left ventricular systolic function is normal, estimated at 65-70%. ? 4. Left ventricular septal wall motion is abnormal with septal motion related to bundle branch block. ? 5. Right ventricular chamber dimension is moderately enlarged. ? 6. Right ventricular systolic function is reduced. ? 7. Left atrial chamber dimension is moderately enlarged. ? 8. Right atrial chamber dimension is moderately enlarged. ? 9. S/p prior TAVR. Bioprosthetic aortic valve is well seated. Mean gradient across valve is 13mmHg. ? 10. The mitral valve annulus is severely calcified. ? 11. Known mitral valve replacement with #25 Epic porcine valve. Mean
[2022-11-28 12:24] LABS: Glucose Point of Care 172 mg/dl (65-105)
--- NOTE | 2022-11-28 12:25 | P.PNNP_ITS ---
Progress Note: A&P Assessment and Plan (1) End stage renal disease: Code(s): N18.6 - End stage renal disease Status: Chronic Assessment and Plan: * HD tomorrow * continue HD on Fri/Fri/Friday schedule while hospitalized * follow electrolytes, volume status, and clearance (2) Acute respiratory failure: Code(s): J96.00 - Acute respiratory failure, unspecified whether with hypoxia or hypercapnia Status: Acute Assessment and Plan: * resolved (extubated) * suspect secondary to pulmonary edema +/- pneumonia (possibly aspiration) * follow CXR results * push fluid removal as tolerated with HD * follow respiratory status (3) Septic shock: Code(s): A41.9 - Sepsis, unspecified organism; R65.21 - Severe sepsis with septic shock Status: Acute Assessment and Plan: * as noted by worsening WBC, hypoxia, lactic acidosis, and hypotension * follow culture data * blood culture with Enterococcus + Staph aureus * repeat cultures (11/20/22) positive as well * s/p MIKE -- no evidence of endocarditis * on IV antibiotics * vasopressor support as needed - wean as tolerated (4) Encephalopathy: Code(s): G93.40 - Encephalopathy, unspecified Status: Acute Assessment and Plan: * resolved * thought to be due to Valtrex overdose but sepsis playing a role as well * elevated liver enzymes, elevated bilirubin, and elevated ammonia noted as well (but are trending down) * suspect that the liver issues are due to the Valtrex as well * head CT negative * b12 and Folate okay * TSH is high -- getting IV Synthroid * s/p LP done (on 11/11/22) - follow-up on viral studies (Chris Pickard Viruus DNA PCR positive) * follow mentation (5) Herpes zoster infection of thoracic region: Code(s): B02.9 - Zoster without complications Status: Acute Assessment and Plan: * holding antiviral therapy at this time * continue supportive therapy (6) Atrial fibrillation: Qualifiers: Atrial fibrillation type: paroxysmal Qualified Code(s): I48.0 - Paroxysmal atrial fibrillation Code(s): I48.91 - Unspecified atrial fibrillation Status: Chronic Assessment and Plan: * rate control strategy * anticoagulation on hold (in case further procedures need to be done) (7) Insulin dependent diabetes mellitus: Status: Acute Assessment and Plan: * follow accuchecks * glycemic control per hospitalists/church business administrator Will continue to follow. Subjective Date/time seen: 11/28/22 12:25 Interval history: Follow-up for end stage renal disease on hemodialysis. Tolerated dialysis treatment yesterday without any issues or problems; unable to wean levophed off due to hypotension; respiratory status remains relatively stable; failed MBS and self dc'd doboff/NGT; noted plans for EGD and possible G- tube placement for nutritional support. Exam Narrative: General: ill appearing male in NAD Heart: tachycardic normal S1 and S2; no rub Lungs: clear anteriorly; decreased at bases Abdomen: soft, nontender, nondistended, positive bowel sounds Extremities: no cyanosis or clubbing; trace - 1+ edema Skin: no nodules Objective Data Vital Signs Vital Signs: Vital Signs Temp Pulse Resp BP Pulse Ox O2 Del Method O2 Flow Rate 11/28/22 12:00 98 F 85 20 101/60 96
--- NOTE | 2022-11-28 12:25 | PM.PNNEP ---
Progress Note: A&P Assessment and Plan (1) End stage renal disease: Code(s): N18.6 - End stage renal disease Status: Chronic Assessment and Plan: HD tomorrow continue HD on Fri/Fri/Friday schedule while hospitalized follow electrolytes, volume status, and clearance (2) Acute respiratory failure: Code(s): J96.00 - Acute respiratory failure, unspecified whether with hypoxia or hypercapnia Status: Acute Assessment and Plan: resolved (extubated) suspect secondary to pulmonary edema +/- pneumonia (possibly aspiration) follow CXR results push fluid removal as tolerated with HD follow respiratory status (3) Septic shock: Code(s): A41.9 - Sepsis, unspecified organism; R65.21 - Severe sepsis with septic shock Status: Acute Assessment and Plan: as noted by worsening WBC, hypoxia, lactic acidosis, and hypotension follow culture data blood culture with Enterococcus + Staph aureus repeat cultures (11/20/22) positive as well s/p MIKE -- no evidence of endocarditis on IV antibiotics vasopressor support as needed - wean as tolerated (4) Encephalopathy: Code(s): G93.40 - Encephalopathy, unspecified Status: Acute Assessment and Plan: resolved thought to be due to Valtrex overdose but sepsis playing a role as well elevated liver enzymes, elevated bilirubin, and elevated ammonia noted as well (but are trending down) suspect that the liver issues are due to the Valtrex as well head CT negative b12 and Folate okay TSH is high -- getting IV Synthroid s/p LP done (on 11/11/22) - follow-up on viral studies (Chris Pickard Viruus DNA PCR positive) follow mentation (5) Herpes zoster infection of thoracic region: Code(s): B02.9 - Zoster without complications Status: Acute Assessment and Plan: holding antiviral therapy at this time continue supportive therapy (6) Atrial fibrillation: Qualifiers: Atrial fibrillation type: paroxysmal Qualified Code(s): I48.0 - Paroxysmal atrial fibrillation Code(s): I48.91 - Unspecified atrial fibrillation Status: Chronic Assessment and Plan: rate control strategy anticoagulation on hold (in case further procedures need to be done) (7) Insulin dependent diabetes mellitus: Status: Acute Assessment and Plan: follow accuchecks glycemic control 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 Subjective Date/time seen: 11/28/22 12:25 Interval history: Follow-up for end stage renal disease on hemodialysis. Tolerated dialysis treatment yesterday without any issues or problems; unable to wean levophed off due to hypotension; respiratory status remains relatively stable; failed MBS and self dc'd doboff/NGT; noted plans for EGD and possible G-tube placement for nutritional support. Exam Narrative: General: ill appearing male in NAD Heart: tachycardic normal S1 and S2; no rub Lungs: clear anteriorly; decreased at bases Abdomen: soft, nontender, nondistended, positive bowel sounds Extremities: no cyanosis or clubbing; trace - 1+ edema Skin: no nodules Objective Data Vital Signs Vital Signs: Vital Signs Temp Pulse Resp BP Pulse Ox O2 Del Method O2 Flow Rate 11/28/22 12:00 98 F 85 20 101/60 96 11/28/22 12:00 88 11/28/22 12:00 100 Nasal Cannula 2 11/28/22 11:48 Nasal Cannula 2 11/28/22 10:00 80 11/28/22 10:00 82 10 L 88/55 L 100 11/28/22 08:00 100 Nasal Cannula 2 11/28/22 08:00 81 11/28/22 09:18 72 82/61 L 11/28/22 08:57 81 11/28/22 08:00 97.7 F 80 14 85/68 L 100 11/28/22 06:45 91/62 L 11/28/22 06:11 70/49 L 11/28/22 06:00 72 16 70/49 L 100 11/28/22 06:00 72 11/28/22 04:00 98.2 F 82 14 99/71 L 100 11/28/22 04:00 82 11/28/22 04:00 100 Nasal Cannula 2
--- NOTE | 2022-11-28 14:40 | WPDANESEPPF ---
Anes - Initial Pre Proc Eval Procedure: Operation Date: 11/25/22 14:00 Proposed Procedures p Trans Esophageal Echo - Germain Mayorga MD Operation Date: 11/25/22 15:00 Proposed Procedures p Esophagogastroduodenoscopy - Ger Stinson MD Operation Date: 11/28/22 16:00 Proposed Procedures p Percutaneous Endoscopic Gastrostomy - Ger Stinson MD Date/Time: 11/28/22 14:40 Surgeon: Nancy Lewis DO Pre Op Diagnosis: Drug Induced Delirium, Shingles, ESRD Patient Data Age: 62 Gender: M Height: 1.7 m Weight: 80.6 kg Last Vital Signs Temp 98 F 11/28/22 12:00 Pulse 84 11/28/22 14:00 Resp 12 11/28/22 14:00 BP 99/73 L 11/28/22 14:00 Pulse Ox 100 11/28/22 14:00 O2 Del Method Nasal Cannula 11/28/22 12:00 O2 Flow Rate 2 11/28/22 12:00 FiO2 25 11/21/22 12:00 Allergies Allergy/AdvReac Type Severity Reaction Status Date / Time onion Allergy Vomiting Verified 11/03/22 14:48 Home Medications Medication Instructions Recorded Confirmed Type Adult Low Dose Aspirin 81 mg PO DAILY 06/09/21 11/06/22 History apixaban 5 mg tablet (Eliquis) 2.5 mg PO BID 06/09/21 11/06/22 History ascorbic acid (vitamin C) 1,000 mg PO HS 06/09/21 11/06/22 History sevelamer carbonate 800 mg tablet 4,000 mg PO TIDWMEAL 06/09/21 11/06/22 History vitamin B comp no.3-folic acid 1 1 tablet PO HS 06/09/21 11/06/22 History mg-vit C 60 mg-biotin 300 mcg tablet ([facility]) benzonatate 100 mg capsule 100 mg PO TID PRN cough #90 caps 10/29/21 11/06/22 Rx pen needle, diabetic 31 gauge x #100 ea 02/08/22 11/06/22 Rx 3/16 (BD Ultra-Fine Mini Pen Needle) alprazolam 0.5 mg tablet 0.5 mg PO HS 11/03/22 11/06/22 History amiodarone 200 mg tablet 200 mg PO BID 11/03/22 11/06/22 History citalopram 20 mg tablet 20 mg PO HS 11/03/22 11/06/22 History famotidine 20 mg tablet 20 mg PO BID 11/03/22 11/06/22 History valacyclovir 1 gram tablet 1,000 mg PO TID 7 days #21 tabs 11/03/22 11/06/22 Rx atorvastatin 20 mg tablet 20 mg PO HS 11/06/22 11/06/22 History ezetimibe 10 mg tablet 10 mg PO DAILY 11/06/22 11/06/22 History insulin glargine 100 unit/mL (3 10 unit subcut HS 11/06/22 11/06/22 History mL) subcutaneous pen (Lantus Solostar U-100 Insulin) midodrine 10 mg tablet 10 mg PO Q8H 11/06/22 11/06/22 History tramadol 50 mg tablet 50 mg PO TID PRN pain 11/06/22 11/06/22 History Laboratory Tests 11/27/22 11/27/22 11/27/22 15:34 16:10 20:43 WBC RBC Hgb Hct MCV MCH MCHC RDW Plt Count MPV Immature Gran % (Auto) Neut % (Auto) Lymph % (Auto) [place] % (Auto) Eos % (Auto) Baso % (Auto) Lymph # (Auto) [place] # (Auto) Eos # (Auto) Baso # (Auto) Abs Immat Gran (auto) Absolute Neuts (auto) Absolute Nucleated RBC Nucleated RBC % Platelet Estimate Hypochromasia Anisocytosis Macrocytosis Schistocytes PT 15.5 H Seconds (11.1-14.7) INR 1.2 Sodium Potassium Chloride Carbon Dioxide Anion Gap BUN Creatinine Estim Creat Clear Calc Estimated GFR Glucose POC Capillary Glucose 156 H mg/dl 199 H mg/dl (65-105) (65-105) Calcium Total Bilirubin AST ALT Alkaline Phosphatase Total Protein Albumin 11/27/22 11/28/22 11/28/22 23:22 05:32 05:37 WBC 11.1 H K/mm3 (4.5-10.0) RBC 2.66 L M/mm3 (4.6-6.20) Hgb 8.6 L g/dL (14.0-18.0) Hct 28.6 L % (42.0-52.0) MCV 107.5 H fl (80-1
--- NOTE | 2022-11-28 15:35 | SUR.PREOP ---
1316 Bedside Endoscopy set up in ICU 10. Consent reviewed, spouse to waiting room.
--- NOTE | 2022-11-28 16:07 | SUR.OPER ---
[address] Gauze dressing dry at site. Dr. Stinson consulting with
--- NOTE | 2022-11-28 16:08 | SUR.OPER ---
[address], gauze dressing at site. Dr. Stinson talking to pts. spouse
[2022-11-28 17:31] LABS: Glucose Point of Care 136 mg/dl (65-105)
--- NOTE | 2022-11-28 18:00 | WPDPN ---
Progress Note: A&P Assessment and Plan (1) Acute respiratory failure: Code(s): J96.00 - Acute respiratory failure, unspecified whether with hypoxia or hypercapnia Status: Acute Assessment and Plan: Acute respiratory failure likely secondary to pulmonary edema with possibility of pneumonia which could be aspiration -now extubated. Continue antibiotics. Overall respiratory status is much improved. 11/28/2022 interval history: Patient went into respiratory failure and was intubated and patient was extubated on 11/21 today patient had PEG placed, remains clinically stable and more awake but unable to provide detailed review of systems, his is present in the room. today he did sit in the chair for hours, Patient will have a scheduled dialysis seen by nephrology, seen by medical imaging director and appreciated (2) Sepsis: Code(s): A41.9 - Sepsis, unspecified organism Status: Acute Assessment and Plan: Cultures noted. Continue antibiotic (3) Pneumonia: Code(s): J18.9 - Pneumonia, unspecified organism Status: Acute Assessment and Plan: See above (4) Shock: Code(s): R57.9 - Shock, unspecified Status: Acute Assessment and Plan: Improved (5) Encephalopathy: Code(s): G93.40 - Encephalopathy, unspecified Status: Acute Assessment and Plan: Improving (6) Herpes zoster infection of thoracic region: Code(s): B02.9 - Zoster without complications Status: Acute Assessment and Plan: Patient was treated earlier and currently off of antiviral drugs (7) Antiviral drug overdose: Code(s): T37.5X1A - Poisoning by antiviral drugs, accidental (unintentional), initial encounter Status: Acute Assessment and Plan: The patient has been taking 1000 mg of valacyclovir t.i.d. as detailed above. His altered mental status and delirium are likely result of iatrogenic overdose. (8) End-stage renal disease on hemodialysis: Code(s): N18.6 - End stage renal disease; Z99.2 - Dependence on renal dialysis Status: Acute Assessment and Plan: Continue dialysis. (9) Insulin dependent diabetes mellitus: Status: Acute Assessment and Plan: Sliding scale insulin and Accu-Cheks -will hold Lantus as patient may be extubated (10) Atrial fibrillation: Qualifiers: Atrial fibrillation type: paroxysmal Qualified Code(s): I48.0 - Paroxysmal atrial fibrillation Code(s): I48.91 - Unspecified atrial fibrillation Status: Chronic Assessment and Plan: P.o. amiodarone Continue apixaban (11) Elevated LFTs: Code(s): R79.89 - Other specified abnormal findings of blood chemistry Status: Acute Assessment and Plan: Monitor (12) Hypothyroidism: Code(s): E03.9 - Hypothyroidism, unspecified Status: Acute Assessment and Plan: Continue levothyroxine (13) Thrombocytopenia: Code(s): D69.6 - Thrombocytopenia, unspecified Status: Acute Assessment and Plan: Multifactorial? Hit antibody was negative and wendie was indeterminate. -platelets have improved, could be related to septic shock (14) Pulmonary edema: Code(s): J81.1 - Chronic pulmonary edema Status: Acute Assessment and Plan: Hemodialysis per Nephrology (15) Gastric distention: Code(s): K31.89 - Other diseases of stomach and duodenum Status: Acute Assessment and Plan: Monitor. Subjective Date/time seen: 11/28/22 18:00 Interval history: Follow-up for end stage renal disease on hemodialysis. Tolerating dialysis treatment at the time of my visit (seen on HD at 12:35PM); back on vasopressors to maintian BP/MAP; mentation seems stable although seems slower to respond at this time. This is to certifiy that patient is in the inpatient for 20 days due to respiratory failure and was on ventilator. 11/28/2022
[2022-11-28 20:08] LABS: Glucose Point of Care 147 mg/dl (65-105)
[2022-11-28] MEDS: CAPSAICIN 0.025% CREAM 60 GM TUBE 1 APPLIC TOPICAL (22:26)
[2022-11-28] MEDS: ACETAMINOPHEN 325 MG TABLET 650 MG FEED TUBE (22:27)
[2022-11-29] VITALS (70 sets, daily range): BP systolic 66–156; BP diastolic 46–82; PULSE 63–127; RESP 0–23; TEMP 36–36.8; O2SAT 92–100
[2022-11-29 00:48] LABS: Glucose Point of Care 137 mg/dl (65-105)
[2022-11-29 04:38] LABS: Glucose Point of Care 123 mg/dl (65-105)
[2022-11-29 05:14] LABS: Hematocrit 28.1 % (42.0-52.0); Hemoglobin 8.4 g/dL (14.0-18.0); Mean Corpuscular HGB Conc 29.9 g/dl (32-36); Mean Corpuscular Hemoglobin 31.9 pg (26-34); Mean Corpuscular Volume 106.8 fl (80-100); Mean Platelet Volume 11.1 fl (7.4-10.4); Platelet Count Result 205 k/mm3 (150-375); Red Blood Count 2.63 M/mm3 (4.6-6.20); Red Cell Distribution Width 24.1 % (11.5-14.5); White Blood Count 15.9 K/mm3 (4.5-10.0)
[2022-11-29 05:25] LABS: Alanine Aminotransferase 29 U/L (6-50); Alkaline Phosphatase 89 U/L (38-126); Anion Gap 8 mmol/L (8-16); Aspartate Amino Transferase 24 U/L (17-59); Bilirubin,Total 1.4 mg/dL (0.2-1.3); Blood Urea Nitrogen 48 mg/dL (9-20); Carbon Dioxide 30 mmol/L (22-30); Chloride 96 mmol/L (98-107); Estimated CRCL calculation 15 ml/min; Estimated Glomerular Filt Rate 13; Glucose 197 mg/dL (65-110); Magnesium 2.5 mg/dL (1.6-2.3); Phosphorus 4.6 mg/dL (2.5-4.5); Potassium 4.2 mmol/L (3.4-5.0); Sodium 134 mmol/L (137-145)
[2022-11-29 05:26] LABS: INR 1.2; Partial Thromboplastin Time 33.2 SECONDS (22.3-36.8); Prothrombin Time 15.5 Seconds (11.1-14.7)
[2022-11-29 05:27] LABS: Fibrinogen 288 mg/dl (215-510)
[2022-11-29 05:30] LABS: Vancomycin Random 18.3 ug/mL (10-20)
[2022-11-29 05:51] LABS: Anisocytosis 2+ (NORMAL); Band Neutrophils Percent 5 % (0-6); Eosinophils Absolute Manual 0.31 K/mm3 (0.02-0.5); Eosinophils Percent Manual 2 % (0-4); Lymphocytes Absolute Manual 0.31 K/mm3 (1.1-4.5); Monocytes Absolute Manual 0.47 K/mm3 (0.1-0.90); Monocytes Percent Manual 3 % (3-9); Myelocytes Percent 3 %; Neutrophils Absolute Manual 14.31 K/mm3 (1.3-6.7); Neutrophils Percent Manual 85 % (46-73); Platelet Estimate Adequate (Adequate); Total Cells Counted 100
[2022-11-29 05:52] LABS: Macrocytosis 2+ (NORMAL); Microcytosis 1+ (NORMAL); Poikilocytosis 1+ (NORMAL)
[2022-11-29 05:54] LABS: Basophilic Stippling 1+ (NORMAL); Schistocytes 1+ (NORMAL); Stomatocytes 1+ (NORMAL)
[2022-11-29] MEDS: HYDROCORTISONE SODIUM SUCCINATE 100 MG/2 ML VIAL IV PUSH ×3 (06:50→21:51)
[2022-11-29] MEDS: CENTRAL LINE FLUSH 10 ML IV PUSH ×4 (06:50→21:52)
[2022-11-29] MEDS: LEVOTHYROXINE SODIUM INJ 100 MCG/5 ML VIAL 50 MCG IV PUSH (06:51)
--- NOTE | 2022-11-29 06:56 | WPDGIPROGNO ---
Progress Note: A&P Assessment and Plan (1) Antiviral drug overdose: Code(s): T37.5X1A - Poisoning by antiviral drugs, accidental (unintentional), initial encounter Status: Acute Assessment and Plan: The patient has been taking 1000 mg of valacyclovir t.i.d. as detailed above. His altered mental status and delirium are likely result of iatrogenic overdose. He is being monitored closely in IMU. Continue HD per nephrology he is becoming more lucid every day. (2) End-stage renal disease on hemodialysis: Code(s): N18.6 - End stage renal disease; Z99.2 - Dependence on renal dialysis Status: Acute Assessment and Plan: Nephrology consulted for dialysis as detailed above. He has been dialyzed for the past several days. Appreciate nephrology input. He will have hemodialysis today. Creatinine remains around 4.5 (3) Insulin dependent diabetes mellitus: Status: Acute Assessment and Plan: A1c 5.1. The patient's blood glucose was reviewed on 11/11 Glucose remains well controlled. lantus on hold Continue AccuCheks covering with sliding scale. Hypoglycemia protocol available as needed. 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 He may have a MIKE today. Also he needs EGD to determine if he has gastric outlet obstruction due to persistent high residuals of feedings. I will hold Eliquis this morning. Although we had held Eliquis, there is slight bleeding at G-tube site requiring changing dressing every few hours. (5) Hypothyroidism: Code(s): E03.9 - Hypothyroidism, unspecified Status: Acute Assessment and Plan: TSH elevated at 22. FT4 normal. Related to Amio? Levothyroxine IV started. Will need outpatient follow up labs. (6) Elevated LFTs: Code(s): R79.89 - Other specified abnormal findings of blood chemistry Status: Acute Assessment and Plan: LFTs which were normal 2 days ago are Abdo normal today with ALT 1059, AST 547 but alkaline phosphatase is normal. Bilirubin is 2.9 Most likely etiology would be ischemic hepatopathy if perhaps he was dehydrated. Viral disease also needs to be considered. INR has not increased significantly since admission which is a good prognostic sign. Likewise but ammonia level is only slightly increased. Will closely monitor his liver functions. However at this point I do not think he is in imminent danger of hepatic failure. 11/11/2022 INR is down to 1.5 which is a good prognostic sign. ALT down to 894 11/12/2022 ALT continues to drop, 698 today. now down to 347. I think we can continue to monitor this as an outpatient. 11/22/2022 ALT is down to 91 (7) Encephalopathy: Code(s): G93.40 - Encephalopathy, unspecified Status: Acute Assessment and Plan: This was acute in onset, 7 days ago and shortly after he began taking an antiviral drug for shingles. This of course raises the possibility of viral encephalopathy. Neurology has been consulted. 11/12/2022 the patient remains a very quiet but actually was responsive to me this morning. He answered questions uh huh (yes) and uh uh (no) 11/14/2022 he is more lucid today. He was somewhat verbal. Etiology of his encephalopathy is not entirely clear, as viral studies are still pending. 07/12 he is becoming more alert each day. He (8) Hypotension: Code(s): I95.9 - Hypotension, unspecified Status: Acute Assessment and Plan: Blood pressure remains quite soft requiring doubling of the Levophed. Consequently he is not a suitable candidate for endoscopy today. The purpose of doing that was because of recurrent high residuals even on Reglan. I discussed his case with Dr. Wharton. will attempt to reintroduce tube feedings and see if he has persistent gastric
[2022-11-29 09:05] LABS: Glucose Point of Care 166 mg/dl (65-105)
[2022-11-29] MEDS: EPOETIN ALFA-EPBX 10,000 UNITS/ML VIAL 10000 UNITS IV PUSH (09:18)
--- NOTE | 2022-11-29 09:21 | P.PNNP_ITS ---
Progress Note: A&P Assessment and Plan (1) End stage renal disease: Code(s): N18.6 - End stage renal disease Status: Chronic Assessment and Plan: * HD today * continue HD on Fri/Fri/Friday schedule while hospitalized * follow electrolytes, volume status, and clearance (2) Acute respiratory failure: Code(s): J96.00 - Acute respiratory failure, unspecified whether with hypoxia or hypercapnia Status: Acute Assessment and Plan: * resolved (extubated) * suspect secondary to pulmonary edema +/- pneumonia (possibly aspiration) * follow CXR results * push fluid removal as tolerated with HD * follow respiratory status (3) Septic shock: Code(s): A41.9 - Sepsis, unspecified organism; R65.21 - Severe sepsis with septic shock Status: Acute Assessment and Plan: * as noted by worsening WBC, hypoxia, lactic acidosis, and hypotension * follow culture data * blood culture with Enterococcus + Staph aureus * repeat cultures (11/20/22) positive * s/p MIKE -- no evidence of endocarditis * recent blood culture negative to date (11/25 and 11/28) * on IV antibiotics * vasopressor support as needed - wean as tolerated (4) Encephalopathy: Code(s): G93.40 - Encephalopathy, unspecified Status: Acute Assessment and Plan: * resolved * thought to be due to Valtrex overdose but sepsis playing a role as well * elevated liver enzymes, elevated bilirubin, and elevated ammonia noted as well (but are trending down) * suspect that the liver issues are due to the Valtrex as well * head CT negative * b12 and Folate okay * TSH is high -- getting IV Synthroid * s/p LP done (on 11/11/22) - follow-up on viral studies (Chris Pickard Viruus DNA PCR positive) * follow mentation (5) Herpes zoster infection of thoracic region: Code(s): B02.9 - Zoster without complications Status: Acute Assessment and Plan: * holding antiviral therapy at this time * continue supportive therapy (6) Atrial fibrillation: Qualifiers: Atrial fibrillation type: paroxysmal Qualified Code(s): I48.0 - Paroxysmal atrial fibrillation Code(s): I48.91 - Unspecified atrial fibrillation Status: Chronic Assessment and Plan: * rate control strategy * anticoagulation on hold (in case further procedures need to be done) (7) Insulin dependent diabetes mellitus: Status: Acute Assessment and Plan: * follow accuchecks * 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 Subjective Date/time seen: 11/29/22 09:21 Interval history: Follow-up for end stage renal disease on hemodialysis. Tolerating dialysis treatment at the time of my visit (seen on HD at 9:08AM); still requiring low dose levophed with increased requirement usually during hemodialysis treatments; more awake and alert today then yesterday; no acute complaints voiced; noted bleeding for G-tube insertion site with limited improvement with conservative interventions. Exam Narrative: General: ill appearing male in NAD Heart: tachycardic normal S1 and S2; no rub Lungs: clear anteriorly; decreased at bases Abdomen: soft, nontender, nondistended, positive bowel sounds Extremities: no cyanosis or clubbing; trace - 1+ edema Skin: warm and dry Objective Data Vital Signs Vital Signs: Vital Signs
--- NOTE | 2022-11-29 09:21 | PM.PNNEP ---
Progress Note: A&P Assessment and Plan (1) End stage renal disease: Code(s): N18.6 - End stage renal disease Status: Chronic Assessment and Plan: HD today continue HD on Fri/Fri/Friday schedule while hospitalized follow electrolytes, volume status, and clearance (2) Acute respiratory failure: Code(s): J96.00 - Acute respiratory failure, unspecified whether with hypoxia or hypercapnia Status: Acute Assessment and Plan: resolved (extubated) suspect secondary to pulmonary edema +/- pneumonia (possibly aspiration) follow CXR results push fluid removal as tolerated with HD follow respiratory status (3) Septic shock: Code(s): A41.9 - Sepsis, unspecified organism; R65.21 - Severe sepsis with septic shock Status: Acute Assessment and Plan: as noted by worsening WBC, hypoxia, lactic acidosis, and hypotension follow culture data blood culture with Enterococcus + Staph aureus repeat cultures (11/20/22) positive s/p MIKE -- no evidence of endocarditis recent blood culture negative to date (11/25 and 11/28) on IV antibiotics vasopressor support as needed - wean as tolerated (4) Encephalopathy: Code(s): G93.40 - Encephalopathy, unspecified Status: Acute Assessment and Plan: resolved thought to be due to Valtrex overdose but sepsis playing a role as well elevated liver enzymes, elevated bilirubin, and elevated ammonia noted as well (but are trending down) suspect that the liver issues are due to the Valtrex as well head CT negative b12 and Folate okay TSH is high -- getting IV Synthroid s/p LP done (on 11/11/22) - follow-up on viral studies (Chris Pickard Viruus DNA PCR positive) follow mentation (5) Herpes zoster infection of thoracic region: Code(s): B02.9 - Zoster without complications Status: Acute Assessment and Plan: holding antiviral therapy at this time continue supportive therapy (6) Atrial fibrillation: Qualifiers: Atrial fibrillation type: paroxysmal Qualified Code(s): I48.0 - Paroxysmal atrial fibrillation Code(s): I48.91 - Unspecified atrial fibrillation Status: Chronic Assessment and Plan: rate control strategy anticoagulation on hold (in case further procedures need to be done) (7) Insulin dependent diabetes mellitus: Status: Acute Assessment and Plan: follow accuchecks glycemic control 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 Subjective Date/time seen: 11/29/22 09:21 Interval history: Follow-up for end stage renal disease on hemodialysis. Tolerating dialysis treatment at the time of my visit (seen on HD at 9:08AM); still requiring low dose levophed with increased requirement usually during hemodialysis treatments; more awake and alert today then yesterday; no acute complaints voiced; noted bleeding for G-tube insertion site with limited improvement with conservative interventions. Exam Narrative: General: ill appearing male in NAD Heart: tachycardic normal S1 and S2; no rub Lungs: clear anteriorly; decreased at bases Abdomen: soft, nontender, nondistended, positive bowel sounds Extremities: no cyanosis or clubbing; trace - 1+ edema Skin: warm and dry Objective Data Vital Signs Vital Signs: Vital Signs Temp Pulse Resp BP Pulse Ox O2 Del Method O2 Flow Rate 11/29/22 09:15 108 H 78/62 L 11/29/22 08:00 97.9 F 108 H 18 88/63 L 98 11/29/22 08:00 81/50 L 11/29/22 09:00 102 H 88/63 L 11/29/22 08:45 106 H 89/66 L 11/29/22 08:30 98 104/66 11/29/22 08:15 86 91/64 L 11/29/22 08:14 2 11/29/22 08:00 98.2 F 78 12 81/50 L 97 11/29/22 06:00 97.6 F 89 16 105/56 L 99 11/29/22 06:00 82 11/29/22 04:00 97.3 F L 82 14 93/65 L 99 11/29/22 04:00 75 14 100 Nasal Cannula 3 11/29/22 04:00 75
[2022-11-29] MEDS: PANTOPRAZOLE SODIUM IV 40 MG VIAL IV PUSH ×2 (09:27→21:51)
[2022-11-29] MEDS: CELLULOSE OXIDIZED 2 x 3 INCH 1 PKT XX (09:27)
[2022-11-29] MEDS: AMIODARONE HCL 200 MG TABLET FEED TUBE ×2 (09:28→16:12)
[2022-11-29] MEDS: MIDODRINE HCL 10 MG TABLET FEED TUBE ×2 (09:29→16:13)
--- NOTE | 2022-11-29 11:31 | WPDINTPN ---
Progress Note: A&P Assessment and Plan (1) Sepsis: Code(s): A41.9 - Sepsis, unspecified organism Status: Acute Assessment and Plan: On presentation patient was febrile with increasing WBC count, shock and increased hypoxia pointing towards towards sepsis likely secondary to pneumonia 11/16: Blood cultures is growing Enterococcus faecalis and Staph aureus (MSSA) 11/16: sputum cultures negative procalcitonin level 2.0 11/16: MRSA screen negative -11/20/2022: Repeat blood cultures growing Enterococcus faecalis sensitive to ampicillin and vancomycin -11/19/2022: Enterococcus faecalis and Staph aureus sensitive to ampicillin 11/25/2022: Repeat blood cultures negative till now Ceftriaxone was discontinued 11/26 -cardiology was consulted for MIKE as patient has bioprosthetic valve to rule out endocarditis, MIKE 11/25 was negative for vegetation 11/28: Repeat blood cultures pending 11/28: Switched Unasyn to Ampicillin and continue Vancomycin for Enterococcus faecalis and Staph aureus bacteremia 11/16: CT chest abdomen pelvis IMPRESSION: 1. Likely congestive heart failure with cardiomegaly, mild pulmonary edema and small bilateral pleural effusions. 2. Dependent consolidation in the bilateral upper and lower lobes most likely atelectasis although superimposed pneumonia difficult to exclude. 3. Small pericardial effusion. 4. Nonspecific mediastinal lymphadenopathy which is most likely reactive. 5. Cholelithiasis. 6. Small amount of nonspecific ascites in the abdomen and pelvis. 11/23: Repeat CT scan of the chest, abdomen and pelvis IMPRESSION: 1. Moderate pulmonary edema. 2. Small left pleural effusion. 3. Stable small pericardial effusion. 4. Wall thickening of the stomach, consistent with gastritis. 11/27/2022 upper and lower extremity venous Dopplers were negative for DVT 11/26 Dr Ray discussed with patient's for transfer to a larger facility with infectious disease consultation. They discussed pros and cons she states that she will think about whether she wants patient to be transferred continue to be managed here (2) Shock: Code(s): R57.9 - Shock, unspecified Status: Acute Assessment and Plan: Likely combination of sepsis and cardiogenic Continue Levophed infusion, ventilated SBP > 80 mmHg for adequate end organ perfusion vasopressin weaned off Continue solu-Cortef -continue midodrine 11/16: Echocardiogram Summary ? 1. Complete two-dimensional, color flow and Doppler transthoracic echocardiogram is performed. ? 2. Left ventricular chamber dimension is normal. ? 3. Left ventricular systolic function is normal, estimated at 65-70%. ? 4. Left ventricular septal wall motion is abnormal with septal motion related to bundle branch block. ? 5. Right ventricular chamber dimension is moderately enlarged. ? 6. Right ventricular systolic function is reduced. ? 7. Left atrial chamber dimension is moderately enlarged. ? 8. Right atrial chamber dimension is moderately enlarged. ? 9. S/p prior TAVR. Bioprosthetic aortic valve is well seated. Mean gradient across valve is 13mmHg. ? 10. The mitral valve annulus is severely calcified. ? 11. Known mitral valve replacement with #25 Epic porcine valve. Mean gradient across valve is 13mmHg. ? 12. 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 ? 13. There is mild tricuspid valve regurgitation. ? 14. Dilated inferior vena cava with <50% collapse upon inspiration consistent with elevated right atrial pressure. ? 15. Left pleural effusion present. (3) Acute respiratory failure: Code(s): J96.00 - Acute respiratory failure, unspecified whether with hypoxia or hypercapnia Status: Acute Assessment and Plan: Acute respiratory failure likely secondary to pulmonary edema with possibility of pneumonia which could be aspiration -intubated on 11/16 -extubated 11/21 -currently on 2-3 L nasal cannula with adequate O2 sats
[2022-11-29 12:02] LABS: Glucose Point of Care 147 mg/dl (65-105)
--- NOTE | 2022-11-29 12:43 | PCNFU ---
Nutrition Follow-Up Complete: Inadequate energy intake related to lack of alertness as evidenced by nursing report Goal: Alert and oriented - Progressing toward goal Greater than 50% intake of meals - Unable to meet goal PO, PEG tube is now placed Pt current nutrition is Nepro @ 40 ml/h with goal of 50 ml/h; At goal: 1980 kcals, 89 g protein, 800 ml free water ON HOLD due to bleeding at PEG insertion site. Nutrition recommendation: Continue with current orders, restart tube feeding when medically appropriate Last recorded weight is 80.6 kg. Bowel Motility: No BMs Labs Reviewed: Hgb 8.4, Gct 28.1, Alb 3.0, Na 131, BUN 48, Cre 4.5, Glu 147 Meds Noted: Reglan, levophed, protonix, zofran, novolog, lantus Skin: Shingles; PEG insertion incision Additional Notes: PEG was inserted yesterday. GI supposed to come look at bleeding around PEG insertion site. TF on hold until cleared by GI. Resume when able. Agree with orders Monitor status, intake, wt, labs. Follow up in 3 days.
[2022-11-29] MEDS: SILVERGEL (ELTA) 45 ML 1 APPLIC TOPICAL (13:07)
--- NOTE | 2022-11-29 14:53 | PCPTNOTE ---
The patient treatment was not able to be completed this afternoon. RN reports patient continues to have bleeding around the G-tube that was placed yesterday. RN advised PT to hold for today. Will plan to continue treatment per plan of care.
--- NOTE | 2022-11-29 15:46 | PCSTNOTE ---
Bedside swallow evaluation. Modified oral peripheral examination performed, patient's oral motor skills are mildly reduced due to weakness but overall within functional limits. Patient positioned upright in bed, given trials of cold water by spoon and cup. No signs of aspiration observed. Patient demonstrated coughing and throat clearing on command. 3ml applesauce bolus given by spoon, patient did not demonstrate any difficulty. Due to prolonged period of reduced physical activity during ICU stay, patient is weak but swallowing abilities appear to be within functional limits. Recommended diet: pureed (for ease and convenience due to weakness) (to advance as patient becomes stronger and endurance improves), thin liquids. No straws. Swallowing precautions placed in chart. Please note that silent aspiration cannot be evaluated and bedside and can only be determined with a modified barium swallow study. No further speech therapy is recommended for this patient at this time. Thank you for the referral of this patient.
[2022-11-29 16:14] LABS: Glucose Point of Care 232 mg/dl (65-105)
[2022-11-29] MEDS: INSULIN ASPART (*BKC) 100 UNITS/ML SUB-Q ×2 (16:37→19:37)
--- NOTE | 2022-11-29 18:32 | WPDPN ---
Progress Note: A&P Assessment and Plan (1) Acute respiratory failure: Code(s): J96.00 - Acute respiratory failure, unspecified whether with hypoxia or hypercapnia Status: Acute Assessment and Plan: Acute respiratory failure likely secondary to pulmonary edema with possibility of pneumonia which could be aspiration -now extubated. Continue antibiotics. Overall respiratory status is much improved. 11/29/2022 interval history: Patient went into respiratory failure and was intubated and patient was extubated on 11/21, on 11/28 patient had PEG placed, there was blood oozing around the PEG and seen by GI and was redressed, remains clinically stable and more awake but unable to provide detailed review of systems, his is present in the room. on 11/28 he did sit in the chair for hours, Patient will have a scheduled dialysis seen by nephrology, seen by tailings man and appreciated (2) Sepsis: Code(s): A41.9 - Sepsis, unspecified organism Status: Acute Assessment and Plan: Cultures noted. Continue antibiotic (3) Pneumonia: Code(s): J18.9 - Pneumonia, unspecified organism Status: Acute Assessment and Plan: See above (4) Shock: Code(s): R57.9 - Shock, unspecified Status: Acute Assessment and Plan: Improved (5) Encephalopathy: Code(s): G93.40 - Encephalopathy, unspecified Status: Acute Assessment and Plan: Improving (6) Herpes zoster infection of thoracic region: Code(s): B02.9 - Zoster without complications Status: Acute Assessment and Plan: Patient was treated earlier and currently off of antiviral drugs (7) Antiviral drug overdose: Code(s): T37.5X1A - Poisoning by antiviral drugs, accidental (unintentional), initial encounter Status: Acute Assessment and Plan: The patient has been taking 1000 mg of valacyclovir t.i.d. as detailed above. His altered mental status and delirium are likely result of iatrogenic overdose. (8) End-stage renal disease on hemodialysis: Code(s): N18.6 - End stage renal disease; Z99.2 - Dependence on renal dialysis Status: Acute Assessment and Plan: Continue dialysis. (9) Insulin dependent diabetes mellitus: Status: Acute Assessment and Plan: Sliding scale insulin and Accu-Cheks -will hold Lantus as patient may be extubated (10) Atrial fibrillation: Qualifiers: Atrial fibrillation type: paroxysmal Qualified Code(s): I48.0 - Paroxysmal atrial fibrillation Code(s): I48.91 - Unspecified atrial fibrillation Status: Chronic Assessment and Plan: P.o. amiodarone Continue apixaban (11) Elevated LFTs: Code(s): R79.89 - Other specified abnormal findings of blood chemistry Status: Acute Assessment and Plan: Monitor (12) Hypothyroidism: Code(s): E03.9 - Hypothyroidism, unspecified Status: Acute Assessment and Plan: Continue levothyroxine (13) Thrombocytopenia: Code(s): D69.6 - Thrombocytopenia, unspecified Status: Acute Assessment and Plan: Multifactorial? Hit antibody was negative and wendie was indeterminate. -platelets have improved, could be related to septic shock (14) Pulmonary edema: Code(s): J81.1 - Chronic pulmonary edema Status: Acute Assessment and Plan: Hemodialysis per Nephrology (15) Gastric distention: Code(s): K31.89 - Other diseases of stomach and duodenum Status: Acute Assessment and Plan: Monitor. Subjective Date/time seen: 11/29/22 18:32 Interval history: Follow-up for end stage renal disease on hemodialysis. Tolerating dialysis treatment at the time of my visit (seen on HD at 12:35PM); back on vasopressors to maintian BP/MAP; mentation seems stable although seems slower to respond at this time. This is to certifiy that patient is in the inpati
[2022-11-29 21:42] LABS: Glucose Point of Care 375 mg/dl (65-105)
[2022-11-29] MEDS: ACETAMINOPHEN 325 MG TABLET 650 MG FEED TUBE (23:58)
[2022-11-30] VITALS (57 sets, daily range): BP systolic 114–162; BP diastolic 29–85; PULSE 63–85; RESP 8–22; TEMP 36.2–37.1; O2SAT 93–100
[2022-11-30 04:28] LABS: Glucose Point of Care 131 mg/dl (65-105)
[2022-11-30 04:58] LABS: Glucose Point of Care 122 mg/dl (65-105)
[2022-11-30 05:10] LABS: Hematocrit 25.4 % (42.0-52.0); Hemoglobin 7.6 g/dL (14.0-18.0); Mean Corpuscular HGB Conc 29.9 g/dl (32-36); Mean Corpuscular Hemoglobin 32.1 pg (26-34); Mean Corpuscular Volume 107.2 fl (80-100); Platelet Count Result 149 k/mm3 (150-375); Red Blood Count 2.37 M/mm3 (4.6-6.20); Red Cell Distribution Width 23.6 % (11.5-14.5); White Blood Count 11.3 K/mm3 (4.5-10.0)
[2022-11-30 05:22] LABS: Alanine Aminotransferase 30 U/L (6-50); Albumin Level 3.1 g/dL (3.5-5.1); Alkaline Phosphatase 134 U/L (38-126); Anion Gap 5 mmol/L (8-16); Aspartate Amino Transferase 24 U/L (17-59); Bilirubin,Total 1.1 mg/dL (0.2-1.3); Blood Urea Nitrogen 38 mg/dL (9-20); Calcium 9.1 mg/dL (8.4-10.2); Carbon Dioxide 32 mmol/L (22-30); Chloride 97 mmol/L (98-107); Estimated CRCL calculation 22 ml/min; Estimated Glomerular Filt Rate 21; Glucose 194 mg/dL (65-110); Magnesium 2.3 mg/dL (1.6-2.3); Phosphorus 2.7 mg/dL (2.5-4.5); Potassium 4.1 mmol/L (3.4-5.0); Sodium 134 mmol/L (137-145)
[2022-11-30] MEDS: HYDROCORTISONE SODIUM SUCCINATE 100 MG/2 ML VIAL IV PUSH (06:08)
[2022-11-30] MEDS: LEVOTHYROXINE SODIUM INJ 100 MCG/5 ML VIAL 50 MCG IV PUSH (06:08)
[2022-11-30] MEDS: CENTRAL LINE FLUSH 10 ML IV PUSH ×3 (06:09→20:58)
[2022-11-30] MEDS: ACETAMINOPHEN 325 MG TABLET 650 MG FEED TUBE (06:09)
[2022-11-30] MEDS: LIDOCAINE HCL 4% SOLN 50 ML BTL 1 APPLIC TOPICAL (06:10)
[2022-11-30 08:36] LABS: Glucose Point of Care 226 mg/dl (65-105)
[2022-11-30] MEDS: PANTOPRAZOLE SODIUM IV 40 MG VIAL IV PUSH ×2 (08:48→20:58)
[2022-11-30] MEDS: AMIODARONE HCL 200 MG TABLET FEED TUBE ×2 (08:49→16:12)
[2022-11-30] MEDS: INSULIN ASPART (*BKC) 100 UNITS/ML SUB-Q ×3 (09:09→16:17)
--- NOTE | 2022-11-30 09:28 | WPDINTPN ---
Progress Note: A&P Assessment and Plan (1) Sepsis: Code(s): A41.9 - Sepsis, unspecified organism Status: Acute Assessment and Plan: On presentation patient was febrile with increasing WBC count, shock and increased hypoxia pointing towards towards sepsis likely secondary to pneumonia 11/16: Blood cultures is growing Enterococcus faecalis and Staph aureus (MSSA) 11/16: sputum cultures negative procalcitonin level 2.0 11/16: MRSA screen negative -11/20/2022: Repeat blood cultures growing Enterococcus faecalis sensitive to ampicillin and vancomycin -11/19/2022: Enterococcus faecalis and Staph aureus sensitive to ampicillin 11/25/2022: Repeat blood cultures negative till now Ceftriaxone was discontinued 11/26 - MIKE 11/25 was negative for vegetation 11/28: Repeat blood cultures: Preliminary results are negative x2 11/28: Continue Ampicillin and Vancomycin for Enterococcus faecalis and Staph aureus bacteremia (duration 2 weeks from negative blood culture) 11/16: CT chest abdomen pelvis IMPRESSION: 1. Likely congestive heart failure with cardiomegaly, mild pulmonary edema and small bilateral pleural effusions. 2. Dependent consolidation in the bilateral upper and lower lobes most likely atelectasis although superimposed pneumonia difficult to exclude. 3. Small pericardial effusion. 4. Nonspecific mediastinal lymphadenopathy which is most likely reactive. 5. Cholelithiasis. 6. Small amount of nonspecific ascites in the abdomen and pelvis. 11/23: Repeat CT scan of the chest, abdomen and pelvis IMPRESSION: 1. Moderate pulmonary edema. 2. Small left pleural effusion. 3. Stable small pericardial effusion. 4. Wall thickening of the stomach, consistent with gastritis. 11/27/2022 upper and lower extremity venous Dopplers were negative for DVT 11/26 Dr Ray discussed with patient's for transfer to a larger facility with infectious disease consultation. They discussed pros and cons she states that she will think about whether she wants patient to be transferred continue to be managed here (2) Shock: Code(s): R57.9 - Shock, unspecified Status: Acute Assessment and Plan: Likely combination of sepsis and cardiogenic Continue Levophed infusion, ventilated SBP > 80 mmHg for adequate end organ perfusion -as per dialysis nurses recommendations we been checking the blood pressures on his calf, blood pressure is significantly elevated, -OFF Levophed -wean Solu-Cortef -decrease midodrine 11/16: Echocardiogram Summary ? 1. Complete two-dimensional, color flow and Doppler transthoracic echocardiogram is performed. ? 2. Left ventricular chamber dimension is normal. ? 3. Left ventricular systolic function is normal, estimated at 65-70%. ? 4. Left ventricular septal wall motion is abnormal with septal motion related to bundle branch block. ? 5. Right ventricular chamber dimension is moderately enlarged. ? 6. Right ventricular systolic function is reduced. ? 7. Left atrial chamber dimension is moderately enlarged. ? 8. Right atrial chamber dimension is moderately enlarged. ? 9. S/p prior TAVR. Bioprosthetic aortic valve is well seated. Mean gradient across valve is 13mmHg. ? 10. The mitral valve annulus is severely calcified. ? 11. Known mitral valve replacement with #25 Epic porcine valve. Mean gradient across valve is 13mmHg. ? 12. 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 ? 13. There is mild tricuspid valve regurgitation. ? 14. Dilated inferior vena cava with <50% collapse upon inspiration consistent with elevated right atrial pressure. ? 15. Left pleural effusion present. (3) Acute respiratory failure: Code(s): J96.00 - Acute respiratory failure, unspecified whether with hypoxia or hypercapnia Status: Acute Assessment and Plan: Acute respiratory failure likely secondary to pulmonary edema with possibility of pneumonia which could be aspiration -intubated
[2022-11-30 12:10] LABS: Glucose Point of Care 271 mg/dl (65-105)
--- NOTE | 2022-11-30 13:16 | WPDPN ---
Progress Note: A&P Assessment and Plan (1) Acute respiratory failure: Code(s): J96.00 - Acute respiratory failure, unspecified whether with hypoxia or hypercapnia Status: Acute Assessment and Plan: Acute respiratory failure likely secondary to pulmonary edema with possibility of pneumonia which could be aspiration -now extubated. Continue antibiotics. Overall respiratory status is much improved. 11/30/2022 interval history: Patient went into respiratory failure and was intubated and patient was extubated on 11/21, on 11/28 patient had PEG placed, there was blood oozing around the PEG and seen by GI and was redressed, remains clinically stable and more awake but unable to provide detailed review of systems, today patient is sitting in the chair, still c/o pain in his ribs with shingles, D/W internal controls manager, patient BP is trending up, he off levophen and started patient on midodrin, will encourage to wokr with PT, patient iw benefit going to [facility] , Patient will have a scheduled dialysis seen by nephrology, seen by internal controls manager and appreciated (2) Sepsis: Code(s): A41.9 - Sepsis, unspecified organism Status: Acute Assessment and Plan: Cultures noted. Continue antibiotic (3) Pneumonia: Code(s): J18.9 - Pneumonia, unspecified organism Status: Acute Assessment and Plan: See above (4) Shock: Code(s): R57.9 - Shock, unspecified Status: Acute Assessment and Plan: Improved (5) Encephalopathy: Code(s): G93.40 - Encephalopathy, unspecified Status: Acute Assessment and Plan: Improving (6) Herpes zoster infection of thoracic region: Code(s): B02.9 - Zoster without complications Status: Acute Assessment and Plan: Patient was treated earlier and currently off of antiviral drugs (7) Antiviral drug overdose: Code(s): T37.5X1A - Poisoning by antiviral drugs, accidental (unintentional), initial encounter Status: Acute Assessment and Plan: The patient has been taking 1000 mg of valacyclovir t.i.d. as detailed above. His altered mental status and delirium are likely result of iatrogenic overdose. (8) End-stage renal disease on hemodialysis: Code(s): N18.6 - End stage renal disease; Z99.2 - Dependence on renal dialysis Status: Acute Assessment and Plan: Continue dialysis. (9) Insulin dependent diabetes mellitus: Status: Acute Assessment and Plan: Sliding scale insulin and Accu-Cheks -will hold Lantus as patient may be extubated (10) Atrial fibrillation: Qualifiers: Atrial fibrillation type: paroxysmal Qualified Code(s): I48.0 - Paroxysmal atrial fibrillation Code(s): I48.91 - Unspecified atrial fibrillation Status: Chronic Assessment and Plan: P.o. amiodarone Continue apixaban (11) Elevated LFTs: Code(s): R79.89 - Other specified abnormal findings of blood chemistry Status: Acute Assessment and Plan: Monitor (12) Hypothyroidism: Code(s): E03.9 - Hypothyroidism, unspecified Status: Acute Assessment and Plan: Continue levothyroxine (13) Thrombocytopenia: Code(s): D69.6 - Thrombocytopenia, unspecified Status: Acute Assessment and Plan: Multifactorial? Hit antibody was negative and wendie was indeterminate. -platelets have improved, could be related to septic shock (14) Pulmonary edema: Code(s): J81.1 - Chronic pulmonary edema Status: Acute Assessment and Plan: Hemodialysis per Nephrology (15) Gastric distention: Code(s): K31.89 - Other diseases of stomach and duodenum Status: Acute Assessment and Plan: Monitor. Subjective Date/time seen: 11/30/22 13:16 Interval history: Follow-up for end stage renal disease on hemodialysis. Tolerating dialysis treatment at the time of my visit (
[2022-11-30] MEDS: ONDANSETRON INJ 4 MG/2 ML VIAL IV PUSH (13:22)
[2022-11-30] MEDS: MIDODRINE HCL 2.5 MG TABLET 5 MG FEED TUBE ×3 (13:24→16:13)
[2022-11-30] MEDS: SILVERGEL (ELTA) 45 ML 1 APPLIC TOPICAL (13:31)
--- NOTE | 2022-11-30 15:19 | P.PNNP_ITS ---
Progress Note: A&P Assessment and Plan (1) End stage renal disease: Code(s): N18.6 - End stage renal disease Status: Chronic Assessment and Plan: * HD done yesterday. * He did well. He liked it being early. * Volume status looks pretty good. * Electrolytes are good (2) Acute respiratory failure: Code(s): J96.00 - Acute respiratory failure, unspecified whether with hypoxia or hypercapnia Status: Acute Assessment and Plan: * resolved (extubated) * suspect secondary to pulmonary edema +/- pneumonia (possibly aspiration) * latest chest x-ray shows pulmonary edema but fluid has come off since then and he looks pretty good clinically. (3) Septic shock: Code(s): A41.9 - Sepsis, unspecified organism; R65.21 - Severe sepsis with septic shock Status: Acute Assessment and Plan: * as noted by worsening WBC, hypoxia, lactic acidosis, and hypotension * follow culture data * blood culture with Enterococcus + Staph aureus * repeat cultures (11/20/22) positive * s/p MIKE -- no evidence of endocarditis * recent blood culture negative to date (11/25 and 11/28) * on IV antibiotics * Off pressors now. (4) Encephalopathy: Code(s): G93.40 - Encephalopathy, unspecified Status: Acute Assessment and Plan: * resolved * thought to be due to Valtrex overdose but sepsis playing a role as well * TSH is high -- getting IV Synthroid * s/p LP done (on 11/11/22) - follow-up on viral studies (Chris Pickard Viruus DNA PCR positive) * follow mentation (5) Herpes zoster infection of thoracic region: Code(s): B02.9 - Zoster without complications Status: Acute Assessment and Plan: * holding antiviral therapy at this time * continue supportive therapy (6) Atrial fibrillation: Qualifiers: Atrial fibrillation type: paroxysmal Qualified Code(s): I48.0 - Paroxysmal atrial fibrillation Code(s): I48.91 - Unspecified atrial fibrillation Status: Chronic Assessment and Plan: * rate control strategy * anticoagulation on hold (in case further procedures need to be done) (7) Insulin dependent diabetes mellitus: Status: Acute Assessment and Plan: * follow accuchecks * glycemic control per hospitalists/insurance examiner Subjective Date/time seen: 11/30/22 15:19 Interval history: patient is up in a chair. He is interacting. Brother and sister are in the room. Exam Narrative: General: ill appearing male in NAD Heart: tachycardic normal S1 and S2; no rub or gallop Lungs: clear anteriorly; decreased at bases Abdomen: soft, nontender, nondistended, positive bowel sounds Extremities: 1+ bilateral edema Skin: No rash Objective Data Vital Signs Vital Signs: Vital Signs - 24 hr 11/29/22 16:00 11/29/22 18:00 11/29/22 18:00 Temperature Pulse Rate 93 86 Respiratory Rate Blood Pressure 152/76 H Pulse Oximetry Oxygen Delivery Room Air Oxygen Flow Rate 11/29/22 16:12 11/29/22 16:00 11/29/22 16:53 Temperature 98.1 F Pulse Rate 93 97 98 Respiratory Rate 20 14 Blood Pressure 156/82 H Pulse Oximetry 100 Oxygen Delivery Oxygen Flow Rate 11/29/22 20:00 0
--- NOTE | 2022-11-30 15:19 | PM.PNNEP ---
Progress Note: A&P Assessment and Plan (1) End stage renal disease: Code(s): N18.6 - End stage renal disease Status: Chronic Assessment and Plan: HD done yesterday. He did well. He liked it being early. Volume status looks pretty good. Electrolytes are good (2) Acute respiratory failure: Code(s): J96.00 - Acute respiratory failure, unspecified whether with hypoxia or hypercapnia Status: Acute Assessment and Plan: resolved (extubated) suspect secondary to pulmonary edema +/- pneumonia (possibly aspiration) latest chest x-ray shows pulmonary edema but fluid has come off since then and he looks pretty good clinically. (3) Septic shock: Code(s): A41.9 - Sepsis, unspecified organism; R65.21 - Severe sepsis with septic shock Status: Acute Assessment and Plan: as noted by worsening WBC, hypoxia, lactic acidosis, and hypotension follow culture data blood culture with Enterococcus + Staph aureus repeat cultures (11/20/22) positive s/p MIKE -- no evidence of endocarditis recent blood culture negative to date (11/25 and 11/28) on IV antibiotics Off pressors now. (4) Encephalopathy: Code(s): G93.40 - Encephalopathy, unspecified Status: Acute Assessment and Plan: resolved thought to be due to Valtrex overdose but sepsis playing a role as well TSH is high -- getting IV Synthroid s/p LP done (on 11/11/22) - follow-up on viral studies (Chris Pickard Viruus DNA PCR positive) follow mentation (5) Herpes zoster infection of thoracic region: Code(s): B02.9 - Zoster without complications Status: Acute Assessment and Plan: holding antiviral therapy at this time continue supportive therapy (6) Atrial fibrillation: Qualifiers: Atrial fibrillation type: paroxysmal Qualified Code(s): I48.0 - Paroxysmal atrial fibrillation Code(s): I48.91 - Unspecified atrial fibrillation Status: Chronic Assessment and Plan: rate control strategy anticoagulation on hold (in case further procedures need to be done) (7) Insulin dependent diabetes mellitus: Status: Acute Assessment and Plan: follow accuchecks glycemic control per hospitalists/chemistry physics teacher Subjective Date/time seen: 11/30/22 15:19 Interval history: patient is up in a chair. He is interacting. Brother and sister are in the room. Exam Narrative: General: ill appearing male in NAD Heart: tachycardic normal S1 and S2; no rub or gallop Lungs: clear anteriorly; decreased at bases Abdomen: soft, nontender, nondistended, positive bowel sounds Extremities: 1+ bilateral edema Skin: No rash Objective Data Vital Signs Vital Signs: Vital Signs - 24 hr 11/29/22 16:00 11/29/22 18:00 11/29/22 18:00 Temperature Pulse Rate 93 86 Respiratory Rate Blood Pressure 152/76 H Pulse Oximetry Oxygen Delivery Room Air Oxygen Flow Rate 11/29/22 16:12 11/29/22 16:00 11/29/22 16:53 Temperature 98.1 F Pulse Rate 93 97 98 Respiratory Rate 20 14 Blood Pressure 156/82 H Pulse Oximetry 100 Oxygen Delivery Oxygen Flow Rate 11/29/22 20:00 11/29/22 22:00 11/29/22 20:00 Temperature 97.3 F L 96.8 F L Pulse Rate 78 84 76 Respiratory Rate 13 20 Blood Pressure 130/54 L 129/53 L Pulse Oximetry 95 97 Oxygen Delivery Oxygen Flow Rate 11/29/22 22:00 11/30/22 00:00 11/30/22 00:00 Temperature 97.2 F L Pulse Rate 85 74 72 Respiratory Rate 13 Blood Pressure 143/68 H Pulse Oximetry 99 Oxygen Delivery Oxygen Flow Rate 11/30/22 02:00 11/30/22 02:00 11/30/22 04:00 Temperature 97.2 F L 97.6 F Pulse Rate 66 72 66 Respiratory Rate 13 14 Blood Pressure 143/70 H 139/64 Pulse Oximetry 100 100 Oxygen Delivery Oxygen Flow Rate 11/30/22 04:00 11/30/22 06:00 11/30/22 06:00 Temperature 97.2 F L Pulse Rate 66 78 78
[2022-11-30 16:41] LABS: Glucose Point of Care 325 mg/dl (65-105)
[2022-11-30] MEDS: HYDROCORTISONE SODIUM SUCCINATE 100 MG/2 ML VIAL 50 MG IV PUSH (20:58)
[2022-11-30 21:58] LABS: Glucose Point of Care 212 mg/dl (65-105)
[2022-12-01] VITALS (9 sets, daily range): BP systolic 127–164; BP diastolic 37–99; PULSE 62–92; RESP 18–20; TEMP 36.4–36.6; O2SAT 94–99
[2022-12-01] MEDS: CENTRAL LINE FLUSH 10 ML IV PUSH ×4 (05:57→22:09)
[2022-12-01] MEDS: LEVOTHYROXINE SODIUM INJ 100 MCG/5 ML VIAL 50 MCG IV PUSH (05:57)
[2022-12-01 08:38] LABS: Glucose Point of Care 140 mg/dl (65-105)
[2022-12-01] MEDS: AMIODARONE HCL 200 MG TABLET FEED TUBE ×2 (08:52→17:29)
[2022-12-01] MEDS: HYDROCORTISONE SODIUM SUCCINATE 100 MG/2 ML VIAL 50 MG IV PUSH ×2 (08:54→20:33)
[2022-12-01] MEDS: SILVERGEL (ELTA) 45 ML 1 APPLIC TOPICAL (08:54)
[2022-12-01] MEDS: PANTOPRAZOLE SODIUM IV 40 MG VIAL IV PUSH ×2 (08:54→20:34)
--- NOTE | 2022-12-01 10:54 | P.PNNP_ITS ---
Progress Note: A&P Assessment and Plan (1) End stage renal disease: Code(s): N18.6 - End stage renal disease Status: Chronic Assessment and Plan: * HD due tomorrow. * Volume status looks pretty good. Not much swelling and no shortness of breath * Electrolytes are good (2) Acute respiratory failure: Code(s): J96.00 - Acute respiratory failure, unspecified whether with hypoxia or hypercapnia Status: Acute Assessment and Plan: * resolved (extubated) * suspect secondary to pulmonary edema +/- pneumonia (possibly aspiration) * gradually improving (3) Septic shock: Code(s): A41.9 - Sepsis, unspecified organism; R65.21 - Severe sepsis with septic shock Status: Acute Assessment and Plan: * as noted by worsening WBC, hypoxia, lactic acidosis, and hypotension * follow culture data * blood culture with Enterococcus + Staph aureus * repeat cultures (11/20/22) positive * s/p MIKE -- no evidence of endocarditis * recent blood culture negative to date (11/25 and 11/28) * on IV Vancomycin per pharmacy * Off pressors now. (4) Encephalopathy: Code(s): G93.40 - Encephalopathy, unspecified Status: Acute Assessment and Plan: * resolved * thought to be due to Valtrex overdose but sepsis playing a role as well * TSH is high -- getting IV Synthroid * s/p LP done (on 11/11/22) - follow-up on viral studies (Chris Pickard Viruus DNA PCR positive) * follow mentation. This is gradually improved. (5) Herpes zoster infection of thoracic region: Code(s): B02.9 - Zoster without complications Status: Acute Assessment and Plan: * holding antiviral therapy at this time * continue supportive therapy (6) Atrial fibrillation: Qualifiers: Atrial fibrillation type: paroxysmal Qualified Code(s): I48.0 - Paroxysmal atrial fibrillation Code(s): I48.91 - Unspecified atrial fibrillation Status: Chronic Assessment and Plan: * rate control strategy * anticoagulation on hold (in case further procedures need to be done) (7) Insulin dependent diabetes mellitus: Status: Acute Assessment and Plan: * follow accuchecks * glycemic control 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 He feels better every day Exam Narrative: General: ill appearing male in NAD Heart: tachycardic normal S1 and S2; no rub Lungs: clear anteriorly; decreased at bases Abdomen: soft, nontender, nondistended, positive bowel sounds Extremities: 1+ bilateral edema Skin: No rash or subcu nodules Objective Data Vital Signs Vital Signs: Vital Signs - 24 hr 11/30/22 12:00 11/30/22 12:00 11/30/22 10:55 Temperature 97.9 F Pulse Rate 84 85 75 Respiratory Rate 16 11 L Blood Pressure 147/42 H 128/85 Pulse Oximetry 100 100 Oxygen Delivery Fraction of Inspired Oxygen 11/30/22 10:56 11/30/22 10:57 11/30/22 10:58 Temperature Pulse Rate 73 72 75 Respiratory Rate 14 10 L 8 L Blood Pressure 120/69 114/44 L 117/42 L Pulse Oximetry 100 100 Oxygen Delivery Fraction of Inspired Oxygen 11/30/22 11:00
--- NOTE | 2022-12-01 10:54 | PM.PNNEP ---
Progress Note: A&P Assessment and Plan (1) End stage renal disease: Code(s): N18.6 - End stage renal disease Status: Chronic Assessment and Plan: HD due tomorrow. Volume status looks pretty good. Not much swelling and no shortness of breath Electrolytes are good (2) Acute respiratory failure: Code(s): J96.00 - Acute respiratory failure, unspecified whether with hypoxia or hypercapnia Status: Acute Assessment and Plan: resolved (extubated) suspect secondary to pulmonary edema +/- pneumonia (possibly aspiration) gradually improving (3) Septic shock: Code(s): A41.9 - Sepsis, unspecified organism; R65.21 - Severe sepsis with septic shock Status: Acute Assessment and Plan: as noted by worsening WBC, hypoxia, lactic acidosis, and hypotension follow culture data blood culture with Enterococcus + Staph aureus repeat cultures (11/20/22) positive s/p MIKE -- no evidence of endocarditis recent blood culture negative to date (11/25 and 11/28) on IV Vancomycin per pharmacy Off pressors now. (4) Encephalopathy: Code(s): G93.40 - Encephalopathy, unspecified Status: Acute Assessment and Plan: resolved thought to be due to Valtrex overdose but sepsis playing a role as well TSH is high -- getting IV Synthroid s/p LP done (on 11/11/22) - follow-up on viral studies (Chris Pickard Viruus DNA PCR positive) follow mentation. This is gradually improved. (5) Herpes zoster infection of thoracic region: Code(s): B02.9 - Zoster without complications Status: Acute Assessment and Plan: holding antiviral therapy at this time continue supportive therapy (6) Atrial fibrillation: Qualifiers: Atrial fibrillation type: paroxysmal Qualified Code(s): I48.0 - Paroxysmal atrial fibrillation Code(s): I48.91 - Unspecified atrial fibrillation Status: Chronic Assessment and Plan: rate control strategy anticoagulation on hold (in case further procedures need to be done) (7) Insulin dependent diabetes mellitus: Status: Acute Assessment and Plan: follow accuchecks 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 He feels better every day Exam Narrative: General: ill appearing male in NAD Heart: tachycardic normal S1 and S2; no rub Lungs: clear anteriorly; decreased at bases Abdomen: soft, nontender, nondistended, positive bowel sounds Extremities: 1+ bilateral edema Skin: No rash or subcu nodules Objective Data Vital Signs Vital Signs: Vital Signs - 24 hr 11/30/22 12:00 11/30/22 12:00 11/30/22 10:55 Temperature 97.9 F Pulse Rate 84 85 75 Respiratory Rate 16 11 L Blood Pressure 147/42 H 128/85 Pulse Oximetry 100 100 Oxygen Delivery Fraction of Inspired Oxygen 11/30/22 10:56 11/30/22 10:57 11/30/22 10:58 Temperature Pulse Rate 73 72 75 Respiratory Rate 14 10 L 8 L Blood Pressure 120/69 114/44 L 117/42 L Pulse Oximetry 100 100 Oxygen Delivery Fraction of Inspired Oxygen 11/30/22 11:00 11/30/22 11:01 11/30/22 11:30 Temperature Pulse Rate 75 71 75 Respiratory Rate 10 L 11 L 14 Blood Pressure 133/38 L Pulse Oximetry 100 100 Oxygen Delivery Fraction of Inspired Oxygen 11/30/22 12:00 11/30/22 12:01 11/30/22 12:30 Temperature Pulse Rate 85 84 83 Respiratory Rate 13 15 15 Blood Pressure 147/42 H Pulse Oximetry 96 97 Oxygen Delivery Fraction of Inspired Oxygen 11/30/22 13:00 11/30/22 13:01 11/30/22 13:30 Temperature Pulse Rate 84 82 83 Respiratory Rate 17 19 14 Blood Pressure 145/44 H Pulse Oximetry 100 100 100 Oxygen Delivery Fraction of Inspired Oxygen 11/30/22 14:00 11/30/22 14:01 11/30/22 14:30 Temperature 98.8 F Pulse Rate 84 84 84 Re
[2022-12-01 12:32] LABS: Glucose Point of Care 146 mg/dl (65-105)
--- NOTE | 2022-12-01 13:38 | WPDPN ---
Progress Note: A&P Assessment and Plan (1) Acute respiratory failure: Code(s): J96.00 - Acute respiratory failure, unspecified whether with hypoxia or hypercapnia Status: Acute Assessment and Plan: Acute respiratory failure likely secondary to pulmonary edema with possibility of pneumonia which could be aspiration -now extubated. Continue antibiotics. Overall respiratory status is much improved. 12/01/2022 interval history:? Patient went into respiratory failure and was intubated and patient was extubated on 11/21, on 11/28? patient had PEG placed, there was blood oozing around the PEG and seen by GI and was redressed,? 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 Patient will have a scheduled dialysis seen by nephrology, seen by freight solicitor and appreciated (2) Sepsis: Code(s): A41.9 - Sepsis, unspecified organism Status: Acute Assessment and Plan: Cultures noted. Continue antibiotic (3) Pneumonia: Code(s): J18.9 - Pneumonia, unspecified organism Status: Acute Assessment and Plan: See above (4) Shock: Code(s): R57.9 - Shock, unspecified Status: Acute Assessment and Plan: Improved (5) Encephalopathy: Code(s): G93.40 - Encephalopathy, unspecified Status: Acute Assessment and Plan: Improving (6) Herpes zoster infection of thoracic region: Code(s): B02.9 - Zoster without complications Status: Acute Assessment and Plan: Patient was treated earlier and currently off of antiviral drugs (7) Antiviral drug overdose: Code(s): T37.5X1A - Poisoning by antiviral drugs, accidental (unintentional), initial encounter Status: Acute Assessment and Plan: The patient has been taking 1000 mg of valacyclovir t.i.d. as detailed above. His altered mental status and delirium are likely result of iatrogenic overdose. (8) End-stage renal disease on hemodialysis: Code(s): N18.6 - End stage renal disease; Z99.2 - Dependence on renal dialysis Status: Acute Assessment and Plan: Continue dialysis. (9) Insulin dependent diabetes mellitus: Status: Acute Assessment and Plan: Sliding scale insulin and Accu-Cheks -will hold Lantus as patient may be extubated (10) Atrial fibrillation: Qualifiers: Atrial fibrillation type: paroxysmal Qualified Code(s): I48.0 - Paroxysmal atrial fibrillation Code(s): I48.91 - Unspecified atrial fibrillation Status: Chronic Assessment and Plan: P.o. amiodarone Continue apixaban (11) Elevated LFTs: Code(s): R79.89 - Other specified abnormal findings of blood chemistry Status: Acute Assessment and Plan: Monitor (12) Hypothyroidism: Code(s): E03.9 - Hypothyroidism, unspecified Status: Acute Assessment and Plan: Continue levothyroxine (13) Thrombocytopenia: Code(s): D69.6 - Thrombocytopenia, unspecified Status: Acute Assessment and Plan: Multifactorial? Hit antibody was negative and wendie was indeterminate. -platelets have improved, could be related to septic shock (14) Pulmonary edema: Code(s): J81.1 - Chronic pulmonary edema Status: Acute Assessment and Plan: Hemodialysis per Nephrology (15) Gastric distention: Code(s):
[2022-12-01 17:27] LABS: Glucose Point of Care 207 mg/dl (65-105)
[2022-12-01] MEDS: INSULIN ASPART (*BKC) 100 UNITS/ML SUB-Q (17:31)
[2022-12-01 20:51] LABS: Glucose Point of Care 190 mg/dl (65-105)
[2022-12-02] VITALS (21 sets, daily range): BP systolic 67–98; BP diastolic 39–61; PULSE 69–110; RESP 14–20; TEMP 36–36.7; O2SAT 100
[2022-12-02] MEDS: CENTRAL LINE FLUSH 10 ML IV PUSH ×4 (05:24→20:29)
[2022-12-02] MEDS: LEVOTHYROXINE SODIUM INJ 100 MCG/5 ML VIAL 50 MCG IV PUSH (05:24)
[2022-12-02 05:43] LABS: Hematocrit 24.4 % (42.0-52.0); Hemoglobin 7.6 g/dL (14.0-18.0); Mean Corpuscular HGB Conc 31.1 g/dl (32-36); Mean Corpuscular Hemoglobin 32.9 pg (26-34); Mean Corpuscular Volume 105.6 fl (80-100); Mean Platelet Volume 12.1 fl (7.4-10.4); Platelet Count Result 144 k/mm3 (150-375); Red Blood Count 2.31 M/mm3 (4.6-6.20); Red Cell Distribution Width 22.7 % (11.5-14.5); White Blood Count 10.7 K/mm3 (4.5-10.0)
[2022-12-02 05:55] LABS: Albumin Level 3.1 g/dL (3.5-5.1); Anion Gap 8 mmol/L (8-16); Blood Urea Nitrogen 68 mg/dL (9-20); Calcium 9.1 mg/dL (8.4-10.2); Carbon Dioxide 28 mmol/L (22-30); Chloride 89 mmol/L (98-107); Estimated CRCL calculation 13 ml/min; Estimated Glomerular Filt Rate 12; Glucose 130 mg/dL (65-110); Magnesium 2.4 mg/dL (1.6-2.3); Phosphorus 3.4 mg/dL (2.5-4.5); Potassium 4.8 mmol/L (3.4-5.0); Sodium 125 mmol/L (137-145)
[2022-12-02 06:00] LABS: Vancomycin Random 19.1 ug/mL (10-20)
[2022-12-02] MEDS: SILVERGEL (ELTA) 45 ML 1 APPLIC TOPICAL (07:47)
[2022-12-02 07:50] LABS: Glucose Point of Care 129 mg/dl (65-105)
--- NOTE | 2022-12-02 07:58 | PC.NURSE ---
Patient off of unit to dialysis. Holding blood pressure medications now to determine if patient will need them based off of blood pressures throughout dialysis.
[2022-12-02] MEDS: MIDODRINE HCL 2.5 MG TABLET 5 MG FEED TUBE ×3 (08:12→18:04)
--- NOTE | 2022-12-02 09:16 | PCOTNOTE ---
Attempted OT evaluation, pt off floor in dialysis.
--- NOTE | 2022-12-02 09:47 | P.PNNP_ITS ---
Progress Note: A&P Assessment and Plan (1) End stage renal disease: Code(s): N18.6 - End stage renal disease Status: Chronic Assessment and Plan: * HD due today * continue M/W/F schedule while hospitalized * follow electrolytes, volume status, and clearance (2) Acute respiratory failure: Code(s): J96.00 - Acute respiratory failure, unspecified whether with hypoxia or hypercapnia Status: Acute Assessment and Plan: * resolved (extubated) * suspect secondary to pulmonary edema +/- pneumonia (possibly aspiration) * gradually improving (3) Septic shock: Code(s): A41.9 - Sepsis, unspecified organism; R65.21 - Severe sepsis with septic shock Status: Acute Assessment and Plan: * resolving * as noted by worsening WBC, hypoxia, lactic acidosis, and hypotension * follow culture data * blood culture with Enterococcus + Staph aureus * repeat cultures (11/20/22) positive * s/p MIKE -- no evidence of endocarditis * recent blood culture negative to date (11/25 and 11/28) * on IV antibiotics * off pressors now. (4) Encephalopathy: Code(s): G93.40 - Encephalopathy, unspecified Status: Acute Assessment and Plan: * resolved * thought to be due to Valtrex overdose but sepsis playing a role as well * s/p LP done (on 11/11/22) - follow-up on viral studies (Chris Pickard Viruus DNA PCR positive) * follow mentation (5) Herpes zoster infection of thoracic region: Code(s): B02.9 - Zoster without complications Status: Acute Assessment and Plan: * holding antiviral therapy at this time * continue supportive therapy (6) Atrial fibrillation: Qualifiers: Atrial fibrillation type: paroxysmal Qualified Code(s): I48.0 - Paroxysmal atrial fibrillation Code(s): I48.91 - Unspecified atrial fibrillation Status: Chronic Assessment and Plan: * rate control strategy * anticoagulation on hold (7) Insulin dependent diabetes mellitus: Status: Acute Assessment and Plan: * follow accuchecks * glycemic control 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 Subjective Date/time seen: 12/02/22 09:47 Interval history: Follow-up for end stage renal disease on hemodialysis. Chart reviewed since last seen; tolerating dialysis treatment at the time of my visit (seen on HD at 9:40AM); weaned off levophed and transferred out to floor; mentation continues to improve; respiratory status is stable; no apparent distress voiced. Exam Narrative: General: WD/WN male in NAD Heart: tachycardic normal S1 and S2; no rub Lungs: clear anteriorly; decreased at bases Abdomen: soft, nontender, nondistended, positive bowel sounds Extremities: 1+ edema noted Skin: warm and dry Objective Data Vital Signs Vital Signs: Vital Signs Temp Pulse Resp BP Pulse Ox O2 Del Method FiO2 12/02/22 09:40 89 85/54 L 12/02/22 09:20 86 85/58 L 12/02/22 09:00 79 98/61 L 12/02/22 08:40 76 91/56 L 12/02/22 08:23 73 91/54 L 12/02/22 08:01 98.1 F 69 16 92/53 L 12/02/22 08:12 Room Air 12/01/22 20:00 62 20 99 Room Air 28 12/01/22 19:44 97.8 F 62 20 127/99 H 99 12/01/22 17:29 80 12/01/22 17:28 80 145/
--- NOTE | 2022-12-02 09:47 | PM.PNNEP ---
Progress Note: A&P Assessment and Plan (1) End stage renal disease: Code(s): N18.6 - End stage renal disease Status: Chronic Assessment and Plan: HD due today continue M/W/F schedule while hospitalized follow electrolytes, volume status, and clearance (2) Acute respiratory failure: Code(s): J96.00 - Acute respiratory failure, unspecified whether with hypoxia or hypercapnia Status: Acute Assessment and Plan: resolved (extubated) suspect secondary to pulmonary edema +/- pneumonia (possibly aspiration) gradually improving (3) Septic shock: Code(s): A41.9 - Sepsis, unspecified organism; R65.21 - Severe sepsis with septic shock Status: Acute Assessment and Plan: resolving as noted by worsening WBC, hypoxia, lactic acidosis, and hypotension follow culture data blood culture with Enterococcus + Staph aureus repeat cultures (11/20/22) positive s/p MIKE -- no evidence of endocarditis recent blood culture negative to date (11/25 and 11/28) on IV antibiotics off pressors now. (4) Encephalopathy: Code(s): G93.40 - Encephalopathy, unspecified Status: Acute Assessment and Plan: resolved thought to be due to Valtrex overdose but sepsis playing a role as well s/p LP done (on 11/11/22) - follow-up on viral studies (Chris Pickard Viruus DNA PCR positive) follow mentation (5) Herpes zoster infection of thoracic region: Code(s): B02.9 - Zoster without complications Status: Acute Assessment and Plan: holding antiviral therapy at this time continue supportive therapy (6) Atrial fibrillation: Qualifiers: Atrial fibrillation type: paroxysmal Qualified Code(s): I48.0 - Paroxysmal atrial fibrillation Code(s): I48.91 - Unspecified atrial fibrillation Status: Chronic Assessment and Plan: rate control strategy anticoagulation on hold (7) Insulin dependent diabetes mellitus: Status: Acute Assessment and Plan: follow accuchecks 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 Subjective Date/time seen: 12/02/22 09:47 Interval history: Follow-up for end stage renal disease on hemodialysis. Chart reviewed since last seen; tolerating dialysis treatment at the time of my visit (seen on HD at 9:40AM); weaned off levophed and transferred out to floor; mentation continues to improve; respiratory status is stable; no apparent distress voiced. Exam Narrative: General: WD/WN male in NAD Heart: tachycardic normal S1 and S2; no rub Lungs: clear anteriorly; decreased at bases Abdomen: soft, nontender, nondistended, positive bowel sounds Extremities: 1+ edema noted Skin: warm and dry Objective Data Vital Signs Vital Signs: Vital Signs Temp Pulse Resp BP Pulse Ox O2 Del Method FiO2 12/02/22 09:40 89 85/54 L 12/02/22 09:20 86 85/58 L 12/02/22 09:00 79 98/61 L 12/02/22 08:40 76 91/56 L 12/02/22 08:23 73 91/54 L 12/02/22 08:01 98.1 F 69 16 92/53 L 12/02/22 08:12 Room Air 12/01/22 20:00 62 20 99 Room Air 28 12/01/22 19:44 97.8 F 62 20 127/99 H 99 12/01/22 17:29 80 12/01/22 17:28 80 145/45 H 12/01/22 14:10 97.5 F L 92 18 145/37 H 94 Intake/Output Intake/Output: Intake & Output 11/29/22 11/30/22 12/01/22 12/02/22 23:59 23:59 23:59 23:59 Intake Total 622 540 630 Output Total 1999 0 0 Balance -1378 540 630 Meds/Results Medications: Active Medications Generic Name Dose Route Start Last Admin Trade Name Freq PRN Reason Stop Dose Admin Acetaminophen 650 mg 11/09/22 11:15 11/30/22 06:09 Acetaminophen 325 Mg Tablet FEED TUBE 650 mg Q4H PRN Administration Mild Pain (1-3) Amiodarone HCl 200 mg 11/09/22 17:00 12/02/22 08:12 Amiodarone Hcl 200 Mg Tablet FEED TUBE Not Given BIDWM BARBARA Api
--- NOTE | 2022-12-02 10:55 | PCNFU ---
Nutrition Follow-Up Complete: Inadequate energy intake related to lack of alertness as evidenced by nursing report goal: Alert and oriented Greater than 50% intake of meals Patient is progressing towards goal. We will continue current goal. Pt current nutrition is Pureed, Level 4. Nutrition recommendation: Nepro BID Last recorded weight is 80.3 kg. Bowel Motility:Last reported BM 11/22-discussed with nursing today. Labs Reviewed:Mg 2.4, Glu 130, Cr 5.10,GFR 12, Na 125, Alb 3.1 Meds Noted:Synthroid Skin: WNL Additional Notes: Patient currently in Dialysis. Patient had bedside swallow on 11/29-passed on pureed level 4 foods. Patient intake has been fair 5-25% of meals. Diet supplements of Nepro BID add for additional 420 kcals and 19 gms protein. Patient is current with PEG but not using for nutrition at this time. Diet orders are advance as tolerated, no straws. Agree with diet orders at this time. Monitor status, intake, wt, labs. Follow up in 5 days.
[2022-12-02] MEDS: EPOETIN ALFA-EPBX 10,000 UNITS/ML VIAL 10000 UNITS IV PUSH (11:25)
[2022-12-02] MEDS: VANCOMYCIN 750 MG/NS 250 ML 750 MG/250 ML BAG 250 MG IVPB (12:46)
[2022-12-02 12:56] LABS: Glucose Point of Care 101 mg/dl (65-105)
--- NOTE | 2022-12-02 13:10 | PC.NURSE ---
Patient back to unit from dialysis
[2022-12-02 17:21] LABS: Glucose Point of Care 147 mg/dl (65-105)
--- NOTE | 2022-12-02 17:33 | WPDPN ---
Progress Note: A&P Assessment and Plan (1) Acute respiratory failure: Code(s): J96.00 - Acute respiratory failure, unspecified whether with hypoxia or hypercapnia Status: Acute Assessment and Plan: Acute respiratory failure likely secondary to pulmonary edema with possibility of pneumonia which could be aspiration -now extubated. Continue antibiotics. Overall respiratory status is much improved. 12/02/2022 interval history:? Patient went into respiratory failure and was intubated and patient was extubated on 11/21, on 11/28? patient had PEG placed, there was blood oozing around the PEG and seen by GI and was redressed,? 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 benefit going to [facility] ,? Patient will have a scheduled dialysis seen by nephrology, (2) Sepsis: Code(s): A41.9 - Sepsis, unspecified organism Status: Acute Assessment and Plan: Cultures noted. Continue antibiotic (3) Pneumonia: Code(s): J18.9 - Pneumonia, unspecified organism Status: Acute Assessment and Plan: See above (4) Shock: Code(s): R57.9 - Shock, unspecified Status: Acute Assessment and Plan: Improved (5) Encephalopathy: Code(s): G93.40 - Encephalopathy, unspecified Status: Acute Assessment and Plan: Improving (6) Herpes zoster infection of thoracic region: Code(s): B02.9 - Zoster without complications Status: Acute Assessment and Plan: Patient was treated earlier and currently off of antiviral drugs (7) Antiviral drug overdose: Code(s): T37.5X1A - Poisoning by antiviral drugs, accidental (unintentional), initial encounter Status: Acute Assessment and Plan: The patient has been taking 1000 mg of valacyclovir t.i.d. as detailed above. His altered mental status and delirium are likely result of iatrogenic overdose. (8) End-stage renal disease on hemodialysis: Code(s): N18.6 - End stage renal disease; Z99.2 - Dependence on renal dialysis Status: Acute Assessment and Plan: Continue dialysis. (9) Insulin dependent diabetes mellitus: Status: Acute Assessment and Plan: Sliding scale insulin and Accu-Cheks -will hold Lantus as patient may be extubated (10) Atrial fibrillation: Qualifiers: Atrial fibrillation type: paroxysmal Qualified Code(s): I48.0 - Paroxysmal atrial fibrillation Code(s): I48.91 - Unspecified atrial fibrillation Status: Chronic Assessment and Plan: P.o. amiodarone Continue apixaban (11) Elevated LFTs: Code(s): R79.89 - Other specified abnormal findings of blood chemistry Status: Acute Assessment and Plan: Monitor (12) Hypothyroidism: Code(s): E03.9 - Hypothyroidism, unspecified Status: Acute Assessment and Plan: Continue levothyroxine (13) Thrombocytopenia: Code(s): D69.6 - Thrombocytopenia, unspecified Status: Acute Assessment and Plan: Multifactorial? Hit antibody was negative and wendie was indeterminate. -platelets have improved, could be related to septic shock (14) Pulmonary edema: Code(s): J81.1 - Chronic pulmonary edema Status: Acute Assessment and Plan: Hemodialysis per Nephrology (15) Gastric distention: Code(s): K31.89 - Other
[2022-12-02] MEDS: AMPICILLIN 2 GM/NS 100 ML 2 GM/100 ML BAG IVPB (20:28)
[2022-12-02] MEDS: PANTOPRAZOLE SODIUM IV 40 MG VIAL IV PUSH (20:29)
[2022-12-02] MEDS: HYDROCORTISONE SODIUM SUCCINATE 100 MG/2 ML VIAL 50 MG IV PUSH (20:29)
[2022-12-02 20:32] LABS: Glucose Point of Care 174 mg/dl (65-105)
[2022-12-02] MEDS: SODIUM CHLORIDE 0.9% IV 250 ML IV CONT ×2 (22:19→22:59)
[2022-12-03] VITALS (7 sets, daily range): BP systolic 71–158; BP diastolic 28–58; PULSE 77–95; RESP 16–20; TEMP 36.6–37.2; O2SAT 100
[2022-12-03 04:57] LABS: Hematocrit 25.5 % (42.0-52.0); Hemoglobin 7.8 g/dL (14.0-18.0); Mean Corpuscular HGB Conc 30.6 g/dl (32-36); Mean Corpuscular Hemoglobin 32.5 pg (26-34); Mean Corpuscular Volume 106.3 fl (80-100); Mean Platelet Volume 11.8 fl (7.4-10.4); Platelet Count Result 159 k/mm3 (150-375); Red Cell Distribution Width 23.3 % (11.5-14.5); White Blood Count 10.8 K/mm3 (4.5-10.0)
[2022-12-03 05:07] LABS: Anion Gap 1 mmol/L (8-16); Blood Urea Nitrogen 31 mg/dL (9-20); Calcium 8.3 mg/dL (8.4-10.2); Carbon Dioxide 39 mmol/L (22-30); Chloride 93 mmol/L (98-107); Estimated CRCL calculation 21 ml/min; Estimated Glomerular Filt Rate 21; Glucose 145 mg/dL (65-110); Magnesium 2.1 mg/dL (1.6-2.3); Phosphorus 2.3 mg/dL (2.5-4.5); Potassium 3.6 mmol/L (3.4-5.0); Sodium 133 mmol/L (137-145)
[2022-12-03] MEDS: LEVOTHYROXINE SODIUM INJ 100 MCG/5 ML VIAL 50 MCG IV PUSH (05:42)
[2022-12-03] MEDS: CENTRAL LINE FLUSH 10 ML IV PUSH ×4 (05:43→20:49)
[2022-12-03] MEDS: ALBUMIN HUMAN 25% 12.5 GM/50ML 50 ML IVPB (06:16)
--- NOTE | 2022-12-03 07:47 | PM.EVENT ---
Event Note Event Note Event Note: Nursing staff called me around 22:00. The patient was profoundly hypotensive. Evidently the patient had been hypotensive most of day. On review of the chart appears the patient had went for hemodialysis early in the morning and was borderline hypotensive for the majority of the day. Nursing staff was having difficulty with accurate blood pressures on the electronic cuff and they were checking manual blood pressures. Whenever they called me the patient they were unable to auscultate the patient's blood pressures with manual cuff. I asked them to check the patient's blood pressures with a Guerline map. Blood pressures with the Guerline map were in the 60 systolic and were correlating with the palpable pressure on the manual blood pressure cuff. Subsequently gave the patient a total of 500 mL bolus over 2 hours. The patient improvement in his blood pressures up to 89/56. The patient was relatively asymptomatic with the blood pressures in stated that he feels weak but this is not unusual for him when he gets inpatient hemodialysis. Patient did have a slight increase in his heart rate but was not overly tachycardic. Here he has absent urine output. The patient's blood pressures remained stable until around 6:30 a.m. at which time patient's blood pressures dropped again. I given order for albumin. 40 minutes was spent in critical care activities. Due to a high probability of clinically significant, life threatening deterioration, the patient required my highest level of preparedness to intervene emergently and I personally spent this critical care time directly and personally managing the patient. This critical care time included obtaining a history; examining the patient; pulse oximetry; ordering and review of studies; arranging urgent treatment with development of a management plan; evaluation of patient's response to treatment; frequent reassessment; and discussions with other providers. It was exclusive of separately billable procedures and treating other patients and teaching time. Please see Assessment and Plan section and the rest of the note for further information on patient assessment and treatment.
[2022-12-03 08:30] LABS: Glucose Point of Care 123 mg/dl (65-105)
[2022-12-03] MEDS: AMPICILLIN 2 GM/NS 100 ML 2 GM/100 ML BAG IVPB ×2 (08:36→20:47)
[2022-12-03] MEDS: HYDROCORTISONE SODIUM SUCCINATE 100 MG/2 ML VIAL 50 MG IV PUSH ×2 (08:38→20:48)
[2022-12-03] MEDS: MIDODRINE HCL 2.5 MG TABLET 5 MG FEED TUBE ×3 (08:38→17:14)
[2022-12-03] MEDS: PANTOPRAZOLE SODIUM IV 40 MG VIAL IV PUSH ×2 (08:39→20:48)
[2022-12-03] MEDS: SILVERGEL (ELTA) 45 ML 1 APPLIC TOPICAL (08:40)
--- NOTE | 2022-12-03 11:19 | PM.PNNEP ---
Progress Note: A&P Assessment and Plan (1) End stage renal disease: Code(s): N18.6 - End stage renal disease Status: Chronic Assessment and Plan: HD tomorrow continue M/W/F schedule while hospitalized follow electrolytes, volume status, and clearance (2) Acute respiratory failure: Code(s): J96.00 - Acute respiratory failure, unspecified whether with hypoxia or hypercapnia Status: Acute Assessment and Plan: resolved (extubated) suspect secondary to pulmonary edema +/- pneumonia (possibly aspiration) gradually improving (3) Septic shock: Code(s): A41.9 - Sepsis, unspecified organism; R65.21 - Severe sepsis with septic shock Status: Acute Assessment and Plan: resolving as noted by worsening WBC, hypoxia, lactic acidosis, and hypotension follow culture data blood culture with Enterococcus + Staph aureus repeat cultures (11/20/22) positive s/p MIKE -- no evidence of endocarditis recent blood culture negative to date (11/25 and 11/28) on IV antibiotics off pressors now (4) Encephalopathy: Code(s): G93.40 - Encephalopathy, unspecified Status: Acute Assessment and Plan: resolved thought to be due to Valtrex overdose but sepsis playing a role as well s/p LP done (on 11/11/22) - follow-up on viral studies (Chris Pickard Viruus DNA PCR positive) follow mentation (5) Herpes zoster infection of thoracic region: Code(s): B02.9 - Zoster without complications Status: Acute Assessment and Plan: holding antiviral therapy at this time continue supportive therapy (6) Atrial fibrillation: Qualifiers: Atrial fibrillation type: paroxysmal Qualified Code(s): I48.0 - Paroxysmal atrial fibrillation Code(s): I48.91 - Unspecified atrial fibrillation Status: Chronic Assessment and Plan: rate control strategy anticoagulation on hold (7) Insulin dependent diabetes mellitus: Status: Acute Assessment and Plan: follow accuchecks glycemic control per hospitalists/tight rope walker Will continue to follow. Subjective Date/time seen: 12/03/22 11:19 Interval history: Follow-up for end stage renal disease on hemodialysis. Tolerated dialysis treatment yesterday; however, over the course of the day and into the morning, issues noted with hypotension; received IVF bolus overnight and IV abumin this AM; it was noted in the ICU that his non-access arm does not always give accurate BP readings but BP readings on his calf tends to give more realistic readings; despite the hypotension issues, his mentation was stable and was otherwise asymptomatic. Exam Narrative: General: WD/WN male in NAD Heart: tachycardic normal S1 and S2; no rub Lungs: clear anteriorly; decreased at bases Abdomen: soft, nontender, nondistended, positive bowel sounds Extremities: 1+ edema noted Skin: warm and intact Objective Data Vital Signs Vital Signs: Vital Signs Temp Pulse Resp BP Pulse Ox O2 Del Method 12/03/22 11:03 80/32 L 12/03/22 08:35 Room Air 12/03/22 08:50 100/58 L 12/03/22 07:30 79/50 L 12/03/22 07:45 Room Air 12/03/22 06:35 97.9 F 95 20 71/42 L 100 12/02/22 23:30 97.9 F 91 14 89/56 L 12/02/22 22:50 110 H 72/47 L 12/02/22 22:19 91 67/39 L 12/02/22 21:48 97.9 F 91 20 100 12/02/22 18:10 92/42 L 12/02/22 15:22 Room Air 12/02/22 14:07 97.8 F 88 16 86/51 L 100 Intake/Output Intake/Output: Intake & Output 11/30/22 12/01/22 12/02/22 12/03/22 23:59 23:59 23:59 23:59 Intake Total 274 004 6393 480 Output Total 0 0 2500 0 Balance 540 630 -1420 480 Meds/Results Medications: Active Medications Generic Name Dose Route Start Last Admin Trade Name Freq PRN Reason Stop Dose Admin Acetaminophen 650 mg 11/09/22 11:15 11/30/22 06:09 Acetaminophen 325 Mg Tablet FEE
--- NOTE | 2022-12-03 11:19 | P.PNNP_ITS ---
Progress Note: A&P Assessment and Plan (1) End stage renal disease: Code(s): N18.6 - End stage renal disease Status: Chronic Assessment and Plan: * HD tomorrow * continue M/W/F schedule while hospitalized * follow electrolytes, volume status, and clearance (2) Acute respiratory failure: Code(s): J96.00 - Acute respiratory failure, unspecified whether with hypoxia or hypercapnia Status: Acute Assessment and Plan: * resolved (extubated) * suspect secondary to pulmonary edema +/- pneumonia (possibly aspiration) * gradually improving (3) Septic shock: Code(s): A41.9 - Sepsis, unspecified organism; R65.21 - Severe sepsis with septic shock Status: Acute Assessment and Plan: * resolving * as noted by worsening WBC, hypoxia, lactic acidosis, and hypotension * follow culture data * blood culture with Enterococcus + Staph aureus * repeat cultures (11/20/22) positive * s/p MIKE -- no evidence of endocarditis * recent blood culture negative to date (11/25 and 11/28) * on IV antibiotics * off pressors now (4) Encephalopathy: Code(s): G93.40 - Encephalopathy, unspecified Status: Acute Assessment and Plan: * resolved * thought to be due to Valtrex overdose but sepsis playing a role as well * s/p LP done (on 11/11/22) - follow-up on viral studies (Chris Pickard Viruus DNA PCR positive) * follow mentation (5) Herpes zoster infection of thoracic region: Code(s): B02.9 - Zoster without complications Status: Acute Assessment and Plan: * holding antiviral therapy at this time * continue supportive therapy (6) Atrial fibrillation: Qualifiers: Atrial fibrillation type: paroxysmal Qualified Code(s): I48.0 - Paroxysmal atrial fibrillation Code(s): I48.91 - Unspecified atrial fibrillation Status: Chronic Assessment and Plan: * rate control strategy * anticoagulation on hold (7) Insulin dependent diabetes mellitus: Status: Acute Assessment and Plan: * follow accuchecks * glycemic control per hospitalists/process inspector Will continue to follow. Subjective Date/time seen: 12/03/22 11:19 Interval history: Follow-up for end stage renal disease on hemodialysis. Tolerated dialysis treatment yesterday; however, over the course of the day and into the morning, issues noted with hypotension; received IVF bolus overnight and IV abumin this AM; it was noted in the ICU that his non-access arm does not always give accurate BP readings but BP readings on his calf tends to give more realistic readings; despite the hypotension issues, his mentation was stable and was otherwise asymptomatic. Exam Narrative: General: WD/WN male in NAD Heart: tachycardic normal S1 and S2; no rub Lungs: clear anteriorly; decreased at bases Abdomen: soft, nontender, nondistended, positive bowel sounds Extremities: 1+ edema noted Skin: warm and intact Objective Data Vital Signs Vital Signs: Vital Signs Temp Pulse Resp BP Pulse Ox O2 Del Method 12/03/22 11:03 80/32 L 12/03/22 08:35 Room Air 12/03/22 08:50 100/58 L 12/03/22 07:30 79/50 L 12/03/22 07:45 Room Air 12/03/22 06:35 97.9 F 95 20 71/42 L 100 12/02/22 23:30 97.9 F 91 14 89/56 L 0
--- NOTE | 2022-12-03 12:03 | PC.NURSE ---
Both Dr. Schmidt and Dr. Acosta made aware of patient's low blood pressure.
[2022-12-03 12:16] LABS: Glucose Point of Care 216 mg/dl (65-105)
[2022-12-03] MEDS: INSULIN ASPART (*BKC) 100 UNITS/ML SUB-Q ×2 (12:43→17:14)
--- NOTE | 2022-12-03 14:26 | WPDPN ---
Progress Note: A&P Assessment and Plan (1) Acute respiratory failure: Code(s): J96.00 - Acute respiratory failure, unspecified whether with hypoxia or hypercapnia Status: Acute Assessment and Plan: Acute respiratory failure likely secondary to pulmonary edema with possibility of pneumonia which could be aspiration -now extubated. Continue antibiotics. Overall respiratory status is much improved. 12/03 interval history: ?Patient went into respiratory failure and was intubated and patient was extubated on 11/21, on 11/28? patient had PEG placed, there was blood oozing around the PEG and seen by GI and was redressed,? 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 will resume? midodrine, patient with blood culture positive for Enterococcus faecallis being treated with ampicillin and vancomycin repeated blood culture negative so patient will need total of 2 weeks of antibiotic after negative blood culture,?on 12/02 patient had dialysis,?today patient blood pressure is soft patient was given 500 cc of bolus will continue midodrine, patient has not had a BM for 2 poor appetite, KUB showed large amount retained fecal material in the colon, no obstruction, will get the patient MiraLax: And will encourage to work with PT, patient will? benefit going to [facility] ,? Patient will have a scheduled dialysis seen by nephrology, (2) Sepsis: Code(s): A41.9 - Sepsis, unspecified organism Status: Acute Assessment and Plan: Cultures noted. Continue antibiotic (3) Pneumonia: Code(s): J18.9 - Pneumonia, unspecified organism Status: Acute Assessment and Plan: See above (4) Shock: Code(s): R57.9 - Shock, unspecified Status: Acute Assessment and Plan: Improved (5) Encephalopathy: Code(s): G93.40 - Encephalopathy, unspecified Status: Acute Assessment and Plan: Improving (6) Herpes zoster infection of thoracic region: Code(s): B02.9 - Zoster without complications Status: Acute Assessment and Plan: Patient was treated earlier and currently off of antiviral drugs (7) Antiviral drug overdose: Code(s): T37.5X1A - Poisoning by antiviral drugs, accidental (unintentional), initial encounter Status: Acute Assessment and Plan: The patient has been taking 1000 mg of valacyclovir t.i.d. as detailed above. His altered mental status and delirium are likely result of iatrogenic overdose. (8) End-stage renal disease on hemodialysis: Code(s): N18.6 - End stage renal disease; Z99.2 - Dependence on renal dialysis Status: Acute Assessment and Plan: Continue dialysis. (9) Insulin dependent diabetes mellitus: Status: Acute Assessment and Plan: Sliding scale insulin and Accu-Cheks -will hold Lantus as patient may be extubated (10) Atrial fibrillation: Qualifiers: Atrial fibrillation type: paroxysmal Qualified Code(s): I48.0 - Paroxysmal atrial fibrillation Code(s): I48.91 - Unspecified atrial fibrillation Status: Chronic Assessment and Plan: P.o. amiodarone Continue apixaban (11) Elevated LFTs: Code(s): R79.89 - Other specified abnormal findings of blood chemistry Status: Acute Assessment and Plan: Monitor (12) Hypothyroidism: Code(s): E03.9 - Hypothyroidism, unspecified Status: Acute Assessment and Plan: Continue levothyroxine (13) Thrombocytopenia: Code(s): D69.6 - Thrombocytopenia, unspecified Status: Acute Assessment and Plan: Multifactorial? Hit antibody was negative and wendie was indeterminate. -platelets have i
[2022-12-03] MEDS: polyethylene glycoL 3350 17 GM POWD.PACK PO (15:14)
[2022-12-03 16:58] LABS: Glucose Point of Care 210 mg/dl (65-105)
[2022-12-03 19:33] LABS: Glucose Point of Care 178 mg/dl (65-105)
[2022-12-04] VITALS (20 sets, daily range): BP systolic 86–153; BP diastolic 49–73; PULSE 86–112; RESP 16–20; TEMP 36–36.9; O2SAT 94–100
[2022-12-04] MEDS: LEVOTHYROXINE SODIUM INJ 100 MCG/5 ML VIAL 50 MCG IV PUSH (05:41)
[2022-12-04 05:56] LABS: Hematocrit 22.5 % (42.0-52.0); Mean Corpuscular HGB Conc 31.1 g/dl (32-36); Mean Corpuscular Hemoglobin 33.2 pg (26-34); Mean Corpuscular Volume 106.6 fl (80-100); Mean Platelet Volume 11.2 fl (7.4-10.4); Platelet Count Result 159 k/mm3 (150-375); Red Blood Count 2.11 M/mm3 (4.6-6.20); Red Cell Distribution Width 23.2 % (11.5-14.5); White Blood Count 9.7 K/mm3 (4.5-10.0)
[2022-12-04 06:12] LABS: Vancomycin Random 21.6 ug/mL (10-20)
[2022-12-04 06:15] LABS: Albumin Level 2.9 g/dL (3.5-5.1); Anion Gap 9 mmol/L (8-16); Blood Urea Nitrogen 42 mg/dL (9-20); Calcium 8.7 mg/dL (8.4-10.2); Carbon Dioxide 32 mmol/L (22-30); Chloride 90 mmol/L (98-107); Estimated CRCL calculation 16 ml/min; Estimated Glomerular Filt Rate 15; Glucose 163 mg/dL (65-110); Magnesium 2.2 mg/dL (1.6-2.3); Phosphorus 2.5 mg/dL (2.5-4.5); Potassium 3.9 mmol/L (3.4-5.0); Sodium 131 mmol/L (137-145)
[2022-12-04] MEDS: AMIODARONE HCL 200 MG TABLET FEED TUBE ×2 (08:14→18:07)
[2022-12-04] MEDS: PANTOPRAZOLE SODIUM IV 40 MG VIAL IV PUSH ×2 (08:15→20:22)
[2022-12-04] MEDS: polyethylene glycoL 3350 17 GM POWD.PACK PO (08:15)
[2022-12-04] MEDS: HYDROCORTISONE SODIUM SUCCINATE 100 MG/2 ML VIAL 50 MG IV PUSH ×2 (08:15→20:22)
[2022-12-04] MEDS: DOCUSATE SODIUM LIQ 100 MG/10 ML UDC PO (08:16)
[2022-12-04] MEDS: MIDODRINE HCL 2.5 MG TABLET 5 MG FEED TUBE ×3 (08:16→18:07)
[2022-12-04] MEDS: SILVERGEL (ELTA) 45 ML 1 APPLIC TOPICAL (08:17)
[2022-12-04] MEDS: AMPICILLIN 2 GM/NS 100 ML 2 GM/100 ML BAG IVPB ×2 (08:27→20:22)
[2022-12-04 08:38] LABS: Glucose Point of Care 154 mg/dl (65-105)
--- NOTE | 2022-12-04 09:56 | PCPTNOTE ---
The patient treatment was not able to be completed this morning on 12/04/2022 due to patient out of the room for dialysis. Will plan to continue treatment per plan of care.
[2022-12-04] MEDS: EPOETIN ALFA-EPBX 10,000 UNITS/ML VIAL 10000 UNITS IV PUSH (11:02)
--- NOTE | 2022-12-04 11:05 | PCOTNOTE ---
Pt is currently off the floor for dialysis. Will continue per POC duration/frequency tomorrow.
--- NOTE | 2022-12-04 12:25 | PM.PNNEP ---
Progress Note: A&P Assessment and Plan (1) End stage renal disease: Code(s): N18.6 - End stage renal disease Status: Chronic Assessment and Plan: HD today continue M/W/F schedule while hospitalized follow electrolytes, volume status, and clearance (2) Acute respiratory failure: Code(s): J96.00 - Acute respiratory failure, unspecified whether with hypoxia or hypercapnia Status: Acute Assessment and Plan: resolved (extubated) suspect secondary to pulmonary edema +/- pneumonia (possibly aspiration) gradually improving (3) Septic shock: Code(s): A41.9 - Sepsis, unspecified organism; R65.21 - Severe sepsis with septic shock Status: Acute Assessment and Plan: resolving as noted by worsening WBC, hypoxia, lactic acidosis, and hypotension follow culture data blood culture with Enterococcus + Staph aureus repeat cultures (11/20/22) positive s/p MIKE -- no evidence of endocarditis recent blood culture negative to date (11/25 and 11/28) on IV antibiotics off pressors now (4) Encephalopathy: Code(s): G93.40 - Encephalopathy, unspecified Status: Acute Assessment and Plan: resolved thought to be due to Valtrex overdose but sepsis playing a role as well s/p LP done (on 11/11/22) - follow-up on viral studies (Chris Pickard Viruus DNA PCR positive) follow mentation (5) Herpes zoster infection of thoracic region: Code(s): B02.9 - Zoster without complications Status: Acute Assessment and Plan: holding antiviral therapy at this time continue supportive therapy (6) Atrial fibrillation: Qualifiers: Atrial fibrillation type: paroxysmal Qualified Code(s): I48.0 - Paroxysmal atrial fibrillation Code(s): I48.91 - Unspecified atrial fibrillation Status: Chronic Assessment and Plan: rate control strategy anticoagulation on hold (7) Insulin dependent diabetes mellitus: Status: Acute Assessment and Plan: follow accuchecks glycemic control per hospitalists/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 Subjective Date/time seen: 12/04/22 12:25 Interval history: Follow-up for end stage renal disease on hemodialysis. Tolerating dialysis treatment at the time of my visit (seen on HD a ~ 12:15PM); major complaint is the lack of bowel movement for the last several days; respiratory status appears stable; no acute issues/events overnight or earlier this morning. Exam Narrative: General: WD/WN male in NAD Heart: tachycardic normal S1 and S2; no rub Lungs: clear anteriorly; decreased at bases Abdomen: soft, nontender, nondistended, positive bowel sounds Extremities: 1+ edema noted Skin: no rash Objective Data Vital Signs Vital Signs: Vital Signs Temp Pulse Resp BP Pulse Ox O2 Del Method 12/04/22 12:20 106 H 88/57 L 12/04/22 12:00 107 H 89/57 L 12/04/22 11:40 108 H 88/54 L 12/04/22 11:20 100 91/60 L 12/04/22 11:00 100 95/62 L 12/04/22 10:40 100 101/65 12/04/22 10:20 101 H 102/61 12/04/22 10:00 99 113/69 12/04/22 09:40 90 101/59 L 12/04/22 09:19 98.4 F 112 H 20 102/66 95 12/04/22 08:00 Room Air 12/04/22 08:14 86 12/04/22 06:00 98.2 F 86 18 129/73 97 12/03/22 20:41 98.2 F 77 18 103/28 L 100 12/03/22 17:21 122/32 L Intake/Output Intake/Output: Intake & Output 12/01/22 12/02/22 12/03/22 12/04/22 23:59 23:59 23:59 23:59 Intake Total 630 1080 1660 50 Output Total 0 2500 0 0 Balance 630 -1420 1660 50 Meds/Results Medications: Active Medications Generic Name Dose Route Start Last Admin Trade Name Freq PRN Reason Stop Dose Admin Acetaminophen 650 mg 11/09/22 11:15 11/30/22 06:09 Acetaminophen 325 Mg Tablet FEED TUBE 650 mg Q4H PRN Administration Mild Pain (1-3) Amiodarone HCl 200 mg 11/09/22 17:00 12/04/22
--- NOTE | 2022-12-04 12:25 | P.PNNP_ITS ---
Progress Note: A&P Assessment and Plan (1) End stage renal disease: Code(s): N18.6 - End stage renal disease Status: Chronic Assessment and Plan: * HD today * continue M/W/F schedule while hospitalized * follow electrolytes, volume status, and clearance (2) Acute respiratory failure: Code(s): J96.00 - Acute respiratory failure, unspecified whether with hypoxia or hypercapnia Status: Acute Assessment and Plan: * resolved (extubated) * suspect secondary to pulmonary edema +/- pneumonia (possibly aspiration) * gradually improving (3) Septic shock: Code(s): A41.9 - Sepsis, unspecified organism; R65.21 - Severe sepsis with septic shock Status: Acute Assessment and Plan: * resolving * as noted by worsening WBC, hypoxia, lactic acidosis, and hypotension * follow culture data * blood culture with Enterococcus + Staph aureus * repeat cultures (11/20/22) positive * s/p MIKE -- no evidence of endocarditis * recent blood culture negative to date (11/25 and 11/28) * on IV antibiotics * off pressors now (4) Encephalopathy: Code(s): G93.40 - Encephalopathy, unspecified Status: Acute Assessment and Plan: * resolved * thought to be due to Valtrex overdose but sepsis playing a role as well * s/p LP done (on 11/11/22) - follow-up on viral studies (Chris Pickard Viruus DNA PCR positive) * follow mentation (5) Herpes zoster infection of thoracic region: Code(s): B02.9 - Zoster without complications Status: Acute Assessment and Plan: * holding antiviral therapy at this time * continue supportive therapy (6) Atrial fibrillation: Qualifiers: Atrial fibrillation type: paroxysmal Qualified Code(s): I48.0 - Paroxysmal atrial fibrillation Code(s): I48.91 - Unspecified atrial fibrillation Status: Chronic Assessment and Plan: * rate control strategy * anticoagulation on hold (7) Insulin dependent diabetes mellitus: Status: Acute Assessment and Plan: * follow accuchecks * glycemic control per hospitalists/preschool principal Will continue to follow. Subjective Date/time seen: 12/04/22 12:25 Interval history: Follow-up for end stage renal disease on hemodialysis. Tolerating dialysis treatment at the time of my visit (seen on HD a ~ 12:15PM); major complaint is the lack of bowel movement for the last several days; respiratory status appears stable; no acute issues/events overnight or earlier t his morning. Exam Narrative: General: WD/WN male in NAD Heart: tachycardic normal S1 and S2; no rub Lungs: clear anteriorly; decreased at bases Abdomen: soft, nontender, nondistended, positive bowel sounds Extremities: 1+ edema noted Skin: no rash Objective Data Vital Signs Vital Signs: Vital Signs Temp Pulse Resp BP Pulse Ox O2 Del Method 12/04/22 12:20 106 H 88/57 L 12/04/22 12:00 107 H 89/57 L 12/04/22 11:40 108 H 88/54 L 12/04/22 11:20 100 91/60 L 12/04/22 11:00 100 95/62 L 12/04/22 10:40 100 101/65 12/04/22 10:20 101 H 102/61 12/04/22 10:00 99 113/69 12/04/22 09:40 90 101/59 L 12/04/22 09:19 98.4 F 112 H 20 102/66 95 12/04/22 08:00 Room Air 12/04/22
--- NOTE | 2022-12-04 13:13 | PCPTNOTE ---
The patient treatment was not able to be completed this afternoon on 12/04/2022 due to patient out of room for dialysis. Will plan to continue treatment per plan of care.
--- NOTE | 2022-12-04 14:28 | PCOTNOTE ---
Pt was being transported back to room from dialysis when therapist attempted Occupational Therapy treatment. Will continue per POC duration/frequency tomorrow.
[2022-12-04] MEDS: BISACODYL 10 MG SUPPOSITORY RECTAL (15:08)
[2022-12-04] MEDS: CENTRAL LINE FLUSH 10 ML IV PUSH ×3 (15:08→20:23)
[2022-12-04] MEDS: ACETAMINOPHEN 325 MG TABLET 650 MG FEED TUBE (15:20)
--- NOTE | 2022-12-04 15:22 | WPDPN ---
Progress Note: A&P Assessment and Plan (1) Acute respiratory failure: Code(s): J96.00 - Acute respiratory failure, unspecified whether with hypoxia or hypercapnia Status: Acute Assessment and Plan: Acute respiratory failure likely secondary to pulmonary edema with possibility of pneumonia which could be aspiration -now extubated. Continue antibiotics. Overall respiratory status is much improved. 12/04 interval history: ?Patient went into respiratory failure and was intubated and patient was extubated on 11/21, on 11/28? patient had PEG placed, there was blood oozing around the PEG and seen by GI and was redressed,? 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 will resume? midodrine, patient with blood culture positive for Enterococcus faecallis being treated with ampicillin and vancomycin repeated blood culture negative so patient will need total of 2 weeks of antibiotic after negative blood culture,?on 12/02 patient had dialysis,?today patient blood pressure is soft patient was given 500 cc of bolus will continue midodrine, patient has not had a BM for 2 weeks poor appetite, KUB showed large amount retained fecal material in the colon, no obstruction, the patient was given MiraLax Colace, no BM today, will give the patient suppository, And will encourage to work with PT, patient will? benefit going to [facility] ,? Patient will have a scheduled dialysis seen by nephrology, (2) Sepsis: Code(s): A41.9 - Sepsis, unspecified organism Status: Acute Assessment and Plan: Cultures noted. Continue antibiotic (3) Pneumonia: Code(s): J18.9 - Pneumonia, unspecified organism Status: Acute Assessment and Plan: See above (4) Shock: Code(s): R57.9 - Shock, unspecified Status: Acute Assessment and Plan: Improved (5) Encephalopathy: Code(s): G93.40 - Encephalopathy, unspecified Status: Acute Assessment and Plan: Improving (6) Herpes zoster infection of thoracic region: Code(s): B02.9 - Zoster without complications Status: Acute Assessment and Plan: Patient was treated earlier and currently off of antiviral drugs (7) Antiviral drug overdose: Code(s): T37.5X1A - Poisoning by antiviral drugs, accidental (unintentional), initial encounter Status: Acute Assessment and Plan: The patient has been taking 1000 mg of valacyclovir t.i.d. as detailed above. His altered mental status and delirium are likely result of iatrogenic overdose. (8) End-stage renal disease on hemodialysis: Code(s): N18.6 - End stage renal disease; Z99.2 - Dependence on renal dialysis Status: Acute Assessment and Plan: Continue dialysis. (9) Insulin dependent diabetes mellitus: Status: Acute Assessment and Plan: Sliding scale insulin and Accu-Cheks -will hold Lantus as patient may be extubated (10) Atrial fibrillation: Qualifiers: Atrial fibrillation type: paroxysmal Qualified Code(s): I48.0 - Paroxysmal atrial fibrillation Code(s): I48.91 - Unspecified atrial fibrillation Status: Chronic Assessment and Plan: P.o. amiodarone Continue apixaban (11) Elevated LFTs: Code(s): R79.89 - Other specified abnormal findings of blood chemistry Status: Acute Assessment and Plan: Monitor (12) Hypothyroidism: Code(s): E03.9 - Hypothyroidism, unspecified Status: Acute Assessment and Plan: Continue levothyroxine (13) Thrombocytopenia: Code(s): D69.6 - Thrombocytopenia, unspecified Status: Acute Assessment and Plan: Multifactorial? Hit antibo
[2022-12-04 17:09] LABS: Glucose Point of Care 174 mg/dl (65-105)
[2022-12-04 20:53] LABS: Glucose Point of Care 223 mg/dl (65-105)
[2022-12-04 20:57] LABS: Hepatitis B Surface Antigen Negative (Negative)
[2022-12-04 21:16] LABS: Hepatitis B Surface Anti Res Positive
[2022-12-05 04:14] VITALS: BP 123/45; PULSE 88; RESP 18; TEMP 36.4; O2SAT 100
[2022-12-05] MEDS: LEVOTHYROXINE SODIUM INJ 100 MCG/5 ML VIAL 50 MCG IV PUSH (04:53)
[2022-12-05 05:10] LABS: Hematocrit 23.1 % (42.0-52.0); Mean Corpuscular HGB Conc 29.4 g/dl (32-36); Mean Corpuscular Hemoglobin 31.6 pg (26-34); Mean Corpuscular Volume 107.4 fl (80-100); Mean Platelet Volume 11.2 fl (7.4-10.4); Platelet Count Result 160 k/mm3 (150-375); Red Blood Count 2.15 M/mm3 (4.6-6.20); Red Cell Distribution Width 23.7 % (11.5-14.5)
[2022-12-05 05:18] LABS: Hemoglobin 6.8 g/dL (14.0-18.0)
[2022-12-05 05:43] LABS: Albumin Level 3.1 g/dL (3.5-5.1); Anion Gap 4 mmol/L (8-16); Blood Urea Nitrogen 20 mg/dL (9-20); Calcium 8.5 mg/dL (8.4-10.2); Carbon Dioxide 34 mmol/L (22-30); Chloride 94 mmol/L (98-107); Estimated CRCL calculation 25 ml/min; Estimated Glomerular Filt Rate 25; Glucose 163 mg/dL (65-110); Magnesium 2.1 mg/dL (1.6-2.3); Phosphorus 1.7 mg/dL (2.5-4.5); Potassium 3.7 mmol/L (3.4-5.0); Sodium 132 mmol/L (137-145)
[2022-12-05 08:47] LABS: Glucose Point of Care 131 mg/dl (65-105)
[2022-12-05] MEDS: DOCUSATE SODIUM LIQ 100 MG/10 ML UDC PO (09:57)
[2022-12-05 09:58] VITALS: PULSE 88
[2022-12-05] MEDS: AMPICILLIN 2 GM/NS 100 ML 2 GM/100 ML BAG IVPB ×2 (09:58→20:38)
[2022-12-05] MEDS: MIDODRINE HCL 2.5 MG TABLET 5 MG FEED TUBE ×3 (09:58→17:09)
[2022-12-05] MEDS: AMIODARONE HCL 200 MG TABLET FEED TUBE ×2 (09:58→17:09)
[2022-12-05] MEDS: PANTOPRAZOLE SODIUM IV 40 MG VIAL IV PUSH ×2 (09:59→20:38)
[2022-12-05] MEDS: HYDROCORTISONE SODIUM SUCCINATE 100 MG/2 ML VIAL 50 MG IV PUSH ×2 (09:59→20:38)
[2022-12-05] MEDS: polyethylene glycoL 3350 17 GM POWD.PACK PO (09:59)
[2022-12-05] MEDS: SILVERGEL (ELTA) 45 ML 1 APPLIC TOPICAL (10:00)
--- NOTE | 2022-12-05 11:03 | PCNFU ---
Nutrition Follow-Up Complete: Inadequate energy intake related to lack of alertness as evidenced by nursing report Goal: Alert and oriented Greater than 50% intake of meals Patient is progressing towards goal. We will continue current goal. Pt current nutrition is Minced and Moist, Level 5. Nutrition recommendation: advance as tolerated per MD orders. Last recorded weight is 81 kg. Bowel Motility:+BM reported 12/05 Labs Reviewed:Glu 168, Cr 2.6,Alb 3.1,Na 132, Hgb 6.8,Hct 23.1 Meds Noted:NovoLog, Lantus,Miralax, Protonix Skin: WNL Additional Notes: Patient is tolerating Minced and Moist, Level 5 diet. Intake reported at least 75% of meals. Nepro BID providing an additional 420 kcals and 19 gms protein. Recommend advancing diet as tolerated per MD orders. Monitor status, intake, wt, labs. Follow up in 5 days.
[2022-12-05 12:23] LABS: Glucose Point of Care 186 mg/dl (65-105)
[2022-12-05] MEDS: CENTRAL LINE FLUSH 10 ML IV PUSH ×2 (13:06→17:10)
--- NOTE | 2022-12-05 13:13 | PM.PNNEP ---
Progress Note: A&P Assessment and Plan (1) End stage renal disease: Code(s): N18.6 - End stage renal disease Status: Chronic Assessment and Plan: HD tomorrow continue M/W/F schedule while hospitalized follow electrolytes, volume status, and clearance (2) Acute respiratory failure: Code(s): J96.00 - Acute respiratory failure, unspecified whether with hypoxia or hypercapnia Status: Acute Assessment and Plan: resolved (extubated) suspect secondary to pulmonary edema +/- pneumonia (possibly aspiration) gradually improving (3) Septic shock: Code(s): A41.9 - Sepsis, unspecified organism; R65.21 - Severe sepsis with septic shock Status: Acute Assessment and Plan: resolved as noted by worsening WBC, hypoxia, lactic acidosis, and hypotension follow culture data blood culture with Enterococcus + Staph aureus repeat cultures (11/20/22) positive s/p MIKE -- no evidence of endocarditis recent blood culture negative to date (11/25 and 11/28) on IV antibiotics off pressors now (4) Anemia: Code(s): D64.9 - Anemia, unspecified Status: Acute Assessment and Plan: related to ESRD and acute illness unable to give venofer due infection/bacteremia increased Epogen dose PRBC transfusion per protocol follow trend of H/H (5) Encephalopathy: Code(s): G93.40 - Encephalopathy, unspecified Status: Acute Assessment and Plan: resolved thought to be due to Valtrex overdose but sepsis playing a role as well s/p LP done (on 11/11/22) - follow-up on viral studies (Chris Pickard Viruus DNA PCR positive) follow mentation (6) Herpes zoster infection of thoracic region: Code(s): B02.9 - Zoster without complications Status: Acute Assessment and Plan: holding antiviral therapy at this time continue supportive therapy (7) Atrial fibrillation: Qualifiers: Atrial fibrillation type: paroxysmal Qualified Code(s): I48.0 - Paroxysmal atrial fibrillation Code(s): I48.91 - Unspecified atrial fibrillation Status: Chronic Assessment and Plan: rate control strategy anticoagulation on hold (8) Insulin dependent diabetes mellitus: Status: Acute Assessment and Plan: follow accuchecks 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 Subjective Date/time seen: 12/05/22 13:13 Interval history: Follow-up for end stage renal disease on hemodialysis. Tolerated dialysis treatment yesterday without any issue or problems; bowel regimen successful and he feels significantly better following several bowel movements; respiratory status and mentation remains stable; no apparent distress voiced on my visit. Exam Narrative: General: WD/WN male in NAD Heart: normal S1 and S2; no rub Lungs: clear anteriorly; decreased at bases Abdomen: soft, nontender, nondistended, positive bowel sounds Extremities: 1+ edema noted Skin: no nodules Objective Data Vital Signs Vital Signs: Vital Signs Temp Pulse Resp BP Pulse Ox O2 Del Method 12/05/22 13:01 97.4 F L 84 18 131/44 L 100 12/05/22 10:00 Room Air 12/05/22 09:58 88 12/05/22 04:14 97.6 F 88 18 123/45 L 100 12/04/22 19:48 97 F L 90 16 110/68 100 12/04/22 18:07 100 Intake/Output Intake/Output: Intake & Output 12/02/22 12/03/22 12/04/22 12/05/22 23:59 23:59 23:59 23:59 Intake Total 1080 1337 727 2747 Output Total 2500 0 430 Balance -1420 1660 60 1610 Meds/Results Medications: Active Medications Generic Name Dose Route Start Last Admin Trade Name Willq PRN Reason Stop Dose Admin Acetaminophen 650 mg 11/09/22 11:15 12/04/22 15:20 Acetaminophen 325 Mg Tablet FEED TUBE 650 mg Q4H PRN Administration Mild Pain (1-3) Amiodarone HCl 200 mg 11/09/22 17:00 12/05/22 17:09 Amiodarone Hcl 200 Mg Tablet
--- NOTE | 2022-12-05 13:13 | P.PNNP_ITS ---
Progress Note: A&P Assessment and Plan (1) End stage renal disease: Code(s): N18.6 - End stage renal disease Status: Chronic Assessment and Plan: * HD tomorrow * continue M/W/F schedule while hospitalized * follow electrolytes, volume status, and clearance (2) Acute respiratory failure: Code(s): J96.00 - Acute respiratory failure, unspecified whether with hypoxia or hypercapnia Status: Acute Assessment and Plan: * resolved (extubated) * suspect secondary to pulmonary edema +/- pneumonia (possibly aspiration) * gradually improving (3) Septic shock: Code(s): A41.9 - Sepsis, unspecified organism; R65.21 - Severe sepsis with septic shock Status: Acute Assessment and Plan: * resolved * as noted by worsening WBC, hypoxia, lactic acidosis, and hypotension * follow culture data * blood culture with Enterococcus + Staph aureus * repeat cultures (11/20/22) positive * s/p MIKE -- no evidence of endocarditis * recent blood culture negative to date (11/25 and 11/28) * on IV antibiotics * off pressors now (4) Anemia: Code(s): D64.9 - Anemia, unspecified Status: Acute Assessment and Plan: * related to ESRD and acute illness * unable to give venofer due infection/bacteremia * increased Epogen dose * PRBC transfusion per protocol * follow trend of H/H (5) Encephalopathy: Code(s): G93.40 - Encephalopathy, unspecified Status: Acute Assessment and Plan: * resolved * thought to be due to Valtrex overdose but sepsis playing a role as well * s/p LP done (on 11/11/22) - follow-up on viral studies (Chris Pickard Viruus DNA PCR positive) * follow mentation (6) Herpes zoster infection of thoracic region: Code(s): B02.9 - Zoster without complications Status: Acute Assessment and Plan: * holding antiviral therapy at this time * continue supportive therapy (7) Atrial fibrillation: Qualifiers: Atrial fibrillation type: paroxysmal Qualified Code(s): I48.0 - Paroxysmal atrial fibrillation Code(s): I48.91 - Unspecified atrial fibrillation Status: Chronic Assessment and Plan: * rate control strategy * anticoagulation on hold (8) Insulin dependent diabetes mellitus: Status: Acute Assessment and Plan: * follow accuchecks * 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 Subjective Date/time seen: 12/05/22 13:13 Interval history: Follow-up for end stage renal disease on hemodialysis. Tolerated dialysis treatment yesterday without any issue or problems; bowel regimen successful and he feels significantly better following several bowel movements; respiratory status and mentation remains stable; no apparent distress voiced on my visit. Exam Narrative: General: WD/WN male in NAD Heart: normal S1 and S2; no rub Lungs: clear anteriorly; decreased at bases Abdomen: soft, nontender, nondistended, positive bowel sounds Extremities: 1+ edema noted Skin: no nodules Objective Data Vital Signs Vital Signs: Vital Signs Temp Pulse Resp BP Pulse Ox O2 Del Method 12/05/22 13:01 97.4 F L 84 18 131/44 L 100 12/05/22 10:00 Room Air 12/05/22 09:58 88 12/05/22 04:14 97.6 F 88 18 123/45 L 100 05
[2022-12-05 15:01] VITALS: BP 131/44; PULSE 84; RESP 18; TEMP 36.3; O2SAT 100
--- NOTE | 2022-12-05 16:44 | WPDPN ---
Progress Note: A&P Assessment and Plan (1) Acute respiratory failure: Code(s): J96.00 - Acute respiratory failure, unspecified whether with hypoxia or hypercapnia Status: Acute Assessment and Plan: Acute respiratory failure likely secondary to pulmonary edema with possibility of pneumonia which could be aspiration -now extubated. Continue antibiotics. Overall respiratory status is much improved. 12/05 interval history: ?Patient went into respiratory failure and was intubated and patient was extubated on 11/21, on 11/28? patient had PEG placed, there was blood oozing around the PEG and seen by GI and was redressed,? 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 will resume? midodrine, patient with blood culture positive for Enterococcus faecallis being treated with ampicillin and vancomycin repeated blood culture negative so patient will need total of 2 weeks of antibiotic after negative blood culture,?on 12/02 patient had dialysis,?today patient blood pressure is soft patient was given 500 cc of bolus will continue midodrine, patient has not had a BM for 2 weeks poor appetite, KUB showed large amount retained fecal material in the colon, no obstruction, on 12/04 the patient was given MiraLax Colace, no BM and later patient was given suppository, this morning patient had large BM and he states is feeling much much improved and has more energy now, And will encourage patien tto work with PT, patient will? benefit going to [facility] , patient hemoglobin is trending most likely secondary to chronic kidney disease on hemodialysis if persist may transfuse tomorrow with dialysis, Patient will have a scheduled dialysis seen by nephrology, (2) Sepsis: Code(s): A41.9 - Sepsis, unspecified organism Status: Acute Assessment and Plan: Cultures noted. Continue antibiotic (3) Pneumonia: Code(s): J18.9 - Pneumonia, unspecified organism Status: Acute Assessment and Plan: See above (4) Shock: Code(s): R57.9 - Shock, unspecified Status: Acute Assessment and Plan: Improved (5) Encephalopathy: Code(s): G93.40 - Encephalopathy, unspecified Status: Acute Assessment and Plan: Improving (6) Herpes zoster infection of thoracic region: Code(s): B02.9 - Zoster without complications Status: Acute Assessment and Plan: Patient was treated earlier and currently off of antiviral drugs (7) Antiviral drug overdose: Code(s): T37.5X1A - Poisoning by antiviral drugs, accidental (unintentional), initial encounter Status: Acute Assessment and Plan: The patient has been taking 1000 mg of valacyclovir t.i.d. as detailed above. His altered mental status and delirium are likely result of iatrogenic overdose. (8) End-stage renal disease on hemodialysis: Code(s): N18.6 - End stage renal disease; Z99.2 - Dependence on renal dialysis Status: Acute Assessment and Plan: Continue dialysis. (9) Insulin dependent diabetes mellitus: Status: Acute Assessment and Plan: Sliding scale insulin and Accu-Cheks -will hold Lantus as patient may be extubated (10) Atrial fibrillation: Qualifiers: Atrial fibrillation type: paroxysmal Qualified Code(s): I48.0 - Paroxysmal atrial fibrillation Code(s): I48.91 - Unspecified atrial fibrillation Status: Chronic Assessment and Plan: P.o. amiodarone Continue apixaban (11) Elevated LFTs: Code(s): R79.89 - Other specified abnormal findings of blood chemistry Status: Acute Assessment and Plan: Monitor (12) Hypothyroidism: Code(s): E03.9 -
[2022-12-05 17:07] LABS: Glucose Point of Care 186 mg/dl (65-105)
[2022-12-05 17:09] VITALS: PULSE 84
[2022-12-05 20:48] VITALS: BP 127/45; PULSE 78; RESP 18; TEMP 36.6; O2SAT 98
[2022-12-05 21:37] LABS: Glucose Point of Care 199 mg/dl (65-105)
[2022-12-06] VITALS (24 sets, daily range): BP systolic 98–200; BP diastolic 20–85; PULSE 82–91; RESP 16–18; TEMP 35.4–36.6; O2SAT 100
[2022-12-06] MEDS: LEVOTHYROXINE SODIUM INJ 100 MCG/5 ML VIAL 50 MCG IV PUSH (05:22)
[2022-12-06 05:50] LABS: Hematocrit 23.2 % (42.0-52.0); Mean Corpuscular HGB Conc 29.7 g/dl (32-36); Mean Corpuscular Hemoglobin 32.5 pg (26-34); Mean Corpuscular Volume 109.4 fl (80-100); Mean Platelet Volume 11.5 fl (7.4-10.4); Platelet Count Result 154 k/mm3 (150-375); Red Blood Count 2.12 M/mm3 (4.6-6.20); Red Cell Distribution Width 23.3 % (11.5-14.5)
[2022-12-06 05:52] LABS: Hemoglobin 6.9 g/dL (14.0-18.0)
[2022-12-06 06:11] LABS: Anion Gap 7 mmol/L (8-16); Blood Urea Nitrogen 32 mg/dL (9-20); Calcium 8.6 mg/dL (8.4-10.2); Carbon Dioxide 31 mmol/L (22-30); Chloride 91 mmol/L (98-107); Estimated CRCL calculation 17 ml/min; Estimated Glomerular Filt Rate 16; Glucose 184 mg/dL (65-110); Magnesium 2.4 mg/dL (1.6-2.3); Phosphorus 1.9 mg/dL (2.5-4.5); Sodium 129 mmol/L (137-145)
[2022-12-06 06:12] LABS: Vancomycin Trough 18.2 ug/mL (10.0-20.0)
[2022-12-06 08:56] LABS: Glucose Point of Care 172 mg/dl (65-105)
[2022-12-06] MEDS: AMPICILLIN 2 GM/NS 100 ML 2 GM/100 ML BAG IVPB ×2 (09:12→20:21)
[2022-12-06] MEDS: MIDODRINE HCL 2.5 MG TABLET 5 MG FEED TUBE ×3 (09:12→17:39)
[2022-12-06] MEDS: HYDROCORTISONE SODIUM SUCCINATE 100 MG/2 ML VIAL 50 MG IV PUSH ×2 (09:13→20:21)
[2022-12-06] MEDS: polyethylene glycoL 3350 17 GM POWD.PACK PO (09:13)
[2022-12-06] MEDS: AMIODARONE HCL 200 MG TABLET FEED TUBE ×2 (09:13→17:39)
[2022-12-06] MEDS: PANTOPRAZOLE SODIUM IV 40 MG VIAL IV PUSH ×2 (09:13→20:21)
[2022-12-06] MEDS: DOCUSATE SODIUM LIQ 100 MG/10 ML UDC PO (09:13)
[2022-12-06] MEDS: SILVERGEL (ELTA) 45 ML 1 APPLIC TOPICAL (09:14)
--- NOTE | 2022-12-06 10:49 | PCPTNOTE ---
The patient treatment was not able to be completed this morning on 12/06/2022 due to patient in dialysis. Will plan to continue treatment per plan of care.
--- NOTE | 2022-12-06 11:11 | PC.NURSE ---
pt receiving 1 unit of blood through dialysis machine, right arm fistula. cosigned by SHAE Damico.
--- NOTE | 2022-12-06 11:15 | PM.PNNEP ---
Progress Note: A&P Assessment and Plan (1) End stage renal disease: Code(s): N18.6 - End stage renal disease Status: Chronic Assessment and Plan: HD today continue M/W/F schedule while hospitalized follow electrolytes, volume status, and clearance (2) Septic shock: Code(s): A41.9 - Sepsis, unspecified organism; R65.21 - Severe sepsis with septic shock Status: Acute Assessment and Plan: resolved as noted by worsening WBC, hypoxia, lactic acidosis, and hypotension follow culture data blood culture with Enterococcus + Staph aureus repeat cultures (11/20/22) positive s/p MIKE -- no evidence of endocarditis recent blood culture negative to date (11/25 and 11/28) on IV antibiotics off pressors now (3) Anemia: Code(s): D64.9 - Anemia, unspecified Status: Acute Assessment and Plan: related to ESRD and acute illness unable to give venofer due infection/bacteremia increased Epogen dose PRBC transfusion per protocol follow trend of H/H (4) Encephalopathy: Code(s): G93.40 - Encephalopathy, unspecified Status: Acute Assessment and Plan: resolved thought to be due to Valtrex overdose but sepsis playing a role as well s/p LP done (on 11/11/22) - follow-up on viral studies (Chris Pickard Viruus DNA PCR positive) follow mentation (5) Herpes zoster infection of thoracic region: Code(s): B02.9 - Zoster without complications Status: Acute Assessment and Plan: holding antiviral therapy at this time continue supportive therapy (6) Atrial fibrillation: Qualifiers: Atrial fibrillation type: paroxysmal Qualified Code(s): I48.0 - Paroxysmal atrial fibrillation Code(s): I48.91 - Unspecified atrial fibrillation Status: Chronic Assessment and Plan: rate control strategy anticoagulation on hold (7) Insulin dependent diabetes mellitus: Status: Acute Assessment and Plan: follow accuchecks glycemic control 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 Subjective Date/time seen: 12/06/22 11:15 Interval history: Follow-up for end stage renal disease on hemodialysis. Tolerating dialysis treatment at the time of my visit (seen on HD at 11:05AM); PRBC transfusion today due to low H/H noted this AM as well as yesterday; BP remains soft but he is asymptomatic; no other issues/events overnight or earlier this morning. Exam Narrative: General: WD/WN male in NAD Heart: normal S1 and S2; no rub Lungs: clear anteriorly; decreased at bases Abdomen: soft, nontender, nondistended, positive bowel sounds Extremities: trace - 1+ edema noted Skin: warm and dry Objective Data Vital Signs Vital Signs: Vital Signs Temp Pulse Resp BP Pulse Ox O2 Del Method 12/06/22 11:10 86 172/58 H 12/06/22 11:06 97.6 F 88 16 178/58 H 100 12/06/22 10:50 87 194/57 H 12/06/22 10:29 87 171/59 H 12/06/22 10:20 97.6 F 88 16 161/56 H 12/06/22 09:30 Room Air 12/06/22 09:13 85 12/06/22 04:04 97.8 F 85 16 98/43 L 100 12/05/22 20:48 97.8 F 78 18 127/45 L 98 12/05/22 17:09 84 Intake/Output Intake/Output: Intake & Output 12/03/22 12/04/22 12/05/22 12/06/22 23:59 23:59 23:59 23:59 Intake Total 0739 121 6360 590 Output Total 0 430 Balance 1660 60 2350 590 Meds/Results Medications: Active Medications Generic Name Dose Route Start Last Admin Trade Name Freq PRN Reason Stop Dose Admin Acetaminophen 650 mg 11/09/22 11:15 12/04/22 15:20 Acetaminophen 325 Mg Tablet FEED TUBE 650 mg Q4H PRN Administration Mild Pain (1-3) Amiodarone HCl 200 mg 11/09/22 17:00 12/06/22 09:13 Amiodarone Hcl 200 Mg Tablet FEED TUBE 200 mg BIDWM BARBARA Administration Apixaban 2.5 mg 11/20/22 09:00 11/27/22 17:13 Apixaban 2.5 Mg Tablet PO 2.5 mg BID BARBARA Administratio
--- NOTE | 2022-12-06 11:15 | P.PNNP_ITS ---
Progress Note: A&P Assessment and Plan (1) End stage renal disease: Code(s): N18.6 - End stage renal disease Status: Chronic Assessment and Plan: * HD today * continue M/W/F schedule while hospitalized * follow electrolytes, volume status, and clearance (2) Septic shock: Code(s): A41.9 - Sepsis, unspecified organism; R65.21 - Severe sepsis with septic shock Status: Acute Assessment and Plan: * resolved * as noted by worsening WBC, hypoxia, lactic acidosis, and hypotension * follow culture data * blood culture with Enterococcus + Staph aureus * repeat cultures (11/20/22) positive * s/p MIKE -- no evidence of endocarditis * recent blood culture negative to date (11/25 and 11/28) * on IV antibiotics * off pressors now (3) Anemia: Code(s): D64.9 - Anemia, unspecified Status: Acute Assessment and Plan: * related to ESRD and acute illness * unable to give venofer due infection/bacteremia * increased Epogen dose * PRBC transfusion per protocol * follow trend of H/H (4) Encephalopathy: Code(s): G93.40 - Encephalopathy, unspecified Status: Acute Assessment and Plan: * resolved * thought to be due to Valtrex overdose but sepsis playing a role as well * s/p LP done (on 11/11/22) - follow-up on viral studies (Chris Pickard Viruus DNA PCR positive) * follow mentation (5) Herpes zoster infection of thoracic region: Code(s): B02.9 - Zoster without complications Status: Acute Assessment and Plan: * holding antiviral therapy at this time * continue supportive therapy (6) Atrial fibrillation: Qualifiers: Atrial fibrillation type: paroxysmal Qualified Code(s): I48.0 - Paroxysmal atrial fibrillation Code(s): I48.91 - Unspecified atrial fibrillation Status: Chronic Assessment and Plan: * rate control strategy * anticoagulation on hold (7) Insulin dependent diabetes mellitus: Status: Acute Assessment and Plan: * follow accuchecks * 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 Subjective Date/time seen: 12/06/22 11:15 Interval history: Follow-up for end stage renal disease on hemodialysis. Tolerating dialysis treatment at the time of my visit (seen on HD at 11:05AM); PRBC transfusion today due to low H/H noted this AM as well as yesterday; BP remains soft but he is asymptomatic; no other issues/events overnight or earlier this morning. Exam Narrative: General: WD/WN male in NAD Heart: normal S1 and S2; no rub Lungs: clear anteriorly; decreased at bases Abdomen: soft, nontender, nondistended, positive bowel sounds Extremities: trace - 1+ edema noted Skin: warm and dry Objective Data Vital Signs Vital Signs: Vital Signs Temp Pulse Resp BP Pulse Ox O2 Del Method 12/06/22 11:10 86 172/58 H 12/06/22 11:06 97.6 F 88 16 178/58 H 100 12/06/22 10:50 87 194/57 H 12/06/22 10:29 87 171/59 H 12/06/22 10:20 97.6 F 88 16 161/56 H 12/06/22 09:30 Room Air 12/06/22 09:13 85 12/06/22 04:04 97.8 F 85 16 98/43 L 100 12/05/22 20:48 97.8 F 78 18 127/45 L 98 12/05/22 17:09 84 Intake/Output Intake/Output:
[2022-12-06] MEDS: EPOETIN ALFA-EPBX 20,000 UNITS/ML VIAL 20000 UNITS IV PUSH (12:28)
[2022-12-06] MEDS: SODIUM CHLORIDE 0.9% IV 1,000 ML 999 ML IV CONT (12:28)
--- NOTE | 2022-12-06 14:22 | WPDPN ---
Progress Note: A&P Assessment and Plan (1) Acute respiratory failure: Code(s): J96.00 - Acute respiratory failure, unspecified whether with hypoxia or hypercapnia Status: Acute Assessment and Plan: Acute respiratory failure likely secondary to pulmonary edema with possibility of pneumonia which could be aspiration -now extubated. Continue antibiotics. Overall respiratory status is much improved. 12/06 interval history: ?Patient went into respiratory failure and was intubated and patient was extubated on 11/21, on 11/28? patient had PEG placed, there was blood oozing around the PEG and seen by GI and was redressed,? 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 will resume? midodrine, patient with blood culture positive for Enterococcus faecallis being treated with ampicillin and vancomycin repeated blood culture negative so patient will need total of 2 weeks of antibiotic after negative blood culture,?on 12/02 patient had dialysis,?today patient blood pressure is soft patient was given 500 cc of bolus will continue midodrine, patient has not had a BM for 2 weeks poor appetite, KUB showed large amount retained fecal material in the colon, no obstruction, on 12/04 the patient was given MiraLax Colace, no BM and later patient was given suppository, this morning patient had large BM and he states is feeling much much improved and has more energy now, And will encourage patien to work with PT, patient will? benefit going to [facility], however patient is insisting to go eventhough he needs 2 person medicine assistant with ADL, patient hemoglobin is trending down most likely secondary to chronic kidney disease on hemodialysis, manager crisis has increased Epogen and will give 1 unit of pack RBC and monitor Patient will have a scheduled dialysis seen by nephrology, (2) Sepsis: Code(s): A41.9 - Sepsis, unspecified organism Status: Acute Assessment and Plan: Cultures noted. Continue antibiotic (3) Pneumonia: Code(s): J18.9 - Pneumonia, unspecified organism Status: Acute Assessment and Plan: See above (4) Shock: Code(s): R57.9 - Shock, unspecified Status: Acute Assessment and Plan: Improved (5) Encephalopathy: Code(s): G93.40 - Encephalopathy, unspecified Status: Acute Assessment and Plan: Improving (6) Herpes zoster infection of thoracic region: Code(s): B02.9 - Zoster without complications Status: Acute Assessment and Plan: Patient was treated earlier and currently off of antiviral drugs (7) Antiviral drug overdose: Code(s): T37.5X1A - Poisoning by antiviral drugs, accidental (unintentional), initial encounter Status: Acute Assessment and Plan: The patient has been taking 1000 mg of valacyclovir t.i.d. as detailed above. His altered mental status and delirium are likely result of iatrogenic overdose. (8) End-stage renal disease on hemodialysis: Code(s): N18.6 - End stage renal disease; Z99.2 - Dependence on renal dialysis Status: Acute Assessment and Plan: Continue dialysis. (9) Insulin dependent diabetes mellitus: Status: Acute Assessment and Plan: Sliding scale insulin and Accu-Cheks -will hold Lantus as patient may be extubated (10) Atrial fibrillation: Qualifiers: Atrial fibrillation type: paroxysmal Qualified Code(s): I48.0 - Paroxysmal atrial fibrillation Code(s): I48.91 - Unspecified atrial fibrillation Status: Chronic Assessment and Plan: P.o. amiodarone Continue apixaban (11) Elevated LFTs: Code(s): R79.89 - Other specified abnormal findings of blo
[2022-12-06] MEDS: VANCOMYCIN 750 MG/NS 250 ML 750 MG/250 ML BAG 250 MG IVPB (14:30)
[2022-12-06] MEDS: CENTRAL LINE FLUSH 10 ML IV PUSH ×3 (14:30→20:22)
[2022-12-06 17:31] LABS: Glucose Point of Care 204 mg/dl (65-105)
[2022-12-06] MEDS: INSULIN ASPART (*BKC) 100 UNITS/ML SUB-Q (17:39)
[2022-12-06] MEDS: ONDANSETRON INJ 4 MG/2 ML VIAL IV PUSH (19:29)
[2022-12-06 21:18] LABS: Glucose Point of Care 196 mg/dl (65-105)
--- NOTE | 2022-12-06 22:23 | P.PNCROSS_ITS ---
Event Note Event Note Event Note: Call from nurse at 2150. Patient reports abdominal distention, belching, and hi ccups. KUB showed severely distended stomach and the suggestion of a small amount of air in the right upper quadrant. Patient had a PEG tube placed a couple of days ago and 180 mL of air was taken out via syringe connected to the PEG tube with improvement in his distension. No peritoneal signs on exam. I discussed the x-ray reading with the radiologist who thinks it may be related to the recent PEG tube placement. He did not think a CT of the abdomen would give me much information at this time and recommended consulting surgery. He has stable vital signs at this time. Will ask the nurse to call Dr. Stinson who placed the PEG tube as well.
[2022-12-07] MEDS: METOCLOPRAMIDE HCL INJ 10 MG/2 ML VIAL IV PUSH ×4 (00:19→17:32)
[2022-12-07 04:55] VITALS: BP 110/52; PULSE 85; RESP 18; TEMP 36.6; O2SAT 100
[2022-12-07] MEDS: LEVOTHYROXINE SODIUM INJ 100 MCG/5 ML VIAL 50 MCG IV PUSH (05:20)
[2022-12-07] MEDS: CENTRAL LINE FLUSH 10 ML IV PUSH ×3 (05:20→20:22)
[2022-12-07 05:21] LABS: Hematocrit 26.3 % (42.0-52.0); Hemoglobin 8.1 g/dL (14.0-18.0); Immature Platelet Fraction Pct 6.2 % (0.9-11.2); Mean Corpuscular HGB Conc 30.8 g/dl (32-36); Mean Platelet Volume 11.1 fl (7.4-10.4); Platelet Count Result 140 k/mm3 (150-375); Red Blood Count 2.53 M/mm3 (4.6-6.20); Red Cell Distribution Width 25.9 % (11.5-14.5); White Blood Count 11.6 K/mm3 (4.5-10.0)
[2022-12-07 05:33] LABS: Anion Gap 2 mmol/L (8-16); Blood Urea Nitrogen 22 mg/dL (9-20); Calcium 8.5 mg/dL (8.4-10.2); Carbon Dioxide 32 mmol/L (22-30); Chloride 97 mmol/L (98-107); Estimated CRCL calculation 26 ml/min; Estimated Glomerular Filt Rate 26; Glucose 139 mg/dL (65-110); Magnesium 2.2 mg/dL (1.6-2.3); Phosphorus 1.2 mg/dL (2.5-4.5); Potassium 3.8 mmol/L (3.4-5.0); Sodium 131 mmol/L (137-145)
--- NOTE | 2022-12-07 06:40 | PC.NURSE ---
At the beginning of the shift patient was c/o belching, nausea, abdominal discomfort and distention. PRN Zofran given with no relief. Scheduled Protonix given with no relief. Pt bowel sounds active and did have a bowel movement 12/06. Linda Gerling notified and a KUB was ordered. The KUB results came back and surgery was consulted. GI was notified about the stomach being very distended with air and agreed with connecting the PEG tube to low intermittent suction. Pt had some relief after air was let out of his stomach. Pt started on Reglan per GI. Pt is still experienced discomfort but is no longer belching.
[2022-12-07 08:30] LABS: Glucose Point of Care 131 mg/dl (65-105)
[2022-12-07] MEDS: AMPICILLIN 2 GM/NS 100 ML 2 GM/100 ML BAG IVPB ×2 (10:06→20:21)
[2022-12-07] MEDS: HYDROCORTISONE SODIUM SUCCINATE 100 MG/2 ML VIAL 50 MG IV PUSH ×2 (10:08→20:22)
[2022-12-07] MEDS: PANTOPRAZOLE SODIUM IV 40 MG VIAL IV PUSH ×2 (10:09→20:22)
[2022-12-07] MEDS: SILVERGEL (ELTA) 45 ML 1 APPLIC TOPICAL (10:10)
[2022-12-07] MEDS: MIDODRINE HCL 2.5 MG TABLET 5 MG FEED TUBE ×2 (10:12→12:48)
--- NOTE | 2022-12-07 11:14 | P.PNNP_ITS ---
Progress Note: A&P Assessment and Plan (1) End stage renal disease: Code(s): N18.6 - End stage renal disease Status: Chronic Assessment and Plan: * HD today * continue M/W/F schedule while hospitalized * follow electrolytes, volume status, and clearance * holding sevelamer since phosphorus low (2) Septic shock: Code(s): A41.9 - Sepsis, unspecified organism; R65.21 - Severe sepsis with septic shock Status: Acute Assessment and Plan: * resolved * as noted by worsening WBC, hypoxia, lactic acidosis, and hypotension * follow culture data * blood culture with Enterococcus + Staph aureus * repeat cultures (11/20/22) positive * s/p MIKE -- no evidence of endocarditis * recent blood culture negative to date (11/25 and 11/28) * on IV antibiotics * off pressors now (3) Anemia: Code(s): D64.9 - Anemia, unspecified Status: Acute Assessment and Plan: * related to ESRD and acute illness * unable to give venofer due infection/bacteremia * increased Epogen dose * PRBC transfusion per protocol * follow trend of H/H (4) Encephalopathy: Code(s): G93.40 - Encephalopathy, unspecified Status: Acute Assessment and Plan: * resolved * thought to be due to Valtrex overdose but sepsis was likely playing a role as well * follow mentation (5) Herpes zoster infection of thoracic region: Code(s): B02.9 - Zoster without complications Status: Acute Assessment and Plan: * holding antiviral therapy at this time * continue supportive therapy (6) Atrial fibrillation: Qualifiers: Atrial fibrillation type: paroxysmal Qualified Code(s): I48.0 - Paroxysmal atrial fibrillation Code(s): I48.91 - Unspecified atrial fibrillation Status: Chronic Assessment and Plan: * rate control strategy * anticoagulation on hold (7) Insulin dependent diabetes mellitus: Status: Acute Assessment and Plan: * follow accuchecks * glycemic control per hospitalists/specialty therapist Will continue to follow. Subjective Date/time seen: 12/07/22 11:14 Interval history: Follow-up for end stage renal disease on hemodialysis. Tolerated dialysis treatment yesterday without any issues or problems; noted overnight issues with abdominal distension, subsequent imaging done, and intervention with improvement in symptoms; no apparent distress voiced at the time of my visit; s/p PRBC transfusion yesterday with appropriate incrementation of H/H by AM labs; sitting up in bed eating his lunch without any difficulties; no apparent distress noted Exam Narrative: General: WD/WN male in NAD Heart: normal S1 and S2; no rub Lungs: clear anteriorly; decreased at bases Abdomen: soft, nontender, nondistended, positive bowel sounds Extremities: trace - 1+ edema noted Skin: warm and intact Objective Data Vital Signs Vital Signs: Vital Signs Temp Pulse Resp BP Pulse Ox 12/07/22 11:00 49 L 12/07/22 04:55 97.8 F 85 18 110/52 L 100 12/06/22 20:04 97.9 F 87 18 120/62 100 12/06/22 17:53 100/30 L 12/06/22 17:39 91 12/06/22 14:53 97.4 F L 91 18 100 12/06/22 15:45 98/20 L 12/06/22 14:15 97.7 F 90 16 162/85 H 12/06/22 14:00 90 184/67 H
--- NOTE | 2022-12-07 11:14 | PM.PNNEP ---
Progress Note: A&P Assessment and Plan (1) End stage renal disease: Code(s): N18.6 - End stage renal disease Status: Chronic Assessment and Plan: HD today continue M/W/F schedule while hospitalized follow electrolytes, volume status, and clearance holding sevelamer since phosphorus low (2) Septic shock: Code(s): A41.9 - Sepsis, unspecified organism; R65.21 - Severe sepsis with septic shock Status: Acute Assessment and Plan: resolved as noted by worsening WBC, hypoxia, lactic acidosis, and hypotension follow culture data blood culture with Enterococcus + Staph aureus repeat cultures (11/20/22) positive s/p MIKE -- no evidence of endocarditis recent blood culture negative to date (11/25 and 11/28) on IV antibiotics off pressors now (3) Anemia: Code(s): D64.9 - Anemia, unspecified Status: Acute Assessment and Plan: related to ESRD and acute illness unable to give venofer due infection/bacteremia increased Epogen dose PRBC transfusion per protocol follow trend of H/H (4) Encephalopathy: Code(s): G93.40 - Encephalopathy, unspecified Status: Acute Assessment and Plan: resolved thought to be due to Valtrex overdose but sepsis was likely playing a role as well follow mentation (5) Herpes zoster infection of thoracic region: Code(s): B02.9 - Zoster without complications Status: Acute Assessment and Plan: holding antiviral therapy at this time continue supportive therapy (6) Atrial fibrillation: Qualifiers: Atrial fibrillation type: paroxysmal Qualified Code(s): I48.0 - Paroxysmal atrial fibrillation Code(s): I48.91 - Unspecified atrial fibrillation Status: Chronic Assessment and Plan: rate control strategy anticoagulation on hold (7) Insulin dependent diabetes mellitus: Status: Acute Assessment and Plan: follow accuchecks glycemic control per hospitalists/clerical adjuster Will continue to follow. Subjective Date/time seen: 12/07/22 11:14 Interval history: Follow-up for end stage renal disease on hemodialysis. Tolerated dialysis treatment yesterday without any issues or problems; noted overnight issues with abdominal distension, subsequent imaging done, and intervention with improvement in symptoms; no apparent distress voiced at the time of my visit; s/p PRBC transfusion yesterday with appropriate incrementation of H/H by AM labs; sitting up in bed eating his lunch without any difficulties; no apparent distress noted Exam Narrative: General: WD/WN male in NAD Heart: normal S1 and S2; no rub Lungs: clear anteriorly; decreased at bases Abdomen: soft, nontender, nondistended, positive bowel sounds Extremities: trace - 1+ edema noted Skin: warm and intact Objective Data Vital Signs Vital Signs: Vital Signs Temp Pulse Resp BP Pulse Ox 12/07/22 11:00 49 L 12/07/22 04:55 97.8 F 85 18 110/52 L 100 12/06/22 20:04 97.9 F 87 18 120/62 100 12/06/22 17:53 100/30 L 12/06/22 17:39 91 12/06/22 14:53 97.4 F L 91 18 100 12/06/22 15:45 98/20 L 12/06/22 14:15 97.7 F 90 16 162/85 H 12/06/22 14:00 90 184/67 H Intake/Output Intake/Output: Intake & Output 12/04/22 12/05/22 12/06/22 12/07/22 23:59 23:59 23:59 23:59 Intake Total 490 2350 1980 500 Output Total 430 1500 Balance 60 2350 480 500 Meds/Results Medications: Active Medications Generic Name Dose Route Start Last Admin Trade Name Freq PRN Reason Stop Dose Admin Acetaminophen 650 mg 11/09/22 11:15 12/04/22 15:20 Acetaminophen 325 Mg Tablet FEED TUBE 650 mg Q4H PRN Administration Mild Pain (1-3) Amiodarone HCl 200 mg 11/09/22 17:00 12/07/22 12:44 Amiodarone Hcl 200 Mg Tablet FEED TUBE Not [facility] Apixaban 2.5 mg 11/20/22 09:00 11/27/22 17:13 Apixaban 2.5
[2022-12-07 12:44] VITALS: PULSE 49
[2022-12-07 12:44] LABS: Glucose Point of Care 170 mg/dl (65-105)
--- NOTE | 2022-12-07 13:13 | WPDPN ---
Progress Note: A&P Assessment and Plan (1) Acute respiratory failure: Code(s): J96.00 - Acute respiratory failure, unspecified whether with hypoxia or hypercapnia Status: Acute Assessment and Plan: Acute respiratory failure likely secondary to pulmonary edema with possibility of pneumonia which could be aspiration -now extubated. Continue antibiotics. Overall respiratory status is much improved. 12/07 interval history:??Patient went into respiratory failure and was intubated and patient was extubated on 11/21, on 11/28? patient had PEG placed, there was blood oozing around the PEG and seen by GI and was redressed,? remains clinically stable and more awake but unable to provide detailed review of systems, on 11/30 patient was sitting in the chair, still c/o pain in his ribs with shingles, D/W rfid manager, patient BP is trending up, he off Levophed and started patient on midodrine, however today patien BP is low? will resume? midodrine, patient with blood culture positive for Enterococcus faecallis being treated with ampicillin and vancomycin repeated blood culture negative so patient will need total of 2 weeks of antibiotic after negative blood culture,?on 12/02? patient had dialysis,?today patient blood pressure is soft patient was given 500 cc of bolus will continue midodrine, patient has not had a BM for 2 weeks? poor appetite, KUB showed?large amount retained fecal material in the colon, no obstruction, on 12/04? the patient was given MiraLax Colace, no BM and later patient was given suppository, this morning patient had large BM and he states is feeling much much improved and has more energy now,? And will encourage patien to work with PT, patient will? benefit going to [facility], however patient is insisting to go eventhough? he needs 2 person veterinary assistant with ADL,? patient hemoglobin is trending down? most likely secondary to chronic kidney disease on hemodialysis, cooler supervisor has increased Epogen and patient was given 1 unit of pack RBC and monitor Patient will have a scheduled dialysis seen by nephrology, last patient fell blood and nausea was seen by manager chemistry place the patient NPO, this morning patient is feeling much KUB showed no obstruction will resume patient's diet and monitor, patient is encouraged to participate in PT OT. (2) Sepsis: Code(s): A41.9 - Sepsis, unspecified organism Status: Acute Assessment and Plan: Cultures noted. Continue antibiotic (3) Pneumonia: Code(s): J18.9 - Pneumonia, unspecified organism Status: Acute Assessment and Plan: See above (4) Shock: Code(s): R57.9 - Shock, unspecified Status: Acute Assessment and Plan: Improved (5) Encephalopathy: Code(s): G93.40 - Encephalopathy, unspecified Status: Acute Assessment and Plan: Improving (6) Herpes zoster infection of thoracic region: Code(s): B02.9 - Zoster without complications Status: Acute Assessment and Plan: Patient was treated earlier and currently off of antiviral drugs (7) Antiviral drug overdose: Code(s): T37.5X1A - Poisoning by antiviral drugs, accidental (unintentional), initial encounter Status: Acute Assessment and Plan: The patient has been taking 1000 mg of valacyclovir t.i.d. as detailed above. His altered mental status and delirium are likely result of iatrogenic overdose. (8) End-stage renal disease on hemodialysis: Code(s): N18.6 - End stage renal disease; Z99.2 - Dependence on renal dialysis Status: Acute Assessment and Plan: Continue dialysis. (9) Insulin dependent diabetes mellitus: Status: Acute Assessment and Plan: Sliding scale insulin and Accu-Cheks -will hold Lantus as patient may be extubated (10) Atrial fibrillation: Qualifiers: Atrial fibrillation type: paroxysmal Qualified Code(s): I48.0 - Paroxysmal atrial fibrill
[2022-12-07 14:00] VITALS: BP 116/36; PULSE 98; RESP 18; TEMP 36.7; O2SAT 100
[2022-12-07 16:31] LABS: Glucose Point of Care 221 mg/dl (65-105)
[2022-12-07] MEDS: INSULIN ASPART (*BKC) 100 UNITS/ML SUB-Q (17:25)
[2022-12-07] MEDS: MIDODRINE HCL 2.5 MG TABLET 5 MG PO (17:32)
[2022-12-07 19:44] VITALS: BP 95/55; PULSE 92; RESP 20; TEMP 36.6; O2SAT 100
[2022-12-07 20:07] LABS: Glucose Point of Care 187 mg/dl (65-105)
[2022-12-08] MEDS: traZODone HCL 50 MG TABLET PO (01:08)
[2022-12-08 05:35] VITALS: BP 94/56; PULSE 80; RESP 20; TEMP 36.8; O2SAT 99
[2022-12-08] MEDS: CENTRAL LINE FLUSH 10 ML IV PUSH ×4 (05:45→20:36)
[2022-12-08] MEDS: LEVOTHYROXINE SODIUM 100 MCG TABLET PO (05:50)
[2022-12-08 05:51] LABS: Hematocrit 25.7 % (42.0-52.0); Hemoglobin 7.9 g/dL (14.0-18.0); Mean Corpuscular HGB Conc 30.7 g/dl (32-36); Mean Corpuscular Hemoglobin 31.6 pg (26-34); Mean Corpuscular Volume 102.8 fl (80-100); Mean Platelet Volume 11.4 fl (7.4-10.4); Platelet Count Result 122 k/mm3 (150-375); Red Cell Distribution Width 25.2 % (11.5-14.5)
[2022-12-08 06:02] LABS: Anion Gap 9 mmol/L (8-16); Blood Urea Nitrogen 36 mg/dL (9-20); Calcium 8.5 mg/dL (8.4-10.2); Carbon Dioxide 26 mmol/L (22-30); Chloride 94 mmol/L (98-107); Estimated CRCL calculation 19 ml/min; Estimated Glomerular Filt Rate 18; Glucose 151 mg/dL (65-110); Magnesium 2.2 mg/dL (1.6-2.3); Phosphorus 1.5 mg/dL (2.5-4.5); Potassium 3.9 mmol/L (3.4-5.0); Sodium 129 mmol/L (137-145)
[2022-12-08 08:30] VITALS: PULSE 86; PULSE 91; RESP 17; O2SAT 100
[2022-12-08] MEDS: AMIODARONE HCL 200 MG TABLET PO (08:30)
[2022-12-08] MEDS: AMPICILLIN 2 GM/NS 100 ML 2 GM/100 ML BAG IVPB ×2 (08:31→20:35)
[2022-12-08] MEDS: DOCUSATE SODIUM LIQ 100 MG/10 ML UDC PO (08:31)
[2022-12-08] MEDS: HYDROCORTISONE SODIUM SUCCINATE 100 MG/2 ML VIAL 50 MG IV PUSH ×2 (08:32→20:36)
[2022-12-08] MEDS: MIDODRINE HCL 2.5 MG TABLET 5 MG PO ×3 (08:32→17:33)
[2022-12-08 08:33] LABS: Glucose Point of Care 136 mg/dl (65-105)
[2022-12-08] MEDS: polyethylene glycoL 3350 17 GM POWD.PACK PO (08:33)
[2022-12-08] MEDS: SILVERGEL (ELTA) 45 ML 1 APPLIC TOPICAL (08:33)
[2022-12-08] MEDS: PANTOPRAZOLE SODIUM IV 40 MG VIAL IV PUSH ×2 (08:33→20:36)
--- NOTE | 2022-12-08 12:06 | PM.PNNEP ---
Progress Note: A&P Assessment and Plan (1) End stage renal disease: Code(s): N18.6 - End stage renal disease Status: Chronic Assessment and Plan: HD tomorrow continue M/W/F schedule while hospitalized follow electrolytes, volume status, and clearance holding sevelamer since phosphorus low (2) Septic shock: Code(s): A41.9 - Sepsis, unspecified organism; R65.21 - Severe sepsis with septic shock Status: Acute Assessment and Plan: resolved as noted by worsening WBC, hypoxia, lactic acidosis, and hypotension follow culture data blood culture with Enterococcus + Staph aureus repeat cultures (11/20/22) positive s/p MIKE -- no evidence of endocarditis recent blood culture negative to date (11/25 and 11/28) on IV antibiotics - to complete course today (12/08/22) off pressors now (3) Anemia: Code(s): D64.9 - Anemia, unspecified Status: Acute Assessment and Plan: related to ESRD and acute illness unable to give venofer due infection/bacteremia increased Epogen dose PRBC transfusion per protocol follow trend of H/H (4) Encephalopathy: Code(s): G93.40 - Encephalopathy, unspecified Status: Acute Assessment and Plan: resolved thought to be due to Valtrex overdose but sepsis was likely playing a role as well follow mentation (5) Herpes zoster infection of thoracic region: Code(s): B02.9 - Zoster without complications Status: Acute Assessment and Plan: no further antiviral therapy at this time continue supportive therapy (6) Atrial fibrillation: Qualifiers: Atrial fibrillation type: paroxysmal Qualified Code(s): I48.0 - Paroxysmal atrial fibrillation Code(s): I48.91 - Unspecified atrial fibrillation Status: Chronic Assessment and Plan: rate control strategy anticoagulation on hold (7) Insulin dependent diabetes mellitus: Status: Acute Assessment and Plan: follow accuchecks glycemic control per hospitalists/bale opener Will continue to follow. Subjective Date/time seen: 12/08/22 12:06 Interval history: Follow-up for end stage renal disease on hemodialysis. Seems to be doing reasonably well at the time of my visit; reasonable hemodynamics noted with stability in mentation as well as respiratory status; eating and drinking reasonably well; no other acute issues/events voiced at this time. Exam Narrative: General: WD/WN male in NAD Heart: normal S1 and S2; no rub Lungs: clear anteriorly; decreased at bases Abdomen: soft, nontender, nondistended, positive bowel sounds Extremities: trace - 1+ edema noted Skin: no rash Objective Data Vital Signs Vital Signs: Vital Signs Temp Pulse Resp BP Pulse Ox 12/08/22 12:01 97.0 F L 86 17 136/51 L 100 12/08/22 08:30 91 12/08/22 05:35 98.2 F 80 20 94/56 L 99 12/07/22 19:44 97.8 F 92 20 95/55 L 100 Intake/Output Intake/Output: Intake & Output 12/05/22 12/06/22 12/07/22 12/08/22 23:59 23:59 23:59 23:59 Intake Total 2350 1980 1260 1130 Output Total 1500 Balance 2350 480 1260 1130 Meds/Results Medications: Active Medications Generic Name Dose Route Start Last Admin Trade Name Freq PRN Reason Stop Dose Admin Acetaminophen 650 mg 12/07/22 13:50 Acetaminophen 325 Mg Tablet PO Q4H PRN Headache Amiodarone HCl 200 mg 12/08/22 08:00 12/08/22 08:30 Amiodarone Hcl 200 Mg Tablet PO 200 mg DAILY@0800 BARBARA Administration Apixaban 2.5 mg 11/20/22 09:00 11/27/22 17:13 Apixaban 2.5 Mg Tablet PO 2.5 mg BID BARBARA Administration Capsaicin 1 applic 11/27/22 11:41 11/28/22 22:26 Capsaicin 0.025% Cream 60 Gm Tube TOPICAL 1 applic Q8H PRN Administration Pain Docusate Sodium 100 mg 12/04/22 09:00 12/08/22 08:31 Docusate Sodium Liq 100 Mg/10 Ml Udc PO 100 mg 0900 BARBARA Administration Hydr
--- NOTE | 2022-12-08 12:06 | P.PNNP_ITS ---
Progress Note: A&P Assessment and Plan (1) End stage renal disease: Code(s): N18.6 - End stage renal disease Status: Chronic Assessment and Plan: * HD tomorrow * continue M/W/F schedule while hospitalized * follow electrolytes, volume status, and clearance * holding sevelamer since phosphorus low (2) Septic shock: Code(s): A41.9 - Sepsis, unspecified organism; R65.21 - Severe sepsis with septic shock Status: Acute Assessment and Plan: * resolved * as noted by worsening WBC, hypoxia, lactic acidosis, and hypotension * follow culture data * blood culture with Enterococcus + Staph aureus * repeat cultures (11/20/22) positive * s/p MIKE -- no evidence of endocarditis * recent blood culture negative to date (11/25 and 11/28) * on IV antibiotics - to complete course today (12/08/22) * off pressors now (3) Anemia: Code(s): D64.9 - Anemia, unspecified Status: Acute Assessment and Plan: * related to ESRD and acute illness * unable to give venofer due infection/bacteremia * increased Epogen dose * PRBC transfusion per protocol * follow trend of H/H (4) Encephalopathy: Code(s): G93.40 - Encephalopathy, unspecified Status: Acute Assessment and Plan: * resolved * thought to be due to Valtrex overdose but sepsis was likely playing a role as well * follow mentation (5) Herpes zoster infection of thoracic region: Code(s): B02.9 - Zoster without complications Status: Acute Assessment and Plan: * no further antiviral therapy at this time * continue supportive therapy (6) Atrial fibrillation: Qualifiers: Atrial fibrillation type: paroxysmal Qualified Code(s): I48.0 - Paroxysmal atrial fibrillation Code(s): I48.91 - Unspecified atrial fibrillation Status: Chronic Assessment and Plan: * rate control strategy * anticoagulation on hold (7) Insulin dependent diabetes mellitus: Status: Acute Assessment and Plan: * follow accuchecks * glycemic control per hospitalists/art manager Will continue to follow. Subjective Date/time seen: 12/08/22 12:06 Interval history: Follow-up for end stage renal disease on hemodialysis. Seems to be doing reasonably well at the time of my visit; reasonable hemodynamics noted with stability in mentation as well as respiratory status; eating and drinking reasonably well; no other acute issues/events voiced at this time. Exam 2 Narrative: General: WD/WN male in NAD Heart: normal S1 and S2; no rub Lungs: clear anteriorly; decreased at bases Abdomen: soft, nontender, nondistended, positive bowel sounds Extremities: trace - 1+ edema noted Skin: no rash Objective Data Vital Signs Vital Signs: Vital Signs Temp Pulse Resp BP Pulse Ox 12/08/22 12:01 97.0 F L 86 17 136/51 L 100 12/08/22 08:30 91 12/08/22 05:35 98.2 F 80 20 94/56 L 99 12/07/22 19:44 97.8 F 92 20 95/55 L 100 Intake/Output Intake/Output: Intake & Output 12/05/22 12/06/22 12/07/22 12/08/22 23:59 23:59 23:59 23:59 Intake Total 2350 1980 1260 1130 Output Total 1500 Balance 2350 480 1260 1130 Meds/Results Medications:
[2022-12-08 12:46] LABS: Glucose Point of Care 186 mg/dl (65-105)
[2022-12-08] MEDS: METOCLOPRAMIDE HCL INJ 10 MG/2 ML VIAL IV PUSH ×2 (12:48→17:34)
--- NOTE | 2022-12-08 13:50 | PM.IMPN ---
Progress Note: A&P Assessment and Plan (1) Acute respiratory failure: Code(s): J96.00 - Acute respiratory failure, unspecified whether with hypoxia or hypercapnia Status: Acute Assessment and Plan: Acute respiratory failure likely secondary to pulmonary edema with possibility of pneumonia which could be aspiration -now extubated. Continue antibiotics. Overall respiratory status is much improved. 12/07 interval history:??Patient went into respiratory failure and was intubated and patient was extubated on 11/21, on 11/28? patient had PEG placed, there was blood oozing around the PEG and seen by GI and was redressed,? remains clinically stable and more awake but unable to provide detailed review of systems, on 11/30 patient was sitting in the chair, still c/o pain in his ribs with shingles, D/W account solutions analyst, patient BP is trending up, he off Levophed and started patient on midodrine, however today patien BP is low? will resume? midodrine, patient with blood culture positive for Enterococcus faecallis being treated with ampicillin and vancomycin repeated blood culture negative so patient will need total of 2 weeks of antibiotic after negative blood culture,?on 12/02? patient had dialysis,?today patient blood pressure is soft patient was given 500 cc of bolus will continue midodrine, patient has not had a BM for 2 weeks? poor appetite, KUB showed?large amount retained fecal material in the colon, no obstruction, on 12/04? the patient was given MiraLax Colace, no BM and later patient was given suppository, this morning patient had large BM and he states is feeling much much improved and has more energy now,? And will encourage patien to work with PT, patient will? benefit going to [facility], however patient is insisting to go eventhough? he needs 2 person stonecutter assistant with ADL,? patient hemoglobin is trending down? most likely secondary to chronic kidney disease on hemodialysis, registered pharmacist has increased Epogen and patient was given 1 unit of pack RBC and monitor Patient will have a scheduled dialysis seen by nephrology, last patient fell blood and nausea was seen by baffle installer place the patient NPO, this morning patient is feeling much KUB showed no obstruction will resume patient's diet and monitor, patient is encouraged to participate in PT OT. 12/08/2022 12/08/2022: Patient initially admitted on 11/07/2022 end-stage renal disease on hemodialysis in the insulin-dependent diabetes atrial fibrillation on chronic anticoagulation valvular heart disease status post trans catheter aortic valve replacement bioprosthetic mitral valve replacement on 10/03/2022 obstructive sleep apnea and hypertension presented with altered mental status. He recently had shingles treated with valacyclovir after which he started getting confused. Eventually went into a respiratory failure was intubated extubated on 11/21. On 11/28 patient had PEG tube placed. Initially was NPO however now eating. Working with therapy. Blood culture positive for Enterococcus faecalis being treated with ampicillin and vancomycin. Repeat cultures been negative so far. Will need total 2 weeks of antibiotic course. Getting dialysis as per schedule. Plan for rehab placement at [place] re events should anemia acute on chronic needing transfusion during the hospital stay. Mild thrombocytopenia noted. Mild hyponatremia. CSF study with EBV DNA positive. Blood culture repeat on 11/28 negative to date blood culture from 11/20/2022 with Enterococcus faecalis x2. Blood culture from 11/16/2022 with Enterococcus faecalis and MSSA. Sepsis secondary to pneumonia suggested as etiology for his altered mental status. Alhaji on 11/25 negative for vegetation. Continue ampicillin vancomycin for Enterococcus faecalis and Staph aureus bacteremia 2 weeks from negative blood culture. Discussed with pharmacist to continue vancomycin for now. Will discuss with ID pharmacist in a.m.. Initially had septic shock requ
[2022-12-08 15:11] VITALS: BP 136/51; PULSE 86; RESP 17; TEMP 36.1; O2SAT 100
[2022-12-08 17:22] LABS: Glucose Point of Care 177 mg/dl (65-105)
[2022-12-08 19:39] VITALS: BP 108/67; PULSE 87; RESP 20; TEMP 36.6; O2SAT 97
[2022-12-08 19:48] LABS: Glucose Point of Care 204 mg/dl (65-105)
[2022-12-09] VITALS (20 sets, daily range): BP systolic 85–178; BP diastolic 31–92; PULSE 67–106; RESP 16–20; TEMP 36–37; O2SAT 95–98
[2022-12-09] MEDS: METOCLOPRAMIDE HCL INJ 10 MG/2 ML VIAL IV PUSH ×2 (00:15→23:15)
[2022-12-09] MEDS: CENTRAL LINE FLUSH 10 ML IV PUSH ×4 (05:40→21:21)
[2022-12-09] MEDS: LEVOTHYROXINE SODIUM 100 MCG TABLET PO (05:41)
[2022-12-09 06:02] LABS: Hematocrit 25.8 % (42.0-52.0); Hemoglobin 7.8 g/dL (14.0-18.0); Mean Corpuscular HGB Conc 30.2 g/dl (32-36); Mean Corpuscular Hemoglobin 31.1 pg (26-34); Mean Corpuscular Volume 102.8 fl (80-100); Mean Platelet Volume 11.3 fl (7.4-10.4); Platelet Count Result 125 k/mm3 (150-375); Red Blood Count 2.51 M/mm3 (4.6-6.20); Red Cell Distribution Width 24.9 % (11.5-14.5); White Blood Count 10.7 K/mm3 (4.5-10.0)
[2022-12-09 06:13] LABS: Anion Gap 8 mmol/L (8-16); Blood Urea Nitrogen 50 mg/dL (9-20); Calcium 8.5 mg/dL (8.4-10.2); Carbon Dioxide 26 mmol/L (22-30); Chloride 93 mmol/L (98-107); Estimated CRCL calculation 15 ml/min; Estimated Glomerular Filt Rate 14; Glucose 177 mg/dL (65-110); Magnesium 2.3 mg/dL (1.6-2.3); Phosphorus 1.8 mg/dL (2.5-4.5); Potassium 4.3 mmol/L (3.4-5.0); Sodium 127 mmol/L (137-145)
[2022-12-09 08:31] LABS: Glucose Point of Care 141 mg/dl (65-105)
[2022-12-09] MEDS: MIDODRINE HCL 2.5 MG TABLET 5 MG PO ×3 (08:55→17:22)
[2022-12-09] MEDS: AMIODARONE HCL 200 MG TABLET PO (08:57)
[2022-12-09] MEDS: HYDROCORTISONE SODIUM SUCCINATE 100 MG/2 ML VIAL 50 MG IV PUSH ×2 (08:58→21:12)
--- NOTE | 2022-12-09 09:45 | PM.PNNEP ---
Progress Note: A&P Assessment and Plan (1) End stage renal disease: Code(s): N18.6 - End stage renal disease Status: Chronic Assessment and Plan: HD today continue M/W/F schedule while hospitalized follow electrolytes, volume status, and clearance holding sevelamer since phosphorus is low (2) Septic shock: Code(s): A41.9 - Sepsis, unspecified organism; R65.21 - Severe sepsis with septic shock Status: Acute Assessment and Plan: resolved as noted by worsening WBC, hypoxia, lactic acidosis, and hypotension follow culture data blood culture with Enterococcus + Staph aureus repeat cultures (11/20/22) positive s/p MIKE -- no evidence of endocarditis recent blood culture negative to date (11/25 and 11/28) on IV antibiotics - to complete course today (12/08/22) off pressors now (3) Anemia: Code(s): D64.9 - Anemia, unspecified Status: Acute Assessment and Plan: related to ESRD and acute illness unable to give venofer due infection/bacteremia increased Epogen dose with HD PRBC transfusion per protocol follow trend of H/H (4) Encephalopathy: Code(s): G93.40 - Encephalopathy, unspecified Status: Acute Assessment and Plan: resolved thought to be due to Valtrex overdose but sepsis was likely playing a role as well follow mentation (5) Herpes zoster infection of thoracic region: Code(s): B02.9 - Zoster without complications Status: Acute Assessment and Plan: no further antiviral therapy at this time continue supportive therapy (6) Atrial fibrillation: Qualifiers: Atrial fibrillation type: paroxysmal Qualified Code(s): I48.0 - Paroxysmal atrial fibrillation Code(s): I48.91 - Unspecified atrial fibrillation Status: Chronic Assessment and Plan: rate control strategy anticoagulation on hold (7) Insulin dependent diabetes mellitus: Status: Acute Assessment and Plan: follow accuchecks glycemic control per hospitalists/absence management consultant Will continue to follow. Subjective Date/time seen: 12/09/22 09:45 Interval history: Follow-up for end stage renal disease on hemodialysis. Tolerating hemodialysis treatment at the time of my visit (seen on HD at 9:35AM); breathing/respiratory status seems stable as is mentation; not interested in going to rehab but he is no ambulating very much in general; completed antibiotics yesterday; no other issues/concerns to report at this time. Exam Narrative: General: WD/WN male in NAD Heart: normal S1 and S2; no rub Lungs: clear anteriorly; decreased at bases Abdomen: soft, nontender, nondistended, positive bowel sounds Extremities: trace - 1+ edema noted Skin: no nodules Objective Data Vital Signs Vital Signs: Vital Signs Temp Pulse Resp BP Pulse Ox 12/09/22 09:40 87 172/92 H 12/09/22 09:25 93 166/89 H 12/09/22 09:08 98.1 F 91 16 178/86 H 12/09/22 08:57 89 12/09/22 05:20 98.2 F 88 20 99/53 L 95 12/08/22 19:39 97.9 F 87 20 108/67 97 12/08/22 15:11 97.0 F L 86 17 136/51 L 100 Intake/Output Intake/Output: Intake & Output 12/06/22 12/07/22 12/08/22 12/09/22 23:59 23:59 23:59 23:59 Intake Total 1980 1260 1720 480 Output Total 1500 Balance 480 1260 1720 480 Meds/Results Medications: Active Medications Generic Name Dose Route Start Last Admin Trade Name Freq PRN Reason Stop Dose Admin Acetaminophen 650 mg 12/07/22 13:50 Acetaminophen 325 Mg Tablet PO Q4H PRN Headache Amiodarone HCl 200 mg 12/08/22 08:00 12/09/22 08:57 Amiodarone Hcl 200 Mg Tablet PO 200 mg DAILY@0800 BARBARA Administration Apixaban 2.5 mg 11/20/22 09:00 11/27/22 17:13 Apixaban 2.5 Mg Tablet PO 2.5 mg BID BARBARA Administration Capsaicin 1 applic 11/27/22 11:41 11/28/22 22:26 Capsaicin 0.025% Cream 60 Gm Tube TOPICAL 1 ap
--- NOTE | 2022-12-09 09:45 | P.PNNP_ITS ---
Progress Note: A&P Assessment and Plan (1) End stage renal disease: Code(s): N18.6 - End stage renal disease Status: Chronic Assessment and Plan: * HD today * continue M/W/F schedule while hospitalized * follow electrolytes, volume status, and clearance * holding sevelamer since phosphorus is low (2) Septic shock: Code(s): A41.9 - Sepsis, unspecified organism; R65.21 - Severe sepsis with septic shock Status: Acute Assessment and Plan: * resolved * as noted by worsening WBC, hypoxia, lactic acidosis, and hypotension * follow culture data * blood culture with Enterococcus + Staph aureus * repeat cultures (11/20/22) positive * s/p MIKE -- no evidence of endocarditis * recent blood culture negative to date (11/25 and 11/28) * on IV antibiotics - to complete course today (12/08/22) * off pressors now (3) Anemia: Code(s): D64.9 - Anemia, unspecified Status: Acute Assessment and Plan: * related to ESRD and acute illness * unable to give venofer due infection/bacteremia * increased Epogen dose with HD * PRBC transfusion per protocol * follow trend of H/H (4) Encephalopathy: Code(s): G93.40 - Encephalopathy, unspecified Status: Acute Assessment and Plan: * resolved * thought to be due to Valtrex overdose but sepsis was likely playing a role as well * follow mentation (5) Herpes zoster infection of thoracic region: Code(s): B02.9 - Zoster without complications Status: Acute Assessment and Plan: * no further antiviral therapy at this time * continue supportive therapy (6) Atrial fibrillation: Qualifiers: Atrial fibrillation type: paroxysmal Qualified Code(s): I48.0 - Paroxysmal atrial fibrillation Code(s): I48.91 - Unspecified atrial fibrillation Status: Chronic Assessment and Plan: * rate control strategy * anticoagulation on hold (7) Insulin dependent diabetes mellitus: Status: Acute Assessment and Plan: * follow accuchecks * glycemic control per hospitalists/nurse advocate Will continue to follow. Subjective Date/time seen: 12/09/22 09:45 Interval history: Follow-up for end stage renal disease on hemodialysis. Tolerating hemodialysis treatment at the time of my visit (seen on HD at 9:35AM); breathing/respiratory status seems stable as is mentation; not interested in going to rehab but he is no ambulating very much in general; completed antibiotics yesterday; no other issues/concerns to report at this time. Exam Narrative: General: WD/WN male in NAD Heart: normal S1 and S2; no rub Lungs: clear anteriorly; decreased at bases Abdomen: soft, nontender, nondistended, positive bowel sounds Extremities: trace - 1+ edema noted Skin: no nodules Objective Data Vital Signs Vital Signs: Vital Signs Temp Pulse Resp BP Pulse Ox 12/09/22 09:40 87 172/92 H 12/09/22 09:25 93 166/89 H 12/09/22 09:08 98.1 F 91 16 178/86 H 12/09/22 08:57 89 12/09/22 05:20 98.2 F 88 20 99/53 L 95 12/08/22 19:39 97.9 F 87 20 108/67 97 12/08/22 15:11 97.0 F L 86 17 136/51 L 100 Intake/Output Intake/Output: Intake & Output 12/06/22 12/07/22
[2022-12-09] MEDS: EPOETIN ALFA-EPBX 20,000 UNITS/ML VIAL 20000 UNITS IV PUSH (12:18)
--- NOTE | 2022-12-09 13:10 | PCPTNOTE ---
The patient treatment was not able to be completed on 12/09/2022 due to patient just getting back from dialysis and per RN patient's blood pressures have been very low. Will plan to continue treatment per plan of care.
[2022-12-09 14:00] LABS: Glucose Point of Care 164 mg/dl (65-105)
[2022-12-09] MEDS: polyethylene glycoL 3350 17 GM POWD.PACK PO (14:03)
[2022-12-09] MEDS: SILVERGEL (ELTA) 45 ML 1 APPLIC TOPICAL (14:04)
--- NOTE | 2022-12-09 14:25 | PCOTNOTE ---
The patient treatment was not able to be completed on this date due to high BP after dialysis. Will plan to continue treatment per plan of care. Nursing is aware of high BP.
[2022-12-09] MEDS: ACETAMINOPHEN 325 MG TABLET 650 MG PO (15:34)
--- NOTE | 2022-12-09 16:35 | PM.IMPN ---
Progress Note: A&P Assessment and Plan (1) Acute respiratory failure: Code(s): J96.00 - Acute respiratory failure, unspecified whether with hypoxia or hypercapnia Status: Acute Assessment and Plan: Acute respiratory failure likely secondary to pulmonary edema with possibility of pneumonia which could be aspiration -now extubated. Continue antibiotics. Overall respiratory status is much improved. 12/07 interval history:??Patient went into respiratory failure and was intubated and patient was extubated on 11/21, on 11/28? patient had PEG placed, there was blood oozing around the PEG and seen by GI and was redressed,? remains clinically stable and more awake but unable to provide detailed review of systems, on 11/30 patient was sitting in the chair, still c/o pain in his ribs with shingles, D/W continuous improvement engineer, patient BP is trending up, he off Levophed and started patient on midodrine, however today patien BP is low? will resume? midodrine, patient with blood culture positive for Enterococcus faecallis being treated with ampicillin and vancomycin repeated blood culture negative so patient will need total of 2 weeks of antibiotic after negative blood culture,?on 12/02? patient had dialysis,?today patient blood pressure is soft patient was given 500 cc of bolus will continue midodrine, patient has not had a BM for 2 weeks? poor appetite, KUB showed?large amount retained fecal material in the colon, no obstruction, on 12/04? the patient was given MiraLax Colace, no BM and later patient was given suppository, this morning patient had large BM and he states is feeling much much improved and has more energy now,? And will encourage patien to work with PT, patient will? benefit going to [facility], however patient is insisting to go eventhough? he needs 2 person historian research assistant with ADL,? patient hemoglobin is trending down? most likely secondary to chronic kidney disease on hemodialysis, tie fastener has increased Epogen and patient was given 1 unit of pack RBC and monitor Patient will have a scheduled dialysis seen by nephrology, last patient fell blood and nausea was seen by in class special education teacher place the patient NPO, this morning patient is feeling much KUB showed no obstruction will resume patient's diet and monitor, patient is encouraged to participate in PT OT. 12/08/2022 12/08/2022: Patient initially admitted on 11/07/2022 end-stage renal disease on hemodialysis in the insulin-dependent diabetes atrial fibrillation on chronic anticoagulation valvular heart disease status post trans catheter aortic valve replacement bioprosthetic mitral valve replacement on 10/03/2022 obstructive sleep apnea and hypertension presented with altered mental status. He recently had shingles treated with valacyclovir after which he started getting confused. Eventually went into a respiratory failure was intubated extubated on 11/21. On 11/28 patient had PEG tube placed. Initially was NPO however now eating. Working with therapy. Blood culture positive for Enterococcus faecalis being treated with ampicillin and vancomycin. Repeat cultures been negative so far. Will need total 2 weeks of antibiotic course. Getting dialysis as per schedule. Plan for rehab placement at [place] [facility] should anemia acute on chronic needing transfusion during the hospital stay. Mild thrombocytopenia noted. Mild hyponatremia. CSF study with EBV DNA positive. Blood culture repeat on 11/28 negative to date blood culture from 11/20/2022 with Enterococcus faecalis x2. Blood culture from 11/16/2022 with Enterococcus faecalis and MSSA. Sepsis secondary to pneumonia suggested as etiology for his altered mental status. Alhaji on 11/25 negative for vegetation. Continue ampicillin vancomycin for Enterococcus faecalis and Staph aureus bacteremia 2 weeks from negative blood culture. Discussed with pharmacist to continue vancomycin for now. Will discuss with ID pharmacist in a.m.. Initially had septic shock requ
[2022-12-09 17:15] LABS: Glucose Point of Care 239 mg/dl (65-105)
[2022-12-09] MEDS: INSULIN ASPART (*BKC) 100 UNITS/ML SUB-Q (17:25)
[2022-12-09] MEDS: PANTOPRAZOLE SODIUM IV 40 MG VIAL IV PUSH (21:21)
[2022-12-09 21:29] LABS: Glucose Point of Care 191 mg/dl (65-105)
[2022-12-10] MEDS: ACETAMINOPHEN 325 MG TABLET 650 MG PO (00:26)
[2022-12-10] MEDS: CAPSAICIN 0.025% CREAM 60 GM TUBE 1 APPLIC TOPICAL ×2 (00:29→08:40)
[2022-12-10] MEDS: CENTRAL LINE FLUSH 10 ML IV PUSH ×3 (05:29→20:05)
[2022-12-10] MEDS: METOCLOPRAMIDE HCL INJ 10 MG/2 ML VIAL IV PUSH ×4 (05:29→23:39)
[2022-12-10] MEDS: LEVOTHYROXINE SODIUM 100 MCG TABLET PO (05:29)
[2022-12-10] MEDS: CENTRAL LINE FLUSH 20 ML IV PUSH (05:30)
[2022-12-10 05:40] LABS: Hematocrit 26.9 % (42.0-52.0); Hemoglobin 8.2 g/dL (14.0-18.0); Mean Corpuscular HGB Conc 30.5 g/dl (32-36); Mean Corpuscular Hemoglobin 31.7 pg (26-34); Mean Corpuscular Volume 103.9 fl (80-100); Mean Platelet Volume 11.6 fl (7.4-10.4); Platelet Count Result 126 k/mm3 (150-375); Red Blood Count 2.59 M/mm3 (4.6-6.20); Red Cell Distribution Width 25.4 % (11.5-14.5); White Blood Count 11.3 K/mm3 (4.5-10.0)
[2022-12-10 05:58] LABS: Alanine Aminotransferase 33 U/L (6-50); Albumin Level 3.1 g/dL (3.5-5.1); Alkaline Phosphatase 112 U/L (38-126); Anion Gap 3 mmol/L (8-16); Aspartate Amino Transferase 21 U/L (17-59); Bilirubin,Total 1.1 mg/dL (0.2-1.3); Blood Urea Nitrogen 37 mg/dL (9-20); Calcium 8.6 mg/dL (8.4-10.2); Carbon Dioxide 33 mmol/L (22-30); Chloride 95 mmol/L (98-107); Estimated CRCL calculation 18 ml/min; Estimated Glomerular Filt Rate 17; Glucose 157 mg/dL (65-110); Magnesium 2.1 mg/dL (1.6-2.3); Phosphorus 1.4 mg/dL (2.5-4.5); Sodium 131 mmol/L (137-145)
[2022-12-10 06:00] VITALS: BP 112/58; PULSE 98; RESP 20; TEMP 36.8; O2SAT 98
[2022-12-10] MEDS: MIDODRINE HCL 2.5 MG TABLET 5 MG PO ×3 (08:36→16:46)
[2022-12-10] MEDS: POTASSIUM/PHOSPHORUS/SODIUM 1.5 GM PACKET 2 PACKET PO (08:36)
[2022-12-10] MEDS: AMIODARONE HCL 200 MG TABLET PO (08:36)
[2022-12-10] MEDS: DOCUSATE SODIUM LIQ 100 MG/10 ML UDC PO (08:37)
[2022-12-10] MEDS: PANTOPRAZOLE SODIUM IV 40 MG VIAL IV PUSH ×2 (08:37→20:05)
[2022-12-10] MEDS: HYDROCORTISONE SODIUM SUCCINATE 100 MG/2 ML VIAL 50 MG IV PUSH ×2 (08:37→20:05)
[2022-12-10 08:39] LABS: Glucose Point of Care 132 mg/dl (65-105)
[2022-12-10] MEDS: SILVERGEL (ELTA) 45 ML 1 APPLIC TOPICAL (08:40)
[2022-12-10] MEDS: polyethylene glycoL 3350 17 GM POWD.PACK PO (08:40)
--- NOTE | 2022-12-10 10:52 | PM.IMPN ---
Progress Note: A&P Assessment and Plan (1) Acute respiratory failure: Code(s): J96.00 - Acute respiratory failure, unspecified whether with hypoxia or hypercapnia Status: Acute Assessment and Plan: Acute respiratory failure likely secondary to pulmonary edema with possibility of pneumonia which could be aspiration -now extubated. Continue antibiotics. Overall respiratory status is much improved. 12/07 interval history:??Patient went into respiratory failure and was intubated and patient was extubated on 11/21, on 11/28? patient had PEG placed, there was blood oozing around the PEG and seen by GI and was redressed,? remains clinically stable and more awake but unable to provide detailed review of systems, on 11/30 patient was sitting in the chair, still c/o pain in his ribs with shingles, D/W bead cutter, patient BP is trending up, he off Levophed and started patient on midodrine, however today patien BP is low? will resume? midodrine, patient with blood culture positive for Enterococcus faecallis being treated with ampicillin and vancomycin repeated blood culture negative so patient will need total of 2 weeks of antibiotic after negative blood culture,?on 12/02? patient had dialysis,?today patient blood pressure is soft patient was given 500 cc of bolus will continue midodrine, patient has not had a BM for 2 weeks? poor appetite, KUB showed?large amount retained fecal material in the colon, no obstruction, on 12/04? the patient was given MiraLax Colace, no BM and later patient was given suppository, this morning patient had large BM and he states is feeling much much improved and has more energy now,? And will encourage patien to work with PT, patient will? benefit going to [facility], however patient is insisting to go eventhough? he needs 2 person assistant elementary teacher with ADL,? patient hemoglobin is trending down? most likely secondary to chronic kidney disease on hemodialysis, shipping processor has increased Epogen and patient was given 1 unit of pack RBC and monitor Patient will have a scheduled dialysis seen by nephrology, last patient fell blood and nausea was seen by warp clamper place the patient NPO, this morning patient is feeling much KUB showed no obstruction will resume patient's diet and monitor, patient is encouraged to participate in PT OT. 12/08/2022 12/08/2022: Patient initially admitted on 11/07/2022 end-stage renal disease on hemodialysis in the insulin-dependent diabetes atrial fibrillation on chronic anticoagulation valvular heart disease status post trans catheter aortic valve replacement bioprosthetic mitral valve replacement on 10/03/2022 obstructive sleep apnea and hypertension presented with altered mental status. He recently had shingles treated with valacyclovir after which he started getting confused. Eventually went into a respiratory failure was intubated extubated on 11/21. On 11/28 patient had PEG tube placed. Initially was NPO however now eating. Working with therapy. Blood culture positive for Enterococcus faecalis being treated with ampicillin and vancomycin. Repeat cultures been negative so far. Will need total 2 weeks of antibiotic course. Getting dialysis as per schedule. Plan for rehab placement at [place] [facility] should anemia acute on chronic needing transfusion during the hospital stay. Mild thrombocytopenia noted. Mild hyponatremia. CSF study with EBV DNA positive. Blood culture repeat on 11/28 negative to date blood culture from 11/20/2022 with Enterococcus faecalis x2. Blood culture from 11/16/2022 with Enterococcus faecalis and MSSA. Sepsis secondary to pneumonia suggested as etiology for his altered mental status. Alhaji on 11/25 negative for vegetation. Continue ampicillin vancomycin for Enterococcus faecalis and Staph aureus bacteremia 2 weeks from negative blood culture. Discussed with pharmacist to continue vancomycin for now. Will discuss with ID pharmacist in a.m.. Initially had septic shock requ
--- NOTE | 2022-12-10 11:00 | P.PNNP_ITS ---
Progress Note: A&P Assessment and Plan (1) End stage renal disease: Code(s): N18.6 - End stage renal disease Status: Chronic Assessment and Plan: * HD tomorrow * continue M/W/F schedule while hospitalized * follow electrolytes, volume status, and clearance * holding sevelamer since phosphorus is low (2) Septic shock: Code(s): A41.9 - Sepsis, unspecified organism; R65.21 - Severe sepsis with septic shock Status: Acute Assessment and Plan: * resolved * as noted by worsening WBC, hypoxia, lactic acidosis, and hypotension * follow culture data * blood culture with Enterococcus + Staph aureus * repeat cultures (11/20/22) positive * s/p MIKE -- no evidence of endocarditis * recent blood culture negative to date (11/25 and 11/28) * s/p IV antibiotics - completed course (on 12/08/22) * off pressors now (3) Anemia: Code(s): D64.9 - Anemia, unspecified Status: Acute Assessment and Plan: * related to ESRD and acute illness * unable to give venofer due infection/bacteremia * increased Epogen dose with HD * PRBC transfusion per protocol * follow trend of H/H (4) Encephalopathy: Code(s): G93.40 - Encephalopathy, unspecified Status: Acute Assessment and Plan: * resolved * thought to be due to Valtrex overdose but sepsis was likely playing a role as well * follow mentation (5) Herpes zoster infection of thoracic region: Code(s): B02.9 - Zoster without complications Status: Acute Assessment and Plan: * no further antiviral therapy at this time * continue supportive therapy (6) Atrial fibrillation: Qualifiers: Atrial fibrillation type: paroxysmal Qualified Code(s): I48.0 - Paroxysmal atrial fibrillation Code(s): I48.91 - Unspecified atrial fibrillation Status: Chronic Assessment and Plan: * rate control strategy * anticoagulation on hold (7) Insulin dependent diabetes mellitus: Status: Acute Assessment and Plan: * follow accuchecks * glycemic control per hospitalists/room service bellhop Will continue to follow. Subjective Date/time seen: 12/10/22 11:00 Interval history: Follow-up for end stage renal disease on hemodialysis. Tolerated dialysis treatment yesterday without any issues or problems; breathing/respiratory status seems stable as is mentation; some abdominal discomfort/bloating due to gas; no other issues/concerns to report at this time; he is still not interested in rehab after hospital discharge at this time despite concerns that he needs/would benefit from this. Exam Narrative: General: WD/WN male in NAD Heart: normal S1 and S2; no rub Lungs: clear anteriorly; decreased at bases Abdomen: soft, nontender, nondistended, positive bowel sounds Extremities: trace edema noted Skin: warm and dry Objective Data Vital Signs Vital Signs: Vital Signs Temp Pulse Resp BP Pulse Ox O2 Del Method 12/10/22 08:00 Room Air 12/10/22 06:00 98.2 F 98 20 112/58 L 98 12/09/22 22:00 98.2 F 102 H 20 149/83 H 98 12/09/22 19:30 98.2 F 102 H 20 149/83 H 98 12/09/22 14:00 98.6 F 67 16 85/31 L 97 Intake/Output Intake/Output: Intake & Output 12/07/22 12/08/22 12/09/2211/19
--- NOTE | 2022-12-10 11:00 | PM.PNNEP ---
Progress Note: A&P Assessment and Plan (1) End stage renal disease: Code(s): N18.6 - End stage renal disease Status: Chronic Assessment and Plan: HD tomorrow continue M/W/ schedule while hospitalized follow electrolytes, volume status, and clearance holding sevelamer since phosphorus is low (2) Septic shock: Code(s): A41.9 - Sepsis, unspecified organism; R65.21 - Severe sepsis with septic shock Status: Acute Assessment and Plan: resolved as noted by worsening WBC, hypoxia, lactic acidosis, and hypotension follow culture data blood culture with Enterococcus + Staph aureus repeat cultures (11/20/22) positive s/p MIKE -- no evidence of endocarditis recent blood culture negative to date (11/25 and 11/28) s/p IV antibiotics - completed course (on 12/08/22) off pressors now (3) Anemia: Code(s): D64.9 - Anemia, unspecified Status: Acute Assessment and Plan: related to ESRD and acute illness unable to give venofer due infection/bacteremia increased Epogen dose with HD PRBC transfusion per protocol follow trend of H/H (4) Encephalopathy: Code(s): G93.40 - Encephalopathy, unspecified Status: Acute Assessment and Plan: resolved thought to be due to Valtrex overdose but sepsis was likely playing a role as well follow mentation (5) Herpes zoster infection of thoracic region: Code(s): B02.9 - Zoster without complications Status: Acute Assessment and Plan: no further antiviral therapy at this time continue supportive therapy (6) Atrial fibrillation: Qualifiers: Atrial fibrillation type: paroxysmal Qualified Code(s): I48.0 - Paroxysmal atrial fibrillation Code(s): I48.91 - Unspecified atrial fibrillation Status: Chronic Assessment and Plan: rate control strategy anticoagulation on hold (7) Insulin dependent diabetes mellitus: Status: Acute Assessment and Plan: follow accuchecks glycemic control per hospitalists/bull chain operator Will continue to follow. Subjective Date/time seen: 12/10/22 11:00 Interval history: Follow-up for end stage renal disease on hemodialysis. Tolerated dialysis treatment yesterday without any issues or problems; breathing/respiratory status seems stable as is mentation; some abdominal discomfort/bloating due to gas; no other issues/concerns to report at this time; he is still not interested in rehab after hospital discharge at this time despite concerns that he needs/would benefit from this. Exam Narrative: General: WD/WN male in NAD Heart: normal S1 and S2; no rub Lungs: clear anteriorly; decreased at bases Abdomen: soft, nontender, nondistended, positive bowel sounds Extremities: trace edema noted Skin: warm and dry Objective Data Vital Signs Vital Signs: Vital Signs Temp Pulse Resp BP Pulse Ox O2 Del Method 12/10/22 08:00 Room Air 12/10/22 06:00 98.2 F 98 20 112/58 L 98 12/09/22 22:00 98.2 F 102 H 20 149/83 H 98 12/09/22 19:30 98.2 F 102 H 20 149/83 H 98 12/09/22 14:00 98.6 F 67 16 85/31 L 97 Intake/Output Intake/Output: Intake & Output 12/07/22 12/08/22 12/09/22 12/10/22 23:59 23:59 23:59 23:59 Intake Total 1260 1720 1580 760 Output Total 2600 800 Balance 1260 1720 -1020 -40 Meds/Results Medications: Active Medications Generic Name Dose Route Start Last Admin Trade Name Freq PRN Reason Stop Dose Admin Acetaminophen 650 mg 12/07/22 13:50 12/10/22 00:26 Acetaminophen 325 Mg Tablet PO 650 mg Q4H PRN Administration Headache Amiodarone HCl 200 mg 12/08/22 08:00 12/10/22 08:36 Amiodarone Hcl 200 Mg Tablet PO 200 mg DAILY@0800 BARBARA Administration Apixaban 2.5 mg 11/20/22 09:00 11/27/22 17:13 Apixaban 2.5 Mg Tablet PO 2.5 mg BID BARBARA Administration Capsaicin 1 applic 11/27/22 11:41 12/10/22
--- NOTE | 2022-12-10 11:06 | PCNFU ---
Nutrition Follow-Up Complete: Inadequate energy intake related to lack of alertness as evidenced by nursing report Goal: Alert and oriented Greater than 50% intake of meals Patient is meeting goal. No new goal. Pt current nutrition is Soft and Bite Sized, Level 6/Renal Dialysis. Last recorded weight is 89 kg up from 83 kg on admit. Bowel Motility:+BM reported 12/10 Labs Reviewed:Glu 157, GFR 17, BUN 37, Cr 3.6 Meds Noted:Reglan, Miralax,Protonix, NovoLog,Lantus Skin: WNL Additional Notes: Patient seen today for nutrition follow up. Eating breakfast at this time. Oral [id number]% of meals. Patient is drinking nutritional supplements of Nepro shakes BID providing an additional 420 kcals and 19 gms protein. Agree with diet orders. Monitor status, intake, wt, labs. Follow up in 7 days.
[2022-12-10 12:07] LABS: Glucose Point of Care 232 mg/dl (65-105)
[2022-12-10] MEDS: INSULIN ASPART (*BKC) 100 UNITS/ML SUB-Q (12:21)
[2022-12-10] MEDS: SIMETHICONE 80 MG TAB.CHEW PO ×3 (12:25→20:05)
[2022-12-10 14:00] VITALS: BP 96/58; PULSE 98; RESP 18; TEMP 36.8; O2SAT 100
[2022-12-10 18:15] LABS: Glucose Point of Care 179 mg/dl (65-105)
[2022-12-10 19:40] VITALS: BP 100/74; PULSE 92; RESP 18; TEMP 36.5; O2SAT 100
[2022-12-10 20:00] VITALS: PULSE 92; RESP 18; O2SAT 100
[2022-12-10 20:48] LABS: Glucose Point of Care 189 mg/dl (65-105)
[2022-12-11] VITALS (18 sets, daily range): BP systolic 145–199; BP diastolic 63–103; PULSE 97–110; RESP 18–20; TEMP 36–36.8; O2SAT 95–100
[2022-12-11] MEDS: METOCLOPRAMIDE HCL INJ 10 MG/2 ML VIAL IV PUSH ×3 (05:43→23:04)
[2022-12-11] MEDS: CENTRAL LINE FLUSH 10 ML IV PUSH ×3 (05:43→20:15)
[2022-12-11] MEDS: LEVOTHYROXINE SODIUM 100 MCG TABLET PO (05:44)
[2022-12-11 06:17] LABS: Basophils Percent Auto 0.3 % (0.2-1.2); Eosinophils Absolute Auto 0.3 K/mm3 (0-0.3); Eosinophils Percent Auto 2.4 % (0-4.4); Hematocrit 26.2 % (42.0-52.0); Immature Granulocyte Absolute 0.38 K/mm3 (0.00-0.031); Immature Granulocyte Percent A 3.5 % (0-0.5); Lymphocytes Absolute Auto 0.75 K/mm3 (0.9-3.2); Mean Corpuscular HGB Conc 30.5 g/dl (32-36); Mean Corpuscular Hemoglobin 31.6 pg (26-34); Mean Corpuscular Volume 103.6 fl (80-100); Mean Platelet Volume 10.7 fl (7.4-10.4); Monocytes Absolute Auto 0.4 K/mm3 (0.1-0.6); Monocytes Percent Auto 3.8 % (2.6-8.5); Neutrophils Absolute Auto 8.9 K/mm3 (1.3-6.7); Platelet Count Result 110 k/mm3 (150-375); Red Blood Count 2.53 M/mm3 (4.6-6.20); Red Cell Distribution Width 24.8 % (11.5-14.5); White Blood Count 10.8 K/mm3 (4.5-10.0)
[2022-12-11 06:28] LABS: Alanine Aminotransferase 31 U/L (6-50); Alkaline Phosphatase 124 U/L (38-126); Anion Gap 3 mmol/L (8-16); Aspartate Amino Transferase 19 U/L (17-59); Bilirubin,Total 1.1 mg/dL (0.2-1.3); Blood Urea Nitrogen 47 mg/dL (9-20); Calcium 8.5 mg/dL (8.4-10.2); Carbon Dioxide 33 mmol/L (22-30); Chloride 93 mmol/L (98-107); Estimated CRCL calculation 17 ml/min; Estimated Glomerular Filt Rate 14; Glucose 137 mg/dL (65-110); Magnesium 2.1 mg/dL (1.6-2.3); Phosphorus 1.9 mg/dL (2.5-4.5); Potassium 4.3 mmol/L (3.4-5.0); Sodium 129 mmol/L (137-145)
[2022-12-11 07:57] LABS: Platelet Estimate Adequate (Adequate)
[2022-12-11 07:58] LABS: Anisocytosis 1+ (NORMAL); Schistocytes Rare (NORMAL)
[2022-12-11 08:50] LABS: Glucose Point of Care 120 mg/dl (65-105)
--- NOTE | 2022-12-11 08:50 | PCOTNOTE ---
Attempted to see Patient at this time for OT treatment session. Patient getting ready to be taken to dialysis at this time, unable to be seen.
[2022-12-11] MEDS: EPOETIN ALFA-EPBX 20,000 UNITS/ML VIAL 20000 UNITS IV PUSH (10:07)
--- NOTE | 2022-12-11 12:17 | PM.PNNEP ---
Progress Note: A&P Assessment and Plan (1) End stage renal disease: Code(s): N18.6 - End stage renal disease Status: Chronic Assessment and Plan: HD today continue M/W/F schedule while hospitalized follow electrolytes, volume status, and clearance holding sevelamer since phosphorus is low (2) Septic shock: Code(s): A41.9 - Sepsis, unspecified organism; R65.21 - Severe sepsis with septic shock Status: Acute Assessment and Plan: resolved as noted by worsening WBC, hypoxia, lactic acidosis, and hypotension follow culture data blood culture with Enterococcus + Staph aureus repeat cultures (11/20/22) positive s/p MIKE -- no evidence of endocarditis recent blood culture negative to date (11/25 and 11/28) s/p IV antibiotics - completed course (on 12/08/22) off pressors now (3) Anemia: Code(s): D64.9 - Anemia, unspecified Status: Acute Assessment and Plan: related to ESRD and acute illness unable to give venofer due infection/bacteremia increased Epogen dose with HD PRBC transfusion per protocol follow trend of H/H (4) Encephalopathy: Code(s): G93.40 - Encephalopathy, unspecified Status: Acute Assessment and Plan: resolved thought to be due to Valtrex overdose but sepsis was likely playing a role as well follow mentation (5) Herpes zoster infection of thoracic region: Code(s): B02.9 - Zoster without complications Status: Acute Assessment and Plan: no further antiviral therapy at this time continue supportive therapy (6) Atrial fibrillation: Qualifiers: Atrial fibrillation type: paroxysmal Qualified Code(s): I48.0 - Paroxysmal atrial fibrillation Code(s): I48.91 - Unspecified atrial fibrillation Status: Chronic Assessment and Plan: rate control strategy anticoagulation on hold (7) Insulin dependent diabetes mellitus: Status: Acute Assessment and Plan: follow accuchecks glycemic control per hospitalists/anesthesiology resident Will continue to follow. Subjective Date/time seen: 12/11/22 12:17 Interval history: Follow-up for end stage renal disease on hemodialysis. Tolerating dialysis treatment at the time of my visit (seen on HD at 12:05PM); no new issues or problems voiced at this time; breathing stable and tolerating oral intake; no apparent distress noted; still refusing rehab despite clear evidence of deconditioning from this hospitalization. Exam Narrative: General: WD/WN male in NAD Heart: normal S1 and S2; no rub Lungs: clear anteriorly; decreased at bases Abdomen: soft, nontender, nondistended, positive bowel sounds Extremities: trace edema noted Skin: warm and intact Objective Data Vital Signs Vital Signs: Vital Signs Temp Pulse Resp BP Pulse Ox O2 Del Method FiO2 12/11/22 12:16 104 H 155/87 H 12/11/22 12:00 103 H 145/75 H 12/11/22 11:40 105 H 175/65 H 12/11/22 11:20 103 H 155/88 H 12/11/22 11:00 102 H 174/99 H 12/11/22 10:40 103 H 162/91 H 12/11/22 10:20 101 H 166/94 H 12/11/22 10:00 101 H 199/99 H 12/11/22 09:40 100 188/103 H 12/11/22 09:26 97 174/101 H 12/11/22 09:15 97.4 F L 100 20 188/95 H 96 12/11/22 08:00 Room Air 12/11/22 04:25 97.1 F L 101 H 18 151/63 H 100 12/10/22 20:00 92 18 100 Room Air 28 12/10/22 19:40 97.7 F 92 18 100/74 100 12/10/22 14:00 98.2 F 98 18 96/58 L 100 Intake/Output Intake/Output: Intake & Output 12/08/22 12/09/22 12/10/22 12/11/22 23:59 23:59 23:59 23:59 Intake Total 1720 1580 1540 250 Output Total 2600 800 Balance 1720 -1020 740 250 Meds/Results Medications: Active Medications Generic Name Dose Route Start Last Admin Trade Name Freq PRN Reason Stop Dose Admin Acetaminophen 650 mg 12/07/22 13:50 12/10/22 00:26 Acetam
--- NOTE | 2022-12-11 12:17 | P.PNNP_ITS ---
Progress Note: A&P Assessment and Plan (1) End stage renal disease: Code(s): N18.6 - End stage renal disease Status: Chronic Assessment and Plan: * HD today * continue M/W/F schedule while hospitalized * follow electrolytes, volume status, and clearance * holding sevelamer since phosphorus is low (2) Septic shock: Code(s): A41.9 - Sepsis, unspecified organism; R65.21 - Severe sepsis with septic shock Status: Acute Assessment and Plan: * resolved * as noted by worsening WBC, hypoxia, lactic acidosis, and hypotension * follow culture data * blood culture with Enterococcus + Staph aureus * repeat cultures (11/20/22) positive * s/p MIKE -- no evidence of endocarditis * recent blood culture negative to date (11/25 and 11/28) * s/p IV antibiotics - completed course (on 12/08/22) * off pressors now (3) Anemia: Code(s): D64.9 - Anemia, unspecified Status: Acute Assessment and Plan: * related to ESRD and acute illness * unable to give venofer due infection/bacteremia * increased Epogen dose with HD * PRBC transfusion per protocol * follow trend of H/H (4) Encephalopathy: Code(s): G93.40 - Encephalopathy, unspecified Status: Acute Assessment and Plan: * resolved * thought to be due to Valtrex overdose but sepsis was likely playing a role as well * follow mentation (5) Herpes zoster infection of thoracic region: Code(s): B02.9 - Zoster without complications Status: Acute Assessment and Plan: * no further antiviral therapy at this time * continue supportive therapy (6) Atrial fibrillation: Qualifiers: Atrial fibrillation type: paroxysmal Qualified Code(s): I48.0 - Paroxysmal atrial fibrillation Code(s): I48.91 - Unspecified atrial fibrillation Status: Chronic Assessment and Plan: * rate control strategy * anticoagulation on hold (7) Insulin dependent diabetes mellitus: Status: Acute Assessment and Plan: * follow accuchecks * glycemic control per hospitalists/crowd controller Will continue to follow. Subjective Date/time seen: 12/11/22 12:17 Interval history: Follow-up for end stage renal disease on hemodialysis. Tolerating dialysis treatment at the time of my visit (seen on HD at 12:05PM); no new issues or problems voiced at this time; breathing stable and tolerating oral intake; no apparent distress noted; still refusing rehab despite clear evidence of deconditioning from this hospitalization. Exam Narrative: General: WD/WN male in NAD Heart: normal S1 and S2; no rub Lungs: clear anteriorly; decreased at bases Abdomen: soft, nontender, nondistended, positive bowel sounds Extremities: trace edema noted Skin: warm and intact Objective Data Vital Signs Vital Signs: Vital Signs Temp Pulse Resp BP Pulse Ox O2 Del Method FiO2 12/11/22 12:16 104 H 155/87 H 12/11/22 12:00 103 H 145/75 H 12/11/22 11:40 105 H 175/65 H 12/11/22 11:20 103 H 155/88 H 12/11/22 11:00 102 H 174/99 H 12/11/22 10:40 103 H 162/91 H 12/11/22 10:20 101 H 166/94 H 12/11/22 10:00 101 H 199/99 H 12/11/22 09:40 100 188/103 H 12/11/22 09:26 97 174/101 H
--- NOTE | 2022-12-11 12:23 | PM.IMPN ---
Progress Note: A&P Assessment and Plan (1) Acute respiratory failure: Code(s): J96.00 - Acute respiratory failure, unspecified whether with hypoxia or hypercapnia Status: Acute Assessment and Plan: Acute respiratory failure likely secondary to pulmonary edema with possibility of pneumonia which could be aspiration -now extubated. Continue antibiotics. Overall respiratory status is much improved. 12/10/2022:Patient initially admitted on 11/07/2022 . end-stage renal disease on hemodialysis in the insulin-dependent diabetes atrial fibrillation on chronic anticoagulation valvular heart disease status post trans catheter aortic valve replacement bioprosthetic mitral valve replacement on 10/03/2022 obstructive sleep apnea and hypertension . presented with altered mental status. He recently had shingles treated with valacyclovir after which he started getting confused. Eventually went into a respiratory failure was intubated extubated on 11/21. On 11/28 patient had PEG tube placed. Initially was NPO however now eating Adequately. Working with therapy. Blood culture positive for Enterococcus faecalis being treated with ampicillin and vancomycin. Repeat cultures been negative so far. finished total 2 weeks of antibiotic course. Getting dialysis as per schedule per individual pension adviser. Plan for rehab placement at [facility] however patient refusing. anemia acute on chronic needing transfusion during the hospital stay. Mild thrombocytopenia noted. Mild hyponatremia. (2) Sepsis: Code(s): A41.9 - Sepsis, unspecified organism Status: Acute Assessment and Plan: CSF study with EBV DNA positive. Blood culture repeat on 11/28 negative to date. blood culture from 11/20/2022 with Enterococcus faecalis x2. Blood culture from 11/16/2022 with Enterococcus faecalis and MSSA. Sepsis secondary to pneumonia suggested as etiology for his altered mental status. MIKE on 11/25 negative for vegetation. Treatment with ampicillin vancomycin for Enterococcus faecalis and Staph aureus bacteremia 2 weeks from negative blood culture is already concluded. (3) Pneumonia: Code(s): J18.9 - Pneumonia, unspecified organism Status: Acute Assessment and Plan: See above (4) Encephalopathy: Code(s): G93.40 - Encephalopathy, unspecified Status: Acute Assessment and Plan: Improving (5) Herpes zoster infection of thoracic region: Code(s): B02.9 - Zoster without complications Status: Acute Assessment and Plan: Patient was treated earlier and currently off of antiviral drugs (6) Antiviral drug overdose: Code(s): T37.5X1A - Poisoning by antiviral drugs, accidental (unintentional), initial encounter Status: Acute Assessment and Plan: The patient has been taking 1000 mg of valacyclovir t.i.d. as detailed above. His altered mental status and delirium are likely result of iatrogenic overdose. (7) End-stage renal disease on hemodialysis: Code(s): N18.6 - End stage renal disease; Z99.2 - Dependence on renal dialysis Status: Acute Assessment and Plan: Continue dialysis. (8) Insulin dependent diabetes mellitus: Status: Acute Assessment and Plan: Sliding scale insulin and Accu-Cheks -will hold Lantus as patient may be extubated (9) Atrial fibrillation: Qualifiers: Atrial fibrillation type: paroxysmal Qualified Code(s): I48.0 - Paroxysmal atrial fibrillation Code(s): I48.91 - Unspecified atrial fibrillation Status: Chronic Assessment and Plan: P.o. amiodarone Continue apixaban (10) Elevated LFTs: Code(s): R79.89 - Other specified abnormal findings of blood chemistry Status: Acute Assessment and Plan: Monitor (11) Hypothyroidism: Code(s): E03.9 - Hypothyroidism, unspecified Status: Acute Assessment and Plan: Continue levothyroxine (12) Throm
--- NOTE | 2022-12-11 14:26 | PCPTNOTE ---
Attempted to see patient for PT, however patient was on the phone and family asked if PT can come back.
[2022-12-11] MEDS: APIXABAN 2.5 MG TABLET PO (17:15)
[2022-12-11] MEDS: SIMETHICONE 80 MG TAB.CHEW PO ×2 (17:15→20:15)
[2022-12-11] MEDS: SILVERGEL (ELTA) 45 ML 1 APPLIC TOPICAL (17:15)
[2022-12-11] MEDS: MIDODRINE HCL 2.5 MG TABLET 5 MG PO (17:15)
[2022-12-11 17:16] LABS: Glucose Point of Care 173 mg/dl (65-105)
[2022-12-11] MEDS: PANTOPRAZOLE 40 MG TABLET PO (20:15)
[2022-12-11 21:06] LABS: Glucose Point of Care 232 mg/dl (65-105)
[2022-12-11] MEDS: MELATONIN 5 MG TABLET PO (23:04)
[2022-12-12 04:15] VITALS: BP 107/48; PULSE 68; RESP 18; TEMP 36.6; O2SAT 96
[2022-12-12] MEDS: METOCLOPRAMIDE HCL INJ 10 MG/2 ML VIAL IV PUSH ×2 (05:24→12:44)
[2022-12-12] MEDS: CENTRAL LINE FLUSH 10 ML IV PUSH ×2 (05:24→17:33)
[2022-12-12] MEDS: LEVOTHYROXINE SODIUM 100 MCG TABLET PO (05:24)
[2022-12-12 05:53] LABS: Hematocrit 27.6 % (42.0-52.0); Hemoglobin 8.1 g/dL (14.0-18.0); Mean Corpuscular HGB Conc 29.3 g/dl (32-36); Mean Corpuscular Hemoglobin 30.9 pg (26-34); Mean Corpuscular Volume 105.3 fl (80-100); Mean Platelet Volume 12.1 fl (7.4-10.4); Platelet Count Result 123 k/mm3 (150-375); Red Blood Count 2.62 M/mm3 (4.6-6.20); Red Cell Distribution Width 25.2 % (11.5-14.5); White Blood Count 10.3 K/mm3 (4.5-10.0)
[2022-12-12 06:12] LABS: Albumin Level 3.1 g/dL (3.5-5.1); Anion Gap 6 mmol/L (8-16); Blood Urea Nitrogen 30 mg/dL (9-20); Calcium 8.4 mg/dL (8.4-10.2); Carbon Dioxide 29 mmol/L (22-30); Chloride 97 mmol/L (98-107); Estimated CRCL calculation 23 ml/min; Estimated Glomerular Filt Rate 19; Glucose 139 mg/dL (65-110); Phosphorus 1.8 mg/dL (2.5-4.5); Potassium 4.1 mmol/L (3.4-5.0); Sodium 132 mmol/L (137-145)
[2022-12-12 07:42] VITALS: PULSE 95; O2SAT 96
[2022-12-12 08:07] LABS: Glucose Point of Care 119 mg/dl (65-105)
[2022-12-12 08:53] VITALS: PULSE 95
[2022-12-12] MEDS: APIXABAN 2.5 MG TABLET PO ×2 (08:53→17:33)
[2022-12-12] MEDS: SIMETHICONE 80 MG TAB.CHEW PO ×4 (08:53→20:15)
[2022-12-12] MEDS: AMIODARONE HCL 200 MG TABLET PO (08:53)
[2022-12-12] MEDS: PANTOPRAZOLE 40 MG TABLET PO ×2 (08:53→20:16)
[2022-12-12] MEDS: MIDODRINE HCL 2.5 MG TABLET 5 MG PO ×3 (08:53→17:33)
[2022-12-12] MEDS: SILVERGEL (ELTA) 45 ML 1 APPLIC TOPICAL (08:55)
--- NOTE | 2022-12-12 11:02 | PM.PNNEP ---
Progress Note: A&P Assessment and Plan (1) End stage renal disease: Code(s): N18.6 - End stage renal disease Status: Chronic Assessment and Plan: HD tomorrow continue M/W/ schedule while hospitalized follow electrolytes, volume status, and clearance holding sevelamer since phosphorus is low (2) Septic shock: Code(s): A41.9 - Sepsis, unspecified organism; R65.21 - Severe sepsis with septic shock Status: Acute Assessment and Plan: resolved as noted by worsening WBC, hypoxia, lactic acidosis, and hypotension prior to admission to ICU follow culture data blood culture with Enterococcus + Staph aureus repeat cultures (11/20/22) positive s/p MIKE -- no evidence of endocarditis recent blood culture negative to date (11/25 and 11/28) s/p IV antibiotics - completed course (on 12/08/22) off pressors now (3) Anemia: Code(s): D64.9 - Anemia, unspecified Status: Acute Assessment and Plan: related to ESRD and acute illness unable to give venofer due infection/bacteremia increased Epogen dose with HD PRBC transfusion per protocol follow trend of H/H (4) Encephalopathy: Code(s): G93.40 - Encephalopathy, unspecified Status: Acute Assessment and Plan: resolved thought to be due to Valtrex overdose but sepsis was likely playing a role as well follow mentation (5) Herpes zoster infection of thoracic region: Code(s): B02.9 - Zoster without complications Status: Acute Assessment and Plan: no further antiviral therapy at this time continue supportive therapy (6) Atrial fibrillation: Qualifiers: Atrial fibrillation type: paroxysmal Qualified Code(s): I48.0 - Paroxysmal atrial fibrillation Code(s): I48.91 - Unspecified atrial fibrillation Status: Chronic Assessment and Plan: rate control strategy anticoagulation on hold (7) Insulin dependent diabetes mellitus: Status: Acute Assessment and Plan: follow accuchecks glycemic control per hospitalists/[employer] tm1 developer Will continue to follow. Subjective Date/time seen: 12/12/22 11:02 Interval history: Follow-up for end stage renal disease on hemodialysis. Tolerated dialysis treatment yesterday without any issues or problems; still not receptive to rehab post discharge at this time; eating and drinking okay; no apparent distress noted; breathing and mentation remain quite stable. Exam Narrative: General: WD/WN male in NAD Heart: normal S1 and S2; no rub Lungs: clear anteriorly; decreased at bases Abdomen: soft, nontender, nondistended, positive bowel sounds Extremities: trace edema noted Skin: warm and intact Objective Data Vital Signs Vital Signs: Vital Signs Temp Pulse Resp BP Pulse Ox O2 Del Method FiO2 12/12/22 08:00 Room Air 12/12/22 08:53 95 12/12/22 07:42 95 96 Room Air 12/12/22 04:15 97.8 F 68 18 107/48 L 96 12/11/22 20:00 103 H 18 97 Room Air 28 12/11/22 20:20 97.4 F L 103 H 18 148/85 H 97 12/11/22 14:00 98.2 F 110 H 18 100 Intake/Output Intake/Output: Intake & Output 12/09/22 12/10/22 12/11/22 12/12/22 23:59 23:59 23:59 23:59 Intake Total 1580 1540 970 590 Output Total 2600 800 2000 Balance -1020 740 -1030 590 Meds/Results Medications: Active Medications Generic Name Dose Route Start Last Admin Trade Name Freq PRN Reason Stop Dose Admin Acetaminophen 650 mg 12/07/22 13:50 12/10/22 00:26 Acetaminophen 325 Mg Tablet PO 650 mg Q4H PRN Administration Headache Amiodarone HCl 200 mg 12/08/22 08:00 12/12/22 08:53 Amiodarone Hcl 200 Mg Tablet PO 200 mg DAILY@0800 BARBARA Administration Apixaban 2.5 mg 11/20/22 09:00 12/12/22 08:53 Apixaban 2.5 Mg Tablet PO 2.5 mg BID BARBARA Administration Capsaicin 1 applic 11/27/22 11:41 12/10/22 08:40 Capsaicin 0.025% Cream
--- NOTE | 2022-12-12 11:02 | P.PNNP_ITS ---
Progress Note: A&P Assessment and Plan (1) End stage renal disease: Code(s): N18.6 - End stage renal disease Status: Chronic Assessment and Plan: * HD tomorrow * continue M/W/F schedule while hospitalized * follow electrolytes, volume status, and clearance * holding sevelamer since phosphorus is low (2) Septic shock: Code(s): A41.9 - Sepsis, unspecified organism; R65.21 - Severe sepsis with septic shock Status: Acute Assessment and Plan: * resolved * as noted by worsening WBC, hypoxia, lactic acidosis, and hypotension prior to admission to ICU * follow culture data * blood culture with Enterococcus + Staph aureus * repeat cultures (11/20/22) positive * s/p MIKE -- no evidence of endocarditis * recent blood culture negative to date (11/25 and 11/28) * s/p IV antibiotics - completed course (on 12/08/22) * off pressors now (3) Anemia: Code(s): D64.9 - Anemia, unspecified Status: Acute Assessment and Plan: * related to ESRD and acute illness * unable to give venofer due infection/bacteremia * increased Epogen dose with HD * PRBC transfusion per protocol * follow trend of H/H (4) Encephalopathy: Code(s): G93.40 - Encephalopathy, unspecified Status: Acute Assessment and Plan: * resolved * thought to be due to Valtrex overdose but sepsis was likely playing a role as well * follow mentation (5) Herpes zoster infection of thoracic region: Code(s): B02.9 - Zoster without complications Status: Acute Assessment and Plan: * no further antiviral therapy at this time * continue supportive therapy (6) Atrial fibrillation: Qualifiers: Atrial fibrillation type: paroxysmal Qualified Code(s): I48.0 - Paroxysmal atrial fibrillation Code(s): I48.91 - Unspecified atrial fibrillation Status: Chronic Assessment and Plan: * rate control strategy * anticoagulation on hold (7) Insulin dependent diabetes mellitus: Status: Acute Assessment and Plan: * follow accuchecks * glycemic control per hospitalists/mail order clerk Will continue to follow. Subjective Date/time seen: 12/12/22 11:02 Interval history: Follow-up for end stage renal disease on hemodialysis. Tolerated dialysis treatment yesterday without any issues or problems; still not receptive to rehab post discharge at this time; eating and drinking okay; no a pparent distress noted; breathing and mentation remain quite stable. Exam Narrative: General: WD/WN male in NAD Heart: normal S1 and S2; no rub Lungs: clear anteriorly; decreased at bases Abdomen: soft, nontender, nondistended, positive bowel sounds Extremities: trace edema noted Skin: warm and intact Objective Data Vital Signs Vital Signs: Vital Signs Temp Pulse Resp BP Pulse Ox O2 Del Method FiO2 12/12/22 08:00 Room Air 12/12/22 08:53 95 12/12/22 07:42 95 96 Room Air 12/12/22 04:15 97.8 F 68 18 107/48 L 96 12/11/22 20:00 103 H 18 97 Room Air 28 12/11/22 20:20 97.4 F L 103 H 18 148/85 H 97 12/11/22 14:00 98.2 F 110 H 18 100 Intake/Output Intake/Output: Intake & Output 12/09/22 12/10/22 12/11/22 12/12/22
--- NOTE | 2022-12-12 11:14 | PM.DS ---
DS: Admitting Diagnosis Discharge Date 12/12/2022 Admitting Diagnosis Sepsis Bacteremia DS: Discharge Diagnosis Discharge Diagnosis (1) Bacteremia: Code(s): R78.81 - Bacteremia Status: Acute (2) Septic shock: Code(s): A41.9 - Sepsis, unspecified organism; R65.21 - Severe sepsis with septic shock Status: Acute (3) End-stage renal disease on hemodialysis: Code(s): N18.6 - End stage renal disease; Z99.2 - Dependence on renal dialysis Status: Acute (4) Insulin dependent diabetes mellitus: Status: Acute DS: Summary Hospital Course Hospital Course: Patient initially admitted on 11/07/2022 . end-stage renal disease on hemodialysis in the insulin-dependent diabetes atrial fibrillation on chronic anticoagulation valvular heart disease status post trans catheter aortic valve replacement bioprosthetic mitral valve replacement on 10/03/2022 obstructive sleep apnea and hypertension . presented with altered mental status.? He recently had shingles treated with valacyclovir after which he started getting confused.? Eventually went into a respiratory failure was intubated extubated on 11/21.? On 11/28 patient had PEG tube placed.? Initially was NPO however now eating.? Working with therapy.? Blood culture positive for Enterococcus faecalis being treated with ampicillin and vancomycin.? Repeat cultures been negative so far. ? finished total 2 weeks of antibiotic course.? Getting dialysis as per schedule per certified recreational therapist.? anemia acute on chronic needing transfusion during the hospital stay.? Mild thrombocytopenia noted.? Mild hyponatremia.? CSF study with EBV DNA positive.? Blood culture repeat on 11/28 negative to date blood culture from 11/20/2022 with Enterococcus faecalis x2.? Blood culture from 11/16/2022 with Enterococcus faecalis and MSSA.? Sepsis secondary to pneumonia suggested as etiology for his altered mental status.? [place] on 11/25 negative for vegetation.? Continue ampicillin vancomycin for Enterococcus faecalis and Staph aureus bacteremia 2 weeks from negative blood culture? And this is already concluded. Initially had septic shock requiring Levophed.? Echo with EF 65-70% altered mental status is also suspected to be secondary to iatrogenic overdose on valacyclovir dosed at 1 g t.i.d. instead of 500 mg on dialysis days after dialysis.? CT scan of head is negative.? CTA head and neck without significant stenosis.? Unable to do MRI due to recent mitral valve replacement.? Hepatitis C antibody positive but RNA PCR was negative.? 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 atrial fibrillation on amiodarone and apixaban.? Elevated LFTs on admission with subsequent improvement hepatitis panel was positive for hepatitis-C antibody but RNA PCR was negative.? Right upper quadrant ultrasound was normal.? Hypothyroidism thrombocytopenia.? DVT prophylaxis on Eliquis. Needs rehabilitation patient refusing go to the rehab.? Patient is being discharged home. Continue outpatient hemodialysis per Nephrology. Time Spent with Patient Time attestation: Total time spent providing and/or coordinating discharge services: Exam Narrative: General: WD/WN male in NAD Heart: normal S1 and S2; no rub Lungs: clear anteriorly; decreased at bases Abdomen: soft, nontender, nondistended, positive bowel sounds Extremities: trace edema noted Skin: warm and intact DS: Data Data Completed and Pending Completed studies during hospitalization: Pending at discharge 11/08/22 16:00 Cytology [PTH] Routine Labs on day of discharge: Labs from last 24 hours 12/12/22 12/12/22 12/11/22 08:03 05:34 20:23 WBC 10.3 H RBC 2.62 L Hgb 8.1 L Hct 27.6 L MCV 105.3 H MCH 30.9 MCHC 29.3 L RDW 25.2 H Plt Count 123 L MPV 12.1 H Sodium 132 L Potassium 4.1 Chloride 97 L Carbon Dioxide 29 Anion Gap 6 L BUN 30 H D Creatinine 3.30 H Est
[2022-12-12 12:26] LABS: Glucose Point of Care 226 mg/dl (65-105)
[2022-12-12] MEDS: INSULIN ASPART (*BKC) 100 UNITS/ML SUB-Q (12:44)
[2022-12-12 14:00] VITALS: BP 109/73; PULSE 105; RESP 20; TEMP 37; O2SAT 99
--- NOTE | 2022-12-12 16:37 | PC.NURSE ---
Pt going home today. Pt does not want to be placed for rehab despite the need. Pt education provided by this nurse, care coordination and MD regarding concern for his safety while at home. Supplies given to pt and education provided on how to change dressing on his Gtube site and IJ line neck dressing. Pt is aware that he needs to be up and moving around, and not stay in bed. Pt needs to be as independent as possible. Pt will need help to and from dialysis. Family is aware of the type of help pt will need while at home. Pt reminded to use walker when ambulating. Pt incontinent at this time. is aware that he will need to be changed regularly. Home Health to see him after DC.
[2022-12-12 17:18] LABS: Glucose Point of Care 141 mg/dl (65-105)
[2022-12-12] MEDS: NEOMYCIN/POLYMYXIN/BACITRACIN OINTMENT PACKET 1 PACKET (17:33)
[2022-12-12 19:58] VITALS: BP 99/67; PULSE 97; RESP 16; TEMP 36.7; O2SAT 96
[2022-12-12 20:00] VITALS: PULSE 97; RESP 16; O2SAT 96
== END 2022-12-12 20:45 | disposition home health service (06) | DRG 917 ==
LOC: ANHED 10:56 → ANHIMU 13:12 → ANH3MEDSUR 11-14 18:38 → ANHICU 11-16 06:09 → ANH3MED 11-30 16:33
PROVIDERS: Family Medicine; Internal Medicine; Internal Medicine Gastroenterology; Internal Medicine Nephrology; Physician Assistant; Specialist; Admitting Provider Student in an Organized Health Care Education/Training Program; Emergency Provider Emergency Medicine; PCP Nurse Practitioner Family; Visit Provider Hospitalist
PROC: B24BZZ4 Ultrasonography of Heart with Aorta, Transesophageal (ICD-10-PCS; CPT 93312; principal; 2022-11-25 14:00)
PROC: 0DH63UZ Insertion of Feeding Device into Stomach, Percutaneous Approach (ICD-10-PCS; CPT 43246; principal; 2022-11-28 16:00)
DX: T37.5X1A Poisoning by antiviral drugs, accidental (unintentional), initial encounter (principal); A41.9 Sepsis, unspecified organism; G92.8 Other toxic encephalopathy; G93.41 Metabolic encephalopathy; J18.9 Pneumonia, unspecified organism; R65.21 Severe sepsis with septic shock; N18.6 End stage renal disease; J96.01 Acute respiratory failure with hypoxia; J69.0 Pneumonitis due to inhalation of food and vomit; R57.0 Cardiogenic shock; I12.0 Hypertensive chronic kidney disease with stage 5 chronic kidney disease or end stage renal disease; E87.1 Hypo-osmolality and hyponatremia; I48.20 Chronic atrial fibrillation, unspecified; J81.1 Chronic pulmonary edema; K25.3 Acute gastric ulcer without hemorrhage or perforation; E11.22 Type 2 diabetes mellitus with diabetic chronic kidney disease; B95.2 Enterococcus as the cause of diseases classified elsewhere; B95.61 Methicillin susceptible Staphylococcus aureus infection as the cause of diseases classified elsewhere; Z20.822 Contact with and (suspected) exposure to COVID-19; R00.0 Tachycardia, unspecified; R94.5 Abnormal results of liver function studies; D63.1 Anemia in chronic kidney disease; D69.6 Thrombocytopenia, unspecified; R13.19 Other dysphagia; G47.33 Obstructive sleep apnea (adult) (pediatric); K31.89 Other diseases of stomach and duodenum; E03.9 Hypothyroidism, unspecified; I95.9 Hypotension, unspecified; E78.5 Hyperlipidemia, unspecified; B02.9 Zoster without complications; E66.01 Morbid (severe) obesity due to excess calories; Z68.31 Body mass index [BMI] 31.0-31.9, adult; F17.210 Nicotine dependence, cigarettes, uncomplicated; Z99.2 Dependence on renal dialysis; Z95.2 Presence of prosthetic heart valve; Z79.01 Long term (current) use of anticoagulants
CPT/HCPCS: 36415; 36430; 36600; 43246; 43752; 62328; 70450; 70496; 70498; 71045; 71250; 74018; 74019; 74176; 76705; 80053; 80069; 80202; 80299; 82140; 82375; 82607; 82746; 82805; 82945; 82948; 83036; 83050; 83605; 83690; 83735; 84100; 84145; 84157; 84439; 84443; 84480; 85025; 85027; 85055; 85384; 85610; 85730; 86022; 86023; 86140; 86403; 86592; 86617; 86705; 86706; 86709; 86803; 86850; 86900; 86901; 86923; 87015; 87040; 87070; 87077; 87081; 87102; 87116; 87186; 87205; 87206; 87340; 87522; 87529; 87636; 87798; 88108; 89051; 92610; 93005; 93306; 93312; 93320; 93325; 93970; 94002; 94003; 96372; 96374; 97110; 97162; 97166; 97530; 97535; 99199; 99285; A9270; C1751; C9113; G0257; G0378; J0282; J0290; J0295; J0696; J1630; J1644; J1720; J1815; J1885; J1940; J2020; J2250; J2270; J2405; J2543; J2765; J3010; J3370; J3430; J7030; J7040; J7050; J7060; P9016; P9045; P9047; Q5105; Q9967